=== PATIENT | male | born 1940 | race Caucasian/White ===

== ENCOUNTER → 2022-06-09 | Outpatient (CLI) | payer MEDICARE ==
--- NOTE | 2022-06-09 14:16 | US ---
EXAMINATION TYPE: US duplex aorta DATE OF EXAM: 06/09/2022 COMPARISON: NONE CLINICAL HISTORY: I73.9 PVD, Z13.6 SCREENING FOR CARDIOVASCULAR DISO. Patient not NPO TECHNIQUE: Multiple sonographic images of the abdominal aorta are obtained. FINDINGS: EXAM MEASUREMENTS: Abdominal Aorta: Proximal: 2.1 x 2.0cm Mid: 1.7 x 1.7cm Distal: 1.7 x 1.7cm Right Iliac: 0.9 x 1.0cm Left Iliac: 1.1 x 0.9cm No AAA seen IMPRESSION: No evidence for abdominal aortic aneurysm.
--- NOTE | 2022-06-12 09:05 | US ---
EXAMINATION TYPE: US arterial LE single level DATE OF EXAM: 06/09/2022 1:39 PM CLINICAL HISTORY: I73.9 PVD, Z13.6 SCREENING FOR CARDIOVASCULAR DISO. Claudication, cold feet, leg cr amps. Peripheral vascular disease. History of hyperlipidemia and hypertension. Doppler Waveforms: Right: Predominantly monophasic Left: Predominantly monophasic Pressure Gradients: Ankle-Brachial Indices: Right: 0.74 Left: 0.62 Toe Brachial Indices: Right: 0.34 Left: 0.32 IMPRESSION: Abnormal study with loss of phasicity and diminished JONA and TBI values. At least modera te peripheral arterial disease is present bilaterally. Further workup and follow-up advised.
== END | disposition home or self-care (01) ==
LOC: RADUSWWP 12:42
PROVIDERS: ATTEND Internal Medicine
DX: Z13.6 Encounter for screening for cardiovascular disorders (principal); I73.9 Peripheral vascular disease, unspecified
CPT/HCPCS: 93922; 93979

== ENCOUNTER → 2023-02-05 | Outpatient (CLI) | payer MEDICARE ==
[2023-02-05 09:38] LABS: African American GFR (CKD) >90 (>60 ml/min/1.73 sqM); Blood Urea Nitrogen 17 mg/dL (9-20); Non-African American GFR(CKD) 81 (>60 ml/min/1.73 sqM)
--- NOTE | 2023-02-05 11:01 | CT ---
EXAMINATION TYPE: CT angio abd aorta w/Runoff CT DLP: 2256.4 mGycm, Automated exposure control for dose reduction was used. DATE OF EXAM: 02/05/2023 10:30 AM COMPARISON: Aortic ultrasound 06/09/2022. CLINICAL INDICATION:Male, 82 years old with history of I73.9 PERIPHERAL VASCULAR DISEASE; WEAKNESS IN LEGS TECHNIQUE: Multiple thin slice sub-millimeter images were obtained through the abdomen, pelvis, and l ower extremities before and after administration of contrast. Patient was given Isovue 370, 100 cc i ntravenously. 3-D reconstructed images and maximum intensity projection images were obtained of the abdomen, pelvis, and lower extremities. FINDINGS: Limited examination due to poor contrast bolus timing. CTA Abdomen and pelvis: The abdominal aorta does not demonstrate aneurysmal dilatation. Atherosclero tic plaquing is identified within the abdominal aorta. No evidence for aortic intramural hematoma. Th e celiac axis is widely patent. Mild stenosis at the origin of the SMA secondary to calcified plaque. Mild stenosis of the bilateral single renal arteries which are patent secondary to calcific plaque. The LAURYN is widely patent. The iliac vessels are normal in morphology. Atherosclerotic plaquing is id entified in the common iliac arteries. CTA Lower extremities: Right: The common femoral artery is patent. Occlusion of the superficial femoral artery at its origin secondary to calcified and noncalcified plaque. There is distal reconstitution into the popliteal ar marciano. The deep femoral artery is patent. The popliteal artery is patent. Multifocal short segment dis madhu popliteal artery stenosis identified. The tibioperoneal trunk appears patent. The anterior tibial artery is diminutive and poorly visualized. The peroneal and posterior tibial arteries are patent an d appear to cross the ankle joint. Left: The common femoral artery is patent. Occlusion of the superficial femoral artery at its origin secondary to calcified and noncalcified plaque. There is distal reconstitution. The deep femoral kevin ry is patent. The popliteal artery is occluded due to calcified and noncalcified plaque. There is dis madhu reconstitution into the tibioperoneal trunk. The anterior tibial is diminutive and poorly seen. T he peroneal and posterior tibial arteries appear patent and do appear to cross the ankle joint. VISCERA: The liver, spleen, adrenal glands, kidneys, pancreas, and gallbladder are not optimally enha nced due the arterial phase utilized. LIVER: Unremarkable GALLBLADDER AND BILE DUCTS: Unremarkable. PANCREAS: Unremarkable. SPLEEN: Unremarkable. ADRENAL GLANDS: Unremarkable. KIDNEYS AND URETERS: No evidence of hydronephrosis . Nonobstructive right renal calculus. PELVIS BLADDER: Unremarkable REPRODUCTIVE: Unremarkable. ABDOMEN & PELVIS STOMACH AND BOWEL: Stomach and duodenum are unremarkable area distal colonic diverticulosis without e vidence for acute diverticulitis No evidence of bowel obstruction. PERITONEUM: No evidence of pneumoperitoneum or free fluid. VASCULATURE: No evidence of aortic aneurysm. MUSCULOSKELETAL: No acute osseous abnormalities LYMPH NODES: No gross evidence for lymphadenopathy. SOFT TISSUE/ABDOMINAL WALL: Unremarkable IMPRESSION 1. Occlusion of the bilateral superficial femoral arteries as described above. Occlusion of the left popliteal artery as described above. Multilevel short segment stenosis of the distal right popliteal artery. 2. 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 3. At least two vessels are seen crossing the ankle joint.
== END | disposition home or self-care (01) ==
LOC: RADCTMAIN 08:55
PROVIDERS: ATTEND Surgery
DX: I70.212 Atherosclerosis of native arteries of extremities with intermittent claudication, left leg (principal); I70.0 Atherosclerosis of aorta
CPT/HCPCS: 82565; 84520; 75635; Q9967

== ENCOUNTER → 2023-02-16 | Outpatient (CLI) | payer MEDICARE ==
[2023-02-16 11:15] LABS: Partial Thromboplastin Time 25.9 sec (22.0-30.0); Prothrombin Time 10.5 sec (9.0-12.0)
[2023-02-16 15:51] LABS: HCT 42.4 % (39.6-50.0); HGB 13.7 g/dL (13.0-17.0); MCH 31.3 pg (27.0-32.0); MCHC 32.3 g/dL (32.0-37.0); MCV 96.8 fL (80.0-97.0); Mean Platelet Volume 10.3 fL (9.5-12.2); NRBC Per 100 WBC 0 /100 WBCS (0.0-0.0); Platelet Count 269 X 10*3/uL (140-440); RBC 4.38 X 10*6/uL (4.40-5.60); RDW 13.3 % (11.5-14.5); WBC 6.89 X 10*3/uL (4.50-10.00)
== END | disposition home or self-care (01) ==
LOC: LABPAT 09:41
PROVIDERS: ATTEND Surgery
DX: Z01.812 Encounter for preprocedural laboratory examination (principal)
CPT/HCPCS: 36415; 85027; 85610; 85730

== ENCOUNTER 2023-02-18 06:30 | Inpatient (IN) | payer MEDICARE ==
[~2023-02-18 06:30] MED LIST: ONDANSETRON 4 MG/2 ML VIAL IVP ONE
[2023-02-18] MEDS ORDERED: LIDOCAINE 1% (10MG/ML) FOR IV START INTRADERMA ONE ×2 (07:20)
[2023-02-18] MEDS: LACTATED RINGERS 1,000 ML IV SCH (07:20)
[2023-02-18] MEDS ORDERED: DEXTROSE 5%-LACTATED RINGERS 1,000 ML IV STA (08:01)
[2023-02-18] MEDS ORDERED: LACTATED RINGERS IRRIGATION SCH ×2 (08:05)
[2023-02-18] MEDS ORDERED: HEPARIN SODIUM IRRIGATION SCH ×2 (08:05)
[2023-02-18] MEDS: fentaNYL (PF) 50 MCG/ML 2 ML AMP IV PRN ×2 (09:20→10:12)
--- NOTE | 2023-02-18 09:30 | P.ANPRN ---
Procedure Note - Anesthesia - Invasive Line Right Arterial Line Time Out Performed: Yes ([id number]) Date of Procedure: 02/18/23 Time of Procedure: 07:53 Location of Patient: PreOp Preparation: Sterile Prep, Sterile Dressing Arterial Line Location: Radial (right) Ultrasound Used: No Purpose - Visualization and Identification of Vasculature: No Needle Guage: 20g Image Stored and Saved: No Narrative: Central line placement per sterile protocol utilized.
[2023-02-18] MEDS ORDERED: PHENYLEPHRINE-0.9% NACL SYG 1,000 MCG/10 ML SYRINGE ONE (10:18)
[2023-02-18] MEDS ORDERED: HYDROmorphone (PF) 1 MG/ML ONE (10:18)
[2023-02-18] MEDS ORDERED: fentaNYL (PF) 50 MCG/ML 2 ML AMP ONE (10:18)
[2023-02-18] MEDS ORDERED: LIDOCAINE 2% INJ 20 MG/ML (2 ML VIAL) ONE (10:18)
[2023-02-18] MEDS ORDERED: PROPOFOL 10 MG/ML 20 ML VIAL IV ONE (10:18)
[2023-02-18] MEDS ORDERED: MIDAZOLAM 2 MG/2 ML VIAL ONE (10:18)
[2023-02-18] MEDS ORDERED: NEOSTIGMINE 1 MG/ML 10 ML VIAL ONE (10:18)
[2023-02-18] MEDS ORDERED: SUCCINYLCHOLINE CHLORIDE 200 MG/10 ML VIAL IV ONE (10:18)
[2023-02-18] MEDS ORDERED: HEPARIN SODIUM,PORCINE 10,000 UNIT/ML 1 ML VIAL ONE (10:18)
[2023-02-18] MEDS ORDERED: GLYCOPYRROLATE 0.2 MG/ML 2 ML VIAL ONE (10:18)
[2023-02-18] MEDS ORDERED: ROCURONIUM 10 MG/ML (5 ML VIAL) IV ONE (10:18)
[2023-02-18] MEDS ORDERED: ceFAZolin 1,000 MG VIAL IVPB ONE (10:30)
[2023-02-18] MEDS ORDERED: HEPARIN SODIUM,PORCINE 500 UNIT in LACTATED RINGERS 1,000 ML IRRIGATION ONE (10:56)
[2023-02-18] MEDS ORDERED: ceFAZolin 4 GM in SODIUM CHLORIDE 0.9% 1,000 ML IRRIGATION ONE (10:56)
[2023-02-18] MEDS ORDERED: LACTATED RINGERS 1,000 ML IV ONE ×2 (13:28→13:55)
--- NOTE | 2023-02-18 14:42 | P.HPIHPCON ---
History of Present Illness H&P Date: 02/18/23 Patient is a 82-year-old male severe peripheral arterial disease and rest pain of his left lower extremity. Previous computed tomography scan imaging showed apparent patent tibial vessels at the midcalf. He has good inflow it was offered a femoral to tibial bypass. His vein was suspect therefore a CryoVein is being utilized. Risks and benefits were discussed. He seemingly understood and wished to continue Consent for Procedure: I have explained the operation/procedure to the patient, including the risks, benefits, side effects, alternative therapies (including not receiving the proposed treatment or service), the likelihood of the patient achieving his/her goals, and potential recuperation problems for the procedure/sedation/analgesia, as well as any blood products, if indicated. I also explained to the patient the risks, benefits and side effects of the alternatives, as well as the risks related to not receiving the proposed procedure, care, treatment, or services. Past Medical History Past Medical History: Deep Vein Thrombosis (DVT), Eye Disorder, Hyperlipidemia, Hypertension, Osteoarthritis (OA), Vascular Disorder Additional Past Medical History / Comment(s): macular degeneration, DVT leg years ago 2000, leg pain, bilateral leg swelling > left. left leg is red , Dr Curran is aware from appt on 02/10/23 History of Any Multi-Drug Resistant Organisms: None Reported Past Surgical History: Orthopedic Surgery Additional Past Surgical History / Comment(s): cataracts removed, cervical fusion Past Anesthesia/Blood Transfusion Reactions: No Reported Reaction Smoking Status: Former smoker - Past Family History Brother(s) Family Medical History: Cancer, Coronary Artery Disease (CAD) Additional Family Medical History / Comment(s): 2 brothers Medications and Allergies Home Medications Medication Instructions Recorded Confirmed Type HYDROcodone/APAP 5-325MG [[place] 1 tab PO Q4H PRN 02/15/23 02/15/23 History 5-325] RX: Pravastatin Sodium 80 mg PO HS 02/15/23 02/15/23 History Rivaroxaban [Xarelto] 15 mg PO BID 02/15/23 02/15/23 History lisinopriL [Prinivil] 10 mg PO DAILY 02/15/23 02/15/23 History Allergies Allergy/AdvReac Type Severity Reaction Status Date / Time No Known Allergies Allergy Verified 02/18/23 06:59 Surgical - Exam Vital Signs Temp Pulse Resp BP Pulse Ox 97.8 F 80 16 190/82 96 02/18/23 07:11 02/18/23 07:11 02/18/23 07:11 02/18/23 07:11 02/18/23 07:11 No acute distress resting comfortably. Left lower extremity pain. Palpable femoral pulses bilaterally. Erythematous red foot. Worsen the second and third toes. Motor sensory intact. No palpable pedal pulses. Assessment and Plan Assessment: [place] 4 peripheral arterial disease SFA occlusion bilaterally. Plan: Plan to go forward with left femoral to tibial bypass with CryoVein. Possibly may need angiogram at the time to determine the patent vessel site. Risks and benefits were discussed. They seem to understand and are willing to proceed. Jerome damico was cleared by his primary care physician
--- NOTE | 2023-02-18 14:53 | P.OP ---
Date of Procedure: 02/18/23 Description of Procedure: Preoperative diagnosis: [place] 4 peripheral arterial disease Postoperative diagnosis: Same Procedure: Left femoral to posterior tibial bypass at the midcalf with CryoVein Left posterior tibial artery endarterectomy Surgeon: Coral Curran D.O. [employer] Dispatcher: Micaela Brown EBL: 100 mL IV fluids: See records Drains: None Urine output: 900 mL Specimen: None Complications: None Condition: Stable, extubated in the OR to PACU Operative indication and findings: The patient is an 82-year-old male with rest pain of his left lower extremity. He was offered a femoral to tibial bypass with CryoVein. Risks and benefits were discussed including but not limited to bleeding, infection, limb loss, heart attack, poor wound healing and . The patient seemingly understood and was willing to proceed. Procedure in detail: Patient taken to the operative suite placed in supine position and intubated. A Curran catheter was placed. The abdomen and left lower extremity prepped and draped in usual sterile fashion. A preprocedure timeout was performed and all parties are in agreement. A longitudinal incision was made in the left groin with the scalpel. It was deepened through subcutaneous tissues with electrocautery. The encountered lymphatics were ligated and divided. The femoral sheath was opened sharply. The common femoral artery was dissected free circumferentially. The dissection was extended proximally to the level of the inguinal ligament, and distally at the distal common femoral. The circumflex artery was also included in dissection. They were encircled with vessel loops. Attention was then turned towards the below-knee incision. It was made in the medial condyle and deepened through the fascia with care to avoid the saphenous vein. The saphenous vein itself appeared sclerotic in nature. Dissection was carried down distally to the popliteal artery. Muscle fibers were dissected free. At the TP trunk, the vessel was very hard in nature. There was no audible signal with Doppler. It was dissected free proximal and distally and incision was made and there was no evidence of outflow. There is significant atherosclerotic disease at this level. Further dissection was carried down to the more distal posterior tibial artery at the mid calf. It did not feel much softer at this level however it was encircled proximally and distally. An arteriotomy was performed, a dilator was used and distal backflow was noted. There was significant calcium of this level also endarterectomy was performed. There were no areas of flap. At that point the vein was then tunneled. The patient was heparinized. Flow was occluded through the common femoral artery. An 11 blade was utilized and arteriotomy is made the Naidu-Parker scissors was utilized to enlarge the arteriotomy. There was good inflow from the proximal artery. An anastomosis created using 5-0 Prolene between the femoral artery and the cadaver vein. Prior to completion of the anastomosis, flow was flushed. The anastomosis was completed. The vein was marked. It was passed through the tunneler. The vein was cut to size and spatulated. Utilizing 6-0 Prolene an anastomosis was created. Hemostasis was achieved with interrupted sutures of 6- 0 Prolene At this point all anastomoses were completed and flow was resumed through the bypass graft. A Doppler was utilized to confirm multiphasic flow distally to the anastomosis. The wound was copiously irrigated with antibiotic solution. The femoral sheath was reapproximated with interrupted sutures of 3-0 Vicryl. The subcuticular tissue was reapproximated with 3-0 Vicryl. The skin was reprepped with running sutures of 4-0 Monocryl. Thecalf inciion was reapproximated with 3-0 Vicryl. The subcutaneous tissues were reapproximated with 3-0 Vicryl and the skin with running 4-0 Monocryl in subcuticular fashion.
[2023-02-18] MEDS: HYDROmorphone 0.5 MG/0.5 ML SYRINGE IVP PRN ×4 (14:57→21:16)
[2023-02-18] MEDS ORDERED: ONDANSETRON 4 MG/2 ML VIAL IVP PRN (15:57)
[2023-02-18] MEDS: RIVAROXABAN 20 MG TAB PO SCH (17:57)
[2023-02-18] MEDS: HYDROcodone/APAP 5-325MG 1 EACH TAB PO PRN ×2 (17:59→23:19)
[2023-02-19] MEDS: MORPHINE SULFATE 4 MG/ML SYRINGE IV PRN ×4 (00:10→11:41)
[2023-02-19] MEDS: HYDROcodone/APAP 5-325MG 1 EACH TAB PO PRN ×3 (08:25→22:44)
--- NOTE | 2023-02-19 09:09 | P.PN ---
Subjective Progress Note Date: 02/19/23 Patient's postoperative day #1 from left femoral to posterior tibial artery bypass with CryoVein. He states his pain in his leg has improved. He did not have to hold his leg over the bed to sleep at night. He thinks the swelling is mildly improved as well Objective - Vital Signs Vital signs: Vital Signs Temp 98.3 F 02/19/23 08:09 Pulse 90 02/19/23 08:09 Resp 20 02/19/23 08:09 BP 154/79 02/19/23 08:09 Pulse Ox 96 02/19/23 08:09 FiO2 Intake & Output 02/18/23 02/19/23 02/19/23 18:59 06:59 18:59 Intake Total 2453.05 118 Output Total 1900 900 Balance 553.05 -900 118 Weight 82.9 kg Intake: IV 2403.05 Intake, IV Titration 50 Amount ceFAZolin 2 gm In Sodium 50 Chloride 0.9% 50 ml @ 100 mls/hr IVPB Q8H [facility] Rx#: [id number] Oral 118 Output: Urine 1800 900 Estimated Blood Loss 100 Other: Voiding Method Indwelling Catheter - Exam No acute distress. Resting comfortably. Incisions are clean and dry. No evidence of hematoma or significant swelling. Tongue is improved. He will foot has improved. Improved capillary refill. There is a multiphasic signal at the posterior tibial. Assessment and Plan Assessment: [place] 4 peripheral arterial disease SFA occlusion bilaterally. Plan: Patient doing well overall. Increase activity. Pain control seems adequate. Continue medications, add gabapentin.
--- NOTE | 2023-02-19 15:07 | P.CONS ---
History of Present Illness - Reason for Consult Consult date: 02/19/23 Medical Management Requesting physician: Coral Curran - History of Present Illness History of Presenting Illness: Patient is a very pleasant 82-year-old male with a past medical history of hypertension, hyperlipidemia, DVT, macular degeneration, and peripheral arterial disease. Patient is currently admitted under vascular surgery team status post left femoral to posterior tibial bypass completed by Dr. Curran on 02/18/23. We have been consulted for medical management throughout hospitalization. Patient seen and fully evaluated at bedside this morning. He is postoperative day 1. Currently patient reports only experiencing mild to moderate postoperative pain. In addition patient has been experiencing postoperative urinary retention requiring straight catheterization. Patient denies having any headache, lightheadedness, dizziness, chest pain, palpitations, or shortness of breath. Review of systems: Pertinent positives and negatives as discussed in HPI, a complete review of systems was performed and all other systems are negative. Physical exam: Vital signs reviewed and stable. General: Nontoxic, no distress and appears stated age. Derm: Skin warm and dry, normal coloration for ethnicity. Head: Atraumatic, normocephalic and symmetric. Eyes: EOMs intact, no lid lag, and anicteric sclera Mouth: no lip lesions, mucus membranes moist Cardiovascular: regular rate and rhythm with normal S1S2, systolic murmur, positive posterior tibial pulses bilaterally, and cap refill < 2 seconds. Lungs: Respirations even, regular, and unlabored on room air. Lungs CTA bilaterally, no rhonchi, no rales, no wheezing, and no accessory muscle usage. Abdominal: soft, nontender to palpation, no guarding, no appreciable organomegaly Ext: ROM intact. No gross muscle atrophy, Bilateral lower extremity edema, Taiwo arterial discoloration left lower extremity. Postoperative dressing clean, dry, and intact to left medial lower leg. Neuro: Speech clear, face symmetrical and CN II-XII grossly intact with no noted focal neuro deficits Psych: Alert and oriented to person, place, time, and situation. Appropriate and pleasant affect. Assessment and Plan of Care: Postoperative urinary retention -Order placed for Flomax 0.4 mg daily and patient to continue undergoing bladder management/scanning for postvoid residuals and straight cath as needed. Hypertension -Monitor vital signs and continue daily medication regimen with lisinopril 10 mg daily. Hyperlipidemia -Continue pravastatin 80 mg nightly. Peripheral arterial disease -Continue Xarelto as resumed by primary admitting vascular surgery team. -Continue neurovascular checks left lower extremity every shift and as needed. -Postoperative dressing/wound care, pain management, and DVT prophylaxis as recommended by primary admitting vascular surgery team. -Order placed for morning CBC and CMP, will follow up on these results and place additional orders as indicated. Thank you for allowing us to participate in the care of this pleasant patient. Do not hesitate to contact us with questions. Someone can be reached from the [facility] hospitalist group all hours of the day at [phone] or via [employer]. Patient was seen independently by Nurse Practitioner. This document was prepared using [employer] dictation software. Please allow for errors in director of outside sales while rare they do occur. I reviewed the documentation as provided by the SAMI above, who is the original author of this note. I agree with the documented assessment and plan, with the following changes: none Past Medical History Past Medical History: Deep Vein Thrombosis (DVT), Eye Disorder, Hyperlipidemia, Hypertension, Osteoarthritis (OA), Vascular Disorder Additional Past Medical History / Comment(s): macular degeneration, DVT leg years ago 2000, leg pain, bilateral leg swelling > left. left leg is red , Dr Curran is aware from appt on 02/10/23 History of Any Multi-Drug Resistant Organisms: None Reported Past Surgical History: Orthopedic Surgery Additional Past Surgical History / Comment(s): cataracts removed, cervical fusi on Past Anesthesia/Blood Transfusion Reactions: No Reported Reaction Smoking Status: Former smoker - Past Family History Brother(s) Family Medical History: Cancer, Coronary Artery Disease (CAD) Additional Family Medical History / Comment(s): 2 brothers Medications and Allergies Home Medications Medication Instructions Recorded Confirmed Type Pravastatin Sodium 80 mg PO HS 02/15/23 02/15/23 History lisinopriL [Prinivil] 10 mg PO DAILY 02/15/23 02/15/23 History Gabapentin [Neurontin] 300 mg PO TID #21 cap 02/22/23 Rx HYDROcodone/APAP 5-325MG [[place] 1 each PO Q6HR PRN 7 Days #28 tab 02/22/23 Rx 5-325] Rivaroxaban [Xarelto] 20 mg PO W/SUPPER #30 tab 02/22/23 Rx Tamsulosin [Flomax] 0.4 mg PO PC-SUPPER #7 cap 02/22/23 Rx Allergies Allergy/AdvReac Type Severity Reaction Status Date / Time No Known Allergies Allergy Verified 02/18/23 06:59 Physical Exam Vitals: Vital Signs Temp Pulse Pulse Resp BP BP Pulse Ox 02/19/23 11:57 98.3 F 98 20 152/60 92 L 02/19/23 08:09 98.3 F 90 20 154/79 96 02/19/23 03:20 98.0 F 85 14 143/72 98 02/18/23 23:17 97.7 F 105 H 16 173/75 92 L 02/18/23 19:35 97.7 F 92 18 148/74 97 02/18/23 18:55 16 156/77 94 L 02/18/23 18:52 85 16 188/73 02/18/23 18:30 86 16 173/70 97 02/18/23 16:28 77 16 167/76 97 02/18/23 16:02 75 16 167/74 97 02/18/23 15:47 85 16 166/67 97 02/18/23 15:30 79 16 139/61 97 02/18/23 15:15 69 16 129/73 97 02/18/23 15:02 73 16 142/64 178/57 97 02/18/23 14:45 75 14 188/76 97 Intake and Output 02/18/23 02/19/23 02/19/23 22:59 06:59 14:59 Intake Total 50 118 Output Total 1300 500 Balance -1250 -500 118 Intake: IV 0 Intake, IV Titration 50 Amount ceFAZolin 2 gm In Sodium 50 Chloride 0.9% 50 ml @ 100 mls/hr IVPB Q8H [facility] Rx#: [id number] Oral 118 Output: Urine 1300 500 Other: Voiding Method Indwelling Catheter Indwelling Catheter Results CBC & Chem 7: 02/22/23 10:02 02/22/23 10:02
[2023-02-19] MEDS: lisinopriL 10 MG TAB PO SCH (17:25)
[2023-02-19] MEDS: TAMSULOSIN 0.4 MG CAP.ER.24H PO SCH (17:25)
[2023-02-19] MEDS: GABAPENTIN 300 MG CAP PO SCH ×2 (17:26→21:09)
[2023-02-19] MEDS: RIVAROXABAN 20 MG TAB PO SCH (17:26)
[2023-02-19] MEDS: PRAVASTATIN SODIUM 80 MG TAB PO SCH (21:09)
[2023-02-20] MEDS: HYDROcodone/APAP 5-325MG 1 EACH TAB PO PRN ×4 (05:23→20:01)
[2023-02-20 07:12] LABS: HCT 31.2 % (39.0-53.0); HGB 10.5 gm/dL (13.0-17.5); MCH 31.5 pg (25.0-35.0); MCHC 33.7 g/dL (31.0-37.0); MCV 93.6 fL (80.0-100.0); Mean Platelet Volume 7.7; Platelet Count 195 k/uL (150-450); RBC 3.33 m/uL (4.30-5.90); RDW 13.1 % (11.5-15.5); WBC 9.2 k/uL (3.8-10.6)
[2023-02-20 07:40] LABS: ALT 10 U/L (4-49); AST 31 U/L (17-59); African American GFR (CKD) >90 (>60 ml/min/1.73 sqM); Albumin 3.3 g/dL (3.5-5.0); Alkaline Phosphatase 69 U/L (38-126); Anion Gap 10 mmol/L; Blood Urea Nitrogen 13 mg/dL (9-20); Calcium 8.3 mg/dL (8.4-10.2); Carbon Dioxide 25 mmol/L (22-30); Chloride 100 mmol/L (98-107); Glucose 110 mg/dL (74-99); Non-African American GFR(CKD) 84 (>60 ml/min/1.73 sqM); Potassium 3.9 mmol/L (3.5-5.1); Sodium 135 mmol/L (137-145); Total Protein 5.9 g/dL (6.3-8.2)
[2023-02-20] MEDS: lisinopriL 10 MG TAB PO SCH (08:55)
[2023-02-20] MEDS: GABAPENTIN 300 MG CAP PO SCH ×3 (08:55→22:37)
--- NOTE | 2023-02-20 14:37 | P.PN ---
Subjective Progress Note Date: 02/20/23 History of Presenting Illness: Patient is a very pleasant 82-year-old male with a past medical history of hypertension, hyperlipidemia, DVT, macular degeneration, and peripheral arterial disease. He is currently admitted under vascular surgery team status post left femoral to posterior tibial bypass completed by Dr. Curran on 02/18/23. We have been consulted for medical management throughout hospitalization. Physical exam: Patient seen and fully evaluated at bedside this morning. He is postoperative day 2. He was initially having postoperative urinary retention requiring str aight catheterization 2 events. Patient was started on Flomax 0.4 mg daily in urinary retention appears to have resolved as patient has been using urinal overnight without any reported episodes of urinary retention. Morning labs reviewed and stable with hemoglobin of 10.5. Patient reports pain remains and left lower extremity and rates 10 out of 10 at this time, patient medicated with [place] by RN this time. Patient reports he continues to have difficulties standing and unable to ambulate. Patient denies having any headache, lightheadedness, dizziness, chest pain, palpitations, shortness of breath, or any other complaints at this time. Vital signs reviewed and stable. General: Nontoxic, no distress and appears stated age. Derm: Skin warm and dry, normal coloration for ethnicity. Head: Atraumatic, normocephalic and symmetric. Eyes: EOMs intact, no lid lag, and anicteric sclera Mouth: no lip lesions, mucus membranes moist Cardiovascular: regular rate and rhythm with normal S1S2, systolic murmur, positive posterior tibial pulses bilaterally, and cap refill < 2 seconds. Lungs: Respirations even, regular, and unlabored on room air. Lungs CTA bilaterally, no rhonchi, no rales, no wheezing, and no accessory muscle usage. Abdominal: soft, nontender to palpation, no guarding, no appreciable organomegaly Ext: ROM intact. No gross muscle atrophy, Bilateral lower extremity edema, Taiwo arterial discoloration left lower extremity. Postoperative dressing clean, dry, and intact to left medial lower leg. Neuro: Speech clear, face symmetrical and CN II-XII grossly intact with no noted focal neuro deficits Psych: Alert and oriented to person, place, time, and situation. Appropriate and pleasant affect. Assessment and Plan of Care: Postoperative blood loss anemia, expected finding -Reviewed labs in chart. Preoperative hemoglobin obtained 02/16/23 resulting at 13.7. -Morning labs completed and reviewed showing a postoperative hemoglobin of 10.5. No signs of active bleeding noted. Hemoglobin is stable with no need for transfusion or any further interventions at this time. Postoperative urinary retention -Patient was initially having postoperative urinary retention requiring straight catheterization 2 events. -Patient was started on Flomax 0.4 mg daily in urinary retention appears to have resolved as patient has been using urinal overnight without any reported episodes of urinary retention -Continue Flomax 0.4 mg daily along with continued bladder management/scanning for postvoid residuals and straight cath as needed. Hypertension -Monitor vital signs and continue daily medication regimen with lisinopril 10 mg daily. Hyperlipidemia -Continue pravastatin 80 mg nightly. Peripheral arterial disease Status post femoral-tibial bypass -Continue Xarelto as resumed by primary admitting vascular surgery team. -Continue neurovascular checks left lower extremity every shift and as needed. -Postoperative dressing/wound care, pain management, and DVT prophylaxis as recommended by primary admitting vascular surgery team. -Order placed for morning CBC and CMP, will follow up on these results and place additional orders as indicated. Thank you for allowing us to participate in the care of this pleasant patient. Do not hesitate to contact us with questions. Someone can be reached from the [facility] hospitalist group all hours of the day at [phone] or via S[employer]o. Patient was seen independently by Nurse Practitioner. This document was prepared using [employer] dictation software. Please allow for errors in dosier operator while rare they do occur. I reviewed the documentation as provided by the SAMI above, who is the original author of this note. I agree with the documented assessment and plan, with the following changes: none Objective - Vital Signs Vital signs: Vital Signs Temp 98.1 F 02/20/23 04:00 Pulse 107 H 02/20/23 04:00 Resp 16 02/20/23 04:00 BP 166/67 02/20/23 04:00 Pulse Ox 90 L 02/20/23 04:00 FiO2 Intake & Output 02/19/23 02/20/23 02/20/23 18:59 06:59 18:59 Intake Total 118 Output Total 700 0 Balance -582 0 Intake: Oral 118 Output: Urine 700 0 Straight 700 Other: Voiding Method Urinal # Voids 0 - Labs CBC & Chem 7: 02/22/23 10:02 02/22/23 10:02 Labs: Abnormal Lab Results - Last 24 Hours (Table) 02/20/23 02/20/23 Range/Units 06:21 06:21 RBC 3.33 L (4.30-5.90) m/uL Hgb 10.5 L (13.0-17.5) gm/dL Hct 31.2 L (39.0-53.0) % Sodium 135 L (137-145) mmol/L Glucose 110 H (74-99) mg/dL Calcium 8.3 L (8.4-10.2) mg/dL Total Protein 5.9 L (6.3-8.2) g/dL Albumin 3.3 L (3.5-5.0) g/dL
--- NOTE | 2023-02-20 15:01 | P.PN ---
Subjective Progress Note Date: 02/20/23 Patient postoperative day #2 from left femoral to posterior tibial artery bypass with CryoVein. He states his pain in his leg has improved he thinks the swelling has improved. He has been able to ambulate a few steps. He still has pain in his foot. He thinks it is worse in his calf and partially related the incision. He has been denying morphine as the family and sitting makes different than normal. He is refusing going to rehab for further recommended therapies as he states he can do this at home Objective - Vital Signs Vital signs: Vital Signs Temp 98.1 F 02/20/23 04:00 Pulse 95 02/20/23 12:00 Resp 16 02/20/23 12:00 BP 128/64 02/20/23 12:00 Pulse Ox 93 L 02/20/23 12:00 FiO2 Intake & Output 02/19/23 02/20/23 02/20/23 18:59 06:59 18:59 Intake Total 118 720 Output Total 700 0 100 Balance -582 0 620 Intake: Oral 118 720 Output: Urine 700 0 100 Straight 700 Other: Voiding Method Urinal Urinal # Voids 0 - Exam No acute distress. Resting comfortably. Incisions are clean and dry. No evidence of hematoma or significant swelling. Erythema in his foot is significantly improved . He has mild swelling of left lower extremity, improved from previous Improved capillary refill. There is a biphasic signal at the posterior tibial. - Labs CBC & Chem 7: 02/20/23 06:21 02/20/23 06:21 Labs: Abnormal Lab Results - Last 24 Hours (Table) 02/20/23 02/20/23 Range/Units 06:21 06:21 RBC 3.33 L (4.30-5.90) m/uL Hgb 10.5 L (13.0-17.5) gm/dL Hct 31.2 L (39.0-53.0) % Sodium 135 L (137-145) mmol/L Glucose 110 H (74-99) mg/dL Calcium 8.3 L (8.4-10.2) mg/dL Total Protein 5.9 L (6.3-8.2) g/dL Albumin 3.3 L (3.5-5.0) g/dL Assessment and Plan Assessment: [place] 4 peripheral arterial disease, status post femoral to tibial bypass with CryoVein SFA occlusion bilaterally. Plan: Patient doing well overall. Increase activity. Continue pain control gabapentin. Discussion with patient regarding adequate pain control possibility of using IV pain medication if it becomes necessary. Discussed the importance o f COPD and need for rehab at length. Again essentially adamantly refused stating he can do this at home and that the pupil. The hospital was not very helpful and chemotherapy. We had discussions regarding the level of therapy in the acute setting versus subacute rehab. Again M be known that he would benefit from this, he continues to refuse.
[2023-02-20] MEDS: TAMSULOSIN 0.4 MG CAP.ER.24H PO SCH (16:50)
[2023-02-20] MEDS: RIVAROXABAN 20 MG TAB PO SCH (16:50)
[2023-02-20] MEDS: PRAVASTATIN SODIUM 80 MG TAB PO SCH (20:01)
[2023-02-21] MEDS: HYDROcodone/APAP 5-325MG 1 EACH TAB PO PRN ×4 (00:49→21:46)
[2023-02-21] MEDS: GABAPENTIN 300 MG CAP PO SCH ×3 (08:25→21:46)
[2023-02-21] MEDS: lisinopriL 10 MG TAB PO SCH (08:25)
[2023-02-21] MEDS ORDERED: diazePAM 5 MG TAB PO STA (09:15)
--- NOTE | 2023-02-21 11:59 | P.PN ---
Subjective Progress Note Date: 02/21/23 Hospital Course: Patient is a very pleasant 82-year-old male with a past medical history of hypertension, hyperlipidemia, DVT, macular degeneration, and peripheral arterial disease. He is currently admitted under vascular surgery team status post left femoral to posterior tibial bypass completed by Dr. Curran on 02/18/23. We have been consulted for medical management throughout hospitalization. Physical exam: Patient seen and fully evaluated at bedside this morning. He is postoperative day 3. He continues to have mild postoperative urinary retention, but has improved. Initially required straight catheterization 2 events but since starting on Flomax he has had no greater than 200 mL of postvoid residual documented.. Patient continues to deny having any headache, lightheadedness, dizziness, chest pain, palpitations, shortness of breath, or any other complaints at this time. Vital signs reviewed and stable. General: Nontoxic, no distress and appears stated age. Derm: Skin warm and dry, normal coloration for ethnicity. Head: Atraumatic, normocephalic and symmetric. Eyes: EOMs intact, no lid lag, and anicteric sclera Mouth: no lip lesions, mucus membranes moist Cardiovascular: regular rate and rhythm with normal S1S2, systolic murmur, positive posterior tibial pulses bilaterally, and cap refill < 2 seconds. Lungs: Respirations even, regular, and unlabored on room air. Lungs CTA bilaterally, no rhonchi, no rales, no wheezing, and no accessory muscle usage. Abdominal: soft, nontender to palpation, no guarding, no appreciable organomegaly Ext: ROM intact. No gross muscle atrophy, Bilateral lower extremity edema, Taiwo arterial discoloration left lower extremity. Postoperative dressing clean, dry, and intact to left medial lower leg. Neuro: Speech clear, face symmetrical and CN II-XII grossly intact with no noted focal neuro deficits Psych: Alert and oriented to person, place, time, and situation. Appropriate and pleasant affect. Assessment and Plan of Care: Postoperative blood loss anemia, expected finding -Reviewed labs in chart. Preoperative hemoglobin obtained 02/16/23 resulting at 13.7 and postoperative hemoglobin obtained on 02/20/23 was 10.5. -No signs of active bleeding noted. Hemoglobin is stable with no need for transfusion. We will repeat CBC with a.m. labs. Postoperative urinary retention -Patient was initially having postoperative urinary retention requiring straight catheterization 2 events. -Patient continues to have mild postoperative urinary retention, but has improved. Initially required straight catheterization 2 events but since starting on Flomax he has had no greater than 200 mL of postvoid residual documented. -Continue Flomax 0.4 mg daily along with continued bladder management/scanning for postvoid residuals and straight cath as needed. Hypertension -Monitor vital signs and continue daily medication regimen with lisinopril 10 mg daily. Hyperlipidemia -Continue pravastatin 80 mg nightly. Peripheral arterial disease Status post femoral-tibial bypass -Continue Xarelto 20 mg nightly with dinner. -Continue neurovascular checks left lower extremity every shift and as needed. -Postoperative dressing/wound care, pain management, and DVT prophylaxis as recommended by primary admitting vascular surgery team. -Order placed for morning CBC and CMP, will follow up on these results and place additional orders as indicated. Thank you for allowing us to participate in the care of this pleasant patient. Do not hesitate to contact us with questions. Someone can be reached from the [facility] hospitalist group all hours of the day at [phone] or via Protonet. Patient was seen independently by Nurse Practitioner. This document was prepared using [employer] dictation software. Please allow for errors in phone screener while rare they do occur. I reviewed the documentation as provided by the SAMI above, who is the original author of this note. I agree with the documented assessment and plan, with the following changes: none Objective - Vital Signs Vital signs: Vital Signs Temp 98.2 F 02/21/23 08:00 Pulse 91 02/21/23 08:00 Resp 16 02/21/23 08:00 BP 156/68 02/21/23 08:00 Pulse Ox 92 L 02/21/23 08:00 FiO2 Intake & Output 02/20/23 02/21/23 02/21/23 18:59 06:59 18:59 Intake Total 840 Output Total 450 200 275 Balance 390 -200 -275 Intake: Oral 840 Output: Urine 450 275 Post Void Residual 200 Other: Voiding Method Urinal Urinal Urinal - Labs CBC & Chem 7: 02/22/23 10:02 02/22/23 10:02
--- NOTE | 2023-02-21 12:29 | P.PN ---
Subjective Progress Note Date: 02/21/23 Principal diagnosis: LLE limb ischemia patient seen and evaluated. Having pain in the left foot and calf since surgery. Feels swollen. He states no one has gotten him walking in the last couple of days. He denies any fevers, chills, chest pain or shortness of breath. Objective - Vital Signs Vital signs: Vital Signs Temp 98.2 F 02/21/23 08:00 Pulse 91 02/21/23 12:00 Resp 16 02/21/23 12:00 BP 157/75 02/21/23 12:00 Pulse Ox 92 L 02/21/23 12:00 FiO2 Intake & Output 02/20/23 02/21/23 02/21/23 18:59 06:59 18:59 Intake Total 840 Output Total 450 200 275 Balance 390 -200 -275 Intake: Oral 840 Output: Urine 450 275 Post Void Residual 200 Other: Voiding Method Urinal Urinal Urinal - Exam multiphasic pt signal good capillary refill 1+ edema left foot. Incisions sites are clean, dry and intact - Constitutional General appearance: Present: average body habitus, cooperative - Labs CBC & Chem 7: 02/20/23 06:21 02/20/23 06:21 Assessment and Plan Assessment: Left lower extremity limb ischemia postop left femoral to posterior tibial artery bypass with cryo vein parasthesia left lower extremity Plan: Continue supportive care, pain control I walked patient with the nurse to the bathroom with minimal assistance for balance mostly. Instructed patient and family to elevate leg when sitting or lying in bed. Ok to ambulate with assistance. PT to continue to treat Possible discharge in next 24-48 hours.
[2023-02-21] MEDS: TAMSULOSIN 0.4 MG CAP.ER.24H PO SCH (16:48)
[2023-02-21] MEDS: RIVAROXABAN 20 MG TAB PO SCH (16:48)
[2023-02-21] MEDS: PRAVASTATIN SODIUM 80 MG TAB PO SCH (21:46)
[2023-02-22] MEDS: HYDROcodone/APAP 5-325MG 1 EACH TAB PO PRN ×2 (08:21→12:50)
[2023-02-22] MEDS: lisinopriL 10 MG TAB PO SCH (08:21)
[2023-02-22] MEDS: GABAPENTIN 300 MG CAP PO SCH (08:21)
--- NOTE | 2023-02-22 09:15 | CDI ---
Documentation Clarification Form Date: 02/22/2023 From: Haylee Espinoza Phone: [phone] Admit Date: 02/18/2023 6:30:00 AM Patient Name: Doyle Crawford Visit Number: [id number] ATTENTION: The Clinical Documentation Specialists (CDI) and [facility] Coding Staff appreciate your assistance in clarifying documentation. Please respond to the clarification below the line at the bottom and electronically sign. The CDI & [facility] Coding staff will review the response and follow-up if needed. Please note: Queries are made part of the Legal Health Record. If you have any questions, please contact the author of this message via ITS. Dr. Coral Curran Postoperative urinary retention is documented in the IM consult and PN on 02/20. Additional clarification is requested regarding the relationship, if any, that exists between the diagnosis and the procedure. Patients Admitting Diagnosis: Kenyatta 4 peripheral arterial disease Post-Operative Diagnosis: [place] 4 peripheral arterial disease Procedure performed: L femoral to posterior tibial bypass at the midcalf w/ CryoVein, L posterior tibial artery endarterectomy History/Risk Factors: 82yo male w/ a h/o HTN, HLD, DVT Clinical Indicators: Per IM consult, pt had urinary retention after the procedure which required the pt to have a straight cath placed x2. PVR: 02/19 @ 1546 714ml 02/19 @ 2330 - >300ml 02/20 @ 0526 201-300ml 02/21 @ 0425 200ml Treatment: Flomax po, monitoring, straight cath x2 What relationship, if any, exists between the diagnosis of urinary retention and the procedure: [ ] Urinary retention is a complication of surgical procedure [ ] Urinary retention is an expected outcome of the surgical procedure [ x ] Urinary retention is related to patients age & not a complication of the procedure [ ] Other please specify [ ] Unable to determine MTDD
--- NOTE | 2023-02-22 09:40 | P.DS ---
Providers Date of admission: 02/18/23 06:30 Attending physician: Coral Curran DO Consults: 02/18/23 15:57 Consult Physician Routine Consulting Provider: Dilia Ramos Consult Reason/Comments: med mgmnt Do you want consulting provider notified?: Yes Primary care physician: Yaya Croft MD Hospital Course: 82-year-old male patient with severe peripheral arterial disease and rest pain of left lower extremity. Patient underwent left femoral to posterior tibial bypass at the [facility] with CryoVein and the left posterior tibial artery endarterectomy on 02/18/2023. He is postop day #4. Patient has been up minimally with assistance ambulating to the restroom. He is complaining of pain to the left lower extremity however has been refusing any morphine since surgery and according to his nurse has been reluctant to take his [place]. Patient states he did take some [place] this morning states he is feeling somewhat better. Physical therapy has recommended subacute rehab, however patient is refusing. Plan is for home with home care. Patient denies any other acute changes. He denies any shortness of breath or chest pain, denies any abdominal pain, nausea or vomiting. Patient is afebrile, tolerating his diet. Exam General appearance: The patient is alert, oriented, appears in no acute distress. HET: Head is normocephalic and atraumatic. Pupils are equal and reactive. Neck: Supple. Trachea midline. Heart: Regular. Lungs: Equal expansion, normal respiratory effort. Abdomen: Soft, nontender, nondistended. Extremities: Left lower extremity with +1 edema, with multiphasic PT signal. Good capillary refill. Incision site with dressing clean dry and intact. Sensorimotor intact. Neurological: Alert and oriented 3. No focal deficits noted. Assessment and plan 1. Left lower extremity limb ischemia 2. Postop day #4 left femoral to posterior tibial artery bypass with CryoVein Plan Encourage ambulation PT on consult, appreciate recommendations Continue with Xarelto 20 mg daily Continue with pain management with [place] and gabapentin Incentive spirometer to bedside, educate patient on use Primary medicine team recommending continue patient of Flomax, will send home 7 days worth and patient to follow-up with his PCP in the next 3-5 days. Plan for discharge today with recommendation to subacute rehab, however patient is refusing. Plan for discharge home with home healthcare services. Follow-up with Dr. Curran 1-2 weeks. The impression and plan of care has been dictated as directed. Dr. Curran I performed a history and examination of this patient, discussed the same with the dictator. I agree with the dictator's note ,documented as a scribe. Any additional findings or plans will be noted. Procedures: Left femoral to posterior tibial bypass at the [facility] with CryoVein Left posterior tibial artery endarterectomy Patient Condition at Discharge: Stable Plan - Discharge Summary Discharge Rx Participant: No New Discharge Prescriptions: New Tamsulosin [Flomax] 0.4 mg PO PC-SUPPER #7 cap Gabapentin [Neurontin] 300 mg PO TID #21 cap HYDROcodone/APAP 5-325MG [[place] 5-325] 1 each PO Q6HR PRN 7 Days #28 tab PRN Reason: Pain Scale 6 To 7 Rivaroxaban [Xarelto] 20 mg PO W/SUPPER #30 tab Continue Pravastatin Sodium 80 mg PO HS lisinopriL [Prinivil] 10 mg PO DAILY Discontinued Rivaroxaban [Xarelto] 15 mg PO BID HYDROcodone/APAP 5-325MG [[place] 5-325] 1 tab PO Q4H PRN PRN Reason: Pain Discharge Medication List Pravastatin Sodium 80 mg PO HS 02/15/23 [History] lisinopriL [Prinivil] 10 mg PO DAILY 02/15/23 [History] Gabapentin [Neurontin] 300 mg PO TID #21 cap 02/22/23 [Rx] HYDROcodone/APAP 5-325MG [[place] 5-325] 1 each PO Q6HR PRN 7 Days #28 tab 02/22/23 [Rx] Rivaroxaban [Xarelto] 20 mg PO W/SUPPER #30 tab 02/22/23 [Rx] Tamsulosin [Flomax] 0.4 mg PO PC-SUPPER #7 cap 02/22/23 [Rx] Follow up Appointment(s)/Referral(s): Oziel Rogers MD [REFERRING] - 1 Week Yaya Croft MD [Primary Care Provider] - 3 Days Coral Curran DO [STAFF PHYSICIAN] - 1 Week [facility], [NON-STAFF] - Activity/Diet/Wound Care/Special Instructions: No driving until cleared by surgeon. Avoid heavy lifting greater than 10 lbs , pushing, pulling, straining, flights of stairs for 2 weeks ok to shower but no baths, pools, soaking in tubs for three days to avoid risk of infection. signs of infection ie: fever, rash, drainage from puncture site, swelling contact doctor or return to ER immediately. Heavy bleeding from incision site apply firm direct pressure and return to ER. Do not attempt to drive self. low sodium/low fat diet May take off dressings prior to showering. Do not need to apply any further dressing Elevate left lower extremity for swelling. Discharge Disposition: HOME WITH HOME HEALTH SERVICES
[2023-02-22 10:43] LABS: HCT 33.4 % (39.0-53.0); HGB 11.3 gm/dL (13.0-17.5); MCH 31.6 pg (25.0-35.0); MCHC 33.7 g/dL (31.0-37.0); MCV 93.8 fL (80.0-100.0); Mean Platelet Volume 7.7; Platelet Count 283 k/uL (150-450); RBC 3.56 m/uL (4.30-5.90); RDW 13.1 % (11.5-15.5); WBC 6.6 k/uL (3.8-10.6)
[2023-02-22 10:51] LABS: African American GFR (CKD) >90 (>60 ml/min/1.73 sqM); Anion Gap 9 mmol/L; Blood Urea Nitrogen 13 mg/dL (9-20); Calcium 8.5 mg/dL (8.4-10.2); Carbon Dioxide 27 mmol/L (22-30); Chloride 101 mmol/L (98-107); Glucose 155 mg/dL (74-99); Magnesium 2.1 mg/dL (1.6-2.3); Non-African American GFR(CKD) 89 (>60 ml/min/1.73 sqM); Potassium 4.1 mmol/L (3.5-5.1); Sodium 137 mmol/L (137-145)
[2023-02-22 11:55] VITALS: RESP 16; TEMP 98.2
--- NOTE | 2023-02-22 14:10 | P.PN ---
Subjective Progress Note Date: 02/22/23 Hospital Course: Patient is a very pleasant 82-year-old male with a past medical history of hypertension, hyperlipidemia, DVT, macular degeneration, and peripheral arterial disease. He is currently admitted under vascular surgery team status post left femoral to posterior tibial bypass completed by Dr. Curran on 02/18/23. We have been consulted for medical management throughout hospitalization. Physical exam: Patient seen and fully evaluated at bedside this morning. He is postoperative day 4. He has had no further postvoid residuals. Patient continues to deny having any headache, lightheadedness, dizziness, chest pain, palpitations, shortness of breath, or any other complaints at this time. Vital signs reviewed and stable. General: Nontoxic, no distress and appears stated age. Derm: Skin warm and dry, normal coloration for ethnicity. Head: Atraumatic, normocephalic and symmetric. Eyes: EOMs intact, no lid lag, and anicteric sclera Mouth: no lip lesions, mucus membranes moist Cardiovascular: regular rate and rhythm with normal S1S2, systolic murmur, positive posterior tibial pulses bilaterally, and cap refill < 2 seconds. Lungs: Respirations even, regular, and unlabored on room air. Lungs CTA bilaterally, no rhonchi, no rales, no wheezing, and no accessory muscle usage. Abdominal: soft, nontender to palpation, no guarding, no appreciable organomega ly Ext: ROM intact. No gross muscle atrophy, Bilateral lower extremity edema, [place] arterial discoloration left lower extremity. Postoperative dressing clean, dry, and intact to left medial lower leg. Neuro: Speech clear, face symmetrical and CN II-XII grossly intact with no noted focal neuro deficits Psych: Alert and oriented to person, place, time, and situation. Appropriate and pleasant affect. Assessment and Plan of Care: Postoperative blood loss anemia, expected finding and stable -Reviewed labs in chart. Preoperative hemoglobin obtained 02/16/23 resulting at 13.7 and postoperative hemoglobin obtained on 02/20/23 was 10.5 and upon review of morning labs, CBC showing stable normocytic anemia with hemoglobin of 11.3. BMP was unremarkable. -No signs of active bleeding noted. Hemoglobin is stable with no need for transfusion or any further orders at this time. Postoperative urinary retention, resolved. -Patient was initially having postoperative urinary retention requiring straight catheterization 2 events. -Patient continues to have mild postoperative urinary retention, but has improved. Initially required straight catheterization 2 events but since starting on Flomax he has had no greater than 200 mL of postvoid residual documented. -Discussed with vascular surgery PSYCHOLOGY TECH, recommend patient Continue Flomax 0.4 mg daily along with continued bladder management/scanning for postvoid residuals and straight cath as needed. Hypertension -Monitor vital signs and continue daily medication regimen with lisinopril 10 mg daily. Hyperlipidemia -Continue pravastatin 80 mg nightly. Peripheral arterial disease Status post femoral-tibial bypass -Continue Xarelto 20 mg nightly with dinner. -Postoperative dressing/wound care, pain management, and DVT prophylaxis as recommended by primary admitting vascular surgery team. Patient medically clear for discharge once cleared by vascular surgery team. Discussed with vascular surgery PSYCHOLOGY TECH and the plan for discharge later today. Patient being discharged home with homecare. Thank you for allowing us to participate in the care of this pleasant patient. Do not hesitate to contact us with questions. Someone can be reached from the [facility] hospitalist group all hours of the day at [phone] or via [employer]. Patient was seen independently by Nurse Practitioner. This document was prepared using [employer] dictation software. Please allow for errors in medical technician assistant while rare they do occur. I reviewed the documentation as provided by the SAMI above, who is the original author of this note. I agree with the documented assessment and plan, with the following changes: none Objective - Vital Signs Vital signs: Vital Signs Temp 97.6 F 02/22/23 04:00 Pulse 89 02/22/23 04:00 Resp 18 02/22/23 04:00 BP 117/67 02/22/23 04:00 Pulse Ox 91 L 02/22/23 04:00 FiO2 Intake & Output 02/21/23 02/22/23 02/22/23 18:59 06:59 18:59 Intake Total 240 Output Total 275 600 Balance -275 -360 Intake: Oral 240 Output: Urine 275 600 Other: Voiding Method Urinal Urinal - Labs CBC & Chem 7: 02/22/23 10:02 02/22/23 10:02
[2023-02-22 14:21] VITALS: BP 133/84; PULSE 99
== END 2023-02-22 15:30 | disposition home health service (06) | DRG 253 ==
LOC: 2ORMAIN 06:30 → 3SCARD 16:29
PROVIDERS: ADMIT Surgery; ATTEND Surgery
PROC: 041L0KN Bypass Left Femoral Artery to Posterior Tibial Artery with Nonautologous Tissue Substitute, Open Approach (ICD-10-PCS; principal; 2023-02-18 08:30)
PROC: 04CS0ZZ Extirpation of Matter from Left Posterior Tibial Artery, Open Approach (ICD-10-PCS; principal; 2023-02-18 08:30)
DX: I70.222 Atherosclerosis of native arteries of extremities with rest pain, left leg (principal); D62 Acute posthemorrhagic anemia; E78.5 Hyperlipidemia, unspecified; I10 Essential (primary) hypertension; M19.90 Unspecified osteoarthritis, unspecified site; H35.30 Unspecified macular degeneration; Z53.29 Procedure and treatment not carried out because of patient's decision for other reasons; R33.9 Retention of urine, unspecified; Z79.01 Long term (current) use of anticoagulants; Z86.718 Personal history of other venous thrombosis and embolism; Z87.891 Personal history of nicotine dependence; Z79.899 Other long term (current) drug therapy
CPT/HCPCS: 80048; 80053; 83735; 85027; 86850; 86900; 86901

== ENCOUNTER 2023-02-26 17:29 | Inpatient (IN) | payer MEDICARE ==
[2023-02-26] MEDS ORDERED: RX INFO: IV CONTRAST WAS GIVEN 1 EACH MISC MISCELLANE PRN (17:54)
--- NOTE | 2023-02-26 18:04 | ED ---
General Adult HPI - General Source: patient, family (Daughter and spouse) <Chelsey Matamoros - Last Filed: 02/26/23 19:10> <Vance Torres - Last Filed: 02/26/23 23:00> - General Chief complaint: Recheck/Abnormal Lab/Rx Stated complaint: post op possible blood clot Time Seen by Provider: 02/26/23 17:56 - History of Present Illness Initial comments: Patient is an 82-year-old male presenting to the emergency room at the direction of his primary care provider and vascular surgeon after being evaluated by his visiting nurse today. He underwent a femoral bypass procedure on 02/18/2023 and is complaining of increased pain, swelling and neuropathy and his left lower extremity. He reports that pain is consistent with her at rest or ambulating. He reports mild erythema but no cyanosis. He denies any chest pain, shortness of breath, abdominal pain, nausea, vomiting, fevers or chills. He has had increase in forgetfulness but unchanged since surgery. He has a past medical history significant for peripheral vascular disease, macular degeneration, DVT, hypertension, hyperlipidemia and osteoarthritis. (Chelsey Matamoros) - Related Data Home Medications Medication Instructions Recorded Confirmed Pravastatin Sodium 80 mg PO HS 02/15/23 02/26/23 lisinopriL [Prinivil] 10 mg PO DAILY 02/15/23 02/26/23 HYDROcodone/APAP 5-325MG [[place] 1 tab PO Q6HR PRN 02/26/23 02/26/23 5-325] Rivaroxaban [Xarelto] 20 mg PO DAILY 02/26/23 02/26/23 Tamsulosin [Flomax] 0.4 mg PO HS 02/26/23 02/26/23 Previous Rx's Medication Instructions Recorded Gabapentin [Neurontin] 300 mg PO TID #21 cap 02/22/23 Allergies Allergy/AdvReac Type Severity Reaction Status Date / Time No Known Allergies Allergy Verified 02/26/23 21:25 Review of Systems ROS Other: All systems not noted in ROS Statement are negative. <Chelsey Matamoros - Last Filed: 02/26/23 19:10> ROS Other: All systems not noted in ROS Statement are negative. <Vance Torres - Last Filed: 02/26/23 23:00> ROS Statement: Those systems with pertinent positive or pertinent negative responses have been documented in the HPI. Past Medical History Past Medical History: Deep Vein Thrombosis (DVT), Eye Disorder, Hyperlipidemia, Hypertension, Osteoarthritis (OA), Vascular Disorder Additional Past Medical History / Comment(s): macular degeneration, DVT leg years ago 2000, leg pain, bilateral leg swelling > left. left leg is red , Dr Barrett is aware from appt on 02/10/23 History of Any Multi-Drug Resistant Organisms: None Reported Past Surgical History: Orthopedic Surgery Additional Past Surgical History / Comment(s): cataracts removed, cervical fusion Past Anesthesia/Blood Transfusion Reactions: No Reported Reaction Smoking Status: Former smoker - Past Family History Brother(s) Family Medical History: Cancer, Coronary Artery Disease (CAD) Additional Family Medical History / Comment(s): 2 brothers <Chelsey Matamoros - Last Filed: 02/26/23 19:10> General Exam <Chelsey Matamoros - Last Filed: 02/26/23 19:10> General appearance: alert, in no apparent distress Head exam: Present: atraumatic, normocephalic, normal inspection Eye exam: Present: normal appearance, PERRL, EOMI. Absent: scleral icterus, conjunctival injection, periorbital swelling ENT exam: Present: normal exam, mucous membranes moist Neck exam: Present: normal inspection. Absent: tenderness, meningismus, lymphadenopathy Respiratory exam: Present: normal lung sounds bilaterally. Absent: respiratory distress, wheezes, rales, rhonchi, stridor Cardiovascular Exam: Present: regular rate, normal rhythm, normal heart sounds. Absent: systolic murmur, diastolic murmur, rubs, gallop, clicks GI/Abdominal exam: Present: soft, normal bowel sounds. Absent: distended, tenderness, guarding, rebound, rigid Extremities exam: Present: normal inspection, full ROM, normal capillary refill. Absent: tenderness, pedal edema, joint swelling, calf tenderness Back exam: Present: normal inspection Neurological exam: Present: alert, oriented X3, CN II-XII intact Psychiatric exam: Present: normal affect, normal mood Skin exam: Present: warm, dry, intact, normal color. Absent: rash <Vance Torres - Last Filed: 02/26/23 23:00> - General Exam Comments Initial Comments: GENERAL: No acute distress, well developed, well nourished. HEENT: Normocephalic, atraumatic. Pupils equal, round, reactive to light. Moist mucous membranes. LUNGS: No respiratory distress. Clear to auscultation, no adventitious sounds, no use of accessory muscles. HEART: Regular rate and rhythm without murmur, rub, or gallop. ABDOMEN: Normal bowel sounds. Soft, non-tender, non-distended. BACK: Normal inspection. EXTREMITIES: +3 left lower extremity edema unable to palpate pedal pulse. +1-2 right lower extremity swelling. NEUROLOGIC: Alert & oriented x 3. CN II-XII grossly intact. PSYCHIATRIC: Flat affect and behavior. DERMATOLOGIC: Spotty mild erythema to left lower extremity. Lower extremity incision to left inguinal region and left lower extremity well approximated. No cyanosis or mottling. (Chelsey Matamoros) Significant edema of left lower extremity (Vance Torres) Course <Vance Torres - Last Filed: 02/26/23 23:00> Vital Signs 02/26/23 02/26/23 02/26/23 18:23 19:27 21:00 Temperature 98.3 F Pulse Rate 93 95 99 Respiratory 18 16 16 Rate Blood Pressure 134/63 187/74 O2 Sat by Pulse 96 95 95 Oximetry - Reevaluation(s) Reevaluation #1: 02/26/23 22:53 Medical record is reviewed (Vance Torres) Reevaluation #2: 02/26/23 22:53 Patient's pain is controlled (Vance Torres) Reevaluation #3: 02/26/23 22:53 Patient informed results and questions answered (Vance Torres) Reevaluation #4: 02/26/23 22:53 Was pt. sent in by a medical professional or institution? @ -no Did you speak to anyone other than the patient for history? @ -no Did you review nursing and triage notes? @ -agree Were old charts reviewed? @ -yes Differential Diagnosis? @ -prior EKG interpreted by me (3pts min.)? @ -yes X-rays interpreted by me (1pt min.)? @ -no CT interpreted by me (1pt min.)? @ -no U/S interpreted by me (1pt. min.)? @ -no What testing was considered but not performed? (CT, X-rays, U/S, labs)? Why? @ no What meds were considered but not given? Why? @ -none Did you discuss the management of the patient with other professionals? @ -no Did you reconcile home meds? @ -no Was smoking cessation discussed for >3mins.? @ -no Was critical care preformed (if so, how long)? @ -no Were there social determinants of health that impacted care today? How? (Homelessness, low income, unemployed, alcoholism, drug addiction, transport ation, low edu. Level, literacy, decrease access to med. care, alf, rehab)? @ -no Was there de-escalation of care discussed even if they declined? (Discuss DNR or withdrawal of care, Hospice)? @ -no What co-morbidities impacted this encounter? (DM, HTN, Smoking, COPD, CAD, Cancer, CVA, Hep., AIDS, mental health diagnosis, sleep apnea, morbid obesity)? @ -none Was patient admitted / discharged? @ -admit Undiagnosed new problem with uncertain prognosis? @ -no Drug Therapy requiring intensive monitoring for toxicity (Heparin, Nitro, Insulin, Cardizem)? @ -heparin Were any procedures done? @ -no Diagnosis/symptom? @ -LeftLegGraft Occlusion Acute, or Chronic, or Acute on Chronic? @ -acute on chronic Uncomplicated (without systemic symptoms) or Complicated (systemic symptoms)? @ -uncomplicated Side effects of treatment? @ -none Exacerbation, Progression, or Severe Exacerbation] @ - Poses a threat to life or bodily function? @ -yes (Vance Torres) - Consultations Consultation #1: armaan colindres ok for admission (Vance Torres) Consultation #2: yessi barrett for vascular and ok for admission (Vance Torres) Medical Decision Making <Chelsey Matamoros - Last Filed: 02/26/23 19:10> - Lab Data Result diagrams: 02/26/23 18:54 02/26/23 18:54 - Radiology Data Radiology results: report reviewed (US negative for DVT, CTa restenosis and occlusoin), image reviewed <Vance Torres - Last Filed: 02/26/23 23:00> - Medical Decision Making Was pt. sent in by a medical professional or institution (AKIL Mirza, LURER, urgent care, hospital, or jail...) When possible be specific @ -Yes, sent in by primary care provider and vascular surgeon for evaluation of possible complications postoperatively from femoral bypass surgery. Did you speak to anyone other than the patient for history (EMS, parent, family, police, friend...)? What history was obtained from this source @ -Yes, spoke with and daughter regarding most recent intervention, recent history and physical and presenting symptoms. Did you review nursing and triage notes (agree or disagree)? Why? @ -I reviewed and agree with nursing and triage notes Were old charts reviewed (outside hosp., previous admission, EMS record, old EKG, old radiological studies, urgent care reports/EKG's, jail records)? Report findings @ -No old charts were reviewed Differential Diagnosis (chest pain, altered mental status, abdominal pain women, abdominal pain men, vaginal bleeding, weakness, fever, dyspnea, syncope, headache, dizziness, GI bleed, back pain, seizure, CVA, palpatations, mental health, musculoskeletal)? @ -Differential Musculoskeletal Muscular strain, contusion, ligament sprain, fracture, arthritis, septic arthritis, bursitis, cellulitis, muscle spasm, nerve compression, DVT, arterial occlusion, herpes zoster, electrolyte abnormality, tumor.... This is not meant to be in all inclusive list EKG interpreted by me (3pts min.). @ -None done X-rays interpreted by me (1pt min.). @ -None done CT interpreted by me (1pt min.). @ - U/S interpreted by me (1pt. min.). @ - What testing was considered but not performed or refused? (CT, X-rays, U/S, labs)? Why? @ -None What meds were considered but not given or refused? Why? @ -None Did you discuss the management of the patient with other professionals (professionals i.e. AKIL Mirza, LURER, lab, RT, psych nurse, social and political studies professor, terminal press operator, teacher, security officer, community case manager)? Give summary @ -No Was smoking cessation discussed for >3mins.? @ -No Was critical care preformed (if so, how long)? @ -No Were there social determinants of health that impacted care today? How? (Homelessness, low income, unemployed, alcoholism, drug addiction, transportation, low edu. Level, literacy, decrease access to med. care, alf, rehab)? @ -No Was there de-escalation of care discussed even if they declined (Discuss DNR or withdrawal of care, Hospice)? DNR status @ -No What co-morbidities impacted this encounter? (DM, HTN, Smoking, COPD, CAD, Cancer, CVA, ARF, Chemo, Hep., AIDS, mental health diagnosis, sleep apnea, morbid obesity)? @ -None Was patient admitted / discharged? Hospital course, mention meds given and route, prescriptions, significant lab abnormalities, going to OR and other pertinent info. @ -82-year-old male presenting to the emergency room at the direction of his primary care provider after visiting nurse visit earlier today revealing increased lower extreme a swelling and pain. Recent vascular intervention to left lower extremity on 02/18. High concern for thrombus. Will obtain laboratory studies of CBC, CMP and coags. Will obtain venous ultrasound Doppler along with CT angiogram. Patient workup, presentation and testing ordered discussed with Dr. Torres whom his care is transferred over to for further evaluation and disposition. (Chelsey Matamoros) 82-year-old male to the ER for evaluation with reocclusion of fem-pop bypass and left lower extremity graft. Severe pain patient will be admitted for pain co ntrol and heparin (Vance Torres) - Lab Data Lab Results 02/26/23 02/26/23 02/26/23 Range/Units 18:54 18:54 18:54 WBC 9.8 (3.8-10.6) k/uL RBC 3.71 L (4.30-5.90) m/uL Hgb 11.4 L (13.0-17.5) gm/dL Hct 35.7 L (39.0-53.0) % MCV 96.2 (80.0-100.0) fL MCH 30.6 (25.0-35.0) pg MCHC 31.9 (31.0-37.0) g/dL RDW 13.2 (11.5-15.5) % Plt Count 419 (150-450) k/uL MPV 7.6 Neutrophils % 77 % Lymphocytes % 11 % Monocytes % 6 % Eosinophils % 3 % Basophils % 0 % Neutrophils # 7.5 (1.3-7.7) k/uL Lymphocytes # 1.1 (1.0-4.8) k/uL Monocytes # 0.6 (0-1.0) k/uL Eosinophils # 0.3 (0-0.7) k/uL Basophils # 0.0 (0-0.2) k/uL PT 11.3 (9.0-12.0) sec INR 1.1 (<1.2) APTT 26.6 (22.0-30.0) sec Sodium 136 L (137-145) mmol/L Potassium 4.7 (3.5-5.1) mmol/L Chloride 97 L (98-107) mmol/L Carbon Dioxide 29 (22-30) mmol/L Anion Gap 10 mmol/L BUN 15 (9-20) mg/dL Creatinine 0.72 (0.66-1.25) mg/dL Est GFR (CKD-EPI)AfAm >90 (>60 ml/min/1.73 sqM) Est GFR (CKD-EPI)NonAf 88 (>60 ml/min/1.73 sqM) Glucose 122 H (74-99) mg/dL Calcium 8.9 (8.4-10.2) mg/dL Total Bilirubin 0.6 (0.2-1.3) mg/dL AST 72 H (17-59) U/L ALT 35 (4-49) U/L Alkaline Phosphatase 107 (38-126) U/L Total Protein 6.9 (6.3-8.2) g/dL Albumin 3.8 (3.5-5.0) g/dL Disposition <Chelsey Matamoros - Last Filed: 02/26/23 19:10> Is patient prescribed a controlled substance at d/c from ED?: No Time of Disposition: 23:00 <Vance Torres - Last Filed: 02/26/23 23:00> Clinical Impression: Left leg pain, Occlusion of artery of leg Disposition: ADMITTED IP TO THIS [facility] Condition: Fair Referrals: Coral Barrett DO [STAFF PHYSICIAN] - 1-2 days
[2023-02-26] MEDS ORDERED: MORPHINE SULFATE 4 MG/ML SYRINGE IVP STA (19:03)
[2023-02-26 19:11] LABS: Basophils % (A) 0 %; Eosinophils # (A) 0.3 k/uL (0-0.7); Eosinophils % (A) 3 %; HCT 35.7 % (39.0-53.0); HGB 11.4 gm/dL (13.0-17.5); Lymphocytes # (A) 1.1 k/uL (1.0-4.8); Lymphocytes % (A) 11 %; MCH 30.6 pg (25.0-35.0); MCHC 31.9 g/dL (31.0-37.0); MCV 96.2 fL (80.0-100.0); Mean Platelet Volume 7.6; Monocytes # (A) 0.6 k/uL (0-1.0); Monocytes % (A) 6 %; Neutrophils # (A) 7.5 k/uL (1.3-7.7); Neutrophils % (A) 77 %; Platelet Count 419 k/uL (150-450); RBC 3.71 m/uL (4.30-5.90); RDW 13.2 % (11.5-15.5); WBC 9.8 k/uL (3.8-10.6)
[2023-02-26 19:33] LABS: ALT 35 U/L (4-49); AST 72 U/L (17-59); African American GFR (CKD) >90 (>60 ml/min/1.73 sqM); Albumin 3.8 g/dL (3.5-5.0); Alkaline Phosphatase 107 U/L (38-126); Anion Gap 10 mmol/L; Blood Urea Nitrogen 15 mg/dL (9-20); Calcium 8.9 mg/dL (8.4-10.2); Carbon Dioxide 29 mmol/L (22-30); Chloride 97 mmol/L (98-107); Glucose 122 mg/dL (74-99); Non-African American GFR(CKD) 88 (>60 ml/min/1.73 sqM); Potassium 4.7 mmol/L (3.5-5.1); Sodium 136 mmol/L (137-145); Total Bilirubin 0.6 mg/dL (0.2-1.3); Total Protein 6.9 g/dL (6.3-8.2)
[2023-02-26 19:35] LABS: INR 1.1 (<1.2); Partial Thromboplastin Time 26.6 sec (22.0-30.0); Prothrombin Time 11.3 sec (9.0-12.0)
[2023-02-26] MEDS ORDERED: HYDROcodone/APAP 5-325MG 1 EACH TAB PO STA (19:49)
--- NOTE | 2023-02-26 19:49 | US ---
EXAMINATION TYPE: US venous doppler duplex LE LT DATE OF EXAM: 02/26/2023 7:36 PM COMPARISON: NONE CLINICAL INDICATION: Male, 82 years old with history of swelling, pain and neuropathy s/p fem bypass; Left leg pain following recent fem bypass SIDE PERFORMED: Left TECHNIQUE: The lower extremity deep venous system is examined utilizing real time linear array sonog opal with graded compression, doppler sonography and color-flow sonography. VESSELS IMAGED: Common Femoral Vein Deep Femoral Vein Greater Saphenous Vein * Femoral Vein Popliteal Vein Small Saphenous Vein * Proximal Calf Veins (* superficial vessels) Difficult and limited study due to shadowing from artery Left Leg: Appears negative for DVT Subcutaneous changes edema of the left lower extremity. IMPRESSION: 1. No evidence for deep vein to most of the left lower ostomy. 2. Left lower extremity deep subcutaneous edema.
--- NOTE | 2023-02-26 21:37 | CT ---
EXAMINATION TYPE: CT angio lower extremity LT CT DLP: 1630.4 mGycm, Automated exposure control for dose reduction was used. DATE OF EXAM: 02/26/2023 8:36 PM COMPARISON: 02/05/2023 CLINICAL INDICATION:Male, 82 years old with history of swelling, pain and neuropathy s/p fem bypass; PHH, Left leg pain, femoral bypass TECHNIQUE: Multiple thin slice sub-millimeter images were obtained through the left lower extremity after administration of contrast. 3-D reconstructed images and maximum intensity projection images w ere obtained of the left lower extremities. CT Contrast: Contrast used:100 cc mL of Isovue 370 with IV Contrast, Oral contrast used: None FINDINGS: CTA Lower extremities: . Left: Suspected postsurgical changes at the common femoral artery. There is a blind-ending pouch series 401 image 22 which appears to be part of an occluded bypass graft. Bypass graft appears occluded from or igin to insertion. The [place] left superficial femoral artery is occluded extending just past its bif urcation with profunda to just above the popliteal artery with reconstitution at level of the proxima l popliteal artery.. There is then occlusion again series 411 image 396. There is diminutive appearan ce of the vessels of the leg with subcutaneous edema throughout the leg. The arterial vessels are not well visualized due to phase of contrast and edema. The visualized abdomen demonstrates atherosclerosis of the arterial vasculature with scattered coloni c diverticula. No evidence for occlusion within the abdomen. IMPRESSION 1. Occlusion of the [place] left femoral artery with reconstitution just above the popliteal artery a nd subsequent reocclusion of the popliteal artery. 2. Left femoral bypass graft occlusion extending near its origin to its insertion in the leg. 3. Poor visualization of the arteries of the leg secondary to a forementioned occlusion and edema.
[2023-02-26] MEDS ORDERED: ONDANSETRON 4 MG/2 ML VIAL IVP PRN (22:56)
[2023-02-26] MEDS ORDERED: HEPARIN SODIUM 1,000 UN/ML (10ML VL) IV ONE (22:56)
[2023-02-26] MEDS ORDERED: NALOXONE 0.4 MG/ML 1 ML VIAL IV PRN (22:56)
[2023-02-26] MEDS: HEPARIN SOD,PORK IN 0.45% NACL 25,000 UNIT in 0.45% NACL 1 250ML.BAG IV SCH (23:34)
[2023-02-27] MEDS: HYDROmorphone 1 MG/ML 1 ML SYRINGE IVP PRN ×4 (00:11→21:19)
[2023-02-27] MEDS: SODIUM CHLORIDE 0.9% 1,000 ML IV SCH ×2 (02:51→23:55)
[2023-02-27] MEDS: HYDROcodone/APAP 5-325MG 1 EACH TAB PO PRN ×4 (03:04→21:21)
--- NOTE | 2023-02-27 04:37 | P.HPIM ---
History of Present Illness H&P Date: 02/26/23 Chief Complaint: left leg pain 82 year old male with PAD ,hypertension patient had fem-pop graft bypass 02/18/23 and did well initially and was discharged home afterwards. he claims that since discharge, he did not feel his leg was back to normal , complaining of difficulty ambulating, which has progressed over past few days, to involve increase swelling, pain , cold to the touch, and inability to walk. he claims to be compliant with his meds post discharge. no fever, no chills, no trauma to the leg, no trouble breathing no chest pain denies smoking, illicit drugs or alcohol . denies any history of blood clots Review of Systems Pertinent positives as noted in HPI. All other systems were reviewed and are negative Past Medical History Past Medical History: Deep Vein Thrombosis (DVT), Eye Disorder, Hyperlipidemia, Hypertension, Osteoarthritis (OA), Vascular Disorder Additional Past Medical History / Comment(s): macular degeneration, DVT leg years ago 2000, leg pain, bilateral leg swelling > left. left leg is red , Dr Curran is aware from appt on 02/10/23 History of Any Multi-Drug Resistant Organisms: None Reported Past Surgical History: Orthopedic Surgery Additional Past Surgical History / Comment(s): cataracts removed, cervical fusion Past Anesthesia/Blood Transfusion Reactions: No Reported Reaction Smoking Status: Former smoker - Past Family History Brother(s) Family Medical History: Cancer, Coronary Artery Disease (CAD) Additional Family Medical History / Comment(s): 2 brothers Medications and Allergies Home Medications Medication Instructions Recorded Confirmed Type Pravastatin Sodium 80 mg PO HS 02/15/23 02/26/23 History lisinopriL [Prinivil] 10 mg PO DAILY 02/15/23 02/26/23 History Gabapentin [Neurontin] 300 mg PO TID #21 cap 02/22/23 02/26/23 Rx HYDROcodone/APAP 5-325MG [[place] 1 tab PO Q6HR PRN 02/26/23 02/26/23 History 5-325] Rivaroxaban [Xarelto] 20 mg PO DAILY 02/26/23 02/26/23 History Tamsulosin [Flomax] 0.4 mg PO HS 02/26/23 02/26/23 History Allergies Allergy/AdvReac Type Severity Reaction Status Date / Time No Known Allergies Allergy Verified 02/26/23 21:25 Physical Exam Vitals: Vital Signs Temp Pulse Resp BP Pulse Ox 02/26/23 21:00 99 16 95 02/26/23 19:27 95 16 187/74 95 02/26/23 18:23 98.3 F 93 18 134/63 96 Intake and Output 02/26/23 02/26/23 02/27/23 14:59 22:59 06:59 Other: Weight 85.275 kg Constitutional: No acute distress, conversant, pleasant Eyes: Anicteric sclerae, moist conjunctiva, Pupils equal round reactive to light ENMT: NC/AT Oropharynx clear, no erythema, or exudates Neck: Supple, no masses, or JVD No carotid bruits No thyromegaly Lungs: Clear to auscultation Clear to percussion Normal respiratory effort, no accessory muscle use Cardiovascular: Heart regular in rate and rhythm, No murmurs, gallops, or rubs edema +2 of the left leg Abdominal: Soft No tenderness to deep palpation no guarding, rebound or rigidity Abdomen moving with respiration Normoactive bowel sounds No hepatomegaly, No splenomegaly No palpable mass No abdominal wall hernia noted Skin: left leg mottling cold to the touch, especially left foot, otherwise Normal temperature, tone, texture, turgor Extremities: No clubbing Pedal pulses absent over the left foot, with delayed capillary refill Radial pulses intact and symmetrical No calf tenderness Psychiatric: Alert and oriented to person, place and time Appropriate affect Neuro Muscles Strength 5/5 in bilateral upper extremity , 4/5 right lower extremity , and could not examine strength over left lower extremity due to pain Sensation to light touch decrease over the left foot Cranial nerves II-XII grossly intact Lymphatics: no palpable cervical or supraclavicular lymph nodes Results CBC & Chem 7: 02/26/23 18:54 02/26/23 18:54 Labs: Abnormal Lab Results - Last 24 Hours (Table) 02/26/23 02/26/23 Range/Units 18:54 18:54 RBC 3.71 L (4.30-5.90) m/uL Hgb 11.4 L (13.0-17.5) gm/dL Hct 35.7 L (39.0-53.0) % Sodium 136 L (137-145) mmol/L Chloride 97 L (98-107) mmol/L Glucose 122 H (74-99) mg/dL AST 72 H (17-59) U/L Assessment and Plan Assessment: 82 year old male with PAD s/p left fem-pop bypass 10 days ago. presented with increase pain , and swelling of the left leg, I discussed the case with ED doc, vascular surgery recommended admission , I accepted the admission for occlusion of the [place] femoral artery and left fem-pop bypass occlusion for vascular surgery evaluation and heparin infusion with anticipated length of stay > 2 midnights peripheral arterial disease occlusion of the left fem-pop bypass and the [place] femoral artery just above the popliteal artery hepairn gtt vascular surgery aware , recommended admission and possible intervention in the morning pain control with dilaudid PRN IVP 1 mg chronic conditions hypertension , controlled resume lisinopril hyperlipidemia resume statin full code DVT PPX on heparin drip due to arterial occlusion
[2023-02-27] MEDS: HEPARIN SODIUM 1,000 UN/ML (10ML VL) IV PRN ×2 (04:44→13:01)
--- NOTE | 2023-02-27 09:10 | P.PN ---
Subjective Progress Note Date: 02/27/23 Patient continues to report left-sided leg pain/foot pain. Patient will be seen by vascular surgery for consideration of intervention today. Gen: awake, alert HEENT: normocephalic, atraumatic, good hearing acuity, moist mucous membranes Resp: good air exchange, breathing comfortably with no accessory muscle use CVS: good distal perfusion x 4, GI: soft, NTTP, ND : no SPT, no CVAT, barrett catheter not present MSK: no pitting edema, no clubbing, nonpitting edema of the left foot, erythemic, Capillary Refill is good, warm to touch Neuro: non-focal, moving all extremities Psych: cooperative, euthymic mood Hospital course: 82 year old male with PAD s/p left fem-pop bypass 10 days ago presented with increase pain , and swelling of the left leg. In the emergency room, patient was afebrile, 134/63, heart rate 93, 96% on room air. CBC showed anemia to 11.4. Basic metabolic panel showed hyponatremia to 136, chloride of 97. Liver function tests showed AST of 72. Lactic acidosis 0.7. Coags were unremarkable. Venous Doppler was negative for DVT. Lower extremity CTA showed occlusion of the [place] left femoral artery with reconstitution just above the popliteal artery and subsequent reocclusion of the popliteal artery, left femoral bypass graft occlusion near the origin to its insertion in the leg. Case was discussed the emergency room physician, decision was made to admit the patient to the hospital for vascular intervention. Assessment: Peripheral arterial disease Left femoral bypass occlusion Hypertension Hyperlipidemia Plan: Today, patient is afebrile, 150/67, heart rate 79, 97% on room air. PTT is 33.8 Continue heparin drip, monitor PTT for toxicity Vascular surgery consultation is pending Pain control: [place] 5/325 every 4 hours when necessary, Dilaudid 1 mg IV every 3 hours when necessary Patient is full code Objective - Vital Signs Vital signs: Vital Signs Temp 98 F 02/27/23 07:30 Pulse 79 02/27/23 07:30 Resp 18 02/27/23 07:30 BP 150/67 02/27/23 07:30 Pulse Ox 97 02/27/23 07:30 FiO2 Intake & Output 02/26/23 02/27/23 02/27/23 18:59 06:59 18:59 Intake Total 170.833 Output Total 650 400 Balance -479.167 -400 Weight 85.275 kg 85.275 kg Intake: Intake, IV Titration 50.833 Amount Heparin Sod,Pork in 0.45% 50.833 NaCl 25,000 unit In 0.45 % NaCl 1 250ml.bag @ 11. 7268 UNITS/KG/HR 10 mls/ hr IV .Q24H [facility] Rx#: [id number] Oral 120 Output: Urine 650 400 - Labs CBC & Chem 7: 02/26/23 18:54 02/26/23 18:54 Labs: Abnormal Lab Results - Last 24 Hours (Table) 02/26/23 02/26/23 02/27/23 Range/Units 18:54 18:54 03:38 RBC 3.71 L (4.30-5.90) m/uL Hgb 11.4 L (13.0-17.5) gm/dL Hct 35.7 L (39.0-53.0) % APTT 33.8 H (22.0-30.0) sec Sodium 136 L (137-145) mmol/L Chloride 97 L (98-107) mmol/L Glucose 122 H (74-99) mg/dL AST 72 H (17-59) U/L
[2023-02-27] MEDS: lisinopriL 10 MG TAB PO SCH (09:50)
[2023-02-27] MEDS: GABAPENTIN 300 MG CAP PO SCH ×3 (09:50→21:21)
--- NOTE | 2023-02-27 10:09 | P.GSCN ---
History of Present Illness Consult date: 02/27/23 History of present illness: Doyle is an 82-year-old male who recently underwent a left femoral to distal posterior tibial bypass with CryoVein after endarterectomy of the posterior tibial artery. He had done fairly well in the hospital is recommended to go to rehab but decided to go home with physical therapy at home. He presents back today for increasing pain in his left lower extremity. He states his back to what it had been. He states occasionally the pain goes up his leg. He does not have constant pain in his calf or thigh. In his toes he has relatively continuous pain. The pain medication at this point does seem to be helping. Past Medical History Past Medical History: Deep Vein Thrombosis (DVT), Eye Disorder, Hyperlipidemia, Hypertension, Osteoarthritis (OA), Vascular Disorder Additional Past Medical History / Comment(s): macular degeneration, DVT leg years ago 2000, leg pain, bilateral leg swelling > left. left leg is red , Dr Curran is aware from appt on 02/10/23 History of Any Multi-Drug Resistant Organisms: None Reported Past Surgical History: Orthopedic Surgery Additional Past Surgical History / Comment(s): cataracts removed, cervical fusion Past Anesthesia/Blood Transfusion Reactions: No Reported Reaction Smoking Status: Former smoker - Past Family History Brother(s) Family Medical History: Cancer, Coronary Artery Disease (CAD) Additional Family Medical History / Comment(s): 2 brothers Medications and Allergies Home Medications Medication Instructions Recorded Confirmed Type Pravastatin Sodium 80 mg PO HS 02/15/23 02/26/23 History lisinopriL [Prinivil] 10 mg PO DAILY 02/15/23 02/26/23 History Gabapentin [Neurontin] 300 mg PO TID #21 cap 02/22/23 02/26/23 Rx HYDROcodone/APAP 5-325MG [[place] 1 tab PO Q6HR PRN 02/26/23 02/26/23 History 5-325] Rivaroxaban [Xarelto] 20 mg PO DAILY 02/26/23 02/26/23 History Tamsulosin [Flomax] 0.4 mg PO HS 02/26/23 02/26/23 History Allergies Allergy/AdvReac Type Severity Reaction Status Date / Time No Known Allergies Allergy Verified 02/26/23 21:25 Surgical - Exam Vital Signs Temp Pulse Resp BP Pulse Ox 98.3 F 93 18 134/63 96 02/26/23 18:23 02/26/23 18:23 02/26/23 18:23 02/26/23 18:23 02/26/23 18:23 Genitals a pleasant cooperative elderly male in no acute distress. Heart appears lungs are clear. Abdomen soft, nontender nondistended. Palpable radial pulses bilaterally. Palpable femoral pulses bilaterally. Left groin incision is healing. Clean and dry. No evidence of hematoma. Bilateral lower extremity edema. Nonpalpable pedal pulses. Delayed capillary refill bilaterally. Left lower extremity incision is clean and dry. Healing well. No palpable pulse in the graft. No Doppler available to check for signals at this time Results CT angiogram runoffs of the left lower extremity is reviewed. Vessels appear widely patent to the level of the common femoral artery. The profunda appears patent. The [place] superficial femoral artery is occluded as previous. The bypass itself appears occluded. There is minimal reconstitution distally with significant areas of reocclusion and significant calcific disease to the infrapopliteal vessels. - Labs 02/26/23 18:54 02/26/23 18:54 Abnormal Lab Results - Last 24 Hours (Table) 02/26/23 02/26/23 02/27/23 Range/Units 18:54 18:54 03:38 RBC 3.71 L (4.30-5.90) m/uL Hgb 11.4 L (13.0-17.5) gm/dL Hct 35.7 L (39.0-53.0) % APTT 33.8 H (22.0-30.0) sec Sodium 136 L (137-145) mmol/L Chloride 97 L (98-107) mmol/L Glucose 122 H (74-99) mg/dL AST 72 H (17-59) U/L Diabetes panel 02/26/23 Range/Units 18:54 Sodium 136 L (137-145) mmol/L Potassium 4.7 (3.5-5.1) mmol/L Chloride 97 L (98-107) mmol/L Carbon Dioxide 29 (22-30) mmol/L BUN 15 (9-20) mg/dL Creatinine 0.72 (0.66-1.25) mg/dL Glucose 122 H (74-99) mg/dL Calcium 8.9 (8.4-10.2) mg/dL AST 72 H (17-59) U/L ALT 35 (4-49) U/L Alkaline Phosphatase 107 (38-126) U/L Total Protein 6.9 (6.3-8.2) g/dL Albumin 3.8 (3.5-5.0) g/dL Calcium panel 02/26/23 Range/Units 18:54 Calcium 8.9 (8.4-10.2) mg/dL Albumin 3.8 (3.5-5.0) g/dL Pituitary panel 02/26/23 Range/Units 18:54 Sodium 136 L (137-145) mmol/L Potassium 4.7 (3.5-5.1) mmol/L Chloride 97 L (98-107) mmol/L Carbon Dioxide 29 (22-30) mmol/L BUN 15 (9-20) mg/dL Creatinine 0.72 (0.66-1.25) mg/dL Glucose 122 H (74-99) mg/dL Calcium 8.9 (8.4-10.2) mg/dL Adrenal panel 02/26/23 Range/Units 18:54 Sodium 136 L (137-145) mmol/L Potassium 4.7 (3.5-5.1) mmol/L Chloride 97 L (98-107) mmol/L Carbon Dioxide 29 (22-30) mmol/L BUN 15 (9-20) mg/dL Creatinine 0.72 (0.66-1.25) mg/dL Glucose 122 H (74-99) mg/dL Calcium 8.9 (8.4-10.2) mg/dL Total Bilirubin 0.6 (0.2-1.3) mg/dL AST 72 H (17-59) U/L ALT 35 (4-49) U/L Alkaline Phosphatase 107 (38-126) U/L Total Protein 6.9 (6.3-8.2) g/dL Albumin 3.8 (3.5-5.0) g/dL Assessment and Plan Assessment: Rest pain left lower extremity Severe peripheral arterial disease Occlusion of left femoral to posterior tibial bypass graft Plan: Long discussion had with the patient regarding the options. At this point we'll plan to go forward with an angiogram with possible salvage of the bypass versus planning for new bypass. Will hold heparin drip and diet. Plan for this tomorrow as the patient has already eaten today. After further discussion about options, the patient is adamantly against an amputation. He states even if it becomes life threatening, he would not like to undergo amputation he would rathe r be made comfortable he voices he would rather instead of having an amputation. We discussed the plan and to make sure to have the discussion all family members are on the same page should this become a conversation in the future.
[2023-02-27] MEDS ORDERED: NALOXONE 0.4 MG/ML 1 ML VIAL IV PRN (18:00)
[2023-02-27] MEDS ORDERED: HYDROmorphone PCA 10 MG/50 ML BAG IV PRN (18:00)
[2023-02-27] MEDS: HEPARIN SOD,PORK IN 0.45% NACL 25,000 UNIT in 0.45% NACL 1 250ML.BAG IV SCH (18:25)
[2023-02-27] MEDS: PRAVASTATIN SODIUM 80 MG TAB PO SCH (21:21)
[2023-02-27] MEDS: TAMSULOSIN 0.4 MG CAP.ER.24H PO SCH (21:21)
[2023-02-28] MEDS: HYDROmorphone 1 MG/ML 1 ML SYRINGE IVP PRN ×3 (02:56→09:44)
[2023-02-28] MEDS ORDERED: HYDROmorphone 0.5 MG/0.5 ML SYRINGE IVP STA (03:26)
[2023-02-28] MEDS ORDERED: fentaNYL (PF) 50 MCG/ML 2 ML AMP ONE (07:57)
[2023-02-28] MEDS ORDERED: fentaNYL (PF) 50 MCG/ML 2 ML AMP IV ONE (08:09)
[2023-02-28] MEDS ORDERED: MIDAZOLAM 2 MG/2 ML VIAL IV ONE (08:09)
[2023-02-28] MEDS ORDERED: LIDOCAINE 1% INJ 10MG/ML (20 ML MDV) SQ ONE (08:11)
[2023-02-28] MEDS ORDERED: IV FLUID CONTINUATION 500 ML IV ONE (08:22)
[2023-02-28] MEDS ORDERED: IOPAMIDOL-250 100ML BTL INTRAARTER ONE (08:23)
[2023-02-28] MEDS: lisinopriL 10 MG TAB PO SCH (09:44)
[2023-02-28] MEDS: GABAPENTIN 300 MG CAP PO SCH ×3 (09:44→20:17)
--- NOTE | 2023-02-28 11:09 | P.OP ---
Date of Procedure: 02/28/23 Description of Procedure: Preoperative diagnosis: [place] 4 peripheral arterial disease, rest pain, SFA occlusion, infrapopliteal disease occluded left lower extremity graft Postoperative diagnosis: Same Procedure: #1 ultrasound-guided right common femoral artery access 2 selective left lower extremity angiogram second order to external iliac artery #3 13 minutes of moderate sedation, personally monitored certified RN administration with hemodynamic monitoring Surgeon: Coral Curran D.O. EBL: Less than 5 mL IV fluids: See records Urine output: Not measured Drains: None Complications: None immediately apparent Condition: Stable to recovery Operative indication and findings: Patient is an 82-year-old male who back on February 18 underwent a femoral to mid calf posterior tibial artery bypass with endarterectomy of the posterior tibial site. He had been doing well in the hospital with revascularization pain and improvement of his rest pain and was discharged home. Here he presented yesterday with worsening pain and was found to have evidence of occlusion of his graft. At this point long discussions were had regarding the possibility of a repeat bypass versus amputation. Risks and benefits were discussed. He seemingly understood and was willing to proceed with this angiogram and possible intervention. Procedure in detail: Patient was taken the operative suite placed in supine position. The bilateral groins prepped and draped in usual sterile fashion. A preprocedure timeout was performed, all parties are in agreement. Using ultrasound, the right common femoral artery was identified. It was found be patent and free of significant calcific disease. Pertinent images stored. The ER several utilized and the common femoral artery was a accessed with a micro- access needle. Seldinger technique was used with 6-[place] sheath. Catheter's wires were then used to access the left external iliac artery. An angiogram was performed showing common femoral artery patency with patency of the profunda. There is abrupt occlusion of the [place] superficial femoral artery and no ob vious area of the bypass visualized. Further images were taken down the foot into the leg. There is a small portion of patent popliteal artery with subsequent occlusion beyond this. At the level of the ankle multiple images were taken and finally with a full strength heavy contrast the posterior tibial artery did fill it delayed fashion at the mid calf to the level of the ankle and into the foot. Catheters and wires were then removed. The sheath was removed and manual pressure was held until hemostasis was adequate. The patient will need a femoral to tibial bypass
[2023-02-28] MEDS: HYDROcodone/APAP 5-325MG 1 EACH TAB PO PRN ×3 (13:07→20:17)
--- NOTE | 2023-02-28 13:33 | P.PN ---
Subjective Progress Note Date: 02/28/23 Patient underwent angiogram today with vascular surgery. Gen: awake, alert HEENT: normocephalic, atraumatic, good hearing acuity, moist mucous membranes Resp: good air exchange, breathing comfortably with no accessory muscle use CVS: good distal perfusion x 4, GI: soft, NTTP, ND : no SPT, no CVAT, barrett catheter not present MSK: no pitting edema, no clubbing, nonpitting edema of the left foot, erythe [place], Capillary Refill is good, warm to touch Neuro: non-focal, moving all extremities Psych: cooperative, euthymic mood Hospital course: 82 year old male with PAD s/p left fem-pop bypass 10 days ago presented with increase pain , and swelling of the left leg. In the emergency room, patient was afebrile, 134/63, heart rate 93, 96% on room air. CBC showed anemia to 11.4. Basic metabolic panel showed hyponatremia to 136, chloride of 97. Liver function tests showed AST of 72. Lactic acidosis 0.7. Coags were unremarkable. Venous Doppler was negative for DVT. Lower extremity CTA showed occlusion of the [place] left femoral artery with reconstitution just above the popliteal artery and subsequent reocclusion of the popliteal artery, left femoral bypass graft occlusion near the origin to its insertion in the leg. Case was discussed the emergency room physician, decision was made to admit the patient to the hospital for vascular intervention. Assessment: Peripheral arterial disease Left femoral bypass occlusion Hypertension Hyperlipidemia Plan: Today, patient is afebrile, 92/61, heart rate 85, 94% on room air PTT is 44.5 Discussed case with vascular surgery, plan is for bypass surgery tomorrow Angiogram reviewed, possibility for bypass grafting of the left lower extremity CBC, basic metabolic panel, magnesium ordered for tomorrow Continue heparin drip, monitor PTT for toxicity Vascular surgery consultation appreciated Pain control: [place] 5/325 every 4 hours when necessary, Dilaudid 1 mg IV every 3 hours when necessary Patient is full code Objective - Vital Signs Vital signs: Vital Signs Temp 97.8 F 02/28/23 09:00 Pulse 85 02/28/23 11:37 Resp 17 02/28/23 11:37 BP 92/61 02/28/23 11:37 Pulse Ox 94 L 02/28/23 11:37 FiO2 Intake & Output 02/27/23 02/28/23 02/28/23 18:59 06:59 18:59 Intake Total 304.069 789.492 100 Output Total 500 300 125 Balance -195.931 489.492 -25 Intake: IV 100 Intake, IV Titration 179.069 79.492 0 Amount Heparin Sod,Pork in 0.45% 179.069 79.492 0 NaCl 25,000 unit In 0.45 % NaCl 1 250ml.bag @ 11. 7268 UNITS/KG/HR 10 mls/ hr IV .Q24H [facility] Rx#: [id number] Oral 125 710 Output: Urine 500 300 125 Other: Voiding Method Urinal Urinal Urinal Diaper - Labs CBC & Chem 7: 02/26/23 18:54 02/26/23 18:54 Labs: Abnormal Lab Results - Last 24 Hours (Table) 02/27/23 Range/Units 19:04 APTT 44.5 H (22.0-30.0) sec
[2023-02-28] MEDS: PRAVASTATIN SODIUM 80 MG TAB PO SCH (20:17)
[2023-02-28] MEDS: TAMSULOSIN 0.4 MG CAP.ER.24H PO SCH (20:17)
[2023-03-01] MEDS: SODIUM CHLORIDE 0.9% 1,000 ML IV SCH (01:18)
[2023-03-01] MEDS: HEPARIN SOD,PORK IN 0.45% NACL 25,000 UNIT in 0.45% NACL 1 250ML.BAG IV SCH ×2 (01:18→19:44)
[2023-03-01] MEDS: HYDROmorphone 1 MG/ML 1 ML SYRINGE IVP PRN ×3 (02:48→23:39)
[2023-03-01] MEDS: HYDROcodone/APAP 5-325MG 1 EACH TAB PO PRN ×4 (04:23→19:44)
--- NOTE | 2023-03-01 07:37 | IR ---
EXAMINATION TYPE: IR angio lower extremity LT DATE OF EXAM: 02/28/2023 COMPARISON: NONE HISTORY: Fluoroscopy time. Fluoroscopy was provided to the referring clinician. The DAP is 0.017 Gycm2
[2023-03-01 07:48] LABS: Basophils % (A) 0 %; Eosinophils # (A) 0.3 k/uL (0-0.7); Eosinophils % (A) 3 %; HCT 30.6 % (39.0-53.0); HGB 10.1 gm/dL (13.0-17.5); Lymphocytes # (A) 1.4 k/uL (1.0-4.8); Lymphocytes % (A) 16 %; MCH 30.9 pg (25.0-35.0); MCHC 33.1 g/dL (31.0-37.0); MCV 93.5 fL (80.0-100.0); Mean Platelet Volume 8.6; Monocytes # (A) 0.5 k/uL (0-1.0); Monocytes % (A) 6 %; Neutrophils # (A) 6.8 k/uL (1.3-7.7); Neutrophils % (A) 74 %; Platelet Count 327 k/uL (150-450); RBC 3.27 m/uL (4.30-5.90); RDW 13.5 % (11.5-15.5); WBC 9.3 k/uL (3.8-10.6)
[2023-03-01 08:20] LABS: African American GFR (CKD) >90 (>60 ml/min/1.73 sqM); Anion Gap 12 mmol/L; Blood Urea Nitrogen 16 mg/dL (9-20); Calcium 8.4 mg/dL (8.4-10.2); Carbon Dioxide 23 mmol/L (22-30); Chloride 99 mmol/L (98-107); Glucose 104 mg/dL (74-99); Magnesium 2.3 mg/dL (1.6-2.3); Non-African American GFR(CKD) 86 (>60 ml/min/1.73 sqM); Potassium 4.9 mmol/L (3.5-5.1); Sodium 134 mmol/L (137-145)
[2023-03-01] MEDS: GABAPENTIN 300 MG CAP PO SCH ×3 (08:28→19:44)
[2023-03-01] MEDS: lisinopriL 10 MG TAB PO SCH (08:28)
[2023-03-01] MEDS ORDERED: LACTATED RINGERS 1,000 ML IV ONE ×2 (13:05→13:06)
[2023-03-01 13:16] LABS: Glucose,Whole Blood 109 mg/dL (70-110)
[2023-03-01] MEDS ORDERED: MIDAZOLAM 2 MG/2 ML VIAL IVP ONE (13:29)
[2023-03-01] MEDS ORDERED: DEXAMETHASONE SOD PHOSPHATE 4 MG/ML 1 ML VIAL IVP ONE (13:30)
[2023-03-01 13:43] VITALS: BMI 25.4
[2023-03-01] MEDS ORDERED: GLYCOPYRROLATE 0.2 MG/ML 2 ML VIAL ONE (14:02)
[2023-03-01] MEDS ORDERED: PROPOFOL 10 MG/ML 20 ML VIAL IV ONE (14:02)
[2023-03-01] MEDS ORDERED: ROCURONIUM 10 MG/ML (5 ML VIAL) IV ONE (14:02)
[2023-03-01] MEDS ORDERED: SUCCINYLCHOLINE CHLORIDE 200 MG/10 ML VIAL IV ONE (14:02)
[2023-03-01] MEDS ORDERED: NEOSTIGMINE 1 MG/ML 10 ML VIAL ONE (14:02)
[2023-03-01] MEDS ORDERED: PHENYLEPHRINE-0.9% NACL SYG 1,000 MCG/10 ML SYRINGE ONE (14:02)
[2023-03-01] MEDS ORDERED: ETOMIDATE 2 MG/ML 10 ML VIAL ONE (14:02)
[2023-03-01] MEDS ORDERED: LIDOCAINE 2% INJ 20 MG/ML (2 ML VIAL) ONE (14:02)
[2023-03-01] MEDS ORDERED: ceFAZolin 1,000 MG VIAL ONE (14:02)
[2023-03-01] MEDS ORDERED: fentaNYL (PF) 50 MCG/ML 2 ML AMP ONE (14:02)
[2023-03-01] MEDS ORDERED: SODIUM CHLORIDE 0.9% 100 ML BAG ONE (14:02)
[2023-03-01] MEDS ORDERED: SODIUM CHLORIDE 0.9% 100 ML with ceFAZolin 2,000 MG IV ONE ×2 (14:05)
[2023-03-01] MEDS ORDERED: GELATIN SPONGE,ABSORB (LARGE) 1 EACH SPONGE TOPICAL ONE (14:55)
[2023-03-01] MEDS ORDERED: THROMBIN (BOVINE) 5,000 UNIT VIAL TOPICAL ONE (14:55)
[2023-03-01] MEDS ORDERED: HEPARIN SODIUM,PORCINE 10,000 UNIT in SODIUM CHLORIDE 0.9% 1,000 ML IRRIGATION ONE (14:57)
[2023-03-01] MEDS ORDERED: ceFAZolin 4,000 MG in SODIUM CHLORIDE 0.9% 1,000 ML IRRIGATION ONE (14:58)
[2023-03-01] MEDS ORDERED: DEXTROSE 5%-LACTATED RINGERS 1,000 ML IV ONE (14:59)
[2023-03-01] MEDS ORDERED: HEPARIN SODIUM,PORCINE 500 UNIT in LACTATED RINGERS 1,000 ML IRRIGATION ONE (15:00)
--- NOTE | 2023-03-01 15:46 | P.PN ---
Subjective Progress Note Date: 03/01/23 Hospital course: Patient is a very pleasant 82-year-old male with medical of hypertension, hyperlipidemia, and peripheral arterial disease status post left femoral to mid calf posterior tibial artery bypass with endarterectomy on 02/18/23. He presented to the emergency department on 02/26/23 secondary to increased left lower extremity pain. Left lower extremity Doppler completed negative for DVT. CTA left lower extremity then completed showing occlusion of the [place] left femoral artery with reconstruction just above the popliteal artery and subsequent reocclusion of the popliteal artery. Patient was started on heparin infusion and admitted under our services with consultation to vascular surgery. Patient is scheduled to undergo femoral to tibial bypass later today with Dr. Curran. Physical exam: Vital signs reviewed and stable. General: Nontoxic, no distress and appears stated age. Derm: Skin warm and dry, normal coloration for ethnicity. Recent surgical wound left medial lower leg intact with no signs of infection, appears to be healing well. Head: Atraumatic, normocephalic and symmetric. Eyes: EOMs intact, no lid lag, and anicteric sclera Mouth: no lip lesions, mucus membranes moist Cardiovascular: regular rate and rhythm with normal S1S2, no murmur Lungs: Respirations even, regular, and unlabored on room air. Lungs CTA bilaterally, no rhonchi, no rales, no wheezing, and no accessory muscle usage. Abdominal: soft, nontender to palpation, no guarding, no appreciable organomegaly Ext: Movement and sensation intact. Patient with left lower extremity [place] discoloration and mild edema. Patient does report pain to touch. Peripheral pulses via Doppler. Neuro: Speech clear, face symmetrical and CN II-XII grossly intact with no noted focal neuro deficits Psych: Alert and oriented to person, place, time, and situation. Appropriate and pleasant affect. Assessment and Plan of Care: Peripheral arterial disease with acute occlusion of left femoral artery and reocclusion of the popliteal artery Hypertension Hyperlipidemia -CTA left lower extremity completed on 02/26/23 and radiology report reviewed showing left lower extremity showing occlusion of the [place] left femoral artery with reconstruction just above the popliteal artery and subsequent reocclusion of the popliteal artery. -Morning labs reviewed. CBC unremarkable and BMP revealing mild hyponatremia with sodium of 134. -Vascular surgery following, discussed plan of care with vascular surgeon and vascular surgery INSPECTOR TYPE, they're planning to take patient for femoral to tibial bypass later today. -Continue peripheral vascular checks every 4 hours and as needed. -Continuous symptomatic care and pain management. -Heparin infusion to continue with current PTT 37.0. CODE STATUS: Full code DVT prophylaxis: heparin Discussed with: patient, vascular surgeon, and RN Anticipated discharge date: clinical course to determine Anticipated discharge place: home Patient was seen independently by Nurse Pracitioner. This document was prepared using [employer] dictation software. Please allow for errors in psychiatry teacher, while rare they do occur. Objective - Vital Signs Vital signs: Vital Signs Temp 98.6 F 02/28/23 19:00 Pulse 101 H 03/01/23 02:48 Resp 16 03/01/23 02:48 BP 115/58 03/01/23 02:48 Pulse Ox 95 03/01/23 02:48 FiO2 Intake & Output 02/28/23 03/01/23 03/01/23 18:59 06:59 18:59 Intake Total 400 170.508 Output Total 425 Balance -25 170.508 Intake: IV 100 Intake, IV Titration 0 170.508 Amount Heparin Sod,Pork in 0.45% 0 170.508 NaCl 25,000 unit In 0.45 % NaCl 1 250ml.bag @ 11. 7268 UNITS/KG/HR 10 mls/ hr IV .Q24H [facility] Rx#: [id number] Oral 300 Output: Urine 425 Other: Voiding Method Urinal Urinal Diaper # Voids 1 - Labs CBC & Chem 7: 03/01/23 06:35 03/01/23 06:35 Labs: Abnormal Lab Results - Last 24 Hours (Table) 02/28/23 03/01/23 Range/Units 18:33 06:35 RBC 3.27 L (4.30-5.90) m/uL Hgb 10.1 L (13.0-17.5) gm/dL Hct 30.6 L (39.0-53.0) % APTT 37.0 H (22.0-30.0) sec Assessment and Plan Assessment: Rylan Evangelista INSPECTOR TYPE rendered care for this patient independently, reviewed the findings and plan as documented in the note above. I did not physically speak with our examined the patient on this date.
--- NOTE | 2023-03-01 18:00 | P.OP ---
Date of Procedure: 03/01/23 Description of Procedure: Preoperative diagnosis: Severe life altering rest pain with cyanotic changes to the distal toes Occluded recent bypass Postoperative diagnosis: Same Procedure: Redo femoral to posterior tibial bypass with CryoVein at the ankle Surgeon: Coral Curran D.O. School Examiner: Fernanda Low Melissa EBL: 75 mL IV fluids: See records Drains: None Urine output: See records Specimen: None Complications: None Condition: Stable, extubated in the OR to PACU Operative indication and findings: The patient is a 82-year-old male. He recently had a femoral to below-knee posterior tibial artery bypass at the [facility]. He was doing well and convalesced when he went home he began having increasing pain in his foot, upon return imaging and workup revealed occlusion of his previous bypass. He was offered a repeat bypass versus primary amputation. He states he would not undergo amputation and would rather go hospice at that time if that was the discussion being had. Risks and benefits were discussed including but not limited to bleeding, infection, limb loss, heart attack, poor wound healing and . The patient seemingly understood and was willing to proceed. Procedure in detail: Patient taken to the operative suite placed in supine position and intubated. A Curran catheter was placed. The abdomen and left lower extremity prepped and draped in usual sterile fashion. A preprocedure timeout was performed and all parties are in agreement. A longitudinal incision was made in the left groin with the scalpel through the previous incision. It was deepened through subcutaneous tissues with electrocautery. The encountered lymphatics were ligated and divided. The ley of the graft was identified. The common femoral artery was dissected free circumferentially. The dissection was extended proximally to the level of the inguinal ligament, and distally at the distal common femoral. The circumflex artery was also included in dissection. A clamp was used distally to obtain control of the backbleeding. Attention was then turned towards the ankle incision. It was made in the posterior to the medial malleolus. It was carried down through the subcu tissues tissue and down the fascia where the posterior tibial artery was identified. Attempts were made to utilize Doppler which were unsuccessful therefore it was circumferentially encircled and opened with an 11 blade and extended with Naidu scissors. There was evidence of backbleeding although m inimal. At that point the vein was then tunneled. Through a counterincision at the level of the medial knee The patient was heparinized. Flow was occluded through the common femoral artery. An 11 blade was utilized and arteriotomy is made at the previous ley with care to not disrupt previous suture line, the the Evangelista-Parker scissors was utilized to enlarge the arteriotomy. There was good inflow from the proximal artery. An anastomosis created using6-0 Prolene between the previous vein and and the cadaver vein. Prior to completion of the anastomosis, flow was flushed. The anastomosis was completed. The flow was pulsatile at the level of the vein at the distal ankle. An anastomosis was then created using the full length of 85 cm vein using 7-0 Prolene. Prior to completion of the anastomosis, the vein is allowed to backbleed. The anastomosis was completed. Is multiphasic flow through the graft. There was significant improvement of the coloration to the toes and foot, the second and third toe still had patchy areas of cyanotic appearance. The wound was copiously irrigated with antibiotic solution. The femoral tissue was reapproximated with interrupted sutures of 3-0 Vicryl. The subcuticular tissue was reapproximated with 3-0 Vicryl. The skin was reprepped with running sutures of 4-0 Monocryl. Thecalf inciion was reapproximated with 3-0 Vicryl. The subcutaneous tissues were reapproximated with 3-0 Vicryl and the skin with running 4-0 Monocryl in subcuticular fashion. The incision at the ankle was reapproximated with interrupted 3-0 Vicryl and interrupted sutures of 3-0 nylon at the skin. Incisional wound VAC dressings was placed.
[2023-03-01] MEDS ORDERED: HYDROmorphone 0.5 MG/0.5 ML SYRINGE IVP ONE (18:50)
[2023-03-01] MEDS: PRAVASTATIN SODIUM 80 MG TAB PO SCH (19:44)
[2023-03-01] MEDS: TAMSULOSIN 0.4 MG CAP.ER.24H PO SCH (19:44)
[2023-03-02] MEDS: SODIUM CHLORIDE 0.9% 1,000 ML IV SCH (00:06)
[2023-03-02] MEDS: HYDROmorphone 1 MG/ML 1 ML SYRINGE IVP PRN ×3 (05:13→14:39)
[2023-03-02] MEDS: HYDROcodone/APAP 5-325MG 1 EACH TAB PO PRN ×3 (07:51→19:51)
[2023-03-02] MEDS: GABAPENTIN 300 MG CAP PO SCH ×3 (07:51→21:40)
[2023-03-02] MEDS: lisinopriL 10 MG TAB PO SCH (07:53)
[2023-03-02 09:23] LABS: HCT 34.6 % (39.0-53.0); HGB 10.7 gm/dL (13.0-17.5); MCH 29.9 pg (25.0-35.0); MCHC 30.8 g/dL (31.0-37.0); MCV 96.9 fL (80.0-100.0); Mean Platelet Volume 8.1; Platelet Count 366 k/uL (150-450); RBC 3.57 m/uL (4.30-5.90); RDW 13.5 % (11.5-15.5); WBC 11.4 k/uL (3.8-10.6)
[2023-03-02 09:39] LABS: African American GFR (CKD) >90 (>60 ml/min/1.73 sqM); Anion Gap 11 mmol/L; Blood Urea Nitrogen 14 mg/dL (9-20); Calcium 8.2 mg/dL (8.4-10.2); Carbon Dioxide 25 mmol/L (22-30); Chloride 100 mmol/L (98-107); Glucose 112 mg/dL (74-99); Non-African American GFR(CKD) 85 (>60 ml/min/1.73 sqM); Potassium 4.4 mmol/L (3.5-5.1); Sodium 136 mmol/L (137-145)
[2023-03-02] MEDS: HEPARIN SOD,PORK IN 0.45% NACL 25,000 UNIT in 0.45% NACL 1 250ML.BAG IV SCH (09:50)
--- NOTE | 2023-03-02 10:53 | P.PN ---
Subjective Progress Note Date: 03/02/23 Principal diagnosis: left lower extremity occlusion The patient seen and examined today in for follow-up. He is postop day #1 for redo left femoral to posterior tibial bypass with CryoVein at the ankle. states pain is improved in the left lower extremity. Still having quite a bit of swelling and redness. He remains on a IV heparin drip. Denies any shortness of breath or chest pain. He has been afebrile. He is sitting up at the bedside eating breakfast. Still has Curran catheter in but is going to be discontinued this morning. The complaints of some pain to the right lower extremity, no change from what he has been experiencing. Patient is using both IV Dilaudid as scheduled and [place] for pain, with good pain control. Objective - Vital Signs Vital signs: Vital Signs Temp 98.2 F 03/02/23 08:01 Pulse 80 03/02/23 08:01 Resp 17 03/02/23 08:01 BP 112/45 03/02/23 08:01 Pulse Ox 94 L 03/02/23 08:01 FiO2 Intake & Output 03/01/23 03/02/23 03/02/23 18:59 06:59 18:59 Intake Total 1404 114.494 Output Total 925 600 Balance 479 -485.506 Weight 85.275 kg Intake: IV 1404 Intake, IV Titration 114.494 Amount Heparin Sod,Pork in 0.45% 114.494 NaCl 25,000 unit In 0.45 % NaCl 1 250ml.bag @ 11. 7268 UNITS/KG/HR 10 mls/ hr IV .Q24H [facility] Rx#: [id number] Output: Urine 850 600 Estimated Blood Loss 75 Other: Voiding Method Urinal Indwelling Catheter - Exam General appearance: The patient is alert, oriented, appears in no acute distress. HET: Head is normocephalic and atraumatic. Pupils are equal and reactive. Neck: Supple. Heart: Regular. Lungs: Equal expansion, normal respiratory effort. Abdomen: Soft, nontender, nondistended. Extremities: left lower extremity groin with Prevena dressing vac in place with good suction, left lower extremity edema and erythema with good capillary refill. Medial aspect of left ankle with dressing clean dry and intact. Second and third toes pink, bilateral PT and DP signals. Neurological: No focal deficits. Strength and sensation are grossly intact. - Labs CBC & Chem 7: 03/02/23 08:31 03/02/23 08:31 Labs: Abnormal Lab Results - Last 24 Hours (Table) 03/01/23 03/02/23 Range/Units 06:35 01:30 APTT 35.5 H (22.0-30.0) sec Sodium 134 L (137-145) mmol/L Glucose 104 H (74-99) mg/dL Assessment and Plan Assessment: 1. Postop day #1 for redo femoral to posterior tibial bypass with CryoVein at ankle 2. Occluded Recent left lower extremity bypass 3. Severe life altering rest pain of left lower extremity with cyanotic changes to distal toes 4. Severe peripheral arterial disease Plan: 1. Continue heparin drip, will plan to transition to Xarelto tomorrow morning 2. Encourage ambulation 3. Discontinue Curran catheter 4. Consult to physical therapy 5. Elevate left lower extremity to help improve swelling 7. Keep Provine a wound VAC in place for six days 8. Medical management per internal medicine team Anticipate discharge in the next 24-48 hours The impression and plan of care has been dictated as directed. Dr. Juan I performed a history and examination of this patient, discussed the same with the dictator. I agree with the dictator's note ,documented as a scribe. Any additional findings or plans will be noted.
--- NOTE | 2023-03-02 15:28 | P.PN ---
Subjective Progress Note Date: 03/02/23 Hospital course: Patient is a very pleasant 82-year-old male with medical of hypertension, hyperlipidemia, and peripheral arterial disease status post left femoral to mid calf posterior tibial artery bypass with endarterectomy on 02/18/23. He presented to the emergency department on 02/26/23 secondary to increased left lower extremity pain. Left lower extremity Doppler completed negative for DVT. CTA left lower extremity then completed showing occlusion of the [place] left femoral artery with reconstruction just above the popliteal artery and subsequent reocclusion of the popliteal artery. Patient was started on heparin infusion and admitted under our services with consultation to vascular surgery. Patient underwent femoral to tibial bypass on 03/01/[address] Curran. Physical exam: Patient seen and fully evaluated at bedside this morning. He is postop day 1 and was sitting up on the edge of bed with his at bedside visiting. Wound VAC in place. 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 Vital signs reviewed and stable. General: Nontoxic, no distress and appears stated age. Derm: Skin warm and dry, normal coloration for ethnicity. Recent surgical wound left medial lower leg intact with no signs of infection, appears to be healing well. Surgical incision into the left medial thigh dressing is clean dry and intact. Wound VAC in place. Head: Atraumatic, normocephalic and symmetric. Eyes: EOMs intact, no lid lag, and anicteric sclera Mouth: no lip lesions, mucus membranes moist Cardiovascular: regular rate and rhythm with normal S1S2, no murmur Lungs: Respirations even, regular, and unlabored on room air. Lungs CTA bilaterally, no rhonchi, no rales, no wheezing, and no accessory muscle usage. Abdominal: soft, nontender to palpation, no guarding, no appreciable organomegaly Ext: Movement and sensation intact. Patient with left lower extremity Taiwo discoloration and mild edema. Patient does report pain to touch. Peripheral pulses via Doppler. Neuro: Speech clear, face symmetrical and CN II-XII grossly intact with no noted focal neuro deficits Psych: Alert and oriented to person, place, time, and situation. Appropriate and pleasant affect. Assessment and Plan of Care: Peripheral arterial disease with acute occlusion of left femoral artery and reocclusion of the popliteal artery Hypertension Hyperlipidemia -CTA left lower extremity completed on 02/26/23 and radiology report reviewed showing left lower extremity showing occlusion of the [place] left femoral artery with reconstruction just above the popliteal artery and subsequent reocclusion of the popliteal artery. -Patient underwent femoral to tibial bypass on 03/01/[address] Curran. -Vascular surgery following and discussed plan of care with vascular surgery OPERATING SYSTEMS PROGRAMMER recommending continuation of heparin infusion and will plan to transition to oral anticoagulant with Xarelto tomorrow morning. -Morning labs reviewed. CBC revealing mild leukocytosis with WBC count of 11.4 likely reactive secondary to surgical procedure, stable hemoglobin of 10.7. Coagulation profile revealing a therapeutic PTT of 50.9. BMP was unremarkable. -Continue peripheral vascular checks every 4 hours and as needed. -Continuous symptomatic care and pain management With [place] 5/325 mg tablets every 4 hours as needed for mild to moderate pain, and Dilaudid 1 mg IVP every 3 hours as needed for severe pain. -Order placed for aspirin 81 mg daily and to continue with pravastatin 80 mg nightly and Neurontin 300 mg 3 times daily.. -Heparin infusion to continue with current PTT Therapeutic at 50.9 CODE STATUS: Full code DVT prophylaxis: heparin Discussed with: patient, vascular surgeon OPERATING SYSTEMS PROGRAMMER, and RN Anticipated discharge date: clinical course to determine Anticipated discharge place: home Patient was seen independently by Nurse Pracitioner. This document was prepared using E[employer] dictation software. Please allow for errors in crew person, while rare they do occur. Rylan Evangelista NP rendered care for this patient independently, reviewed the findings and plan as documented in the note above. I did not physically speak with or examine the patient on this date. Objective - Vital Signs Vital signs: Vital Signs Temp 98.2 F 03/02/23 08:01 Pulse 80 03/02/23 08:01 Resp 17 03/02/23 08:01 BP 112/45 03/02/23 08:01 Pulse Ox 94 L 03/02/23 08:01 FiO2 Intake & Output 03/01/23 03/02/23 03/02/23 18:59 06:59 18:59 Intake Total 1404 114.494 Output Total 925 600 Balance 479 -485.506 Weight 85.275 kg Intake: IV 1404 Intake, IV Titration 114.494 Amount Heparin Sod,Pork in 0.45% 114.494 NaCl 25,000 unit In 0.45 % NaCl 1 250ml.bag @ 11. 7268 UNITS/KG/HR 10 mls/ hr IV .Q24H [facility] Rx#: [id number] Output: Urine 850 600 Estimated Blood Loss 75 Other: Voiding Method Urinal Indwelling Catheter - Labs CBC & Chem 7: 03/03/23 07:13 03/02/23 08:31 Labs: Abnormal Lab Results - Last 24 Hours (Table) 03/02/23 Range/Units 01:30 APTT 35.5 H (22.0-30.0) sec
[2023-03-02] MEDS: ASPIRIN 81 MG PO SCH (16:06)
[2023-03-02] MEDS: TAMSULOSIN 0.4 MG CAP.ER.24H PO SCH (19:51)
[2023-03-02] MEDS: PRAVASTATIN SODIUM 80 MG TAB PO SCH (19:51)
[2023-03-03] MEDS: HYDROcodone/APAP 5-325MG 1 EACH TAB PO PRN ×3 (00:37→16:15)
[2023-03-03] MEDS: SODIUM CHLORIDE 0.9% 1,000 ML IV SCH (03:10)
[2023-03-03 08:31] LABS: HCT 30.1 % (39.0-53.0); HGB 9.5 gm/dL (13.0-17.5); MCH 30.5 pg (25.0-35.0); MCHC 31.6 g/dL (31.0-37.0); MCV 96.6 fL (80.0-100.0); Mean Platelet Volume 9.5; Platelet Count 324 k/uL (150-450); RBC 3.12 m/uL (4.30-5.90); RDW 13.7 % (11.5-15.5); WBC 9.3 k/uL (3.8-10.6)
[2023-03-03] MEDS: lisinopriL 10 MG TAB PO SCH (08:33)
[2023-03-03] MEDS: RIVAROXABAN 20 MG TAB PO SCH (08:33)
[2023-03-03] MEDS: GABAPENTIN 300 MG CAP PO SCH ×3 (08:33→21:00)
[2023-03-03] MEDS: ASPIRIN 81 MG PO SCH (08:33)
--- NOTE | 2023-03-03 09:09 | P.PN ---
Subjective Progress Note Date: 03/03/23 Objective - Vital Signs Vital signs: Vital Signs Temp 98 F 03/03/23 04:00 Pulse 76 03/03/23 04:00 Resp 14 03/03/23 04:00 BP 107/52 03/03/23 04:00 Pulse Ox 92 L 03/03/23 04:00 FiO2 Intake & Output 03/02/23 03/03/23 03/03/23 18:59 06:59 18:59 Intake Total 361.953 Output Total 700 500 Balance -338.047 -500 Weight 85.275 kg Intake: Intake, IV Titration 125.953 Amount Heparin Sod,Pork in 0.45% 125.953 NaCl 25,000 unit In 0.45 % NaCl 1 250ml.bag @ 11. 7268 UNITS/KG/HR 10 mls/ hr IV .Q24H [facility] Rx#: [id number] Oral 236 Output: Urine 700 500 Straight 350 Other: Voiding Method Indwelling Catheter Urinal # Voids 1 - Exam General appearance: The patient is alert, oriented, appears in no acute distress. HET: Head is normocephalic and atraumatic. Pupils are equal and reactive. Neck: Supple. Heart: Regular. Lungs: Equal expansion, normal respiratory effort. Abdomen: Soft, nontender, nondistended. Extremities: left lower extremity groin with Prevena dressing vac in place with good suction, left lower extremity edema and erythema with good capillary refill. Palpable graft. Second and third toes pink, with distal tips with ischemic changes and blister. Left heel with pressure ulcer, necrotic. Bilateral PT and DP signals. Neurological: No focal deficits. Strength and sensation are grossly intact. - Labs CBC & Chem 7: 03/03/23 07:13 03/02/23 08:31 Labs: Abnormal Lab Results - Last 24 Hours (Table) 03/02/23 03/02/23 03/02/23 Range/Units 08:31 08:31 08:31 WBC 11.4 H (3.8-10.6) k/uL RBC 3.57 L (4.30-5.90) m/uL Hgb 10.7 L (13.0-17.5) gm/dL Hct 34.6 L (39.0-53.0) % MCHC 30.8 L (31.0-37.0) g/dL APTT 50.9 H (22.0-30.0) sec Sodium 136 L (137-145) mmol/L Glucose 112 H (74-99) mg/dL Calcium 8.2 L (8.4-10.2) mg/dL 03/03/23 03/03/23 Range/Units 07:13 07:13 WBC (3.8-10.6) k/uL RBC 3.12 L (4.30-5.90) m/uL Hgb 9.5 L (13.0-17.5) gm/dL Hct 30.1 L (39.0-53.0) % MCHC (31.0-37.0) g/dL APTT 32.1 H (22.0-30.0) sec Sodium (137-145) mmol/L Glucose (74-99) mg/dL Calcium (8.4-10.2) mg/dL Assessment and Plan Assessment: 1. Postop day #1 for redo femoral to posterior tibial bypass with CryoVein at a [facility] 2. Occluded Recent left lower extremity bypass 3. Severe life altering rest pain of left lower extremity with cyanotic changes to distal toes 4. Severe peripheral arterial disease Plan: 1. Heparin discontinued, as overall toe started, continue low-dose aspirin 2. Encourage ambulation 3. Consult to physical therapy 4. Elevate left lower extremity to help improve swelling 5. Offloading soft boot to left lower extremity 6. Keep Provine a wound VAC in place for 5 more days 7. Medical management per internal medicine team 8. Possible discharge this afternoon The impression and plan of care has been dictated as directed. Dr. Blue I performed a history and examination of this patient, discussed the same with the dictator. I agree with the dictator's note ,documented as a scribe. Any additional findings or plans will be noted.
--- NOTE | 2023-03-03 11:06 | P.PN ---
Subjective Progress Note Date: 03/03/23 Hospital course: Patient is a very pleasant 82-year-old male with medical of hypertension, hyperlipidemia, and peripheral arterial disease status post left femoral to mid calf posterior tibial artery bypass with endarterectomy on 02/18/23. He presented to the emergency department on 02/26/23 secondary to increased left lower extremity pain. Left lower extremity Doppler completed negative for DVT. CTA left lower extremity then completed showing occlusion of the [place] left femoral artery with reconstruction just above the popliteal artery and subsequent reocclusion of the popliteal artery. Patient was started on heparin infusion and admitted under our services with consultation to vascular surgery. Patient underwent femoral to tibial bypass on 03/01/[address] Curran. Physical exam: Patient seen and fully evaluated at bedside this morning. He is postop day 2 and was resting comfortably in bed with his at bedside visiting. Wound VAC in place. 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 Vital signs reviewed and stable. General: Nontoxic, no distress and appears stated age. Derm: Skin warm and dry, normal coloration for ethnicity. Recent surgical wound left medial lower leg intact with no signs of infection, appears to be healing well. Surgical incision into the left medial thigh dressing is clean dry and intact. Wound VAC in place. Dressing in place to left heel over ulcer. Patient also with small wound to third toe left foot. Head: Atraumatic, normocephalic and symmetric. Eyes: EOMs intact, no lid lag, and anicteric sclera Mouth: no lip lesions, mucus membranes moist Cardiovascular: regular rate and rhythm with normal S1S2, no murmur Lungs: Respirations even, regular, and unlabored on room air. Lungs CTA bilaterally, no rhonchi, no rales, no wheezing, and no accessory muscle usage. Abdominal: soft, nontender to palpation, no guarding, no appreciable organomegaly Ext: Movement and sensation intact. Patient with left lower extremity Taiwo discoloration and mild edema. Patient does report pain to touch. Peripheral pulses present. Neuro: Speech clear, face symmetrical and CN II-XII grossly intact with no noted focal neuro deficits Psych: Alert and oriented to person, place, time, and situation. Appropriate and pleasant affect. Assessment and Plan of Care: Peripheral arterial disease with acute occlusion of left femoral artery and reocclusion of the popliteal artery Hypertension Hyperlipidemia -CTA left lower extremity completed on 02/26/23 and radiology report reviewed showing left lower extremity showing occlusion of the [place] left femoral artery with reconstruction just above the popliteal artery and subsequent reocclusion of the popliteal artery. -Patient underwent femoral to tibial bypass on 03/01/[address] Curran. -Vascular surgery following and discussed plan of care with vascular surgery CHECKOUT SUPERVISOR, heparin infusion discontinued and patient started on oral anticoagulation with Xarelto. -Morning labs reviewed. CBC revealing resolution of leukocytosis with WBC count decreasing back to 9.3 and stable hemoglobin of 9.5. Coagulation profile revealing a slightly subtherapeutic therapeutic PTT of 32.1. -Continue peripheral vascular checks every 4 hours and as needed. -Continuous symptomatic care and pain management With [place] 5/325 mg tablets every 4 hours as needed for mild to moderate pain, and Dilaudid 1 mg IVP every 3 hours as needed for severe pain. -Continue aspirin 81 mg daily, pravastatin 80 mg nightly and Neurontin 300 mg 3 times daily.. CODE STATUS: Full code DVT prophylaxis: heparin Discussed with: patient, vascular surgeon CHECKOUT SUPERVISOR, and RN Anticipated discharge date: likely within the next [address]: home with homecare. Patient was seen independently by Nurse Pracitioner. This document was prepared using [employer] dictation software. Please allow for errors in medical assistant cardiology, while rare they do occur. Rylan Evangelista NP rendered care for this patient independently, reviewed the findings and plan as documented in the note above. I did not physically speak with or examine the patient on this date. Objective - Vital Signs Vital signs: Vital Signs Temp 98 F 03/03/23 04:00 Pulse 76 03/03/23 04:00 Resp 14 03/03/23 04:00 BP 107/52 03/03/23 04:00 Pulse Ox 92 L 03/03/23 04:00 FiO2 Intake & Output 03/02/23 03/03/23 03/03/23 18:59 06:59 18:59 Intake Total 361.953 Output Total 700 500 Balance -338.047 -500 Weight 85.275 kg Intake: Intake, IV Titration 125.953 Amount Heparin Sod,Pork in 0.45% 125.953 NaCl 25,000 unit In 0.45 % NaCl 1 250ml.bag @ 11. 7268 UNITS/KG/HR 10 mls/ hr IV .Q24H [facility] Rx#: [id number] Oral 236 Output: Urine 700 500 Straight 350 Other: Voiding Method Indwelling Catheter Urinal # Voids 1 - Labs CBC & Chem 7: 03/03/23 07:13 03/02/23 08:31 Labs: Abnormal Lab Results - Last 24 Hours (Table) 03/02/23 03/02/23 03/02/23 Range/Units 08:31 08:31 08:31 WBC 11.4 H (3.8-10.6) k/uL RBC 3.57 L (4.30-5.90) m/uL Hgb 10.7 L (13.0-17.5) gm/dL Hct 34.6 L (39.0-53.0) % MCHC 30.8 L (31.0-37.0) g/dL APTT 50.9 H (22.0-30.0) sec Sodium 136 L (137-145) mmol/L Glucose 112 H (74-99) mg/dL Calcium 8.2 L (8.4-10.2) mg/dL
[2023-03-03] MEDS: HYDROmorphone 1 MG/ML 1 ML SYRINGE IVP PRN (11:18)
--- NOTE | 2023-03-03 18:30 | CDI ---
Documentation Clarification Form Date: 03/03/2023 6:06:21 PM From: Lindsey Meredith RN,CCDS Admit Date: 02/26/2023 10:56:00 PM Patient Name: Doyle Crawford Visit Number: [id number] Discharge Date: ATTENTION: The Clinical Documentation Specialists (CDI) and [facility] Coding Staff appreciate your assistance in clarifying documentation. Please respond to the clarification below the line at the bottom and electronically sign. The CDI & [facility] Coding staff will review the response and follow-up if needed. Please note: Queries are made part of the Legal Health Record. If you have any questions, please contact the author of this message via ITS. Dr. Sierra Marti left heel pressure ulcer stage II is documented by Nursing Wound Care assessment on 02/27/2023 as present on admission. Based on this information and the findings below, is there an additional diagnosis that is clinically appropriate for this patient? History/Risk Factors: Peripheral arterial disease, Hypertension, Hyperlipidemia Clinical Indicators: 82-year-old present with peripheral arterial disease with acute occlusion of left femoral artery and reocclusion of the popliteal artery. There is documentation of left heel pressure ulcer. Left lower extremity has and erythema and edema. Location: Left heel Wound description: Blackened Treatment: Elevate left lower extremity to help improve swelling. Offloading soft boot to left lower extremity. Is there an additional diagnosis that is clinically appropriate for this patient? [ ] Left Heel Pressure Ulcer Stage 2, Present on admission. [ ] Other condition, please specify [ ] Unable to determine Clinical Definitions: Stage 1 Pressure Ulcer: intact skin, non-blanching redness of local area Stage 2 Pressure Ulcer: Partial thickness, loss of dermis, pink wound bed Stage 3 Pressure Ulcer: Full thickness tissue loss Stage 4 Pressure Ulcer: Full thickness tissue loss with exposed bone, tendon, or muscle. Unstageable pressure ulcer: Full thickness tissue loss in which the base of the ulcer is covered by slough (yellow, cordova, cormier, green or brown) and/or eschar (cordova, brown or black) in the wound bed. (Template Last Revised: December 2020) Stage II necrotic ulcer left heel, present on arrival Dictated By: Rylan Evangelista Signed By: <Electronically signed by Rylan MASON> 03/04/23 1908 DD/ 7 TD/TT:03/04/23957 JUSTYN
[2023-03-03] MEDS: PRAVASTATIN SODIUM 80 MG TAB PO SCH (19:58)
[2023-03-03] MEDS: TAMSULOSIN 0.4 MG CAP.ER.24H PO SCH (19:58)
[2023-03-04] MEDS: HYDROcodone/APAP 5-325MG 1 EACH TAB PO PRN ×2 (00:51→05:43)
[2023-03-04 03:13] VITALS: RESP 16
[2023-03-04] MEDS: SODIUM CHLORIDE 0.9% 1,000 ML IV SCH (05:35)
[2023-03-04] MEDS: RIVAROXABAN 20 MG TAB PO SCH (08:42)
[2023-03-04] MEDS: lisinopriL 10 MG TAB PO SCH (08:42)
[2023-03-04] MEDS: ASPIRIN 81 MG PO SCH (08:42)
[2023-03-04] MEDS: GABAPENTIN 300 MG CAP PO SCH (08:42)
[2023-03-04 10:17] VITALS: BP 109/64; PULSE 88; TEMP 98.5
--- NOTE | 2023-03-04 10:32 | P.DS ---
Providers Date of admission: 02/26/23 22:56 Expected date of discharge: 03/04/23 Attending physician: Althea Romero MD Consults: 02/26/23 22:56 Consult Physician Routine Consulting Provider: Coral Curran Consult Reason/Comments: known Do you want consulting provider notified?: Yes Primary care physician: Yaya Croft MD Hospital Course: Discharge Diagnosis: Peripheral arterial disease with acute occlusion of left femoral artery and reocclusion of the popliteal artery. Patient underwent femoral to tibial bypass on 03/01/[address] Curran. Patient monitored closely and doing well. Medically, patient is stable for discharge and has been cleared from vascular surgery team at this time. Patient discharged home on Xarelto, aspirin, pravastatin, Neurontin, and lisinopril. Patient to follow up outpatient with PCP and vascular surgery. Patient discharged home with [facility]. Hypertension Hyperlipidemia Stage II necrotic ulcer left heel, present on arrival Hospital Course: Patient is a very pleasant 82-year-old male with medical of hypertension, hyperlipidemia, and peripheral arterial disease status post left femoral to mid calf posterior tibial artery bypass with endarterectomy on 02/18/23. He presented to the emergency department on 02/26/23 secondary to increased left lower extremity pain. Left lower extremity Doppler completed negative for DVT. CTA left lower extremity then completed showing occlusion of the [place] left femoral artery with reconstruction just above the popliteal artery and subsequent reocclusion of the popliteal artery. Patient was started on heparin infusion and admitted under our services with consultation to vascular surgery. Patient underwent femoral to tibial bypass on 03/01/[address] Curran. Patient monitored closely and doing well. Medically, patient is stable for discharge and has been cleared from vascular surgery team at this time. Patient discharged home on Xarelto, aspirin, pravastatin, Neurontin, and lisinopril. Patient to follow up outpatient with PCP and vascular surgery. Patient discharged home with [facility]. Physical exam: Patient seen and fully evaluated at bedside this morning. He is postop day 2 and was resting comfortably in bed with his at bedside visiting. Wound VAC in place. 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 Vital signs reviewed and stable. General: Nontoxic, no distress and appears stated age. Derm: Skin warm and dry, normal coloration for ethnicity. Recent surgical wound left medial lower leg intact with no signs of infection, appears to be healing well. Surgical incision into the left medial thigh dressing is clean dry and intact. Wound VAC in place. Dressing in place to left heel stage II necrotic ulcer. Patient also with small wound to third toe left foot. Head: Atraumatic, normocephalic and symmetric. Eyes: EOMs intact, no lid lag, and anicteric sclera Mouth: no lip lesions, mucus membranes moist Cardiovascular: regular rate and rhythm with normal S1S2, no murmur Lungs: Respirations even, regular, and unlabored on room air. Lungs CTA bilaterally, no rhonchi, no rales, no wheezing, and no accessory muscle usage. Abdominal: soft, nontender to palpation, no guarding, no appreciable organomegaly Ext: Movement and sensation intact. Patient with left lower extremity [place] discoloration and mild edema. Patient does report pain to touch. Peripheral pulses present. Neuro: Speech clear, face symmetrical and CN II-XII grossly intact with no noted focal neuro deficits Psych: Alert and oriented to person, place, time, and situation. Appropriate and pleasant affect. A total of 31 minutes of time were spent preparing this complex discharge summary. Pt was discharged on 03/04/23 at 9:57 AM Patient was seen independently by Nurse Practitioner. This document was prepared using [employer] dictation software. Please allow for errors in cloud security architect while rare they do occur. Patient Condition at Discharge: Stable Plan - Discharge Summary New Discharge Prescriptions: New Aspirin 81 mg PO DAILY tab Continue Pravastatin Sodium 80 mg PO HS Rivaroxaban [Xarelto] 20 mg PO DAILY Tamsulosin [Flomax] 0.4 mg PO HS Gabapentin [Neurontin] 300 mg PO TID #21 cap lisinopriL [Prinivil] 10 mg PO DAILY Changed HYDROcodone/APAP 5-325MG [[place] 5-325] 1 tab PO Q6HR PRN #12 tab PRN Reason: Pain Scale 6 To 7 Discharge Medication List Pravastatin Sodium 80 mg PO HS 02/15/23 [History] lisinopriL [Prinivil] 10 mg PO DAILY 02/15/23 [History] Rivaroxaban [Xarelto] 20 mg PO DAILY 02/26/23 [History] Tamsulosin [Flomax] 0.4 mg PO HS 02/26/23 [History] Aspirin 81 mg PO DAILY tab 03/03/23 [Rx] Gabapentin [Neurontin] 300 mg PO TID #21 cap 03/03/23 [Rx] HYDROcodone/APAP 5-325MG [[place] 5-325] 1 tab PO Q6HR PRN #12 tab 03/03/23 [Rx] Follow up Appointment(s)/Referral(s): [facility] [NON-STAFF] - Coral Curran DO [STAFF PHYSICIAN] - 2 Weeks (Pt to schedule appointment, as the office not available to schedule. ) [facility], [NON-STAFF] - Patient Instructions/Handouts: Peripheral Artery Disease (DC), Femoropopliteal Bypass (DC) Activity/Diet/Wound Care/Special Instructions: No driving until cleared by surgeon Avoid heavy lifting greater than 10 lbs , pushing, pulling, straining, flights of stairs for 14 days. ok to shower once wound vac/dressing comes off, but no baths, pools, soaking in tubs until cleared by surgeon to avoid risk of infection. signs of infection ie: fever, rash, drainage from puncture incision site, swelling contact doctor or return to ER immediately. Heavy bleeding from incsision site apply firm direct pressure and return to ER. Do not attempt to drive self. low sodium/low fat diet Keep Prevena dressing in place to left groin, may remove and discard on 03/08/23 Discharge/Stand Alone Forms: Who Do I Call?, Community Resources Discharge Disposition: TRANSFER TO SNF/ECF
--- NOTE | 2023-03-07 10:06 | P.ANPRN ---
Procedure Note - Anesthesia - Invasive Line Right Arterial Line Time Out Performed: Yes Date of Procedure: 03/01/23 Time of Procedure: 13:31 Location of Patient: PreOp Preparation: Sterile Prep, Sterile Dressing Arterial Line Location: Radial Ultrasound Used: No Purpose - Visualization and Identification of Vasculature: No Image Stored and Saved: No Narrative: Central line placement per sterile protocol utilized.
== END 2023-03-04 12:02 | DRG 253 ==
LOC: EC 17:29 → 5NMEDONC 22:56 → 3SCARD 02-28 08:51
PROVIDERS: ADMIT Internal Medicine; ATTEND Internal Medicine
PROC: B41G1ZZ Fluoroscopy of Left Lower Extremity Arteries using Low Osmolar Contrast (ICD-10-PCS; 2023-02-28 07:32)
PROC: 041L0JN Bypass Left Femoral Artery to Posterior Tibial Artery with Synthetic Substitute, Open Approach (ICD-10-PCS; principal; 2023-03-01 08:20)
DX: T82.898A Other specified complication of vascular prosthetic devices, implants and grafts, initial encounter (principal); E11.52 Type 2 diabetes mellitus with diabetic peripheral angiopathy with gangrene; I96 Gangrene, not elsewhere classified; E87.20 Acidosis, unspecified; E87.1 Hypo-osmolality and hyponatremia; L97.422 Non-pressure chronic ulcer of left heel and midfoot with fat layer exposed; I70.444 Atherosclerosis of autologous vein bypass graft(s) of the left leg with ulceration of heel and midfoot; E11.621 Type 2 diabetes mellitus with foot ulcer; E11.42 Type 2 diabetes mellitus with diabetic polyneuropathy; I10 Essential (primary) hypertension; D64.9 Anemia, unspecified; E78.5 Hyperlipidemia, unspecified; H35.30 Unspecified macular degeneration; R26.2 Difficulty in walking, not elsewhere classified; Y83.2 Surgical operation with anastomosis, bypass or graft as the cause of abnormal reaction of the patient, or of later complication, without mention of misadventure at the time of the procedure; Z87.891 Personal history of nicotine dependence; Z98.1 Arthrodesis status; Z86.718 Personal history of other venous thrombosis and embolism; Z79.899 Other long term (current) drug therapy; Z79.891 Long term (current) use of opiate analgesic; Z79.01 Long term (current) use of anticoagulants
CPT/HCPCS: 36246; 36415; 75710; 76937; 80048; 80053; 83605; 83735; 85025; 85027; 85610; 85730; 86850; 86900; 86901; 96374; 99285

== ENCOUNTER 2023-06-14 11:30 | Emergency (ER) | payer MEDICARE ==
[2023-06-14] MEDS ORDERED: ACETAMINOPHEN TAB 325 MG TAB PO STA (12:34)
--- NOTE | 2023-06-14 12:41 | ED ---
General Adult HPI - General Chief complaint: Fever Stated complaint: post op Time Seen by Provider: 06/14/23 12:22 Source: patient, family, RN notes reviewed Mode of arrival: wheelchair Limitations: no limitations - History of Present Illness Initial comments: Patient is a pleasant 82-year-old male presenting to the emergency Department with complaints of left foot pain. Patient did toe amputation done on Wednesday with Dr. Curran. Patient has had increased pain since that time. Patient has noticed some swelling and redness. Patient does have discomfort radiating to the foot and somewhat up the leg. No calf pain or swelling. No dyspnea. Patient has had fevers. - Related Data Home Medications Medication Instructions Recorded Confirmed Pravastatin Sodium 80 mg PO HS 02/15/23 06/14/23 lisinopriL [Prinivil] 10 mg PO DAILY 02/15/23 06/14/23 Rivaroxaban [Xarelto] 20 mg PO DAILY 02/26/23 06/14/23 Tamsulosin [Flomax] 0.4 mg PO HS 02/26/23 06/14/23 DULoxetine HCL [Cymbalta] 30 mg PO DAILY@1500 06/03/23 06/14/23 Gabapentin [Neurontin] 600 mg PO TID 06/03/23 06/14/23 Previous Rx's Medication Instructions Recorded Aspirin 81 mg PO DAILY tab 03/03/23 HYDROcodone/APAP 10-325MG [[place] 1 tab PO Q6HR PRN 3 Days #12 tab 06/11/23 10-325] Cephalexin [Keflex] 500 mg PO QID #40 cap 06/14/23 Allergies Allergy/AdvReac Type Severity Reaction Status Date / Time No Known Allergies Allergy Verified 06/14/23 14:16 Review of Systems ROS Statement: Those systems with pertinent positive or pertinent negative responses have been documented in the HPI. ROS Other: All systems not noted in ROS Statement are negative. Constitutional: Reports: as per HPI, fever Eyes: Denies: eye pain ENT: Denies: ear pain Respiratory: Denies: cough Cardiovascular: Denies: chest pain Gastrointestinal: Denies: abdominal pain Genitourinary: Denies: dysuria Musculoskeletal: Reports: as per HPI Skin: Reports: as per HPI Past Medical History Past Medical History: Deep Vein Thrombosis (DVT), Eye Disorder, Hyperlipidemia, Hypertension, Osteoarthritis (OA), Vascular Disorder Additional Past Medical History / Comment(s): macular degeneration, DVT leg years ago 2000, leg pain, bilateral leg swelling > left. left leg is red , Dr Curran is aware from appt on 02/10/23 History of Any Multi-Drug Resistant Organisms: None Reported Past Surgical History: Orthopedic Surgery Additional Past Surgical History / Comment(s): cataracts removed, cervical fusion, toe ampuation - lt 2nd and 3rd Past Anesthesia/Blood Transfusion Reactions: No Reported Reaction Past Psychological History: No Psychological Hx Reported Smoking Status: Never smoker Past Alcohol Use History: None Reported Past Drug Use History: None Reported - Past Family History Brother(s) Family Medical History: Cancer, Coronary Artery Disease (CAD) Additional Family Medical History / Comment(s): 2 brothers General Exam Limitations: no limitations General appearance: alert, in no apparent distress Head exam: Present: normocephalic Eye exam: Present: normal appearance Neck exam: Present: normal inspection Respiratory exam: Present: normal lung sounds bilaterally Cardiovascular Exam: Present: regular rate, normal rhythm Expanded Peripheral pulses: 2+: Dorsalis Pedis (L) GI/Abdominal exam: Present: soft. Absent: tenderness Extremities exam: Present: other (Left foot with partial amputation of the second toe incomplete amputation of the third toe. There is mild swelling and e rythema. There is some discomfort just proximal.) Neurological exam: Present: alert. Absent: motor sensory deficit Psychiatric exam: Present: normal affect, normal mood Skin exam: Present: erythema Course Vital Signs 06/14/23 06/14/23 06/14/23 11:58 13:36 14:51 Temperature 99.9 F H 99.4 F 98.7 F Pulse Rate 88 84 85 Respiratory 22 20 18 Rate Blood Pressure 99/58 124/52 101/53 O2 Sat by Pulse 93 L 94 L 94 L Oximetry Medical Decision Making - Medical Decision Making Was pt. sent in by a medical professional or institution (, PA, CATERPILLAR DRIVER, urgent care, hospital, or group home...) When possible be specific @ -No Did you speak to anyone other than the patient for history (EMS, parent, family, police, friend...)? What history was obtained from this source @ - is present and helps provide history including recent surgery Did you review nursing and triage notes (agree or disagree)? Why? @ -I reviewed and agree with nursing and triage notes Were old charts reviewed (outside hosp., previous admission, EMS record, old EKG, old radiological studies, urgent care reports/EKG's, group home records)? Report findings @ -No old charts were reviewed Differential Diagnosis (chest pain, altered mental status, abdominal pain women, abdominal pain men, vaginal bleeding, weakness, fever, dyspnea, syncope, headache, dizziness, GI bleed, back pain, seizure, CVA, palpatations, mental health, musculoskeletal)? @ -Differential Fever: Pneumonia, viral URI, endocarditis, myocarditis, pericarditis, otitis, sinusitis, peritonsillar Abscess, retropharyngeal Abscess, epiglottitis, peritonitis, appendicitis, Vidya cystitis, diverticulitis, hepatitis, colitis, UTI, PID, TOA, pyelonephritis, prostatitis, epididymitis, meningitis, encephalitis, pulmonary embolism, CVA, thyroid storm, pancreatitis, adrenal cr zakia, cavernous sinus thrombosis, this is not meant to be an all-inclusive list. EKG interpreted by me (3pts min.). @ -As above X-rays interpreted by me (1pt min.). @ -Foot x-ray does not reveal acute abnormality. Amputations. CT interpreted by me (1pt min.). @ -None done U/S interpreted by me (1pt. min.). @ -None done What testing was considered but not performed or refused? (CT, X-rays, U/S, labs)? Why? @ -None What meds were considered but not given or refused? Why? @ -None Did you discuss the management of the patient with other professionals (professionals i.e. , PA, CATERPILLAR DRIVER, lab, RT, psych nurse, social sciences lecturer, fitness supervisor, teacher, commissioned defence force officer, home health care case manager)? Give summary @ -No Was smoking cessation discussed for >3mins.? @ -No Was critical care preformed (if so, how long)? @ -No Were there social determinants of health that impacted care today? How? (Homelessness, low income, unemployed, alcoholism, drug addiction, transportation, low edu. Level, literacy, decrease access to med. care, fci, rehab)? @ -No Was there de-escalation of care discussed even if they declined (Discuss DNR or withdrawal of care, Hospice)? DNR status @ -No What co-morbidities impacted this encounter? (DM, HTN, Smoking, COPD, CAD, Cancer, CVA, ARF, Chemo, Hep., AIDS, mental health diagnosis, sleep apnea, morbid obesity)? @ -None Was patient admitted / discharged? Hospital course, mention meds given and rout e, prescriptions, significant lab abnormalities, going to OR and other pertinent info. @ -Patient presents with concern for possible early infection. Subjective fever and temperature of 99 emergency department. Patient will be started on antibiotics. Patient recommended close follow-up. Undiagnosed new problem with uncertain prognosis? @ -No Drug Therapy requiring intensive monitoring for toxicity (Heparin, Nitro, In sulin, Cardizem)? @ -No Were any procedures done? @ -No Diagnosis/symptom? @ -Cellulitis Acute, or Chronic, or Acute on Chronic? @ -Acute Uncomplicated (without systemic symptoms) or Complicated (systemic symptoms)? @ -default Side effects of treatment? @ -No Exacerbation, Progression, or Severe Exacerbation? @ -No Poses a threat to life or bodily function? How? (Chest pain, [place], [place], pneumonia, PE, COPD, DKA, ARF, appy, cholecystitis, CVA, Diverticulitis, Homicidal, Suicidal, threat to staff... and all critical care pts) @ -No - Lab Data Result diagrams: 06/14/23 13:05 06/14/23 13:05 Lab Results 06/14/23 06/14/23 06/14/23 Range/Units 13:05 13:05 13:05 WBC 10.1 (3.8-10.6) k/uL RBC 3.36 L (4.30-5.90) m/uL Hgb 10.0 L (13.0-17.5) gm/dL Hct 30.5 L (39.0-53.0) % MCV 90.9 (80.0-100.0) fL MCH 29.8 (25.0-35.0) pg MCHC 32.7 (31.0-37.0) g/dL RDW 15.0 (11.5-15.5) % Plt Count 287 (150-450) k/uL MPV 8.7 Neutrophils % 74 % Lymphocytes % 16 % Monocytes % 7 % Eosinophils % 2 % Basophils % 0 % Neutrophils # 7.5 (1.3-7.7) k/uL Lymphocytes # 1.6 (1.0-4.8) k/uL Monocytes # 0.7 (0-1.0) k/uL Eosinophils # 0.2 (0-0.7) k/uL Basophils # 0.0 (0-0.2) k/uL PT 10.5 (9.0-12.0) sec INR 1.0 (<1.2) APTT 26.9 (22.0-30.0) sec Sodium 134 L (137-145) mmol/L Potassium 4.7 (3.5-5.1) mmol/L Chloride 97 L (98-107) mmol/L Carbon Dioxide 27 (22-30) mmol/L Anion Gap 10 mmol/L BUN 13 (9-20) mg/dL Creatinine 0.60 L (0.66-1.25) mg/dL Est GFR (CKD-EPI)AfAm >90 (>60 ml/min/1.73 sqM) Est GFR (CKD-EPI)NonAf >90 (>60 ml/min/1.73 sqM) Glucose 99 (74-99) mg/dL Plasma Lactic Acid Jarrell (0.7-2.0) mmol/L Calcium 8.9 (8.4-10.2) mg/dL Total Bilirubin 0.7 (0.2-1.3) mg/dL AST 27 (17-59) U/L ALT 11 (4-49) U/L Alkaline Phosphatase 74 (38-126) U/L Total Protein 7.0 (6.3-8.2) g/dL Albumin 3.7 (3.5-5.0) g/dL Coronavirus (PCR) (Not Detectd) 06/14/23 06/14/23 Range/Units 13:05 13:05 WBC (3.8-10.6) k/uL RBC (4.30-5.90) m/uL Hgb (13.0-17.5) gm/dL Hct (39.0-53.0) % MCV (80.0-100.0) fL MCH (25.0-35.0) pg MCHC (31.0-37.0) g/dL RDW (11.5-15.5) % Plt Count (150-450) k/uL MPV Neutrophils % % Lymphocytes % % Monocytes % % Eosinophils % % Basophils % % Neutrophils # (1.3-7.7) k/uL Lymphocytes # (1.0-4.8) k/uL Monocytes # (0-1.0) k/uL Eosinophils # (0-0.7) k/uL Basophils # (0-0.2) k/uL PT (9.0-12.0) sec INR (<1.2) APTT (22.0-30.0) sec Sodium (137-145) mmol/L Potassium (3.5-5.1) mmol/L Chloride (98-107) mmol/L Carbon Dioxide (22-30) mmol/L Anion Gap mmol/L BUN (9-20) mg/dL Creatinine (0.66-1.25) mg/dL Est GFR (CKD-EPI)AfAm (>60 ml/min/1.73 sqM) Est GFR (CKD-EPI)NonAf (>60 ml/min/1.73 sqM) Glucose (74-99) mg/dL Plasma Lactic Acid [place]rell 1.3 (0.7-2.0) mmol/L Calcium (8.4-10.2) mg/dL Total Bilirubin (0.2-1.3) mg/dL AST (17-59) U/L ALT (4-49) U/L Alkaline Phosphatase (38-126) U/L Total Protein (6.3-8.2) g/dL Albumin (3.5-5.0) g/dL Coronavirus (PCR) Not Detected (Not Detectd) Disposition Clinical Impression: Cellulitis Disposition: HOME SELF-CARE Condition: Stable Instructions (If sedation given, give patient instructions): Cellulitis (ED) Additional Instructions: Please do follow-up with your primary care physician and Vascular surgeon this week. Please also follow-up to primary care physician this week. Return for fevers, increased pain, swelling, redness, worsening symptoms, other color change, or other concerns. Prescription for anabiotic has been sent to pharmacy. Prescriptions: Cephalexin [Keflex] 500 mg PO QID #40 cap Is patient prescribed a controlled substance at d/c from ED?: No Referrals: Yaya Croft MD [Primary Care Provider] - 1-2 days Coral Curran DO [STAFF PHYSICIAN] - 1-2 days Time of Disposition: 15:47
[2023-06-14] MEDS: MORPHINE SULFATE 4 MG/ML SYRINGE IVP STA ×2 (13:16→13:19)
[2023-06-14 13:44] LABS: Partial Thromboplastin Time 26.9 sec (22.0-30.0); Prothrombin Time 10.5 sec (9.0-12.0)
[2023-06-14 13:52] LABS: ALT 11 U/L (4-49); AST 27 U/L (17-59); African American GFR (CKD) >90 (>60 ml/min/1.73 sqM); Albumin 3.7 g/dL (3.5-5.0); Alkaline Phosphatase 74 U/L (38-126); Anion Gap 10 mmol/L; Blood Urea Nitrogen 13 mg/dL (9-20); Calcium 8.9 mg/dL (8.4-10.2); Carbon Dioxide 27 mmol/L (22-30); Chloride 97 mmol/L (98-107); Glucose 99 mg/dL (74-99); Non-African American GFR(CKD) >90 (>60 ml/min/1.73 sqM); Potassium 4.7 mmol/L (3.5-5.1); Sodium 134 mmol/L (137-145); Total Bilirubin 0.7 mg/dL (0.2-1.3)
--- NOTE | 2023-06-14 14:03 | XR ---
EXAMINATION TYPE: XR foot complete LT DATE OF EXAM: 06/14/2023 COMPARISON: None HISTORY: Recent amputation second and third digit TECHNIQUE: 3 views right foot FINDINGS: There is amputation of the third digit proximal middle and distal phalanx. There is amputat ion of the middle and distal phalanx second digit. Joint spaces appear preserved. No acute fractures are evident. No suspicious erosions are identified. Follow-up can be performed as clinically indicated. IMPRESSION: 1. No acute osseous abnormality right foot
[2023-06-14 14:29] LABS: Basophils % (A) 0 %; Eosinophils # (A) 0.2 k/uL (0-0.7); Eosinophils % (A) 2 %; HCT 30.5 % (39.0-53.0); Lymphocytes # (A) 1.6 k/uL (1.0-4.8); Lymphocytes % (A) 16 %; MCH 29.8 pg (25.0-35.0); MCHC 32.7 g/dL (31.0-37.0); MCV 90.9 fL (80.0-100.0); Mean Platelet Volume 8.7; Monocytes # (A) 0.7 k/uL (0-1.0); Monocytes % (A) 7 %; Neutrophils # (A) 7.5 k/uL (1.3-7.7); Neutrophils % (A) 74 %; Platelet Count 287 k/uL (150-450); RBC 3.36 m/uL (4.30-5.90); WBC 10.1 k/uL (3.8-10.6)
[2023-06-14 14:52] VITALS: BP 101/53; PULSE 85; RESP 18; TEMP 98.7
[2023-06-14] MEDS ORDERED: HYDROmorphone 1 MG/ML 1 ML SYRINGE IVP STA (14:57)
== END 2023-06-14 16:08 | disposition home or self-care (01) ==
LOC: EC 11:30
DX: L03.116 Cellulitis of left lower limb (principal); E78.5 Hyperlipidemia, unspecified; I10 Essential (primary) hypertension; Z79.899 Other long term (current) drug therapy; Z20.822 Contact with and (suspected) exposure to COVID-19
CPT/HCPCS: 36415; 80053; 83605; 85025; 85610; 85730; 87040; 87635; 73630; 99284; 96374; J1170

== ENCOUNTER 2023-06-18 13:26 | Inpatient (IN) | payer MEDICARE ==
--- NOTE | 2023-06-18 13:53 | ED ---
Extremity Problem HPI - General Source: patient, RN notes reviewed Mode of arrival: wheelchair Limitations: no limitations - History of Present Illness MD Complaint: extremity pain, extremity swelling <Cathie Devries - Last Filed: 06/18/23 13:53> <Joe Mcfarlane - Last Filed: 06/19/23 00:47> - General Chief complaint: Skin/Abscess/Foreign Body Stated complaint: NON WT BEARING ON THE LEFT FOOT Time Seen by Provider: 06/18/23 13:45 - History of Present Illness Initial comments: This is an 82-year-old male who presents to the emergency department for left foot pain. On 06/11 the patient had amputations of the second and third toe on the left foot with Dr. Curran. States that he has started to experience increasing pain, swelling, and drainage from the foot. (Cathie Devries) 82-year-old male presenting with chief complaint of increasing left foot pain as well as fevers. Patient had amputation of the left second and third toe perfor med the by Dr. Curran. Patient has been having increasing pain and continued fevers. Last seen in our ER on the and started on Keflex. Despite starting Keflex patient has had worsening pain and fevers. He is unable to bear weight on the foot. at bedside states that he is also had episodes of confusion and irritability. No nausea or vomiting. Denies chest pain or difficulty breathing. (Joe Mcfarlane) - Related Data Home Medications Medication Instructions Recorded Confirmed Pravastatin Sodium 80 mg PO HS 02/15/23 06/18/23 lisinopriL [Prinivil] 10 mg PO DAILY 02/15/23 06/18/23 Rivaroxaban [Xarelto] 20 mg PO DAILY 02/26/23 06/18/23 Tamsulosin [Flomax] 0.4 mg PO HS 02/26/23 06/18/23 DULoxetine HCL [Cymbalta] 30 mg PO DAILY@1500 06/03/23 06/18/23 Gabapentin [Neurontin] 600 mg PO TID 06/03/23 06/18/23 Previous Rx's Medication Instructions Recorded Aspirin 81 mg PO DAILY tab 03/03/23 HYDROcodone/APAP 10-325MG [[place] 1 tab PO Q6HR PRN 3 Days #12 tab 06/11/23 10-325] Cephalexin [Keflex] 500 mg PO QID #40 cap 06/14/23 Allergies Allergy/AdvReac Type Severity Reaction Status Date / Time No Known Allergies Allergy Verified 06/18/23 21:45 Review of Systems ROS Other: All systems not noted in ROS Statement are negative. <Cathie Devries - Last Filed: 06/18/23 13:53> ROS Other: All systems not noted in ROS Statement are negative. <Joe Mcfarlane - Last Filed: 06/19/23 00:47> ROS Statement: Those systems with pertinent positive or pertinent negative responses have been documented in the HPI. Past Medical History Past Medical History: Deep Vein Thrombosis (DVT), Eye Disorder, Hyperlipidemia, Hypertension, Osteoarthritis (OA), Vascular Disorder Additional Past Medical History / Comment(s): macular degeneration, DVT leg years ago 2000, leg pain, bilateral leg swelling > left. left leg is red , Dr Curran is aware from appt on 02/10/23 History of Any Multi-Drug Resistant Organisms: None Reported Past Surgical History: Orthopedic Surgery Additional Past Surgical History / Comment(s): cataracts removed, cervical fusion, toe ampuation - lt 2nd and 3rd Past Anesthesia/Blood Transfusion Reactions: No Reported Reaction Past Psychological History: No Psychological Hx Reported Smoking Status: Never smoker Past Alcohol Use History: None Reported Past Drug Use History: None Reported - Past Family History Brother(s) Family Medical History: Cancer, Coronary Artery Disease (CAD) Additional Family Medical History / Comment(s): 2 brothers <Cathie Devries - Last Filed: 06/18/23 13:53> General Exam Limitations: no limitations <Cathie Devries - Last Filed: 06/18/23 13:53> Limitations: no limitations General appearance: alert, in no apparent distress Head exam: Present: atraumatic, normocephalic, normal inspection Eye exam: Present: normal appearance, EOMI. Absent: scleral icterus, periorbital swelling Neck exam: Present: normal inspection, full ROM Respiratory exam: Present: normal lung sounds bilaterally. Absent: respiratory distress, wheezes, rales, rhonchi, stridor Cardiovascular Exam: Present: regular rate, normal rhythm, normal heart sounds. Absent: systolic murmur, diastolic murmur, rubs, gallop, clicks Left Foot/Toe exam: Present: tenderness, swelling, erythema Neurological exam: Present: alert, oriented X3, CN II-XII intact Psychiatric exam: Present: normal affect, normal mood <Joe Mcfarlane - Last Filed: 06/19/23 00:47> - General Exam Comments Initial Comments: Visual Physical Exam Vital signs reviewed General: Well-appearing, nontoxic, no acute distress. Head: Normocephalic, atraumatic Eyes: PERRLA, EOMI ENT: Airway patent Chest: Nonlabored breathing Skin: No visual rash, normal skin tone Neuro: Alert and oriented 3 Musculoskeletal: No gross abnormalities I performed the QuickNote portion of this chart. Signed Cathie Devries PA-C. (Cathie Devries) Course Vital Signs 06/18/23 06/18/23 06/18/23 13:28 17:31 18:55 Temperature 99.9 F H 101.0 F H Pulse Rate 93 99 97 Respiratory 22 18 20 Rate Blood Pressure 112/56 121/52 144/58 O2 Sat by Pulse 93 L 93 L 95 Oximetry 06/18/23 06/18/23 20:00 21:00 Temperature 100.0 F H Pulse Rate 100 Respiratory 18 Rate Blood Pressure 135/71 O2 Sat by Pulse 95 Oximetry Medical Decision Making - Lab Data Result diagrams: 06/18/23 14:39 06/18/23 14:39 <Joe Mcfarlane - Last Filed: 06/19/23 00:47> - Medical Decision Making Was pt. sent in by a medical professional or institution (AKIL Mirza, FIRE SAFETY INSPECTOR, urgent care, hospital, or long term...) When possible be specific @ -No Did you speak to anyone other than the patient for history (EMS, parent, family, police, friend...)? What history was obtained from this source @ -History supplemented by Did you review nursing and triage notes (agree or disagree)? Why? @ -I reviewed and agree with nursing and triage notes Were old charts reviewed (outside hosp., previous admission, EMS record, old EKG, old radiological studies, urgent care reports/EKG's, long term records)? Report findings @ -No old charts were reviewed Differential Diagnosis (chest pain, altered mental status, abdominal pain women, abdominal pain men, vaginal bleeding, weakness, fever, dyspnea, syncope, headache, dizziness, GI bleed, back pain, seizure, CVA, palpatations, mental health, musculoskeletal)? @ -Differential Musculoskeletal Muscular strain, contusion, ligament sprain, fracture, arthritis, septic arthritis, bursitis, cellulitis, muscle spasm, nerve compression, DVT, arterial occlusion, herpes zoster, electrolyte abnormality, tumor.... This is not meant to be in all inclusive list EKG interpreted by me (3pts min.). @ -As above X-rays interpreted by me (1pt min.). @ -Foot x-ray shows post-amputation changes of the second and third digit. No evidence for osseous erosion. No subadjacent lucencies identified. No evidence of fracture. Chest x-ray shows no acute cardiopulmonary process CT interpreted by me (1pt min.). @ -None done U/S interpreted by me (1pt. min.). @ -None done What testing was considered but not performed or refused? (CT, X-rays, U/S, labs)? Why? @ -None What meds were considered but not given or refused? Why? @ -None Did you discuss the management of the patient with other professionals (professionals i.e. , PA, FIRE SAFETY INSPECTOR, lab, RT, psych nurse, outreach and education social worker, optical lens manufacturing tech, teacher, business enterprise officer, returned case inspector)? Give summary @ -I spoke with Dr. Whittington, who accepted admission Was smoking cessation discussed for >3mins.? @ -No Was critical care preformed (if so, how long)? @ -No Were there social determinants of health that impacted care today? How? (Homelessness, low income, unemployed, alcoholism, drug addiction, transportation, low edu. Level, literacy, decrease access to med. care, senior living, rehab)? @ -No Was there de-escalation of care discussed even if they declined (Discuss DNR or withdrawal of care, Hospice)? DNR status @ -No What co-morbidities impacted this encounter? (DM, HTN, Smoking, COPD, CAD, Cancer, CVA, ARF, Chemo, Hep., AIDS, mental health diagnosis, sleep apnea, morbid obesity)? @ -None Was patient admitted / discharged? Hospital course, mention meds given and rout e, prescriptions, significant lab abnormalities, going to OR and other pertinent info. @ -82-year-old male presenting with chief complaint of fever and worsening pain and swelling to left foot after amputation of second and third toes performed on the . Physical examination is conducted. Lab work shows worsening white count of 12.9. CRP 35.3 and ESR 116. Foot x-ray negative for osteomyelitis. Patient will be admitted for postop infection, he started on Zosyn and vanc omycin. I spoke with Dr. Whittington who was present in the ER and he accepted admission. Patient and family are agreeable with this plan. I discussed this case with my attending Dr. Contreras Undiagnosed new problem with uncertain prognosis? @ -No Drug Therapy requiring intensive monitoring for toxicity (Heparin, Nitro, Insulin, Cardizem)? @ -No Were any procedures done? @ -No Diagnosis/symptom? @ -Postop infection Acute, or Chronic, or Acute on Chronic? @ -Acute Uncomplicated (without systemic symptoms) or Complicated (systemic symptoms)? @ -complicated Side effects of treatment? @ -No Exacerbation, Progression, or Severe Exacerbation? @ -No Poses a threat to life or bodily function? How? (Chest pain, [place], [place], pneumonia, PE, COPD, DKA, ARF, appy, cholecystitis, CVA, Diverticulitis, Homicidal, Suicidal, threat to staff... and all critical care pts) @ -Yes (Joe Mcfarlane) - Lab Data Lab Results 06/18/23 06/18/23 06/18/23 Range/Units 14:39 14:39 14:39 WBC 12.9 H (3.8-10.6) k/uL RBC 3.39 L (4.30-5.90) m/uL Hgb 9.8 L (13.0-17.5) gm/dL Hct 30.5 L (39.0-53.0) % MCV 89.9 (80.0-100.0) fL MCH 29.0 (25.0-35.0) pg MCHC 32.2 (31.0-37.0) g/dL RDW 15.1 (11.5-15.5) % Plt Count 342 (150-450) k/uL MPV 7.8 Neutrophils % 79 % Lymphocytes % 12 % Monocytes % 7 % Eosinophils % 1 % Basophils % 0 % Neutrophils # 10.2 H (1.3-7.7) k/uL Lymphocytes # 1.5 (1.0-4.8) k/uL Monocytes # 0.9 (0-1.0) k/uL Eosinophils # 0.1 (0-0.7) k/uL Basophils # 0.0 (0-0.2) k/uL ESR 116 H (0-15) mm/hr Sodium 132 L (137-145) mmol/L Potassium 4.4 (3.5-5.1) mmol/L Chloride 96 L (98-107) mmol/L Carbon Dioxide 25 (22-30) mmol/L Anion Gap 11 mmol/L BUN 13 (9-20) mg/dL Creatinine 0.63 L (0.66-1.25) mg/dL Est GFR (CKD-EPI)AfAm >90 (>60 ml/min/1.73 sqM) Est GFR (CKD-EPI)NonAf >90 (>60 ml/min/1.73 sqM) Glucose 103 H (74-99) mg/dL Plasma Lactic Acid Jarrell 1.2 (0.7-2.0) mmol/L Calcium 8.8 (8.4-10.2) mg/dL Total Bilirubin 0.7 (0.2-1.3) mg/dL AST 52 (17-59) U/L ALT 21 (4-49) U/L Alkaline Phosphatase 122 (38-126) U/L C-Reactive Protein 35.3 H (<1.0) mg/dL Total Protein 7.3 (6.3-8.2) g/dL Albumin 3.7 (3.5-5.0) g/dL Influenza Type A (PCR) (Not Detectd) Influenza Type B (PCR) (Not Detectd) RSV (PCR) (Not Detectd) SARS-CoV-2 (PCR) (Not Detectd) 06/18/23 Range/Units 17:30 WBC (3.8-10.6) k/uL RBC (4.30-5.90) m/uL Hgb (13.0-17.5) gm/dL Hct (39.0-53.0) % MCV (80.0-100.0) fL MCH (25.0-35.0) pg MCHC (31.0-37.0) g/dL RDW (11.5-15.5) % Plt Count (150-450) k/uL MPV Neutrophils % % Lymphocytes % % Monocytes % % Eosinophils % % Basophils % % Neutrophils # (1.3-7.7) k/uL Lymphocytes # (1.0-4.8) k/uL Monocytes # (0-1.0) k/uL Eosinophils # (0-0.7) k/uL Basophils # (0-0.2) k/uL ESR (0-15) mm/hr Sodium (137-145) mmol/L Potassium (3.5-5.1) mmol/L Chloride (98-107) mmol/L Carbon Dioxide (22-30) mmol/L Anion Gap mmol/L BUN (9-20) mg/dL Creatinine (0.66-1.25) mg/dL Est GFR (CKD-EPI)AfAm (>60 ml/min/1.73 sqM) Est GFR (CKD-EPI)NonAf (>60 ml/min/1.73 sqM) Glucose (74-99) mg/dL Plasma Lactic Acid Jarrell (0.7-2.0) mmol/L Calcium (8.4-10.2) mg/dL Total Bilirubin (0.2-1.3) mg/dL AST (17-59) U/L ALT (4-49) U/L Alkaline Phosphatase (38-126) U/L C-Reactive Protein (<1.0) mg/dL Total Protein (6.3-8.2) g/dL Albumin (3.5-5.0) g/dL Influenza Type A (PCR) Not Detected (Not Detectd) Influenza Type B (PCR) Not Detected (Not Detectd) RSV (PCR) Not Detected (Not Detectd) SARS-CoV-2 (PCR) Not Detected (Not Detectd) Disposition <Cathie Devries - Last Filed: 06/18/23 13:53> <Joe Mcfarlane - Last Filed: 06/19/23 00:47> Clinical Impression: Post op infection Disposition: ADMITTED IP TO THIS HOSP Condition: Serious
--- NOTE | 2023-06-18 14:12 | XR ---
EXAMINATION TYPE: XR foot complete LT DATE OF EXAM: 06/18/2023 2:03 PM INDICATION: Patient age:Male; 82 years old; Reason for study: Postop pain/infection; COMPARISON: Left foot 06/14/2023 TECHNIQUE: The left foot was examined in the AP, oblique, and lateral projections. FINDINGS: Right foot second digit amputation at the proximal interphalangeal joint and third digit at the metatarsophalangeal joint. No evidence of fracture. There is minimal multifocal osteoarthrosis c hanges worse at the interphalangeal joint of the first digit. IMPRESSION: Post amputation changes of the second and third digit. No evidence for osseous erosion. No subjacent lucencies identified. No evidence of fracture.
[2023-06-18 14:58] LABS: Basophils % (A) 0 %; Eosinophils # (A) 0.1 k/uL (0-0.7); Eosinophils % (A) 1 %; HCT 30.5 % (39.0-53.0); HGB 9.8 gm/dL (13.0-17.5); Lymphocytes # (A) 1.5 k/uL (1.0-4.8); Lymphocytes % (A) 12 %; MCHC 32.2 g/dL (31.0-37.0); MCV 89.9 fL (80.0-100.0); Mean Platelet Volume 7.8; Monocytes # (A) 0.9 k/uL (0-1.0); Monocytes % (A) 7 %; Neutrophils # (A) 10.2 k/uL (1.3-7.7); Neutrophils % (A) 79 %; Platelet Count 342 k/uL (150-450); RBC 3.39 m/uL (4.30-5.90); RDW 15.1 % (11.5-15.5); WBC 12.9 k/uL (3.8-10.6)
[2023-06-18 15:08] LABS: African American GFR (CKD) >90 (>60 ml/min/1.73 sqM); Albumin 3.7 g/dL (3.5-5.0); Anion Gap 11 mmol/L; Calcium 8.8 mg/dL (8.4-10.2); Glucose 103 mg/dL (74-99); Non-African American GFR(CKD) >90 (>60 ml/min/1.73 sqM); Potassium 4.4 mmol/L (3.5-5.1)
[2023-06-18 15:33] LABS: ALT 21 U/L (4-49); AST 52 U/L (17-59); Alkaline Phosphatase 122 U/L (38-126); Blood Urea Nitrogen 13 mg/dL (9-20); Carbon Dioxide 25 mmol/L (22-30); Chloride 96 mmol/L (98-107); Sodium 132 mmol/L (137-145); Total Bilirubin 0.7 mg/dL (0.2-1.3); Total Protein 7.3 g/dL (6.3-8.2)
[2023-06-18] MEDS ORDERED: NALOXONE 0.4 MG/ML 1 ML VIAL IV PRN (17:16)
[2023-06-18] MEDS ORDERED: MORPHINE SULFATE 4 MG/ML SYRINGE IV PRN (17:16)
[2023-06-18 17:37] LABS: C Reactive Protein 35.3 mg/dL (<1.0)
[2023-06-18 17:42] LABS: Erythrocyte Sedimentation Rate 116 mm/hr (0-15)
[2023-06-18] MEDS: ACETAMINOPHEN TAB 325 MG TAB PO PRN (17:46)
[2023-06-18] MEDS ORDERED: IBUPROFEN 400 MG TAB PO PRN (17:51)
--- NOTE | 2023-06-18 18:25 | XR ---
EXAMINATION TYPE: XR chest 1V portable DATE OF EXAM: 06/18/2023 6:10 PM COMPARISON: Chest radiographs from 11/16/2011 TECHNIQUE: XR chest 1V portable Frontal view of the chest. CLINICAL INDICATION:Male, 82 years old with history of fever; FINDINGS: Lungs/Pleura: There is no evidence of pleural effusion, focal consolidation, or pneumothorax. Pulmonary vascularity: Unremarkable. Heart/mediastinum: Cardiomediastinal silhouette is unremarkable. Musculoskeletal: No acute osseous pathology. IMPRESSION: No acute cardiopulmonary disease/process.
[2023-06-18] MEDS ORDERED: PIPERACILLIN-TAZOBACTAM 3.375 GM in SODIUM CHLORIDE 0.9% 100 ML IVPB STA (18:30)
[2023-06-18] MEDS ORDERED: VANCOMYCIN IV PER PHARMACY 1 EACH MISC MISCELLANE PRN (18:30)
[2023-06-18] MEDS ORDERED: VANCOMYCIN 1,500 MG in SODIUM CHLORIDE 0.9% 500 ML 500 ML IVPB STA (18:37)
[2023-06-18] MEDS: HYDROmorphone 1 MG/ML 1 ML SYRINGE IVP PRN (18:55)
[2023-06-18] MEDS: SODIUM CHLORIDE 0.9% 1,000 ML IV SCH (19:43)
[2023-06-18] MEDS: HYDROcodone/APAP 5-325MG 1 EACH TAB PO PRN (21:28)
[2023-06-18 22:28] LABS: Appearance,Urine Clear (Clear); Bilirubin,Urine Negative (Negative); Blood,Urine Negative (Negative); Color,Urine Yellow; Glucose,Urine (UA) Negative (Negative); Ketones,Urine Negative (Negative); Leukocyte Esterase,Urine Negative (Negative); Nitrite,Urine Negative (Negative); Protein,Urine Negative (Negative)
[2023-06-19] MEDS: HYDROmorphone 1 MG/ML 1 ML SYRINGE IVP PRN ×3 (00:06→17:52)
[2023-06-19] MEDS: SODIUM CHLORIDE 0.9% 1,000 ML IV SCH ×3 (02:47→20:30)
--- NOTE | 2023-06-19 03:39 | P.HPIM ---
History of Present Illness H&P Date: 06/18/23 Chief Complaint: Left foot pain 82-year-old male with severe peripheral arterial disease, hypertension Patient coming in for worsening left foot pain and drainage from the wound, patient recently had amputation of his left second and third toe on June 11, he came back on June 14 complaining of some swelling and erythema around surgical site for which he was seen in the ED and was started on Keflex. He comes in today complaining of difficulty standing up and weightbearing due to increased swelling erythema and purulent drainage from the wound denies any fevers but reports some chills denies any cough chest pain or trouble breathing he claims to be compliant with his medications. Patient is very poor historian he provides very limited history, which was obtained by chart review Of note patient have very severe peripheral arterial disease, he required multip le surgeries in the past he had vascular surgery intervention on January, then early in February due to failure of his femoral-popliteal bypass he required a femoral tibial bypass on the left side. Then seems like he came back mid May around the where he had amputation of his left second and third toe Patient denies tobacco smoking and illicit drugs or alcohol review of systems Pertinent positives as noted in HPI. All other systems were reviewed and are negative on exam Constitutional: No acute distress, provides very limited history very unreliable he doesn't know any of his medications Eyes: Anicteric sclerae, moist conjunctiva, Pupils equal round reactive to light ENMT: NC/AT Oropharynx clear, no erythema, or exudates Neck: Supple, no masses, or JVD No carotid bruits No thyromegaly Lungs: Clear to auscultation Clear to percussion Normal respiratory effort, no accessory muscle use Cardiovascular: Heart regular in rate and rhythm, No murmurs, gallops, or rubs No peripheral edema Abdominal: Soft Nontender, no guarding, rebound or rigidity Abdomen moving with respiration Normoactive bowel sounds No hepatomegaly, No splenomegaly No palpable mass No abdominal wall hernia noted Skin: Erythema and swelling over his left foot extending all the way to the distal two thirds of the left leg, surgical sutures still in place over the second and third toe amputation site no active drainage was noted tender to palpation. Extremities: No digital cyanosis No clubbing Pedal pulses absent bilaterally capillary refill immediate Radial pulses intact and symmetrical No calf tenderness Psychiatric: Alert and oriented to person, place and time Appropriate affect Neuro Muscles Strength 5/5 in all 4 extremities Sensation to light touch grossly present throughout Cranial nerves II-XII grossly intact Lymphatics: no palpable cervical or supraclavicular lymph nodes Past Medical History Past Medical History: Deep Vein Thrombosis (DVT), Eye Disorder, Hyperlipidemia, Hypertension, Osteoarthritis (OA), Vascular Disorder Additional Past Medical History / Comment(s): macular degeneration, DVT leg years ago 2000, leg pain, bilateral leg swelling > left. left foot 2nd and 3rd toes amputated 06/11/[address] Curran History of Any Multi-Drug Resistant Organisms: None Reported Past Surgical History: Orthopedic Surgery Additional Past Surgical History / Comment(s): cataracts removed, cervical fusion, toe ampuation - lt 2nd and 3rd Past Anesthesia/Blood Transfusion Reactions: No Reported Reaction Past Psychological History: No Psychological Hx Reported Smoking Status: Former smoker Past Alcohol Use History: None Reported Additional Past Alcohol Use History / Comment(s): quit smoking >30 yrs. ago, unsure how long he smoked or how much Past Drug Use History: None Reported - Past Family History Brother(s) Family Medical History: Cancer, Coronary Artery Disease (CAD) Additional Family Medical History / Comment(s): 2 brothers Medications and Allergies Home Medications Medication Instructions Recorded Confirmed Type Pravastatin Sodium 80 mg PO HS 02/15/23 06/18/23 History lisinopriL [Prinivil] 10 mg PO DAILY 02/15/23 06/18/23 History Rivaroxaban [Xarelto] 20 mg PO DAILY 02/26/23 06/18/23 History Tamsulosin [Flomax] 0.4 mg PO HS 02/26/23 06/18/23 History Aspirin 81 mg PO DAILY tab 03/03/23 06/18/23 Rx DULoxetine HCL [Cymbalta] 30 mg PO DAILY@1500 06/03/23 06/18/23 History Gabapentin [Neurontin] 600 mg PO TID 06/03/23 06/18/23 History HYDROcodone/APAP 10-325MG [[place] 1 tab PO Q6HR PRN 3 Days #12 tab 06/11/23 06/18/23 Rx 10-325] Cephalexin [Keflex] 500 mg PO QID #40 cap 06/14/23 06/18/23 Rx Allergies Allergy/AdvReac Type Severity Reaction Status Date / Time No Known Allergies Allergy Verified 06/18/23 21:45 Physical Exam Vitals: Vital Signs Temp Pulse Pulse Resp BP BP Pulse Ox 06/19/23 02:00 98.6 F 85 18 126/61 97 06/18/23 23:39 99.3 F 06/18/23 23:09 18 06/18/23 22:08 100 F H 90 18 100/46 94 L 06/18/23 21:00 100 18 135/71 95 06/18/23 20:00 100.0 F H 06/18/23 18:55 97 20 144/58 95 06/18/23 17:31 101.0 F H 99 18 121/52 93 L 06/18/23 13:28 99.9 F H 93 22 112/56 93 L Intake and Output 06/18/23 06/18/23 06/19/23 14:59 22:59 06:59 Other: Voiding Method External Catheter Weight 75.75 kg 75.75 kg Results CBC & Chem 7: 06/18/23 14:39 06/18/23 14:39 Labs: Abnormal Lab Results - Last 24 Hours (Table) 06/18/23 06/18/23 Range/Units 14:39 14:39 WBC 12.9 H (3.8-10.6) k/uL RBC 3.39 L (4.30-5.90) m/uL Hgb 9.8 L (13.0-17.5) gm/dL Hct 30.5 L (39.0-53.0) % Neutrophils # 10.2 H (1.3-7.7) k/uL ESR 116 H (0-15) mm/hr Sodium 132 L (137-145) mmol/L Chloride 96 L (98-107) mmol/L Creatinine 0.63 L (0.66-1.25) mg/dL Glucose 103 H (74-99) mg/dL C-Reactive Protein 35.3 H (<1.0) mg/dL Thrombosis Risk Factor Assmnt - Choose All That Apply Each Risk Factor Represents 3 Points: Age 75 years or older Thrombosis Risk Factor Assessment Total Risk Factor Score: 3 Thrombosis Risk Factor Assessment Level: Moderate Risk Assessment and Plan Assessment: 82-year-old male with severe peripheral artery disease status post post multiple bypass surgeries recently had left second and third toe amputation coming in for erythema and swelling and drainage from surgical site not improving with 5 d ay course of Keflex by mouth I discussed the case with the ED doctor and accepted the admission for cellulitis and rule out surgical site infection with anticipated length of stay more than 2 midnights Sepsis secondary surgical site infection with cellulitis of the left foot Follow-up cultures Vascular surgery consultation Initiated on Zosyn and vancomycin Temperature 101 in the ED, white count 12.9 Tylenol for fever Left foot x-ray showed postsurgical changes IV fluid hydration with 75 mL per hour saline Chronic conditions Hypertension resume lisinopril Hyperlipidemia resume statin Severe peripheral arterial disease resume aspirin and Xarelto Chronic Anemia with hemoglobin 9.8 denies any GI bleeding this has been persistent since January Full code DVT prophylaxis on Xarelto for severe peripheral arterial disease
[2023-06-19] MEDS: PIPERACILLIN-TAZOBACTAM 3.375 GM in SODIUM CHLORIDE 0.9% 100 ML IVPB SCH ×3 (04:28→20:25)
[2023-06-19 07:05] LABS: African American GFR (CKD) >90 (>60 ml/min/1.73 sqM); Non-African American GFR(CKD) >90 (>60 ml/min/1.73 sqM)
[2023-06-19] MEDS ORDERED: VANCOMYCIN 1,500 MG in SODIUM CHLORIDE 0.9% 500 ML 500 ML IVPB SCH (08:00)
[2023-06-19] MEDS: RIVAROXABAN 20 MG TAB PO SCH (08:37)
[2023-06-19] MEDS: ASPIRIN 81 MG PO SCH (08:37)
[2023-06-19] MEDS: lisinopriL 10 MG TAB PO SCH (08:37)
[2023-06-19] MEDS: HYDROcodone/APAP 5-325MG 1 EACH TAB PO PRN ×2 (08:44→15:15)
[2023-06-19] MEDS: DULoxetine HCL 30 MG CAPSULE.DR PO SCH (15:14)
[2023-06-19] MEDS: GABAPENTIN 300 MG CAP PO SCH ×2 (15:14→20:23)
--- NOTE | 2023-06-19 19:02 | P.PN ---
Subjective Progress Note Date: 06/19/23 Hospital course: Patient is a very pleasant 82-year-old male with a past medical history of peripheral arterial disease and hypertension. He presented to the emergency department on 06/18/23 secondary to worsening left foot pain and drainage from postsurgical wound. Patient underwent recent amputation of second and third toe of left foot on 06/11/23 and has since had delayed wound healing. On 06/14/23 patient developed some swelling and erythema to surgical site and was started on antibiotics with Keflex. Patient and at bedside reports taking medication as prescribed, however reports persistently worsening erythema and purulent drainage. Patient underwent full evaluation in the emergency department. X-ray left foot completed showing post amputation changes of the second and third digit with no evidence of osseous erosion. Labs were completed. CBC showing leukocytosis with WBC count of 12.9 normocytic anemia with hemoglobin of 9.8. BMP revealing hyponatremia with sodium 132 and hypochloremia with chloride of 96 otherwise normal findings. Liver profile normal findings. ESR was significantly elevated at 116 and CRP 35.3. Urinalysis negative for infection. Influenza A, influenza B, RSV, and Covid also negative. Patient running elevated temps as high as 101. Patient was admitted under our services with consultation to vascular surgery and infectious disease. Physical exam: Vital signs reviewed and stable. General: Nontoxic, no distress and appears stated age. Derm: Skin warm and dry, normal coloration for ethnicity. Head: Atraumatic, normocephalic and symmetric. Eyes: EOMs intact, no lid lag, and anicteric sclera Mouth: no lip lesions, mucus membranes moist Cardiovascular: regular rate and rhythm with normal S1S2, systolic murmur, posi tive posterior tibial pulses bilaterally, and cap refill < 2 seconds. Lungs: Respirations even, regular, and unlabored on room air. Lungs CTA bilaterally, no rhonchi, no rales, no wheezing, and no accessory muscle usage. Abdominal: soft, nontender to palpation, no guarding, no appreciable organom egaly patient with bulky dressing to left foot, currently clean, dry, and intact. Ext: Movement and sensation of lower extremities intact. No gross muscle atrophy, bilateral lower extremity edema, no contractures. Neuro: Speech clear, face symmetrical and CN II-XII grossly intact with no noted focal neuro deficits Psych: Alert and oriented to person, place, time, and situation. Appropriate and pleasant affect. Assessment and Plan of Care: Surgical site with delayed wound healing and infection with cellulitis of left foot Sepsis secondary to above Peripheral arterial disease status post recent amputation of left second and third toes with delayed wound healing Vascular surgery consulted Infectious disease consulted Continuation of IV antibiotics with daptomycin 300 mg every 24 hours and Zosyn 3.375 mg every 8 hours pending culture results and further recommendations from infectious disease. Symptomatic care and pain management. Fall precautions Wound care continue aspirin 81 mg daily, Neurontin 600 mg 3 times daily, and Xarelto 20 mg daily, Hypertension continue daily medication regimen with lisinopril 10 mg daily. Data review: Vital signs reviewed. Blood pressure 153/64, heart rate 90, respiratory rate 18, temp 98.4F, SpO2 of 97% on room air. Labs reviewed. Renal function stable with creatinine at 0.64 and GFR greater than 90. No signs of vancomycin associated renal toxicity and vancomycin discontinued at this time and patient was started on daptomycin. CODE STATUS: full code DVT prophylaxis: Xarelto Discussed with: Pt, pt's at bedside, and infectious disease physician Anticipated discharge date: Clinical course to determine Anticipated discharge place: Home with homecare versus rehab Patient was seen independently by Nurse Pracitioner. This document was prepared using [employer] dictation software. Please allow for errors in autistic teacher, while rare they do occur. Rylan Evangelista NP rendered care for this patient independently, reviewed the findings and plan as documented in the note above. I did not physically speak with or examine the patient on this date. Objective - Vital Signs Vital signs: Vital Signs Temp 98.4 F 06/19/23 07:31 Pulse 90 06/19/23 07:31 Resp 18 06/19/23 07:31 BP 153/64 06/19/23 07:31 Pulse Ox 97 06/19/23 07:31 FiO2 Intake & Output 06/18/23 06/19/23 06/19/23 18:59 06:59 18:59 Output Total 600 Balance -600 Weight 75.75 kg 75.75 kg Output: Urine 600 Other: Voiding Method External Catheter # Bowel Movements 1 - Labs CBC & Chem 7: 06/21/23 06:16 06/21/23 06:16 Labs: Abnormal Lab Results - Last 24 Hours (Table) 06/18/23 06/18/23 06/19/23 Range/Units 14:39 14:39 05:58 WBC 12.9 H (3.8-10.6) k/uL RBC 3.39 L (4.30-5.90) m/uL Hgb 9.8 L (13.0-17.5) gm/dL Hct 30.5 L (39.0-53.0) % Neutrophils # 10.2 H (1.3-7.7) k/uL ESR 116 H (0-15) mm/hr Sodium 132 L (137-145) mmol/L Chloride 96 L (98-107) mmol/L Creatinine 0.63 L 0.64 L (0.66-1.25) mg/dL Glucose 103 H (74-99) mg/dL C-Reactive Protein 35.3 H (<1.0) mg/dL
[2023-06-19] MEDS: TAMSULOSIN 0.4 MG CAP.ER.24H PO SCH (20:22)
[2023-06-19] MEDS ORDERED: PRAVASTATIN SODIUM 80 MG TAB PO SCH (21:00)
[2023-06-20] MEDS: SODIUM CHLORIDE 0.9% 1,000 ML IV SCH ×3 (02:59→17:40)
[2023-06-20] MEDS: PIPERACILLIN-TAZOBACTAM 3.375 GM in SODIUM CHLORIDE 0.9% 100 ML IVPB SCH ×3 (04:02→20:04)
[2023-06-20 06:38] LABS: HCT 27.5 % (39.0-53.0); HGB 8.7 gm/dL (13.0-17.5); Hypochromasia Slight; MCH 29.1 pg (25.0-35.0); MCHC 31.5 g/dL (31.0-37.0); MCV 92.5 fL (80.0-100.0); Mean Platelet Volume 8.5; Platelet Count 306 k/uL (150-450); RBC 2.98 m/uL (4.30-5.90); RDW 15.1 % (11.5-15.5); WBC 11.3 k/uL (3.8-10.6)
[2023-06-20 06:54] LABS: ALT 27 U/L (4-49); AST 94 U/L (17-59); African American GFR (CKD) >90 (>60 ml/min/1.73 sqM); Albumin 2.8 g/dL (3.5-5.0); Alkaline Phosphatase 119 U/L (38-126); Anion Gap 10 mmol/L; Blood Urea Nitrogen 11 mg/dL (9-20); Carbon Dioxide 25 mmol/L (22-30); Chloride 101 mmol/L (98-107); Globulin 2.9 g/dL; Glucose 109 mg/dL (74-99); Non-African American GFR(CKD) >90 (>60 ml/min/1.73 sqM); Potassium 3.9 mmol/L (3.5-5.1); Sodium 136 mmol/L (137-145); Total Bilirubin 0.6 mg/dL (0.2-1.3); Total Protein 5.7 g/dL (6.3-8.2)
--- NOTE | 2023-06-20 08:37 | P.GSCN ---
History of Present Illness Consult date: 06/20/23 Reason for Consult: Cellulitis. History of present illness: Patient is status post amputation of the second third toes left foot. He also has a heel wound on the left. Past Medical History Past Medical History: Deep Vein Thrombosis (DVT), Eye Disorder, Hyperlipidemia, Hypertension, Osteoarthritis (OA), Vascular Disorder Additional Past Medical History / Comment(s): macular degeneration, DVT leg years ago 2000, leg pain, bilateral leg swelling > left. left foot 2nd and 3rd toes amputated 06/11/[address] Curran History of Any Multi-Drug Resistant Organisms: None Reported Past Surgical History: Orthopedic Surgery Additional Past Surgical History / Comment(s): cataracts removed, cervical fusion, toe ampuation - lt 2nd and 3rd Past Anesthesia/Blood Transfusion Reactions: No Reported Reaction Past Psychological History: No Psychological Hx Reported Smoking Status: Former smoker Past Alcohol Use History: None Reported Additional Past Alcohol Use History / Comment(s): quit smoking >30 yrs. ago, unsure how long he smoked or how much Past Drug Use History: None Reported - Past Family History Brother(s) Family Medical History: Cancer, Coronary Artery Disease (CAD) Additional Family Medical History / Comment(s): 2 brothers Medications and Allergies Home Medications Medication Instructions Recorded Confirmed Type Pravastatin Sodium 80 mg PO HS 02/15/23 06/18/23 History lisinopriL [Prinivil] 10 mg PO DAILY 02/15/23 06/18/23 History Rivaroxaban [Xarelto] 20 mg PO DAILY 02/26/23 06/18/23 History Tamsulosin [Flomax] 0.4 mg PO HS 02/26/23 06/18/23 History Aspirin 81 mg PO DAILY tab 03/03/23 06/18/23 Rx DULoxetine HCL [Cymbalta] 30 mg PO DAILY@1500 06/03/23 06/18/23 History Gabapentin [Neurontin] 600 mg PO TID 06/03/23 06/18/23 History HYDROcodone/APAP 10-325MG [[place] 1 tab PO Q6HR PRN 3 Days #12 tab 06/11/23 06/18/23 Rx 10-325] Cephalexin [Keflex] 500 mg PO QID #40 cap 06/14/23 06/18/23 Rx Allergies Allergy/AdvReac Type Severity Reaction Status Date / Time No Known Allergies Allergy Verified 06/18/23 21:45 Surgical - Exam Osteopathic Statement: *. No significant issues noted on an osteopathic st ructural exam other than those noted in the History and Physical/Consult. Vital Signs Temp Pulse Resp BP Pulse Ox 99.9 F H 93 22 112/56 93 L 06/18/23 13:28 06/18/23 13:28 06/18/23 13:28 06/18/23 13:28 06/18/23 13:28 - General well developed, well nourished, no distress - Eyes normal ocular movement, no icteric - ENT no hearing loss, no congestion - Neck no masses, trachea midline - Respiratory normal respiratory effort, clear to auscultation - Abdomen Abdomen: soft, non tender, no guarding, no rigid, no rebound - Integumentary no rash, no abnormal pigmentation - Neurologic no disoriented, no combative - Psychiatric oriented to time, oriented to person, oriented to place, speech is normal, memory intact Both toe amputation wounds are intact. Sutures remain in place and appear appropriate. Ecchymosis is noted however there is no clinical evidence of cellulitis at this time. No drainage is noted. The patient has difficulty extending his knee and has a wound of the left heel which is somewhat linear in shape and his chronic. There is no surrounding cellulitic reaction or drainage. Results - Labs 06/20/23 06:03 06/20/23 06:03 Abnormal Lab Results - Last 24 Hours (Table) 06/20/23 06/20/23 Range/Units 06:03 06:03 WBC 11.3 H (3.8-10.6) k/uL RBC 2.98 L (4.30-5.90) m/uL Hgb 8.7 L (13.0-17.5) gm/dL Hct 27.5 L (39.0-53.0) % Sodium 136 L (137-145) mmol/L Creatinine 0.60 L (0.66-1.25) mg/dL Glucose 109 H (74-99) mg/dL Calcium 8.0 L (8.4-10.2) mg/dL AST 94 H (17-59) U/L Total Protein 5.7 L (6.3-8.2) g/dL Albumin 2.8 L (3.5-5.0) g/dL Microbiology - Last 24 Hours (Table) 06/18/23 18:50 Blood Culture - Preliminary Blood 06/18/23 18:30 Blood Culture - Preliminary Blood Diabetes panel 06/20/23 Range/Units 06:03 Sodium 136 L (137-145) mmol/L Potassium 3.9 (3.5-5.1) mmol/L Chloride 101 (98-107) mmol/L Carbon Dioxide 25 (22-30) mmol/L BUN 11 (9-20) mg/dL Creatinine 0.60 L (0.66-1.25) mg/dL Glucose 109 H (74-99) mg/dL Calcium 8.0 L (8.4-10.2) mg/dL AST 94 H (17-59) U/L ALT 27 (4-49) U/L Alkaline Phosphatase 119 (38-126) U/L Total Protein 5.7 L (6.3-8.2) g/dL Albumin 2.8 L (3.5-5.0) g/dL Calcium panel 06/20/23 Range/Units 06:03 Calcium 8.0 L (8.4-10.2) mg/dL Albumin 2.8 L (3.5-5.0) g/dL Pituitary panel 06/20/23 Range/Units 06:03 Sodium 136 L (137-145) mmol/L Potassium 3.9 (3.5-5.1) mmol/L Chloride 101 (98-107) mmol/L Carbon Dioxide 25 (22-30) mmol/L BUN 11 (9-20) mg/dL Creatinine 0.60 L (0.66-1.25) mg/dL Glucose 109 H (74-99) mg/dL Calcium 8.0 L (8.4-10.2) mg/dL Adrenal panel 06/20/23 Range/Units 06:03 Sodium 136 L (137-145) mmol/L Potassium 3.9 (3.5-5.1) mmol/L Chloride 101 (98-107) mmol/L Carbon Dioxide 25 (22-30) mmol/L BUN 11 (9-20) mg/dL Creatinine 0.60 L (0.66-1.25) mg/dL Glucose 109 H (74-99) mg/dL Calcium 8.0 L (8.4-10.2) mg/dL Total Bilirubin 0.6 (0.2-1.3) mg/dL AST 94 H (17-59) U/L ALT 27 (4-49) U/L Alkaline Phosphatase 119 (38-126) U/L Total Protein 5.7 L (6.3-8.2) g/dL Albumin 2.8 L (3.5-5.0) g/dL Assessment and Plan Assessment: 1: Status post second third toe amputation left foot with no significant abnormality noted. 2: Chronic left heel wound which appears stable. 3: Chronic flexion/extension issues of the left knee resulting in the heel wound. 4: History severe lower extremity arterial occlusive disease Plan: 1: Protective boot left foot due to presence of left heel wound. 2: Reasonable appearance second third toe amputations, no indication for further surgical intervention at this time. 3: Surgically stable once cleared by all other attending physician/services Time with Patient: Less than 30
[2023-06-20] MEDS: GABAPENTIN 300 MG CAP PO SCH ×3 (09:37→22:29)
[2023-06-20] MEDS: lisinopriL 10 MG TAB PO SCH (09:37)
[2023-06-20] MEDS: RIVAROXABAN 20 MG TAB PO SCH (09:37)
[2023-06-20] MEDS: ASPIRIN 81 MG PO SCH (09:37)
--- NOTE | 2023-06-20 12:14 | P.CONS ---
History of Present Illness - Reason for Consult Consult date: 06/19/23 - History of Present Illness Patient is a 82-year-old male with a past medical history significant for hypertension hyperlipidemia and DVT patient was recently admitted to this facility in this patient do have a left second and third toe amputation on 06/11/2023 patient apparently was evaluated in the ER on 06/14/2023 concerning for cellulitis for the patient was treated with Keflex patient has not been brought back to the hospital with the patient complaining of significant weakness difficultly weightbearing along with increasing swelling erythema and some purulent drainage from the left third toe amputation site patient did have some dull aching pain mild to moderate intensity did have some GEN denies having any fever patient on presentation to the hospital did have a fever of 101 F, patient did have mild tachycardia no hypotension or hypoxemia, patient did have white count of 12.9 with a left shift creatinine 0.63 urine was negative influenza RSV and COVID testing was negative blood cultures obtained which are currently pending patient did have x-ray of the foot which did show some amputation changes to the second and third toe no bony erosion patient also have a chest x-ray no acute cardiopulmonary disease patient was started on vancomycin and Zosyn admitted to the hospital infectious disease was consulted for further management of antibiotic therapy Past Medical History Past Medical History: Deep Vein Thrombosis (DVT), Eye Disorder, Hyperlipidemia, Hypertension, Osteoarthritis (OA), Vascular Disorder Additional Past Medical History / Comment(s): macular degeneration, DVT leg years ago 2000, leg pain, bilateral leg swelling > left. left foot 2nd and 3rd toes amputated 06/11/[address] Curran History of Any Multi-Drug Resistant Organisms: None Reported Past Surgical History: Orthopedic Surgery Additional Past Surgical History / Comment(s): cataracts removed, cervical fusion, toe ampuation - lt 2nd and 3rd Past Anesthesia/Blood Transfusion Reactions: No Reported Reaction Past Psychological History: No Psychological Hx Reported Smoking Status: Former smoker Past Alcohol Use History: None Reported Additional Past Alcohol Use History / Comment(s): quit smoking >30 yrs. ago, unsure how long he smoked or how much Past Drug Use History: None Reported - Past Family History Brother(s) Family Medical History: Cancer, Coronary Artery Disease (CAD) Additional Family Medical History / Comment(s): 2 brothers Medications and Allergies Home Medications Medication Instructions Recorded Confirmed Type Pravastatin Sodium 80 mg PO HS 02/15/23 06/18/23 History lisinopriL [Prinivil] 10 mg PO DAILY 02/15/23 06/18/23 History Rivaroxaban [Xarelto] 20 mg PO DAILY 02/26/23 06/18/23 History Tamsulosin [Flomax] 0.4 mg PO HS 02/26/23 06/18/23 History Aspirin 81 mg PO DAILY tab 03/03/23 06/18/23 Rx DULoxetine HCL [Cymbalta] 30 mg PO DAILY@1500 06/03/23 06/18/23 History Gabapentin [Neurontin] 600 mg PO TID 06/03/23 06/18/23 History HYDROcodone/APAP 10-325MG [[place] 1 tab PO Q6HR PRN 3 Days #12 tab 06/11/23 06/18/23 Rx 10-325] Cephalexin [Keflex] 500 mg PO QID #40 cap 06/14/23 06/18/23 Rx Allergies Allergy/AdvReac Type Severity Reaction Status Date / Time No Known Allergies Allergy Verified 06/18/23 21:45 Physical Exam Vitals: Vital Signs Temp Pulse Pulse Resp BP BP Pulse Ox 06/19/23 12:51 98.4 F 92 16 132/57 96 06/19/23 07:31 98.4 F 90 18 153/64 97 06/19/23 02:00 98.6 F 85 18 126/61 97 06/18/23 23:39 99.3 F 06/18/23 23:09 18 06/18/23 22:08 100 F H 90 18 100/46 94 L 06/18/23 21:00 100 18 135/71 95 06/18/23 20:00 100.0 F H 06/18/23 18:55 97 20 144/58 95 06/18/23 17:31 101.0 F H 99 18 121/52 93 L Intake and Output 06/18/23 06/19/23 06/19/23 22:59 06:59 14:59 Output Total 600 300 Balance -600 -300 Output: Urine 600 300 Other: Voiding Method External Catheter # Bowel Movements 1 Weight 75.75 kg Results CBC & Chem 7: 06/20/23 06:03 06/20/23 06:03 Labs: Abnormal Lab Results - Last 24 Hours (Table) 06/18/23 06/18/23 06/19/23 Range/Units 14:39 14:39 05:58 WBC 12.9 H (3.8-10.6) k/uL RBC 3.39 L (4.30-5.90) m/uL Hgb 9.8 L (13.0-17.5) gm/dL Hct 30.5 L (39.0-53.0) % Neutrophils # 10.2 H (1.3-7.7) k/uL ESR 116 H (0-15) mm/hr Sodium 132 L (137-145) mmol/L Chloride 96 L (98-107) mmol/L Creatinine 0.63 L 0.64 L (0.66-1.25) mg/dL Glucose 103 H (74-99) mg/dL C-Reactive Protein 35.3 H (<1.0) mg/dL Assessment and Plan Plan: 1patient present to hospital with sepsis in this patient who did have a fever tachycardia elevated white count source likely left foot cellulitis and concerning for surgical site infection in this patient who is s/p left third toe and partial amputation of the left second toe, apparently there was some purulent drainage noticed by the family, we will need to cover for resistant gram-positive as well as gram-negative pathogen. 2await vascular surgery evaluation possible removal of some of the stitches and deep culture, superficial culture obtained at the bedside. 3patient to continue with the Zosyn however discontinue vancomycin to decrease risk of nephrotoxicity and we will add daptomycin to cover for the gram- positive. Multiple family member at the bedside their questions and concerns were answered. We will follow on clinical condition and cultures to further adjust medication if needed Thank you for this consultation we will follow the patient along with you Dictation was produced using [employer] software. please excuse any grammatical, word or spelling errors.
[2023-06-20] MEDS: HYDROcodone/APAP 5-325MG 1 EACH TAB PO PRN (12:32)
[2023-06-20] MEDS: DULoxetine HCL 30 MG CAPSULE.DR PO SCH (15:26)
--- NOTE | 2023-06-20 16:07 | P.PN ---
Subjective Progress Note Date: 06/20/23 Hospital course: Patient is a very pleasant 82-year-old male with a past medical history of peripheral arterial disease and hypertension. He presented to the emergency department on 06/18/23 secondary to worsening left foot pain and drainage from postsurgical wound. Patient underwent recent amputation of second and third toe of left foot on 06/11/23 and has since had delayed wound healing. On 06/14/23 patient developed some swelling and erythema to surgical site and was started on antibiotics with Keflex. Patient and at bedside reports taking medication as prescribed, however reports persistently worsening erythema and purulent drainage. Patient underwent full evaluation in the emergency department. X-ray left foot completed showing post amputation changes of the second and third digit with no evidence of osseous erosion. Labs were completed. CBC showing leukocytosis with WBC count of 12.9 normocytic anemia with hemoglobin of 9.8. BMP revealing hyponatremia with sodium 132 and hypochloremia with chloride of 96 otherwise normal findings. Liver profile normal findings. ESR was significantly elevated at 116 and CRP 35.3. Urinalysis negative for infection. Influenza A, influenza B, RSV, and Covid also negative. Patient running elevated temps as high as 101. Patient was admitted under our services with consultation to vascular surgery and infectious disease. Physical exam: Vital signs reviewed and stable. General: Nontoxic, no distress and appears stated age. Derm: Skin warm and dry, normal coloration for ethnicity. Head: Atraumatic, normocephalic and symmetric. Eyes: EOMs intact, no lid lag, and anicteric sclera Mouth: no lip lesions, mucus membranes moist Cardiovascular: regular rate and rhythm with normal S1S2, systolic murmur, pos itive posterior tibial pulses bilaterally, and cap refill < 2 seconds. Lungs: Respirations even, regular, and unlabored on room air. Lungs CTA bilaterally, no rhonchi, no rales, no wheezing, and no accessory muscle usage. Abdominal: soft, nontender to palpation, no guarding, no appreciable organo megaly patient with bulky dressing to left foot, currently clean, dry, and intact. Ext: Movement and sensation of lower extremities intact. No gross muscle atrophy, bilateral lower extremity edema, no contractures. Neuro: Speech clear, face symmetrical and CN II-XII grossly intact with no noted focal neuro deficits Psych: Alert and oriented to person, place, time, and situation. Appropriate and pleasant affect. Assessment and Plan of Care: Surgical site with delayed wound healing and infection with cellulitis of left foot Sepsis secondary to above Peripheral arterial disease status post recent amputation of left second and third toes with delayed wound healing Vascular surgery following, reviewed documentation in chart Infectious disease following and discussed plan of care, patient to continue with daptomycin and Zosyn pending culture results. Continuation of IV antibiotics with daptomycin 300 mg every 24 hours and Zosyn 3.375 mg every 8 hours pending culture results Symptomatic care and pain management. Fall precautions Wound care Continue aspirin 81 mg daily, Neurontin 600 mg 3 times daily, and Xarelto 20 mg daily, Blood culture showing no growth to date Wound cultures pending. Hypertension Continue daily medication regimen with lisinopril 10 mg daily. Data review: Vital signs reviewed. Blood pressure 118/57, heart rate 79, respiratory rate 18, temp 98.5F, and SpO2 of 95% on room air. Labs reviewed. CBC showing slight improvement of leukocytosis with WBC count decreasing to 11.3, hemoglobin 8.7, BMP unremarkable. Liver profile showing slight elevation of AST to 94. CODE STATUS: full code DVT prophylaxis: Xarelto Discussed with: Pt, pt's at bedside, and infectious disease physician Anticipated discharge date: Clinical course to determine Anticipated discharge place: Home with homecare versus rehab Patient was seen independently by Nurse Pracitioner. This document was prepared using [employer] dictation software. Please allow for er rors in machine sizer, while rare they do occur. Rylan Evangelista NP rendered care for this patient independently, reviewed the findings and plan as documented in the note above. I did not physically speak with or examine the patient on this date. Objective - Vital Signs Vital signs: Vital Signs Temp 98.5 F 06/20/23 07:20 Pulse 79 06/20/23 07:20 Resp 18 06/20/23 07:20 BP 118/57 06/20/23 07:20 Pulse Ox 95 06/20/23 07:20 FiO2 Intake & Output 06/19/23 06/20/23 06/20/23 18:59 06:59 18:59 Output Total 300 Balance -300 Output: Urine 300 Other: Voiding Method External Catheter # Voids 2 2 1 # Bowel Movements 1 1 - Labs CBC & Chem 7: 06/21/23 06:16 06/21/23 06:16 Labs: Abnormal Lab Results - Last 24 Hours (Table) 06/20/23 06/20/23 Range/Units 06:03 06:03 WBC 11.3 H (3.8-10.6) k/uL RBC 2.98 L (4.30-5.90) m/uL Hgb 8.7 L (13.0-17.5) gm/dL Hct 27.5 L (39.0-53.0) % Sodium 136 L (137-145) mmol/L Creatinine 0.60 L (0.66-1.25) mg/dL Glucose 109 H (74-99) mg/dL Calcium 8.0 L (8.4-10.2) mg/dL AST 94 H (17-59) U/L Total Protein 5.7 L (6.3-8.2) g/dL Albumin 2.8 L (3.5-5.0) g/dL Microbiology - Last 24 Hours (Table) 06/18/23 18:50 Blood Culture - Preliminary Blood 06/18/23 18:30 Blood Culture - Preliminary Blood
--- NOTE | 2023-06-20 16:12 | P.PN ---
Subjective Progress Note Date: 06/20/23 Principal diagnosis: L foot infection Patient is a 82-year-old male with a past medical history significant for hypertension hyperlipidemia and DVT patient was recently admitted to this facility in this patient do have a left second and third toe amputation on 06/11/2023 patient apparently was evaluated in the ER on 06/14/2023 concerning for cellulitis for the patient was treated with Keflex, patient presented back to the hospital with worsening swelling redness and also have a fever. On today's evaluation that is 06/20/2023 patient did have resolution of his fever patient is breathing comfortably still complaining of pain to the left foot area no chest pain shortness of breath or cough no abdominal pain no diarrhea. The patient white count is down to 11.3, creatinine 0.60 blood and local cultures currently pending Objective - Vital Signs Vital signs: Vital Signs Temp 98.5 F 06/20/23 07:20 Pulse 79 06/20/23 07:20 Resp 18 06/20/23 07:20 BP 118/57 06/20/23 07:20 Pulse Ox 95 06/20/23 07:20 FiO2 Intake & Output 06/19/23 06/20/23 06/20/23 18:59 06:59 18:59 Output Total 300 Balance -300 Output: Urine 300 Other: Voiding Method External Catheter Urinal Diaper Incontinent # Voids 2 2 1 # Bowel Movements 1 1 - Exam GENERAL DESCRIPTION: Elderly male lying in bed in no distress RESPIRATORY SYSTEM: Unlabored breathing , decreased breath sounds at bases HEART: S1 S2 regular rate and rhythm ,no loud murmurs ABDOMEN: Soft , no tenderness EXTREMITIES: Left foot is currently dressed no drainage on the dressing - Labs CBC & Chem 7: 06/20/23 06:03 06/20/23 06:03 Labs: Abnormal Lab Results - Last 24 Hours (Table) 06/20/23 06/20/23 Range/Units 06:03 06:03 WBC 11.3 H (3.8-10.6) k/uL RBC 2.98 L (4.30-5.90) m/uL Hgb 8.7 L (13.0-17.5) gm/dL Hct 27.5 L (39.0-53.0) % Sodium 136 L (137-145) mmol/L Creatinine 0.60 L (0.66-1.25) mg/dL Glucose 109 H (74-99) mg/dL Calcium 8.0 L (8.4-10.2) mg/dL AST 94 H (17-59) U/L Total Protein 5.7 L (6.3-8.2) g/dL Albumin 2.8 L (3.5-5.0) g/dL Microbiology - Last 24 Hours (Table) 06/18/23 18:50 Blood Culture - Preliminary Blood 06/18/23 18:30 Blood Culture - Preliminary Blood Assessment and Plan (1) Post op infection Current Visit: Yes Status: Acute Code(s): T81.40XA - INFECTION FOLLOWING A PROCEDURE, UNSPECIFIED, INIT SNOMED Code(s): 20272146 (2) Cellulitis Current Visit: No Status: Acute Code(s): L03.90 - CELLULITIS, UNSPECIFIED SNOMED Code(s): 212826255 Plan: 1patient present to hospital with sepsis in this patient who did have a fever tachycardia elevated white count source likely left foot cellulitis and concerning for surgical site infection in this patient who is s/p left third toe and partial amputation of the left second toe, apparently there was some purulent drainage noticed by the family, we will need to cover for resistant gram-positive as well as gram-negative pathogen. 2patient has been eval by vascular surgeon recommending no further intervention at this point. 3patient did have resolution of his fever White count is trending down blood cultures are currently pending. 4we will keep the patient on Zosyn and daptomycin while waiting for the culture to finalize determine discharge antibiotics. at the bedside questions were answered Dictation was produced using [email or web address] dictation software. please excuse any grammatical, word or spelling errors. Time with Patient: Less than 30
[2023-06-20] MEDS ORDERED: VANCOMYCIN TROUGH DUE 1 EACH MISC MISCELLANE ONE (19:00)
[2023-06-20] MEDS: TAMSULOSIN 0.4 MG CAP.ER.24H PO SCH (22:29)
[2023-06-21] MEDS: HYDROmorphone 1 MG/ML 1 ML SYRINGE IVP PRN (00:51)
[2023-06-21] MEDS: ACETAMINOPHEN TAB 325 MG TAB PO PRN (03:11)
[2023-06-21] MEDS: PIPERACILLIN-TAZOBACTAM 3.375 GM in SODIUM CHLORIDE 0.9% 100 ML IVPB SCH ×3 (04:29→21:06)
[2023-06-21] MEDS: SODIUM CHLORIDE 0.9% 1,000 ML IV SCH ×3 (04:31→21:07)
[2023-06-21] MEDS: ASPIRIN 81 MG PO SCH (08:09)
[2023-06-21] MEDS: lisinopriL 10 MG TAB PO SCH (08:09)
[2023-06-21] MEDS: HYDROcodone/APAP 5-325MG 1 EACH TAB PO PRN ×3 (08:09→16:11)
[2023-06-21] MEDS: RIVAROXABAN 20 MG TAB PO SCH (08:09)
[2023-06-21] MEDS: GABAPENTIN 300 MG CAP PO SCH ×3 (08:09→21:06)
[2023-06-21 11:13] LABS: ALT 39 U/L (10-49); AST 111 U/L (14-35); Albumin 3.1 d/dL (3.8-4.9); Albumin/Globulin Ratio 1.19 Ratio (1.60-3.17); Alkaline Phosphatase 127 U/L (41-126); BUN/Creat Ratio 11.29 Ratio (12.00-20.00); Blood Urea Nitrogen 7.9 mg/dL (9.0-27.0); Calcium 8.3 mg/dL (8.7-10.3); Carbon Dioxide 21.8 mmol/L (21.6-31.8); Chloride 104 mmol/L (96-109); Globulin 2.6 d/dL (1.6-3.3); Glucose 94 mg/dL (70-110); Potassium 3.6 mmol/L (3.5-5.5); Sodium 138 mmol/L (135-145); Total Bilirubin 0.4 mg/dL (0.3-1.2); Total Protein 5.7 d/dL (6.2-8.2)
[2023-06-21 13:01] LABS: HCT 23.9 % (39.6-50.0); HGB 7.6 d/dL (13.0-17.0); MCH 29.6 pg (27.0-32.0); MCHC 31.8 d/dL (32.0-37.0); Mean Platelet Volume 11.1 FL (9.5-12.2); NRBC Per 100 WBC 0 X 10*3/uL (0.00-0.01); Platelet Count 333 X 10*3/uL (140-440); RBC 2.57 X 10*6/uL (4.40-5.60); RDW 15.9 % (11.5-14.5); WBC 12.57 X 10*3/uL (4.50-10.00)
[2023-06-21 14:13] VITALS: BMI 22.6
[2023-06-21] MEDS: DULoxetine HCL 30 MG CAPSULE.DR PO SCH (16:10)
--- NOTE | 2023-06-21 16:40 | P.PN ---
Subjective Progress Note Date: 06/21/23 Hospital course: Patient is a very pleasant 82-year-old male with a past medical history of peripheral arterial disease and hypertension. He presented to the emergency department on 06/18/23 secondary to worsening left foot pain and drainage from postsurgical wound. Patient underwent recent amputation of second and third toe of left foot on 06/11/23 and has since had delayed wound healing. On 06/14/23 patient developed some swelling and erythema to surgical site and was started on antibiotics with Keflex. Patient and at bedside reports taking medication as prescribed, however reports persistently worsening erythema and purulent drainage. Patient underwent full evaluation in the emergency department. X-ray left foot completed showing post amputation changes of the second and third digit with no evidence of osseous erosion. Labs were completed. CBC showing leukocytosis with WBC count of 12.9 normocytic anemia with hemoglobin of 9.8. BMP revealing hyponatremia with sodium 132 and hypochloremia with chloride of 96 otherwise normal findings. Liver profile normal findings. ESR was significantly elevated at 116 and CRP 35.3. Urinalysis negative for infection. Influenza A, influenza B, RSV, and Covid also negative. Patient running elevated temps as high as 101. Patient was admitted under our services with consultation to vascular surgery and infectious disease. Physical exam: Patient seen and fully evaluated at the bedside. He is alert and oriented to person, place, time, and situation. Vital signs reviewed and stable. General: Nontoxic, no distress and appears stated age. Derm: Skin warm and dry, normal coloration for ethnicity. Head: Atraumatic, normocephalic and symmetric. Eyes: EOMs intact, no lid lag, and anicteric sclera Mouth: no lip lesions, mucus membranes moist Cardiovascular: regular rate and rhythm with normal S1S2, systolic murmur, positive posterior tibial pulses bilaterally, and cap refill < 2 seconds. Lungs: Respirations even, regular, and unlabored on room air. Lungs CTA bilaterally, no rhonchi, no rales, no wheezing, and no accessory muscle usage. Abdominal: soft, nontender to palpation, no guarding, no appreciable organomegaly patient with bulky dressing to left foot, currently clean, dry, and intact. Ext: Movement and sensation of lower extremities intact. No gross muscle atrophy, bilateral lower extremity edema, no contractures. Neuro: Speech clear, face symmetrical and CN II-XII grossly intact with no noted focal neuro deficits Psych: Alert and oriented to person, place, time, and situation. Appropriate and pleasant affect. Assessment and Plan of Care: Surgical site with delayed wound healing and infection with cellulitis of left foot, x-ray showing no evidence for osteomyelitis Sepsis secondary to above Peripheral arterial disease status post recent amputation of left second and third toes with delayed wound healing Vascular surgery following, reviewed documentation in chart Infectious disease following and discussed plan of care, patient to continue with daptomycin and Zosyn pending culture results. Continuation of IV antibiotics with daptomycin 300 mg every 24 hours and Zosyn 3.375 mg every 8 hours pending culture results Symptomatic care and pain management. Fall precautions Wound care Continue aspirin 81 mg daily, Neurontin 600 mg 3 times daily, and Xarelto 20 mg daily, Blood culture showing no growth to date Wound cultures pending. Hypertension Continue daily medication regimen with lisinopril 10 mg daily. Data review: Vital signs reviewed. Blood pressure stable 129/50, heart rate 78, respiratory rate 18, temp 98.5F, and SpO2 of 96% on room air. Labs reviewed. CBC showing leukocytosis with WBC count of 12.57 and normocytic anemia with hemoglobin of 7.6. BMP unremarkable. Glucose 94. Liver enzymes elevated with AST of 111 and alkaline phosphatase of 127. CODE STATUS: full code DVT prophylaxis: Xarelto Discussed with: Pt, pt's at bedside, RN and infectious disease physician Anticipated discharge date: Clinical course to determine Anticipated discharge place: Home with homecare versus rehab Patient was seen independently by Nurse Pracitioner. This document was prepared using [employer] dictation software. Please allow for errors in sales commissions analyst, while rare they do occur. Rylan Evangelista NP rendered care for this patient independently, reviewed the findings and plan as documented in the note above. I did not physically speak with or examine the patient on this date. Objective - Vital Signs Vital signs: Vital Signs Temp 98.5 F 06/21/23 07:39 Pulse 78 06/21/23 07:39 Resp 18 06/21/23 07:39 BP 129/50 06/21/23 07:39 Pulse Ox 96 06/21/23 07:39 FiO2 Intake & Output 06/20/23 06/21/23 06/21/23 18:59 06:59 18:59 Output Total 150 300 Balance -150 -300 Output: Urine 150 300 Other: Voiding Method Urinal Urinal Urinal Diaper Diaper Diaper Incontinent Incontinent Incontinent # Voids 1 2 # Bowel Movements 1 1 - Labs CBC & Chem 7: 06/21/23 06:16 06/21/23 06:16 Labs: Microbiology - Last 24 Hours (Table) 06/18/23 18:30 Blood Culture - Preliminary Blood 06/18/23 18:50 Blood Culture - Preliminary Blood
[2023-06-21] MEDS: TAMSULOSIN 0.4 MG CAP.ER.24H PO SCH (21:06)
[2023-06-22] MEDS: SODIUM CHLORIDE 0.9% 1,000 ML IV SCH ×4 (03:47→23:49)
[2023-06-22] MEDS: PIPERACILLIN-TAZOBACTAM 3.375 GM in SODIUM CHLORIDE 0.9% 100 ML IVPB SCH ×2 (03:52→12:47)
[2023-06-22 06:33] LABS: HCT 25.5 % (39.0-53.0); Hypochromasia Marked; MCH 29.5 pg (25.0-35.0); MCHC 31.2 g/dL (31.0-37.0); MCV 94.5 fL (80.0-100.0); Mean Platelet Volume 8.6; Platelet Count 343 k/uL (150-450); RDW 15.4 % (11.5-15.5); WBC 13.5 k/uL (3.8-10.6)
[2023-06-22 06:45] LABS: ALT 36 U/L (4-49); AST 96 U/L (17-59); African American GFR (CKD) >90 (>60 ml/min/1.73 sqM); Albumin 2.7 g/dL (3.5-5.0); Albumin/Globulin Ratio 0.9; Alkaline Phosphatase 154 U/L (38-126); Anion Gap 10 mmol/L; Blood Urea Nitrogen 6 mg/dL (9-20); Calcium 7.8 mg/dL (8.4-10.2); Carbon Dioxide 18 mmol/L (22-30); Chloride 107 mmol/L (98-107); Globulin 2.9 g/dL; Glucose 105 mg/dL (74-99); Magnesium 1.9 mg/dL (1.6-2.3); Non-African American GFR(CKD) >90 (>60 ml/min/1.73 sqM); Potassium 3.8 mmol/L (3.5-5.1); Sodium 135 mmol/L (137-145); Total Bilirubin 0.7 mg/dL (0.2-1.3); Total Protein 5.6 g/dL (6.3-8.2)
[2023-06-22 07:43] LABS: C Reactive Protein 30.1 mg/dL (<1.0)
[2023-06-22] MEDS: GABAPENTIN 300 MG CAP PO SCH ×3 (09:38→20:32)
[2023-06-22] MEDS: ACETAMINOPHEN TAB 325 MG TAB PO PRN (09:38)
[2023-06-22] MEDS: lisinopriL 10 MG TAB PO SCH (09:38)
[2023-06-22] MEDS: ASPIRIN 81 MG PO SCH (09:38)
[2023-06-22] MEDS: RIVAROXABAN 20 MG TAB PO SCH (09:45)
[2023-06-22] MEDS: HYDROcodone/APAP 5-325MG 1 EACH TAB PO PRN (09:49)
[2023-06-22] MEDS: AMPICILLIN-SULBACTAM 3 GM in SODIUM CHLORIDE 0.9% 100 ML IVPB SCH ×3 (12:56→23:48)
--- NOTE | 2023-06-22 13:59 | P.PN ---
Subjective Progress Note Date: 06/22/23 Hospital course: Patient is a very pleasant 82-year-old male with a past medical history of peripheral arterial disease and hypertension. He presented to the emergency department on 06/18/23 secondary to worsening left foot pain and drainage from postsurgical wound. Patient underwent recent amputation of second and third toe of left foot on 06/11/23 and has since had delayed wound healing. On 06/14/23 patient developed some swelling and erythema to surgical site and was started on antibiotics with Keflex. Patient and at bedside reports taking medication as prescribed, however reports persistently worsening erythema and purulent drainage. Patient underwent full evaluation in the emergency department. X-ray left foot completed showing post amputation changes of the second and third digit with no evidence of osseous erosion. Labs were completed. CBC showing leukocytosis with WBC count of 12.9 normocytic anemia with hemoglobin of 9.8. BMP revealing hyponatremia with sodium 132 and hypochloremia with chloride of 96 otherwise normal findings. Liver profile normal findings. ESR was significantly elevated at 116 and CRP 35.3. Urinalysis negative for infection. Influenza A, influenza B, RSV, and Covid also negative. Patient running elev ated temps as high as 101. Patient was admitted under our services with consultation to vascular surgery and infectious disease. Physical exam: Patient seen and fully evaluated at the bedside. He is alert and oriented to person, place, time, and situation. He reports currently pain is controlled but reports frequent shooting pains in left foot. Vital signs reviewed and stable. General: Nontoxic, no distress and appears stated age. Derm: Skin warm and dry, normal coloration for ethnicity. Head: Atraumatic, normocephalic and symmetric. Eyes: EOMs intact, no lid lag, and anicteric sclera Mouth: no lip lesions, mucus membranes moist Cardiovascular: regular rate and rhythm with normal S1S2, systolic murmur, positive posterior tibial pulses bilaterally, and cap refill < 2 seconds. Lungs: Respirations even, regular, and unlabored on room air. Lungs CTA bilaterally, no rhonchi, no rales, no wheezing, and no accessory muscle usage. Abdominal: soft, nontender to palpation, no guarding, no appreciable organomegaly patient with bulky dressing to left foot, currently clean, dry, and intact. Ext: Movement and sensation of lower extremities intact. No gross muscle atrophy, bilateral lower extremity edema, no contractures. Neuro: Speech clear, face symmetrical and CN II-XII grossly intact with no noted focal neuro deficits Psych: Alert and oriented to person, place, time, and situation. Appropriate and pleasant affect. Assessment and Plan of Care: Patient with what appears to be worsening purplish discoloration of distal left great toe extending downward onto plantar surface along with development of blisters to dorsal surface of left foot An elevated temp of 100.9F after being afebrile 3 days. WBC count increasing to 13.5 and alkaline phosphatase also increasing to 154. ESR increasing to greater than 140 and CRP slightly decreased to 30.1. Called to discuss these concerns with the infectious disease physician. Daptomycin discontinued and patient placed on Unasyn 3 g every 6 hours. Enterococcus faecalis wound infection with surrounding cellulitis of left foot, x-ray showing no evidence for osteomyelitis Sepsis secondary to above Peripheral arterial disease status post recent amputation of left second and third on 06/11/23 toes with delayed wound healing Wound cultures left foot positive for Enterococcus faecalis Infectious disease following, called and discussed concerns of worsening discoloration and newly developed blisters to dorsal surface of left foot. Infectious disease physician discontinuing daptomycin and starting patient on Unasyn 3 g every 6 hours. Vascular surgery following, reviewed documentation in chart Continuation of IV antibiotics with Unasyn 3 g every 6 hours. Continue Symptomatic care and pain management. Fall precautions Wound care, dressing changes daily Continue aspirin 81 mg daily, Neurontin 600 mg 3 times daily, and Xarelto 20 mg daily, Blood culture showing no growth to date Hypertension Continue daily medication regimen with lisinopril 10 mg daily. Data review: Vital signs reviewed. Blood pressure 146/54, heart rate 83, respiratory rate 18, temp 100.9F, SpO2 of 90% on room air. Labs reviewed. CBC showing WBC count increasing to 13.5 and alkaline phosphatase also increasing to 154. ESR increasing to greater than 140 and CRP slightly decreased to 30.1. Wound culture resulting positive for Enterococcus faecalis. Blood cultures continued to show no growth to date. CODE STATUS: full code DVT prophylaxis: Xarelto Discussed with: Pt, pt's at bedside, RN and infectious disease physician Anticipated discharge date: Clinical course to determine Anticipated discharge place: Home with homecare versus rehab Patient was seen independently by Nurse Pracitioner. This document was prepared using [employer] dictation software. Please allow for errors in pmo lead, while rare they do occur. Rylan Evangelista NP rendered care for this patient independently, reviewed the findings and plan as documented in the note above. I did not physically speak with or examine the patient on this date. Objective - Vital Signs Vital signs: Vital Signs Temp 98.3 F 06/22/23 02:00 Pulse 88 06/22/23 02:00 Resp 18 06/22/23 02:00 BP 145/65 06/22/23 02:00 Pulse Ox 95 06/22/23 02:00 FiO2 Intake & Output 06/21/23 06/22/23 06/22/23 18:59 06:59 18:59 Output Total 400 Balance -400 Weight 75.75 kg Output: Urine 400 Other: Voiding Method Urinal Urinal Diaper Diaper Incontinent Incontinent # Voids 1 2 - Labs CBC & Chem 7: 06/22/23 05:29 06/22/23 05:29 Labs: Abnormal Lab Results - Last 24 Hours (Table) 06/21/23 06/21/23 06/22/23 Range/Units 06:16 06:16 05:29 WBC 12.57 H 13.5 H (4.50-10.00) X 10*3/uL RBC 2.57 L 2.70 L (4.40-5.60) X 10*6/uL Hgb 7.6 L 8.0 L (13.0-17.0) d/dL Hct 23.9 L 25.5 L (39.6-50.0) % MCHC 31.8 L (32.0-37.0) d/dL RDW 15.9 H (11.5-14.5) % Sodium (137-145) mmol/L Carbon Dioxide (22-30) mmol/L Anion Gap 12.20 H (4.00-12.00) mmol/L BUN 7.9 L (9.0-27.0) mg/dL Creatinine (0.66-1.25) mg/dL BUN/Creatinine Ratio 11.29 L (12.00-20.00) Ratio Glucose (74-99) mg/dL Calcium 8.3 L (8.7-10.3) mg/dL AST 111 H (14-35) U/L Alkaline Phosphatase 127 H (41-126) U/L C-Reactive Protein (<1.0) mg/dL Total Protein 5.7 L (6.2-8.2) d/dL Albumin 3.1 L (3.8-4.9) d/dL Albumin/Globulin Ratio 1.19 L (1.60-3.17) Ratio 06/22/23 Range/Units 05:29 WBC (4.50-10.00) X 10*3/uL RBC (4.40-5.60) X 10*6/uL Hgb (13.0-17.0) d/dL Hct (39.6-50.0) % MCHC (32.0-37.0) d/dL RDW (11.5-14.5) % Sodium 135 L (137-145) mmol/L Carbon Dioxide 18 L (22-30) mmol/L Anion Gap (4.00-12.00) mmol/L BUN 6 L (9.0-27.0) mg/dL Creatinine 0.54 L (0.66-1.25) mg/dL BUN/Creatinine Ratio (12.00-20.00) Ratio Glucose 105 H (74-99) mg/dL Calcium 7.8 L (8.7-10.3) mg/dL AST 96 H (14-35) U/L Alkaline Phosphatase 154 H (41-126) U/L C-Reactive Protein 30.1 H (<1.0) mg/dL Total Protein 5.6 L (6.2-8.2) d/dL Albumin 2.7 L (3.8-4.9) d/dL Albumin/Globulin Ratio (1.60-3.17) Ratio Microbiology - Last 24 Hours (Table) 06/18/23 18:50 Blood Culture - Preliminary Blood 06/18/23 18:30 Blood Culture - Preliminary Blood 06/19/23 14:49 Gram Stain - Final Foot - Left Wound Culture - Final Enterococcus faecalis
--- NOTE | 2023-06-22 15:40 | P.PN ---
Subjective Progress Note Date: 06/21/23 Principal diagnosis: L foot infection Patient is a 82-year-old male with a past medical history significant for hypertension hyperlipidemia and DVT patient was recently admitted to this facility in this patient do have a left second and third toe amputation on 06/11/2023 patient apparently was evaluated in the ER on 06/14/2023 concerning for cellulitis for the patient was treated with Keflex, patient presented back to the hospital with worsening swelling redness and also have a fever. On today's evaluation that is 06/21/2023 patient is afebrile, patient is breathing comfortably on room air, the patient is still complaining of pain to the left foot area no chest pain shortness of breath or cough no abdominal pain no diarrhea. The patient white count is slightly up to 12.57 today , creatinine is 0.70, blood and local cultures currently pending Objective - Vital Signs Vital signs: Vital Signs Temp 98.5 F 06/21/23 07:39 Pulse 78 06/21/23 07:39 Resp 18 06/21/23 07:39 BP 129/50 06/21/23 07:39 Pulse Ox 96 06/21/23 07:39 FiO2 Intake & Output 06/20/23 06/21/23 06/21/23 18:59 06:59 18:59 Output Total 150 300 Balance -150 -300 Output: Urine 150 300 Other: Voiding Method Urinal Urinal Urinal Diaper Diaper Diaper Incontinent Incontinent Incontinent # Voids 1 2 1 # Bowel Movements 1 1 - Exam GENERAL DESCRIPTION: Elderly male lying in bed in no distress RESPIRATORY SYSTEM: Unlabored breathing , decreased breath sounds at bases HEART: S1 S2 regular rate and rhythm ,no loud murmurs ABDOMEN: Soft , no tenderness EXTREMITIES: Left 3rd toe amputation site redness has decreased, no drainage on the dressing - Labs CBC & Chem 7: 06/22/23 05:29 06/22/23 05:29 Labs: Abnormal Lab Results - Last 24 Hours (Table) 06/21/23 Range/Units 06:16 Anion Gap 12.20 H (4.00-12.00) mmol/L BUN 7.9 L (9.0-27.0) mg/dL BUN/Creatinine Ratio 11.29 L (12.00-20.00) Ratio Calcium 8.3 L (8.7-10.3) mg/dL AST 111 H (14-35) U/L Alkaline Phosphatase 127 H (41-126) U/L Total Protein 5.7 L (6.2-8.2) d/dL Albumin 3.1 L (3.8-4.9) d/dL Albumin/Globulin Ratio 1.19 L (1.60-3.17) Ratio Microbiology - Last 24 Hours (Table) 06/18/23 18:30 Blood Culture - Preliminary Blood 06/18/23 18:50 Blood Culture - Preliminary Blood Assessment and Plan (1) Post op infection Current Visit: Yes Status: Acute Code(s): T81.40XA - INFECTION FOLLOWING A P ROCEDURE, UNSPECIFIED, INIT SNOMED Code(s): 14822546 (2) Cellulitis Current Visit: No Status: Acute Code(s): L03.90 - CELLULITIS, UNSPECIFIED SNOMED Code(s): 164423310 Plan: 1patient present to hospital with sepsis in this patient who did have a fever tachycardia elevated white count source likely left foot cellulitis and concerning for surgical site infection in this patient who is s/p left third toe and partial amputation of the left second toe, apparently there was some purulent drainage noticed by the family, we will need to cover for resistant gram-positive as well as gram-negative pathogen. 2patient has been eval by vascular surgeon recommending no further intervention at this point. 3patient did have resolution of his fever White count is slightly up today, blood cultures are currently pending. 4we will keep the patient on Zosyn and daptomycin while waiting for the culture to finalize and monitor clinical course closely at the bedside questions were answered Dictation was produced using [employer] software. please excuse any grammatical, word or spelling errors. Time with Patient: Less than 30
--- NOTE | 2023-06-22 15:42 | P.PN ---
Subjective Progress Note Date: 06/22/23 Principal diagnosis: L foot infection Patient is a 82-year-old male with a past medical history significant for hypertension hyperlipidemia and DVT patient was recently admitted to this facility in this patient do have a left second and third toe amputation on 06/11/2023 patient apparently was evaluated in the ER on 06/14/2023 concerning for cellulitis for the patient was treated with Keflex, patient presented back to the hospital with worsening swelling redness and also have a fever. On today's evaluation that is 06/22/2023 patient remains to beafebrile, patient is breathing comfortably on room air, the patient is complaining of pain to the left foot area some car door with the current pain medication, the patient denies chest pain shortness of breath or cough no abdominal pain no diarrhea. The patient white count is slightly up to 13.5 today , creatinine is 0.54,blood culture has been negative local culture growing Enterococcus faecalis Objective - Vital Signs Vital signs: Vital Signs Temp 98.6 F 06/22/23 10:49 Pulse 83 06/22/23 07:27 Resp 18 06/22/23 07:27 BP 146/54 06/22/23 07:27 Pulse Ox 90 L 06/22/23 07:27 FiO2 Intake & Output 06/21/23 06/22/23 06/22/23 18:59 06:59 18:59 Output Total 400 Balance -400 Weight 75.75 kg Output: Urine 400 Other: Voiding Method Urinal Urinal Diaper Diaper Incontinent Incontinent # Voids 1 2 - Exam GENERAL DESCRIPTION: Elderly male lying in bed in no distress RESPIRATORY SYSTEM: Unlabored breathing , decreased breath sounds at bases HEART: S1 S2 regular rate and rhythm ,no loud murmurs ABDOMEN: Soft , no tenderness EXTREMITIES: Left 3rd toe amputation site redness has decreased, did have more discoloration to the left big toe and the left foot is cold to touch - Labs CBC & Chem 7: 06/22/23 05:29 06/22/23 05:29 Labs: Abnormal Lab Results - Last 24 Hours (Table) 06/21/23 06/22/23 06/22/23 Range/Units 06:16 05:29 05:29 WBC 12.57 H 13.5 H (4.50-10.00) X 10*3/uL RBC 2.57 L 2.70 L (4.40-5.60) X 10*6/uL Hgb 7.6 L 8.0 L (13.0-17.0) d/dL Hct 23.9 L 25.5 L (39.6-50.0) % MCHC 31.8 L (32.0-37.0) d/dL RDW 15.9 H (11.5-14.5) % Sodium 135 L (137-145) mmol/L Carbon Dioxide 18 L (22-30) mmol/L BUN 6 L (9-20) mg/dL Creatinine 0.54 L (0.66-1.25) mg/dL Glucose 105 H (74-99) mg/dL Calcium 7.8 L (8.4-10.2) mg/dL AST 96 H (17-59) U/L Alkaline Phosphatase 154 H (38-126) U/L C-Reactive Protein 30.1 H (<1.0) mg/dL Total Protein 5.6 L (6.3-8.2) g/dL Albumin 2.7 L (3.5-5.0) g/dL Microbiology - Last 24 Hours (Table) 06/18/23 18:50 Blood Culture - Preliminary Blood 06/18/23 18:30 Blood Culture - Preliminary Blood 06/19/23 14:49 Gram Stain - Final Foot - Left Wound Culture - Final Enterococcus faecalis Assessment and Plan (1) Post op infection Current Visit: Yes Status: Acute Code(s): T81.40XA - INFECTION FOLLOWING A PROCEDURE, UNSPECIFIED, INIT SNOMED Code(s): 62468269 (2) Cellulitis Current Visit: No Status: Acute Code(s): L03.90 - CELLULITIS, UNSPECIFIED SNOMED Code(s): 460466421 Plan: 1patient present to hospital with sepsis in this patient who did have a fever tachycardia elevated white count source likely left foot cellulitis and concerning for surgical site infection in this patient who is s/p left third toe and partial amputation of the left second toe, apparently there was some purulent drainage noticed by the family, we will need to cover for resistant gram-positive as well as gram-negative pathogen. 2patient has been eval by vascular surgeon recommending no further intervention at this point. 3local culture be finalize Enterococcus faecalis that was penicillin sensitive 4we will discontinue Zosyn and daptomycin start patient on Unasyn and see clinical response at the bedside questions were answered Dictation was produced using [employer] dictation software. please excuse any grammatical, word or spelling errors. Time with Patient: Less than 30
[2023-06-22] MEDS: DULoxetine HCL 30 MG CAPSULE.DR PO SCH (17:06)
--- NOTE | 2023-06-22 17:44 | P.PN ---
Subjective Progress Note Date: 06/22/23 Patient seen and examined. No new events overnight. Per nursing patient foot and amputation sites are swollen with some redness. Patient states having increased pain when he elevates his legs. He denies any fevers, chills, chest pain or shortness of breath. Objective - Vital Signs Vital signs: Vital Signs Temp 98.4 F 06/22/23 12:14 Pulse 72 06/22/23 12:14 Resp 16 06/22/23 12:14 BP 118/53 06/22/23 12:14 Pulse Ox 96 06/22/23 12:14 FiO2 Intake & Output 06/21/23 06/22/23 06/22/23 18:59 06:59 18:59 Output Total 400 Balance -400 Weight 75.75 kg Output: Urine 400 Other: Voiding Method Urinal Urinal Urinal Diaper Diaper Diaper Incontinent Incontinent Incontinent # Voids 1 2 1 # Bowel Movements 1 - Exam nonpalpable DP or PT pulse bilaterally left toe and dictation sites are healing. There is some edema with surrounding erythema. Good capillary refill of the great toe. +TTP - Constitutional General appearance: Present: average body habitus, cooperative - EENT Eyes: Present: PERRLA - Cardiovascular Rhythm: regular - Psychiatric Psychiatric: Present: A&O x's 3, appropriate affect - Labs CBC & Chem 7: 06/22/23 05:29 06/22/23 05:29 Labs: Abnormal Lab Results - Last 24 Hours (Table) 06/22/23 06/22/23 06/22/23 Range/Units 05:29 05:29 09:11 WBC 13.5 H (3.8-10.6) k/uL RBC 2.70 L (4.30-5.90) m/uL Hgb 8.0 L (13.0-17.5) gm/dL Hct 25.5 L (39.0-53.0) % ESR >140 H (0-15) mm/hr Sodium 135 L (137-145) mmol/L Carbon Dioxide 18 L (22-30) mmol/L BUN 6 L (9-20) mg/dL Creatinine 0.54 L (0.66-1.25) mg/dL Glucose 105 H (74-99) mg/dL Calcium 7.8 L (8.4-10.2) mg/dL AST 96 H (17-59) U/L Alkaline Phosphatase 154 H (38-126) U/L C-Reactive Protein 30.1 H (<1.0) mg/dL Total Protein 5.6 L (6.3-8.2) g/dL Albumin 2.7 L (3.5-5.0) g/dL Microbiology - Last 24 Hours (Table) 06/18/23 18:50 Blood Culture - Preliminary Blood 06/18/23 18:30 Blood Culture - Preliminary Blood 06/19/23 14:49 Gram Stain - Final Foot - Left Wound Culture - Final Enterococcus faecalis Assessment and Plan Assessment: 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 Did have a conversation with the patient about possible options if pain persists or if the wound does not heal which would likely involve an above-knee of dictation due to his severity of occlusive disease. Discussed with Dr. Curran his primary surgeon and she will have a discussion with family tomorrow.
[2023-06-22] MEDS ORDERED: ONDANSETRON 4 MG/2 ML VIAL IVP PRN (19:05)
[2023-06-22] MEDS: TAMSULOSIN 0.4 MG CAP.ER.24H PO SCH (20:32)
[2023-06-23] MEDS: HYDROmorphone 1 MG/ML 1 ML SYRINGE IVP PRN ×2 (02:54→10:54)
[2023-06-23] MEDS: HYDROcodone/APAP 5-325MG 1 EACH TAB PO PRN ×3 (03:57→16:51)
[2023-06-23] MEDS: AMPICILLIN-SULBACTAM 3 GM in SODIUM CHLORIDE 0.9% 100 ML IVPB SCH ×3 (05:17→17:05)
[2023-06-23] MEDS: GABAPENTIN 300 MG CAP PO SCH ×3 (09:10→21:55)
[2023-06-23] MEDS: RIVAROXABAN 20 MG TAB PO SCH (09:10)
[2023-06-23] MEDS: lisinopriL 10 MG TAB PO SCH (09:10)
[2023-06-23] MEDS: ASPIRIN 81 MG PO SCH (09:11)
[2023-06-23] MEDS: SODIUM CHLORIDE 0.9% 1,000 ML IV SCH ×3 (10:51→21:56)
[2023-06-23 12:48] LABS: HCT 23.9 % (39.6-50.0); HGB 7.7 d/dL (13.0-17.0); MCH 29.6 pg (27.0-32.0); MCHC 32.2 d/dL (32.0-37.0); MCV 91.9 FL (80.0-97.0); Mean Platelet Volume 10.9 FL (9.5-12.2); NRBC Per 100 WBC 0 X 10*3/uL (0.00-0.01); Platelet Count 404 X 10*3/uL (140-440); RDW 16.6 % (11.5-14.5); WBC 15.58 X 10*3/uL (4.50-10.00)
[2023-06-23 13:04] LABS: ALT 39 U/L (10-49); AST 75 U/L (14-35); Albumin 2.9 d/dL (3.8-4.9); Albumin/Globulin Ratio 1.12 Ratio (1.60-3.17); Alkaline Phosphatase 138 U/L (41-126); BUN/Creat Ratio 11.67 Ratio (12.00-20.00); Calcium 8.1 mg/dL (8.7-10.3); Chloride 105 mmol/L (96-109); Globulin 2.6 d/dL (1.6-3.3); Glucose 91 mg/dL (70-110); Potassium 3.8 mmol/L (3.5-5.5); Sodium 140 mmol/L (135-145); Total Bilirubin 0.4 mg/dL (0.3-1.2); Total Protein 5.5 d/dL (6.2-8.2)
[2023-06-23 14:23] LABS: Erythrocyte Sedimentation Rate 105 mm/Hr (0-20)
--- NOTE | 2023-06-23 14:40 | P.PN ---
Subjective Progress Note Date: 06/23/23 Hospital Course: 82-year-old male with a past medical history of peripheral arterial disease and hypertension. He presented to the emergency department on 06/18/23 secondary to worsening left foot pain and drainage from postsurgical wound. Patient underwent recent amputation of second and third toe of left foot on 06/11/23 and has since had delayed wound healing. On 06/14/23 patient developed some swelling and erythema to surgical site and was started on antibiotics with Keflex. Pa dustin and at bedside reports taking medication as prescribed, however reports persistently worsening erythema and purulent drainage. Patient underwent full evaluation in the emergency department. X-ray left foot completed showing post amputation changes of the second and third digit with no evidence of osseous erosion. Labs were completed. CBC showing leukocytosis with WBC count of 12.9 normocytic anemia with hemoglobin of 9.8. BMP revealing hyponatremia with sodium 132 and hypochloremia with chloride of 96 otherwise normal findings. Liver profile normal findings. ESR was significantly elevated at 116 and CRP 35.3. Urinalysis negative for infection. Influenza A, influenza B, RSV, and Covid also negative. Patient running elevated temps as high as 101. Patient was admitted under our services with consultation to vascular surgery and infectious disease. Subjective: Patient seen and examined at bedside. No acute events overnight. He continues to have pain in the left foot. Pertinent positives and negatives as discussed above, a complete review of systems was performed and all other systems are negative. Vitals Signs Reviewed. General: Nontoxic, no distress and appears stated age. Derm: Skin warm and dry, normal coloration for ethnicity. Head: Atraumatic, normocephalic and symmetric. Eyes: EOMs intact, no lid lag, and anicteric sclera Mouth: no lip lesions, mucus membranes moist Cardiovascular: regular rate and rhythm with normal S1S2, systolic murmur, positive posterior tibial pulses bilaterally, and cap refill < 2 seconds. Lungs: Respirations even, regular, and unlabored on room air. Lungs CTA bilaterally, no rhonchi, no rales, no wheezing, and no accessory muscle usage. Abdominal: soft, nontender to palpation, no guarding, no appreciable organomegaly patient with bulky dressing to left foot, currently clean, dry, and intact. Ext: Movement and sensation of lower extremities intact. No gross muscle atrophy, bilateral lower extremity edema, no contractures. Neuro: Speech clear, face symmetrical and CN II-XII grossly intact with no noted focal neuro deficits Psych: Alert and oriented to person, place, time, and situation. Appropriate and pleasant affect. Data Reviewed Today: Pertinent Labs: WBC 15.58, hemoglobin 7.7, potassium 3.8, creatinine 0.6, CRP 26.6 Imaging: No new imaging Assessment and Plan: Enterococcus faecalis wound infection with surrounding cellulitis of left foot, x-ray showing no evidence for osteomyelitis Sepsis secondary to above Peripheral arterial disease status post recent amputation of left second and third on 06/11/23 toes with delayed wound healing -Vascular surgery following, possible amputation given severe peripheral arterial disease -ID following, on Unasyn -pain control with oral Tylenol PRN, oral [place] PRN, IV Dilaudid PRN, oral Motrin PRN Normocytic anemia -No active bleeding -Iron studies ordered -CBC tomorrow Hypertension -Continue daily medication regimen with lisinopril 10 mg daily. DVT ppx: xarelto Code status: Full code Anticipated discharge place: Pending clinical course Anticipated discharge time: Pending clinical course Objective - Vital Signs Vital signs: Vital Signs Temp 98.7 F 06/23/23 11:25 Pulse 72 06/23/23 11:25 Resp 16 06/23/23 11:25 BP 140/72 06/23/23 11:25 Pulse Ox 96 06/23/23 11:25 FiO2 Intake & Output 06/22/23 06/23/23 06/23/23 18:59 06:59 18:59 Other: Voiding Method Urinal Urinal Urinal Diaper Diaper Diaper Incontinent Incontinent Incontinent # Voids 1 # Bowel Movements 1 - Labs CBC & Chem 7: 06/23/23 05:36 06/23/23 05:36 Labs: Abnormal Lab Results - Last 24 Hours (Table) 06/23/23 06/23/23 Range/Units 05:36 05:36 WBC 15.58 H (4.50-10.00) X 10*3/uL RBC 2.60 L (4.40-5.60) X 10*6/uL Hgb 7.7 L (13.0-17.0) d/dL Hct 23.9 L (39.6-50.0) % RDW 16.6 H (11.5-14.5) % ESR 105 H (0-20) mm/Hr Carbon Dioxide 20.0 L (21.6-31.8) mmol/L Anion Gap 15.00 H (4.00-12.00) mmol/L BUN 7.0 L (9.0-27.0) mg/dL BUN/Creatinine Ratio 11.67 L (12.00-20.00) Ratio Calcium 8.1 L (8.7-10.3) mg/dL AST 75 H (14-35) U/L Alkaline Phosphatase 138 H (41-126) U/L C-Reactive Protein 26.60 H (0.00-0.80) mg/dL Total Protein 5.5 L (6.2-8.2) d/dL Albumin 2.9 L (3.8-4.9) d/dL Albumin/Globulin Ratio 1.12 L (1.60-3.17) Ratio
[2023-06-23] MEDS: DULoxetine HCL 30 MG CAPSULE.DR PO SCH (17:04)
--- NOTE | 2023-06-23 17:27 | P.PN ---
Subjective Progress Note Date: 06/23/23 Patient seen and examined. No complaints. Continues to have severe pain in his left leg, unable to fully elevate due to the pain. Seen with his family, at the bedside and stepson over the phone Objective - Vital Signs Vital signs: Vital Signs Temp 98.7 F 06/23/23 11:25 Pulse 72 06/23/23 11:25 Resp 16 06/23/23 11:25 BP 140/72 06/23/23 11:25 Pulse Ox 96 06/23/23 11:25 FiO2 Intake & Output 06/22/23 06/23/23 06/23/23 18:59 06:59 18:59 Other: Voiding Method Urinal Urinal Urinal Diaper Diaper Diaper Incontinent Incontinent Incontinent # Voids 1 8 # Bowel Movements 1 - Exam No acute distress. Mild pain. Nonpalpable pedal pulses, amputation site with mild erythema. Bilateral lower extremity edema. Tenderness to palpation. - Labs CBC & Chem 7: 06/23/23 05:36 06/23/23 05:36 Labs: Abnormal Lab Results - Last 24 Hours (Table) 06/23/23 06/23/23 Range/Units 05:36 05:36 WBC 15.58 H (4.50-10.00) X 10*3/uL RBC 2.60 L (4.40-5.60) X 10*6/uL Hgb 7.7 L (13.0-17.0) d/dL Hct 23.9 L (39.6-50.0) % RDW 16.6 H (11.5-14.5) % ESR 105 H (0-20) mm/Hr Carbon Dioxide 20.0 L (21.6-31.8) mmol/L Anion Gap 15.00 H (4.00-12.00) mmol/L BUN 7.0 L (9.0-27.0) mg/dL BUN/Creatinine Ratio 11.67 L (12.00-20.00) Ratio Calcium 8.1 L (8.7-10.3) mg/dL AST 75 H (14-35) U/L Alkaline Phosphatase 138 H (41-126) U/L C-Reactive Protein 26.60 H (0.00-0.80) mg/dL Total Protein 5.5 L (6.2-8.2) d/dL Albumin 2.9 L (3.8-4.9) d/dL Albumin/Globulin Ratio 1.12 L (1.60-3.17) Ratio Assessment and Plan Assessment: Rest pain left lower extremity 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 Options at this point include doing nothing and palliative/hospice care versus going forth with left lower extremity amputation. Multiple questions were answered. Risks and benefits of each were discussed. At the conclusion of all the discussion, the tentative plan is to go forward with left above-knee amputation. Appreciate medical input regarding risk stratification. Would anticipate spinal and monitored anesthesia care rather than full general anesthesia if able. Will monitor labs and transfuse blood as needed for Hemoglobin greater than 8 on operative day. Everyone seemingly understands the plan. Questions are answered to satisfactory understanding.
[2023-06-23] MEDS: TAMSULOSIN 0.4 MG CAP.ER.24H PO SCH (21:55)
[2023-06-24] MEDS: AMPICILLIN-SULBACTAM 3 GM in SODIUM CHLORIDE 0.9% 100 ML IVPB SCH ×6 (00:13→23:45)
[2023-06-24 06:30] LABS: Basophils % (A) 0 %; Eosinophils # (A) 0.2 k/uL (0-0.7); Eosinophils % (A) 1 %; HCT 28.9 % (39.0-53.0); HGB 8.9 gm/dL (13.0-17.5); Hypochromasia Moderate; Lymphocytes # (A) 1.1 k/uL (1.0-4.8); Lymphocytes % (A) 9 %; MCH 28.6 pg (25.0-35.0); MCHC 30.8 g/dL (31.0-37.0); Mean Platelet Volume 8.2; Monocytes # (A) 0.8 k/uL (0-1.0); Monocytes % (A) 6 %; Neutrophils # (A) 10.9 k/uL (1.3-7.7); Neutrophils % (A) 83 %; Platelet Count 410 k/uL (150-450); RDW 15.4 % (11.5-15.5); WBC 13.2 k/uL (3.8-10.6)
[2023-06-24 07:08] LABS: African American GFR (CKD) >90 (>60 ml/min/1.73 sqM); Anion Gap 9 mmol/L; Blood Urea Nitrogen 7 mg/dL (9-20); Calcium 7.9 mg/dL (8.4-10.2); Carbon Dioxide 23 mmol/L (22-30); Chloride 103 mmol/L (98-107); Glucose 92 mg/dL (74-99); Non-African American GFR(CKD) >90 (>60 ml/min/1.73 sqM); Potassium 3.4 mmol/L (3.5-5.1); Sodium 135 mmol/L (137-145)
[2023-06-24] MEDS: GABAPENTIN 300 MG CAP PO SCH ×3 (08:09→21:35)
[2023-06-24] MEDS: lisinopriL 10 MG TAB PO SCH (08:09)
[2023-06-24] MEDS: ASPIRIN 81 MG PO SCH (08:09)
[2023-06-24] MEDS: SODIUM CHLORIDE 0.9% 1,000 ML IV SCH ×3 (08:10→21:35)
[2023-06-24] MEDS: HYDROmorphone 1 MG/ML 1 ML SYRINGE IVP PRN (08:18)
[2023-06-24] MEDS ORDERED: POTASSIUM CHLORIDE ER 20 MEQ TAB.ER PO STA (08:49)
[2023-06-24 09:57] LABS: % Iron Saturation 12.07 (15.00-50.00); Magnesium 1.9 mg/dL (1.5-2.4)
[2023-06-24] MEDS: RIVAROXABAN 20 MG TAB PO SCH (10:53)
[2023-06-24] MEDS: HYDROcodone/APAP 5-325MG 1 EACH TAB PO PRN ×2 (10:53→15:40)
[2023-06-24] MEDS: LACTATED RINGERS 1,000 ML IV SCH (12:54)
--- NOTE | 2023-06-24 13:57 | P.PN ---
Subjective Progress Note Date: 06/24/23 Hospital Course: 82-year-old male with a past medical history of peripheral arterial disease and hypertension. He presented to the emergency department on 06/18/23 secondary to worsening left foot pain and drainage from postsurgical wound. Patient underwent recent amputation of second and third toe of left foot on 06/11/23 and has since had delayed wound healing. On 06/14/23 patient developed some swelling and erythema to surgical site and was started on antibiotics with Keflex. Han chan and at bedside reports taking medication as prescribed, however reports persistently worsening erythema and purulent drainage. Patient underwent full evaluation in the emergency department. X-ray left foot completed showing post amputation changes of the second and third digit with no evidence of osseous erosion. Labs were completed. CBC showing leukocytosis with WBC count of 12.9 normocytic anemia with hemoglobin of 9.8. BMP revealing hyponatremia with sodium 132 and hypochloremia with chloride of 96 otherwise normal findings. Liver profile normal findings. ESR was significantly elevated at 116 and CRP 35.3. Urinalysis negative for infection. Influenza A, influenza B, RSV, and Covid also negative. Patient running elevated temps as high as 101. Patient was admitted under our services with consultation to vascular surgery and infectious disease. Patient pending left AKA tomorrow. Subjective: Patient seen and examined at bedside. No acute events overnight. He continues to have pain in the left foot. Pertinent positives and negatives as discussed above, a complete review of systems was performed and all other systems are negative. Vitals Signs Reviewed. General: Nontoxic, no distress and appears stated age. Derm: Skin warm and dry, normal coloration for ethnicity. Head: Atraumatic, normocephalic and symmetric. Eyes: EOMs intact, no lid lag, and anicteric sclera Mouth: no lip lesions, mucus membranes moist Cardiovascular: regular rate and rhythm with normal S1S2, systolic murmur, positive posterior tibial pulses bilaterally, and cap refill < 2 seconds. Lungs: Respirations even, regular, and unlabored on room air. Lungs CTA bilaterally, no rhonchi, no rales, no wheezing, and no accessory muscle usage. Abdominal: soft, nontender to palpation, no guarding, no appreciable organomegaly patient with bulky dressing to left foot, currently clean, dry, and intact. Ext: Movement and sensation of lower extremities intact. No gross muscle a trophy, bilateral lower extremity edema, no contractures. Neuro: Speech clear, face symmetrical and CN II-XII grossly intact with no noted focal neuro deficits Psych: Alert and oriented to person, place, time, and situation. Appropriate and pleasant affect. Data Reviewed Today: Pertinent Labs: WBC 13.2, hemoglobin 8.9, potassium 3.4, creatinine 0.54, studies shows low iron, low percent saturation, low TIBC and low transferrin Imaging: No new imaging Assessment and Plan: Perioperative evaluation -per NSQIP, patient has 17.8% risk of serious complication, 21.6% risk of any complication, 4% risk of cardiac complication, Xavier percent risk of , 78.9% risk of discharge to rehab facility. -Given likely source of infection and poor wound healing, patient would require source control -Hold lisinopril and xarelto on 06/25 Enterococcus faecalis wound infection with surrounding cellulitis of left foot, x-ray showing no evidence for osteomyelitis Sepsis secondary to above Peripheral arterial disease status post recent amputation of left second and third on 06/11/23 toes with delayed wound healing -Vascular surgery following, possible amputation given severe peripheral arterial disease -ID following, on Unasyn -pain control with oral Tylenol PRN, oral [place] PRN, IV Dilaudid PRN, oral M otrin PRN Normocytic anemia -No active bleeding -Iron studies consistent with both iron deficiency anemia and a component of anemia of chronic disease -CBC tomorrow -Hemoglobin improving -Started on oral iron supplements Hypertension -Continue daily medication regimen with lisinopril 10 mg daily. -Hold lisinopril for tomorrow Hypokalemia -40 mEq oral potassium given -Repeat BMP tomorrow DVT ppx: Hold Xarelto for tomorrow Code status: Full code Anticipated discharge place: Pending clinical course Anticipated discharge time: Pending clinical course Objective - Vital Signs Vital signs: Vital Signs Temp 98.3 F 06/24/23 11:29 Pulse 73 06/24/23 11:29 Resp 16 06/24/23 11:29 BP 170/68 06/24/23 11:29 Pulse Ox 96 06/24/23 11:29 FiO2 Intake & Output 06/23/23 06/24/23 06/24/23 18:59 06:59 18:59 Intake Total 200 Output Total 150 Balance 200 -150 Intake: Oral 200 Output: Urine 150 Other: Voiding Method Urinal Urinal Urinal Diaper Diaper Diaper Incontinent Incontinent Incontinent # Voids 8 2 # Bowel Movements 1 - Labs CBC & Chem 7: 06/24/23 06:07 06/24/23 06:07 Labs: Abnormal Lab Results - Last 24 Hours (Table) 06/23/23 06/24/23 06/24/23 Range/Units 05:36 06:07 06:07 WBC 13.2 H (3.8-10.6) k/uL RBC 3.10 L (4.30-5.90) m/uL Hgb 8.9 L (13.0-17.5) gm/dL Hct 28.9 L (39.0-53.0) % MCHC 30.8 L (31.0-37.0) g/dL Neutrophils # 10.9 H (1.3-7.7) k/uL ESR 105 H (0-20) mm/Hr Sodium (137-145) mmol/L Potassium (3.5-5.1) mmol/L BUN (9-20) mg/dL Creatinine (0.66-1.25) mg/dL Calcium (8.4-10.2) mg/dL Iron 14 L (65-175) UG/DL TIBC 116 L (228-460) UG/DL % Saturation 12.07 L (15.00-50.00) Transferrin 82.8 L (204.0-354.0) mg/dL Ferritin 1079.0 H (22.0-322.0) ng/mL 06/24/23 Range/Units 06:07 WBC (3.8-10.6) k/uL RBC (4.30-5.90) m/uL Hgb (13.0-17.5) gm/dL Hct (39.0-53.0) % MCHC (31.0-37.0) g/dL Neutrophils # (1.3-7.7) k/uL ESR (0-20) mm/Hr Sodium 135 L (137-145) mmol/L Potassium 3.4 L (3.5-5.1) mmol/L BUN 7 L (9-20) mg/dL Creatinine 0.54 L (0.66-1.25) mg/dL Calcium 7.9 L (8.4-10.2) mg/dL Iron (65-175) UG/DL TIBC (228-460) UG/DL % Saturation (15.00-50.00) Transferrin (204.0-354.0) mg/dL Ferritin (22.0-322.0) ng/mL Microbiology - Last 24 Hours (Table) 06/18/23 18:50 Blood Culture - Final Blood 06/18/23 18:30 Blood Culture - Final Blood
--- NOTE | 2023-06-24 14:43 | P.PN ---
Subjective Progress Note Date: 06/23/23 Principal diagnosis: L foot infection Patient is a 82-year-old male with a past medical history significant for hypertension hyperlipidemia and DVT patient was recently admitted to this facility in this patient do have a left second and third toe amputation on 06/11/2023 patient apparently was evaluated in the ER on 06/14/2023 concerning for cellulitis for the patient was treated with Keflex, patient presented back to the hospital with worsening swelling redness and also have a fever. On today's evaluation that is 06/23/2023 patient did have a low-grade fever of 99F , patient is breathing comfortably on room air, the patient is complaining of pain to the left foot area, the patient denies chest pain shortness of breath or cough no abdominal pain no diarrhea. The patient white count is 15.58, creatinine is 0.6 ,blood culture has been negative local culture growing Enterococcus faecalis Objective - Vital Signs Vital signs: Vital Signs Temp 98.3 F 06/23/23 07:00 Pulse 77 06/23/23 07:00 Resp 16 06/23/23 07:00 BP 151/64 06/23/23 07:00 Pulse Ox 94 L 06/23/23 07:00 FiO2 Intake & Output 06/22/23 06/23/23 06/23/23 18:59 06:59 18:59 Other: Voiding Method Urinal Urinal Diaper Diaper Incontinent Incontinent # Voids 1 # Bowel Movements 1 - Exam GENERAL DESCRIPTION: Elderly male lying in bed in no distress RESPIRATORY SYSTEM: Unlabored breathing , decreased breath sounds at bases HEART: S1 S2 regular rate and rhythm ,no loud murmurs ABDOMEN: Soft , no tenderness EXTREMITIES: Left 3rd toe amputation site redness has decreased, did have more discoloration to the left big toe and the left foot is cold to touch - Labs CBC & Chem 7: 06/24/23 06:07 06/24/23 06:07 Labs: Abnormal Lab Results - Last 24 Hours (Table) 06/22/23 Range/Units 09:11 ESR >140 H (0-15) mm/hr Assessment and Plan (1) Post op infection Current Visit: Yes Status: Acute Code(s): T81.40XA - INFECTION FOLLOWING A PROCEDURE, UNSPECIFIED, INIT SNOMED Code(s): 67944564 (2) Cellulitis Current Visit: No Status: Acute Code(s): L03.90 - CELLULITIS, UNSPECIFIED SNOMED Code(s): 438841762 Plan: 1patient present to hospital with sepsis in this patient who did have a fever tachycardia elevated white count source likely left foot cellulitis and concer sue for surgical site infection in this patient who is s/p left third toe and partial amputation of the left second toe, apparently there was some purulent drainage noticed by the family, we will need to cover for resistant gram- positive as well as gram-negative pathogen. 2patient awaiting reeval by vascular surgeon regarding further intervention 3local culture be finalize Enterococcus faecalis that was penicillin sensitive 4patient to continue with Unasyn and monitor clinical course closely Dictation was produced using [employer] dictation software. please excuse any grammatical, word or spelling errors. Time with Patient: Less than 30
--- NOTE | 2023-06-24 14:45 | P.PN ---
Subjective Progress Note Date: 06/24/23 Principal diagnosis: L foot infection Patient is a 82-year-old male with a past medical history significant for hypertension hyperlipidemia and DVT patient was recently admitted to this facility in this patient do have a left second and third toe amputation on 06/11/2023 patient apparently was evaluated in the ER on 06/14/2023 concerning for cellulitis for the patient was treated with Keflex, patient presented back to the hospital with worsening swelling redness and also have a fever. On today's evaluation that is 06/24/2023 patient denies any fever or any chills , patient is breathing comfortably on room air, the patient continued to be complaining of pain to the left foot area, the patient denies chest pain shortness of breath or cough no abdominal pain no diarrhea. The patient white count is down to 13.2, creatinine is 0.54,blood culture has been negative local culture growing Enterococcus faecalis Objective - Vital Signs Vital signs: Vital Signs Temp 98.9 F 06/24/23 07:03 Pulse 74 06/24/23 07:03 Resp 16 06/24/23 07:03 BP 164/64 06/24/23 07:03 Pulse Ox 95 06/24/23 07:03 FiO2 Intake & Output 06/23/23 06/24/23 06/24/23 18:59 06:59 18:59 Intake Total 200 Output Total 150 Balance 200 -150 Intake: Oral 200 Output: Urine 150 Other: Voiding Method Urinal Urinal Urinal Diaper Diaper Diaper Incontinent Incontinent Incontinent # Voids 8 2 # Bowel Movements 1 - Exam GENERAL DESCRIPTION: Elderly male lying in bed in no distress RESPIRATORY SYSTEM: Unlabored breathing , decreased breath sounds at bases HEART: S1 S2 regular rate and rhythm ,no loud murmurs ABDOMEN: Soft , no tenderness EXTREMITIES: Left 3rd toe amputation site redness has decreased, did have more discoloration to the left big toe and the left foot is cold to touch - Labs CBC & Chem 7: 06/24/23 06:07 06/24/23 06:07 Labs: Abnormal Lab Results - Last 24 Hours (Table) 06/23/23 06/23/23 06/24/23 Range/Units 05:36 05:36 06:07 WBC 15.58 H 13.2 H (4.50-10.00) X 10*3/uL RBC 2.60 L 3.10 L (4.40-5.60) X 10*6/uL Hgb 7.7 L 8.9 L (13.0-17.0) d/dL Hct 23.9 L 28.9 L (39.6-50.0) % MCHC 30.8 L (31.0-37.0) g/dL RDW 16.6 H (11.5-14.5) % Neutrophils # 10.9 H (1.3-7.7) k/uL ESR 105 H (0-20) mm/Hr Sodium (137-145) mmol/L Potassium (3.5-5.1) mmol/L Carbon Dioxide 20.0 L (21.6-31.8) mmol/L Anion Gap 15.00 H (4.00-12.00) mmol/L BUN 7.0 L (9.0-27.0) mg/dL Creatinine (0.66-1.25) mg/dL BUN/Creatinine Ratio 11.67 L (12.00-20.00) Ratio Calcium 8.1 L (8.7-10.3) mg/dL AST 75 H (14-35) U/L Alkaline Phosphatase 138 H (41-126) U/L C-Reactive Protein 26.60 H (0.00-0.80) mg/dL Total Protein 5.5 L (6.2-8.2) d/dL Albumin 2.9 L (3.8-4.9) d/dL Albumin/Globulin Ratio 1.12 L (1.60-3.17) Ratio 06/24/23 Range/Units 06:07 WBC (4.50-10.00) X 10*3/uL RBC (4.40-5.60) X 10*6/uL Hgb (13.0-17.0) d/dL Hct (39.6-50.0) % MCHC (31.0-37.0) g/dL RDW (11.5-14.5) % Neutrophils # (1.3-7.7) k/uL ESR (0-20) mm/Hr Sodium 135 L (137-145) mmol/L Potassium 3.4 L (3.5-5.1) mmol/L Carbon Dioxide (21.6-31.8) mmol/L Anion Gap (4.00-12.00) mmol/L BUN 7 L (9.0-27.0) mg/dL Creatinine 0.54 L (0.66-1.25) mg/dL BUN/Creatinine Ratio (12.00-20.00) Ratio Calcium 7.9 L (8.7-10.3) mg/dL AST (14-35) U/L Alkaline Phosphatase (41-126) U/L C-Reactive Protein (0.00-0.80) mg/dL Total Protein (6.2-8.2) d/dL Albumin (3.8-4.9) d/dL Albumin/Globulin Ratio (1.60-3.17) Ratio Microbiology - Last 24 Hours (Table) 06/18/23 18:50 Blood Culture - Final Blood 06/18/23 18:30 Blood Culture - Final Blood Assessment and Plan (1) Post op infection Current Visit: Yes Status: Acute Code(s): T81.40XA - INFECTION FOLLOWING A PROCEDURE, UNSPECIFIED, INIT SNOMED Code(s): 83499012 (2) Cellulitis Current Visit: No Status: Acute Code(s): L03.90 - CELLULITIS, UNSPECIFIED SNOMED Code(s): 188918394 Plan: 1patient present to hospital with sepsis in this patient who did have a fever tachycardia elevated white count source likely left foot cellulitis and concerning for surgical site infection in this patient who is s/p left third toe and partial amputation of the left second toe, apparently there was some purulent drainage noticed by the family, we will need to cover for resistant gram-positive as well as gram-negative pathogen. 2patient has been reeval by vascular surgeon recommending left [id number] amputation 3local culture be finalize Enterococcus faecalis that was penicillin sensitive 4patient to continue with Unasyn and continue supportive care Dictation was produced using [email or web address] dictation software. please excuse any grammatical, word or spelling errors. Time with Patient: Less than 30
[2023-06-24] MEDS: DULoxetine HCL 30 MG CAPSULE.DR PO SCH (15:36)
--- NOTE | 2023-06-24 16:11 | CDI ---
Documentation Clarification Form Date: 06/24/2023 04:10:41 PM From: Lindsey Meredith RN, CCDS Admit Date: 06/18/2023 06:38:00 PM Patient Name: Doyle Crawford Visit Number: [id number] Discharge Date: ATTENTION: The Clinical Documentation Specialists (CDI) and [facility] Coding Staff appreciate your assistance in clarifying documentation. Please respond to the clarification below the line at the bottom and electronically sign. The CDI & [facility] Coding staff will review the response and follow-up if needed. Please note: Queries are made part of the Legal Health Record. If you have any questions, please contact the author of this message via ITS. Dr. Bass Dharmesh A coccyx stage 1 pressure ulcer, and a Left heel pressure ulcer stage 3 is documented by Nursing Wound Care starting on 06/18/23 and 06/20/23 as present on admission. Based on this information and the findings below, is there an additional diagnosis that is clinically appropriate for this patient? History/Risk Factors: Deep Vein Thrombosis, Hyperlipidemia, Hypertension, Vascular Disorder Clinical Indicators: 82-year-old male present with complaints of left foot pain. Patient had amputation of the left second and third toe. Nursing wound assessment has documented coccyx pressure injury stage 1 and left heel pressure injury staging 3. Additional clarification/verification is requested. Location: Coccyx pressure ulcer stage l skin warm Left heel pressure ulcer stage 3 skin temperature cool, erythema. Treatment: Left Heel: Honey gel Gauze/sponge dressing daily Coccyx pressure ulcer: open to air Is there an additional diagnosis that is clinically appropriate for this patient? [ ] Coccyx pressure ulcer stage l, and left heel pressure ulcer stage 3, both present on admission. [ x ] Other condition, please specify Left heel stage 3 pressure ulcer [ ] Unable to determine Clinical Definitions: Stage 1 Pressure Ulcer: intact skin, non-blanching redness of local area Stage 2 Pressure Ulcer: Partial thickness, loss of dermis, pink wound bed Stage 3 Pressure Ulcer: Full thickness tissue loss Stage 4 Pressure Ulcer: Full thickness tissue loss with exposed bone, tendon, or muscle. Unstageable pressure ulcer: Full thickness tissue loss in which the base of the ulcer is covered by slough (yellow, cordova, cormier, green or brown) and/or eschar (cordova, brown or black) in the wound bed. (Template Last Revised: December 2020) MTDD
[2023-06-24] MEDS: TAMSULOSIN 0.4 MG CAP.ER.24H PO SCH (21:35)
[2023-06-25] MEDS: AMPICILLIN-SULBACTAM 3 GM in SODIUM CHLORIDE 0.9% 100 ML IVPB SCH ×4 (05:54→17:09)
[2023-06-25] MEDS: HYDROmorphone 1 MG/ML 1 ML SYRINGE IVP PRN ×3 (05:54→17:10)
[2023-06-25 06:32] LABS: Basophils % (A) 0 %; Eosinophils # (A) 0.2 k/uL (0-0.7); Eosinophils % (A) 1 %; HCT 26.7 % (39.0-53.0); HGB 8.4 gm/dL (13.0-17.5); Hypochromasia Moderate; Lymphocytes # (A) 1.1 k/uL (1.0-4.8); Lymphocytes % (A) 8 %; MCHC 31.5 g/dL (31.0-37.0); Mean Platelet Volume 8.2; Monocytes # (A) 0.8 k/uL (0-1.0); Monocytes % (A) 5 %; Neutrophils # (A) 11.9 k/uL (1.3-7.7); Neutrophils % (A) 85 %; Platelet Count 502 k/uL (150-450); RDW 15.6 % (11.5-15.5); WBC 14.1 k/uL (3.8-10.6)
[2023-06-25] MEDS ORDERED: HYDROmorphone 0.5 MG/0.5 ML SYRINGE IVP PRN (07:00)
[2023-06-25 07:32] LABS: African American GFR (CKD) >90 (>60 ml/min/1.73 sqM); Anion Gap 9 mmol/L; Blood Urea Nitrogen 6 mg/dL (9-20); Calcium 7.9 mg/dL (8.4-10.2); Carbon Dioxide 23 mmol/L (22-30); Chloride 104 mmol/L (98-107); Glucose 111 mg/dL (74-99); Magnesium 1.9 mg/dL (1.6-2.3); Non-African American GFR(CKD) >90 (>60 ml/min/1.73 sqM); Potassium 3.7 mmol/L (3.5-5.1); Sodium 136 mmol/L (137-145)
[2023-06-25] MEDS: SODIUM CHLORIDE 0.9% 1,000 ML IV SCH ×3 (07:50→20:33)
[2023-06-25] MEDS: ASPIRIN 81 MG PO SCH (08:52)
[2023-06-25] MEDS: GABAPENTIN 300 MG CAP PO SCH ×3 (08:52→20:33)
[2023-06-25] MEDS: LACTATED RINGERS 1,000 ML IV SCH ×2 (12:28→12:57)
[2023-06-25] MEDS ORDERED: ONDANSETRON 4 MG/2 ML VIAL IVP ONE (12:40)
[2023-06-25] MEDS ORDERED: DEXAMETHASONE SOD PHOSPHATE 4 MG/ML 1 ML VIAL IVP ONE (12:40)
[2023-06-25] MEDS ORDERED: fentaNYL (PF) 50 MCG/ML 2 ML AMP ONE (12:53)
[2023-06-25] MEDS ORDERED: LIDOCAINE 2% INJ 20 MG/ML (2 ML VIAL) ONE (12:53)
[2023-06-25] MEDS ORDERED: SUCCINYLCHOLINE CHLORIDE 200 MG/10 ML VIAL IV ONE (12:53)
[2023-06-25] MEDS ORDERED: PROPOFOL 10 MG/ML 20 ML VIAL IV ONE (12:53)
--- NOTE | 2023-06-25 14:38 | P.PN ---
Subjective Progress Note Date: 06/25/23 Hospital Course: 82-year-old male with a past medical history of peripheral arterial disease and hypertension. He presented to the emergency department on 06/18/23 secondary to worsening left foot pain and drainage from postsurgical wound. Patient underwent recent amputation of second and third toe of left foot on 06/11/23 and has since had delayed wound healing. On 06/14/23 patient developed some swelling and erythema to surgical site and was started on antibiotics with Keflex. Han chan and at bedside reports taking medication as prescribed, however reports persistently worsening erythema and purulent drainage. Patient underwent full evaluation in the emergency department. X-ray left foot completed showing post amputation changes of the second and third digit with no evidence of osseous erosion. Labs were completed. CBC showing leukocytosis with WBC count of 12.9 normocytic anemia with hemoglobin of 9.8. BMP revealing hyponatremia with sodium 132 and hypochloremia with chloride of 96 otherwise normal findings. Liver profile normal findings. ESR was significantly elevated at 116 and CRP 35.3. Urinalysis negative for infection. Influenza A, influenza B, RSV, and Covid also negative. Patient running elevated temps as high as 101. Patient was admitted under our services with consultation to vascular surgery and infectious disease. Left AKA today. Subjective: Patient seen and examined at bedside. No acute events overnight. He continues to have pain in the left foot. Pertinent positives and negatives as discussed above, a complete review of s ystems was performed and all other systems are negative. Vitals Signs Reviewed. General: Nontoxic, no distress and appears stated age. Derm: Skin warm and dry, normal coloration for ethnicity. Head: Atraumatic, normocephalic and symmetric. Eyes: EOMs intact, no lid lag, and anicteric sclera Mouth: no lip lesions, mucus membranes moist Cardiovascular: regular rate and rhythm with normal S1S2, systolic murmur, positive posterior tibial pulses bilaterally, and cap refill < 2 seconds. Lungs: Respirations even, regular, and unlabored on room air. Lungs CTA bilaterally, no rhonchi, no rales, no wheezing, and no accessory muscle usage. Abdominal: soft, nontender to palpation, no guarding, no appreciable organomegaly patient with bulky dressing to left foot, currently clean, dry, and intact. Ext: Movement and sensation of lower extremities intact. No gross muscle atrophy, bilateral lower extremity edema, no contractures. Neuro: Speech clear, face symmetrical and CN II-XII grossly intact with no noted focal neuro deficits Psych: Alert and oriented to person, place, time, and situation. Appropriate and pleasant affect. Data Reviewed Today: Pertinent Labs: WBC 14.1, hemoglobin 8.4, platelet 502, potassium 3.7, creatinine 0.5, magnesium 1.9 Imaging: No new imaging Assessment and Plan: Perioperative evaluation -per NSQIP, patient has 17.8% risk of serious complication, 21.6% risk of any complication, 4% risk of cardiac complication, Xavier percent risk of , 78.9% risk of discharge to rehab facility. -Given likely source of infection and poor wound healing, patient would require source control -Hold lisinopril and xarelto on 06/25 Enterococcus faecalis wound infection with surrounding cellulitis of left foot, x-ray showing no evidence for osteomyelitis Sepsis secondary to above Peripheral arterial disease status post recent amputation of left second and third on 06/11/23 toes with delayed wound healing -Vascular surgery following, possible amputation given severe peripheral arterial disease -ID following, on Unasyn -pain control with oral Tylenol PRN, oral [place] PRN, IV Dilaudid PRN, oral Motrin PRN Normocytic anemia -No active bleeding -Iron studies consistent with both iron deficiency anemia and a component of anemia of chronic disease -CBC tomorrow -Hemoglobin stable -Started on oral iron supplements Hypertension -Continue daily medication regimen with lisinopril 10 mg daily. -Hold lisinopril for today Hypokalemia, resolved DVT ppx: Hold Xarelto for today Code status: Full code Anticipated discharge place: Pending clinical course Anticipated discharge time: Pending clinical course Objective - Vital Signs Vital signs: Vital Signs Temp 98.3 F 06/25/23 13:59 Pulse 72 06/25/23 14:29 Resp 18 06/25/23 14:29 BP 126/56 06/25/23 14:29 Pulse Ox 96 06/25/23 14:29 FiO2 Intake & Output 06/24/23 06/25/23 06/25/23 18:59 06:59 18:59 Intake Total 600 Output Total 100 Balance 500 Weight 75.75 kg 75.75 kg Intake: IV 600 Output: Estimated Blood Loss 100 Other: Voiding Method Urinal Urinal Urinal Diaper Diaper Diaper Incontinent Incontinent Incontinent # Voids 4 # Bowel Movements 1 - Labs CBC & Chem 7: 06/25/23 06:08 06/25/23 06:01 Labs: Abnormal Lab Results - Last 24 Hours (Table) 06/24/23 06/25/23 06/25/23 Range/Units 06:07 06:01 06:08 WBC 14.1 H (3.8-10.6) k/uL RBC 2.90 L (4.30-5.90) m/uL Hgb 8.4 L (13.0-17.5) gm/dL Hct 26.7 L (39.0-53.0) % RDW 15.6 H (11.5-15.5) % Plt Count 502 H (150-450) k/uL Neutrophils # 11.9 H (1.3-7.7) k/uL Sodium 136 L (137-145) mmol/L BUN 6 L (9-20) mg/dL Creatinine 0.50 L (0.66-1.25) mg/dL Glucose 111 H (74-99) mg/dL Calcium 7.9 L (8.4-10.2) mg/dL Transferrin 84.5 L (204.0-354.0) mg/dL
--- NOTE | 2023-06-25 14:38 | P.OP ---
Date of Procedure: 06/25/23 Description of Procedure: Preoperative diagnosis: Left lower extremity ischemia Postoperative diagnosis: Same Procedure: Left Above-knee amputation Surgeon: Coral Curran D.O. Anesthesia: Gen. EBL: 100 mL IV fluids: See records Urine output: See records Drains: None Complications: None immediately apparent Condition: Stable Operative indication and findings: Patient is an 82-year-old male with severe peripheral arterial disease and no further bypass or salvage options therefore he presents at this point for an above-knee amputation. Risks and benefits were discussed. He seemingly understood and was willing to proceed. Initially discussions were had regarding possible regional anesthesia however anesthesia did not feel comfortable with utilizing spinal anesthesia given anticoagulation dose 2 days previous. Again risks and benefits were discussed with the family and patient seemingly understood and willing to proceed. Procedure in detail: The patient was taken to the operative suite and placed in supine position. After adequate anesthesia, the left lower extremity was prepped and draped in usual sterile fashion. A preprocedure timeout was performed, all parties were in agreement. Skin marker was utilized and the incision was marked approximately 5 cm proximal to the knee joint. Skin incision was performed and deepened through the subcutaneous tissues to the muscular fascia. The saphenous vein bypass was identified and occluded.. The muscle groups of the anterior and medial thigh were divided with electrocautery at the same level of the skin incision. The neurovascular bundle was identified on the medial aspect of the thigh. The artery and veins were isolated and suture ligated using 2-0 silk ligature. The sciatic nerve was pulled on stretch and ligated with 2-0 silk tie and divided. The femur was then cleared of its periosteal tissue is elevated roughly 5 cm proximally and was divided with the oscillating saw. The posterior thigh muscles were then divided with electrocautery. The proximal end of the transected femur was smoothed with a rasp. The amputation site was then copiously irrigated. Hemostasis was controlled with electrocautery. The periosteum was reapproximated using interrupted sutures of 2-0 Vicryl. The fascia was reapproximated with interrupted [id number] sutures of 2-0 Vicryl. The skin was reapproximated with santos. A dressing with gauze, Kerlix and a bandage were placed. The patient tolerated the procedure well and was transported to PACU in stable condition
[2023-06-25] MEDS ORDERED: HYDROmorphone 0.5 MG/0.5 ML SYRINGE IVP ONE (15:03)
[2023-06-25] MEDS ORDERED: LACTATED RINGERS 1,000 ML IV ONE (16:05)
[2023-06-25] MEDS: LACTATED RINGERS 1,000 ML IV ONE ×2 (16:05→16:34)
[2023-06-25] MEDS: DULoxetine HCL 30 MG CAPSULE.DR PO SCH (17:09)
[2023-06-25 18:03] LABS: HCT 26.3 % (39.0-53.0); HGB 8.1 gm/dL (13.0-17.5); Hypochromasia Moderate; MCH 28.5 pg (25.0-35.0); MCHC 30.9 g/dL (31.0-37.0); MCV 92.2 fL (80.0-100.0); Mean Platelet Volume 8.6; Platelet Count 478 k/uL (150-450); RBC 2.85 m/uL (4.30-5.90); RDW 15.6 % (11.5-15.5); WBC 11.5 k/uL (3.8-10.6)
[2023-06-25] MEDS: TAMSULOSIN 0.4 MG CAP.ER.24H PO SCH (20:33)
[2023-06-25] MEDS: HYDROcodone/APAP 5-325MG 1 EACH TAB PO PRN (20:34)
--- NOTE | 2023-06-25 20:51 | P.PN ---
Subjective Progress Note Date: 06/25/23 Principal diagnosis: L foot infection Patient is a 82-year-old male with a past medical history significant for hypertension hyperlipidemia and DVT patient was recently admitted to this facility in this patient do have a left second and third toe amputation on 06/11/2023 patient apparently was evaluated in the ER on 06/14/2023 concerning for cellulitis for the patient was treated with Keflex, patient presented back to the hospital with worsening swelling redness and also have a fever. On today's evaluation that is 06/25/2023 the patient remains to be afebrile, the patient is breathing comfortably on room air, pt is Complaining of pain to the left lower extremity no nausea vomiting abdominal pain or diarrhea. Patient did have a hemoglobin of 8.1 white is down to 11.5 creatinine 0.50 Objective - Vital Signs Vital signs: Vital Signs Temp 98.6 F 06/25/23 08:20 Pulse 78 06/25/23 08:20 Resp 16 06/25/23 08:20 BP 167/67 06/25/23 08:20 Pulse Ox 94 L 06/25/23 08:20 FiO2 Intake & Output 06/24/23 06/25/23 06/25/23 18:59 06:59 18:59 Weight 75.75 kg Other: Voiding Method Urinal Urinal Urinal Diaper Diaper Diaper Incontinent Incontinent Incontinent # Voids 4 # Bowel Movements 1 - Exam GENERAL DESCRIPTION: Elderly male lying in bed in no distress RESPIRATORY SYSTEM: Unlabored breathing , decreased breath sounds at bases HEART: S1 S2 regular rate and rhythm ,no loud murmurs ABDOMEN: Soft , no tenderness EXTREMITIES: Left 3rd toe amputation site redness has decreased, did have more discoloration to the left big toe and the left foot is cold to touch - Labs CBC & Chem 7: 06/25/23 17:49 06/25/23 06:01 Labs: Abnormal Lab Results - Last 24 Hours (Table) 06/24/23 06/25/23 06/25/23 Range/Units 06:07 06:01 06:08 WBC 14.1 H (3.8-10.6) k/uL RBC 2.90 L (4.30-5.90) m/uL Hgb 8.4 L (13.0-17.5) gm/dL Hct 26.7 L (39.0-53.0) % RDW 15.6 H (11.5-15.5) % Plt Count 502 H (150-450) k/uL Neutrophils # 11.9 H (1.3-7.7) k/uL Sodium 136 L (137-145) mmol/L BUN 6 L (9-20) mg/dL Creatinine 0.50 L (0.66-1.25) mg/dL Glucose 111 H (74-99) mg/dL Calcium 7.9 L (8.4-10.2) mg/dL Transferrin 84.5 L (204.0-354.0) mg/dL Assessment and Plan (1) Post op infection Current Visit: Yes Status: Acute Code(s): T81.40XA - INFECTION FOLLOWING A PROCEDURE, UNSPECIFIED, INIT SNOMED Code(s): 64407093 (2) Cellulitis Current Visit: No Status: Acute Code(s): L03.90 - CELLULITIS, UNSPECIFIED SNOMED Code(s): 535950685 Plan: 1patient present to hospital with sepsis in this patient who did have a fever tachycardia elevated white count source likely left foot cellulitis and concerning for surgical site infection in this patient who is s/p left third toe and partial amputation of the left second toe, apparently there was some purulent drainage noticed by the family, we will need to cover for resistant gram-positive as well as gram-negative pathogen. 2local culture be finalize Enterococcus faecalis that was penicillin sensitive 3patient is scheduled for L AKA this afternoon , to continue with Unasyn and continue supportive care Dictation was produced using [employer] dictation software. please excuse any grammatical, word or spelling errors. Time with Patient: Less than 30
[2023-06-26] MEDS: AMPICILLIN-SULBACTAM 3 GM in SODIUM CHLORIDE 0.9% 100 ML IVPB SCH ×4 (00:15→17:08)
[2023-06-26] MEDS: HYDROmorphone 1 MG/ML 1 ML SYRINGE IVP PRN ×5 (02:18→20:27)
[2023-06-26] MEDS: SODIUM CHLORIDE 0.9% 1,000 ML IV SCH ×2 (07:31→07:47)
[2023-06-26] MEDS: ASCORBIC ACID 500 MG TAB PO SCH (07:46)
[2023-06-26] MEDS: HYDROcodone/APAP 5-325MG 1 EACH TAB PO PRN ×3 (07:46→22:55)
[2023-06-26] MEDS: GABAPENTIN 300 MG CAP PO SCH ×3 (07:46→20:26)
[2023-06-26] MEDS: ASPIRIN 81 MG PO SCH (07:46)
[2023-06-26] MEDS: LACTATED RINGERS 1,000 ML IV SCH (07:49)
[2023-06-26] MEDS: ACETAMINOPHEN TAB 325 MG TAB PO PRN ×2 (09:47→18:31)
[2023-06-26 10:17] LABS: Basophils % (A) 0 %; Eosinophils # (A) 0.1 k/uL (0-0.7); Eosinophils % (A) 1 %; HCT 28.5 % (39.0-53.0); HGB 8.8 gm/dL (13.0-17.5); Hypochromasia Marked; Lymphocytes # (A) 1.5 k/uL (1.0-4.8); Lymphocytes % (A) 13 %; MCV 93.4 fL (80.0-100.0); Monocytes # (A) 0.5 k/uL (0-1.0); Monocytes % (A) 4 %; Neutrophils # (A) 9.6 k/uL (1.3-7.7); Neutrophils % (A) 82 %; Platelet Count 510 k/uL (150-450); RBC 3.05 m/uL (4.30-5.90); RDW 15.5 % (11.5-15.5); WBC 11.8 k/uL (3.8-10.6)
[2023-06-26 10:34] LABS: Potassium 3.9 mmol/L (3.5-5.1)
[2023-06-26 10:35] LABS: African American GFR (CKD) >90 (>60 ml/min/1.73 sqM); Anion Gap 5 mmol/L; Blood Urea Nitrogen 9 mg/dL (9-20); Calcium 7.6 mg/dL (8.4-10.2); Carbon Dioxide 28 mmol/L (22-30); Chloride 105 mmol/L (98-107); Glucose 136 mg/dL (74-99); Non-African American GFR(CKD) >90 (>60 ml/min/1.73 sqM); Sodium 138 mmol/L (137-145)
[2023-06-26] MEDS: FERROUS SULFATE 325 MG TAB PO SCH (11:26)
--- NOTE | 2023-06-26 12:02 | P.PN ---
Subjective Progress Note Date: 06/26/23 Patient seen and examined. No complaints. Feeling better. Sitting at the side of the bed eating breakfast with his Objective - Vital Signs Vital signs: Vital Signs Temp 97.5 F L 06/26/23 11:25 Pulse 74 06/26/23 11:25 Resp 16 06/26/23 11:25 BP 97/57 06/26/23 11:25 Pulse Ox 95 06/26/23 11:25 FiO2 Intake & Output 06/25/23 06/26/23 06/26/23 18:59 06:59 18:59 Intake Total 1150 1950 Output Total 400 Balance 750 1950 Weight 75.75 kg Intake: IV 1150 10 Invasive Line 2 10 Intake, IV Titration 1400 Amount Ampicillin-Sulbactam 3 gm 100 In Sodium Chloride 0.9% 100 ml @ 200 mls/hr IVPB Q6HR [facility] Rx#:[id number] Sodium Chloride 0.9% 1, 1300 000 ml @ 130 mls/hr IV . Q7H42M [facility] Rx#:[id number] Oral 540 Output: Urine 300 Estimated Blood Loss 100 Other: Voiding Method Urinal Urinal Urinal Diaper Diaper Diaper Incontinent Incontinent Incontinent # Voids 2 # Bowel Movements 1 - Exam No acute distress. Mild pain. Nonpalpable pedal pulses of the right lower extremity, left lower extremity amputation site dressing clean and dry. - Labs CBC & Chem 7: 06/26/23 08:40 06/26/23 08:40 Labs: Abnormal Lab Results - Last 24 Hours (Table) 06/25/23 06/26/23 06/26/23 Range/Units 17:49 08:40 08:40 WBC 11.5 H 11.8 H (3.8-10.6) k/uL RBC 2.85 L 3.05 L (4.30-5.90) m/uL Hgb 8.1 L 8.8 L (13.0-17.5) gm/dL Hct 26.3 L 28.5 L (39.0-53.0) % MCHC 30.9 L (31.0-37.0) g/dL RDW 15.6 H (11.5-15.5) % Plt Count 478 H 510 H (150-450) k/uL Neutrophils # 9.6 H (1.3-7.7) k/uL Creatinine 0.49 L (0.66-1.25) mg/dL Glucose 136 H (74-99) mg/dL Calcium 7.6 L (8.4-10.2) mg/dL Assessment and Plan Assessment: Postop day #1 left above-knee amputation Rest pain left lower extremity History of left second and third toe amputation Severe peripheral arterial occlusive disease History of left femoral to tibial bypass with revision Chronic left heel wound Plan: Overall patient appears to be doing well. Continue to monitor labs. No further obvious need for antibiotic from my standpoint, will defer final determination of this to ID. 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 Discharge planning, hopeful discharge to rehab in the next 2-3 days. PT OT evaluation
[2023-06-26] MEDS: DULoxetine HCL 60 MG CAPSULE.DR PO SCH (15:40)
--- NOTE | 2023-06-26 16:14 | P.PN ---
Subjective Progress Note Date: 06/26/23 (delayed charting seen at 1115) Patient is an 82-year-old male with peripheral arterial disease, hypertension, prior tobacco abuse, and prior DVT who presented to the hospital due to worse sue left foot pain and drainage from post surgical wound. Patient had undergone amputation on 06/11/23 of the second and third left toe, had a postoperative follow-up on 06/14 he had been noted to have some swelling and erythema of the surgical site was started on oral Keflex. Due to the worsening [place] presented to the ER. There he underwent a left foot x-ray with no signs of obvious osseous erosion. Laboratory analysis was remarkable for white blood cell count of 12.9, hemoglobin 9.8, sodium 132, chloride 96, ESR 116, and CRP of 35.3. Influenza A/B/RSV/Coban was negative. Fevers were high as 101. Patient was subsequently admitted for infected postoperative wound. He was started on Zosyn and vancomycin, however after infectious disease consultation Vanco was discontinued and daptomycin was started. Vascular surgery was consulted. He underwent left AKA on 06/25/23. Patient seen and examined at bedside. He does report some left phantom limb pain, he is also having some pain at the incision site. His last bowel movement was the day prior to surgery. He does not feel he needs stool softeners at this time. He denies any chest pain or shortness of breath. Vital signs reviewed General: nontoxic, no distress, appears at stated age Cardiovascular: S1S2 reg, no murmur, Lungs: CTA bilateral, no rhonchi, no rales , no accessory muscle use Abdominal: soft, nontender to palpation, no guarding, no appreciable organomegaly Ext: no gross muscle atrophy, no edema right lower extremity, dressing in place over left AKA amputation site, no contractures Neuro: CN II-XI grossly intact, no focal neuro deficits Psych: Alert, oriented, appropriate affect Assessment/Plan: Enterococcus postop wound infection with surrounding cellulitis and severe peripheral arterial disease status post left AKA on 06/25/23 Phantom limb pain Sepsis Normocytic anemia Hypertension - Unasyn 3 g every 6 hours IV piggyback, day #4 -Increase Cymbalta to 60 mg daily, Neurontin 600 mg 3 times daily -Continue with Amma 5/325 one tablet every 4 hours as needed for pain and Dilaudid 1 mg every 4 hours for breakthrough -Discontinue normal saline -Resume lisinopril 10 mg daily -Resume pravastatin 80 mg at night -Resume Xarelto when okay with vascular surgery Imaging: None new Data Review: Patient afebrile for the last 24 hours. Vitals reviewed from this morning pulse 74, respirations 18, blood pressure 135/52, O2 sat 94% on room air Labs reviewed with blood cell count 11.8, hemoglobin 8.8, platelets 510, creatinine 0.49, calcium 7.6, percent sat of iron 12.07 DVT prophylaxis: Discussed with: Anticipated discharge date: Anticipated discharge place: This dictation was prepared using [employer] voice recognition software. Though every attempt is made to correct errors during dictation some may still exist. Objective - Vital Signs Vital signs: Vital Signs Temp 97.7 F 06/26/23 15:56 Pulse 70 06/26/23 15:56 Resp 16 06/26/23 15:56 BP 147/64 06/26/23 15:56 Pulse Ox 93 L 06/26/23 15:56 FiO2 Intake & Output 06/25/23 06/26/23 06/26/23 18:59 06:59 18:59 Intake Total 1150 1950 1100 Output Total 400 Balance 750 1950 1100 Weight 75.75 kg Intake: IV 1150 10 Invasive Line 2 10 Intake, IV Titration 1400 1100 Amount Ampicillin-Sulbactam 3 gm 100 200 In Sodium Chloride 0.9% 100 ml @ 200 mls/hr IVPB Q6HR [facility] Rx#:[id number] Sodium Chloride 0.9% 1, 1300 900 000 ml @ 130 mls/hr IV . Q7H42M [facility] Rx#:[id number] Oral 540 Output: Urine 300 Estimated Blood Loss 100 Other: Voiding Method Urinal Urinal Urinal Diaper Diaper Diaper Incontinent Incontinent Incontinent # Voids 2 # Bowel Movements 1 - Labs CBC & Chem 7: 06/26/23 08:40 06/26/23 08:40 Labs: Abnormal Lab Results - Last 24 Hours (Table) 06/25/23 06/26/23 06/26/23 Range/Units 17:49 08:40 08:40 WBC 11.5 H 11.8 H (3.8-10.6) k/uL RBC 2.85 L 3.05 L (4.30-5.90) m/uL Hgb 8.1 L 8.8 L (13.0-17.5) gm/dL Hct 26.3 L 28.5 L (39.0-53.0) % MCHC 30.9 L (31.0-37.0) g/dL RDW 15.6 H (11.5-15.5) % Plt Count 478 H 510 H (150-450) k/uL Neutrophils # 9.6 H (1.3-7.7) k/uL Creatinine 0.49 L (0.66-1.25) mg/dL Glucose 136 H (74-99) mg/dL Calcium 7.6 L (8.4-10.2) mg/dL
[2023-06-26] MEDS: TAMSULOSIN 0.4 MG CAP.ER.24H PO SCH (20:26)
[2023-06-26] MEDS: PRAVASTATIN SODIUM 80 MG TAB PO SCH (20:27)
[2023-06-27] MEDS: AMPICILLIN-SULBACTAM 3 GM in SODIUM CHLORIDE 0.9% 100 ML IVPB SCH ×5 (00:08→23:29)
[2023-06-27] MEDS: ACETAMINOPHEN TAB 325 MG TAB PO PRN ×3 (01:16→18:13)
[2023-06-27] MEDS: HYDROmorphone 1 MG/ML 1 ML SYRINGE IVP PRN ×4 (01:17→18:13)
[2023-06-27] MEDS: HYDROcodone/APAP 5-325MG 1 EACH TAB PO PRN ×2 (04:46→09:08)
[2023-06-27] MEDS: lisinopriL 10 MG TAB PO SCH (08:07)
[2023-06-27] MEDS: ASCORBIC ACID 500 MG TAB PO SCH (08:07)
[2023-06-27] MEDS: ASPIRIN 81 MG PO SCH (08:07)
[2023-06-27] MEDS: GABAPENTIN 300 MG CAP PO SCH ×3 (08:07→20:53)
--- NOTE | 2023-06-27 09:35 | P.PN ---
Subjective Progress Note Date: 06/26/23 Principal diagnosis: L foot infection Patient is a 82-year-old male with a past medical history significant for hypertension hyperlipidemia and DVT patient was recently admitted to this facility in this patient do have a left second and third toe amputation on 06/11/2023 patient apparently was evaluated in the ER on 06/14/2023 concerning for cellulitis for the patient was treated with Keflex, patient presented back to the hospital with worsening swelling redness and also have a fever.Patient is status post left [id number] amputation completed 06/25/2023. On today's evaluation that is 06/26/2023 the patient denies having any fever or any chills he is breathing comfortably on room air no chest pain shortness of breath or cough still complains of some phantom pain no nausea vomiting or diarrhea. Patient white count of 11.8 creatinine 0.49. Objective - Vital Signs Vital signs: Vital Signs Temp 97.5 F L 06/26/23 11:25 Pulse 74 06/26/23 11:25 Resp 16 06/26/23 11:25 BP 97/57 06/26/23 11:25 Pulse Ox 95 06/26/23 11:25 FiO2 Intake & Output 06/25/23 06/26/23 06/26/23 18:59 06:59 18:59 Intake Total 1150 1950 Output Total 400 Balance 750 1950 Weight 75.75 kg Intake: IV 1150 10 Invasive Line 2 10 Intake, IV Titration 1400 Amount Ampicillin-Sulbactam 3 gm 100 In Sodium Chloride 0.9% 100 ml @ 200 mls/hr IVPB Q6HR [facility] Rx#:[id number] Sodium Chloride 0.9% 1, 1300 000 ml @ 130 mls/hr IV . Q7H42M [facility] Rx#:[id number] Oral 540 Output: Urine 300 Estimated Blood Loss 100 Other: Voiding Method Urinal Urinal Urinal Diaper Diaper Diaper Incontinent Incontinent Incontinent # Voids 2 # Bowel Movements 1 - Exam Elderly male up in the bed in no distress Left AKA incision is currently dressed no drainage on the dressing - Labs CBC & Chem 7: 06/26/23 08:40 06/26/23 08:40 Labs: Abnormal Lab Results - Last 24 Hours (Table) 06/25/23 06/26/23 06/26/23 Range/Units 17:49 08:40 08:40 WBC 11.5 H 11.8 H (3.8-10.6) k/uL RBC 2.85 L 3.05 L (4.30-5.90) m/uL Hgb 8.1 L 8.8 L (13.0-17.5) gm/dL Hct 26.3 L 28.5 L (39.0-53.0) % MCHC 30.9 L (31.0-37.0) g/dL RDW 15.6 H (11.5-15.5) % Plt Count 478 H 510 H (150-450) k/uL Neutrophils # 9.6 H (1.3-7.7) k/uL Creatinine 0.49 L (0.66-1.25) mg/dL Glucose 136 H (74-99) mg/dL Calcium 7.6 L (8.4-10.2) mg/dL Assessment and Plan (1) Post op infection Current Visit: Yes Status: Acute Code(s): T81.40XA - INFECTION FOLLOWING A PROCEDURE, UNSPECIFIED, INIT SNOMED Code(s): 48487449 (2) Cellulitis Current Visit: No Status: Acute Code(s): L03.90 - CELLULITIS, UNSPECIFIED SNOMED Code(s): 103136171 Plan: 1patient present to hospital with sepsis in this patient who did have a fever tachycardia elevated white count source likely left foot cellulitis and concerning for surgical site infection in this patient who is s/p left third toe and partial amputation of the left second toe, apparently there was some purulent drainage noticed by the family, we will need to cover for resistant gram-positive as well as gram-negative pathogen. 2local culture be finalize Enterococcus faecalis that was penicillin sensitive 3the patient is status post left [id number] amputation with infected port removed the patient will not need to be on long-term antibiotic we will continue Unasyn perioperatively. at the bedside questions answered Dictation was produced using [employer] software. please excuse any gramm atical, word or spelling errors.
[2023-06-27] MEDS ORDERED: HYDROcodone/APAP 5-325MG 1 EACH TAB PO PRN (10:14)
[2023-06-27] MEDS: FERROUS SULFATE 325 MG TAB PO SCH (11:47)
--- NOTE | 2023-06-27 13:27 | P.PN ---
Subjective Progress Note Date: 06/27/23 (delayed charting seen at 1030) Patient is an 82-year-old male with peripheral arterial disease, hypertension, prior tobacco abuse, and prior DVT who presented to the hospital due to worse sue left foot pain and drainage from post surgical wound. Patient had undergone amputation on 06/11/23 of the second and third left toe, had a postoperative follow-up on 06/14 he had been noted to have some swelling and erythema of the surgical site was started on oral Keflex. Due to the worsening Sinhala presented to the ER. There he underwent a left foot x-ray with no signs of obvious osseous erosion. Laboratory analysis was remarkable for white blood cell count of 12.9, hemoglobin 9.8, sodium 132, chloride 96, ESR 116, and CRP of 35.3. Influenza A/B/RSV/Coban was negative. Fevers were high as 101. Patient was subsequently admitted for infected postoperative wound. He was started on Zosyn and vancomycin, however after infectious disease consultation Vanco was discontinued and daptomycin was started. Vascular surgery was consulted. He underwent left AKA on 06/25/23. Patient seen and examined at bedside. Today he complains of more pain in the stump along with phantom limb pain feeling as though his toes were there. He states his stomach is hurting significantly today. He still has not had a bowel movement since prior to surgery. He denies any nausea or vomiting. Vital signs reviewed General: nontoxic, no distress, appears at stated age Cardiovascular: S1S2 reg, no murmur, Lungs: CTA bilateral, no rhonchi, no rales , no accessory muscle use Abdominal: soft, nontender to palpation, no guarding, no appreciable organomegaly Ext: no gross muscle atrophy, no edema right lower extremity, dressing in place over left AKA amputation site, no contractures Neuro: CN II-XI grossly intact, no focal neuro deficits Psych: Alert, oriented, appropriate affect Assessment/Plan: Enterococcus postop wound infection with surrounding cellulitis and severe peripheral arterial disease 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 -Case discussed with nursing and comfort keepers will reevaluate on 06/29 for prosthetic. -Await further infectious disease recommendations. Likely could discontinue Unasyn at this time -Change pain regiment [place] 5/325 every 4 hours when necessary mild pain, [place] 7.5/325-6 hours when necessary moderate pain, and Dilaudid 1 mg every 4 hours when necessary severe pain. Continue with gabapentin 600 mg 3 times a day and Cymbalta 60 mg daily - lisinopril 10 mg daily - pravastatin 80 mg at night -Xarelto when okay with vascular surgery Imaging: None new Data Review: Vitals reviewed patient afebrile for the last 24 hours. Pulse 79, respirations 18, blood pressure 121/61, O2 sat 97% on room air Labs reviewed and remarkable for white blood cell, 11.8, hemoglobin 8.8, platelets 510 DVT prophylaxis: Xarelto Anticipated discharge date: on 06/29/[address]: [facility] This dictation was prepared using [employer] voice recognition software. Though every attempt is made to correct errors during dictation some may still exist. Objective - Vital Signs Vital signs: Vital Signs Temp 97.8 F 06/27/23 11:44 Pulse 70 06/27/23 11:44 Resp 16 06/27/23 11:44 BP 162/65 06/27/23 11:44 Pulse Ox 94 L 06/27/23 11:44 FiO2 Intake & Output 06/26/23 06/27/23 06/27/23 18:59 06:59 18:59 Intake Total 1100 1215 Output Total 400 565 Balance 700 650 Intake: Intake, IV Titration 1100 Amount Ampicillin-Sulbactam 3 gm 200 In Sodium Chloride 0.9% 100 ml @ 200 mls/hr IVPB Q6HR [facility] Rx#:[id number] Sodium Chloride 0.9% 1, 900 000 ml @ 130 mls/hr IV . Q7H42M [facility] Rx#:[id number] Oral 1215 Output: Urine 200 Post Void Residual 200 565 Other: Voiding Method Urinal Urinal Urinal Diaper Diaper Diaper Incontinent Incontinent Incontinent External Catheter # Voids 1 1 - Labs CBC & Chem 7: 06/26/23 08:40 06/26/23 08:40
[2023-06-27] MEDS: polyethylene glycoL 3350 17 GM POWD.PACK PO SCH (13:46)
[2023-06-27] MEDS: DULoxetine HCL 60 MG CAPSULE.DR PO SCH (14:39)
--- NOTE | 2023-06-27 16:53 | P.PN ---
Subjective Progress Note Date: 06/27/23 Principal diagnosis: L foot infection Patient is a 82-year-old male with a past medical history significant for hypertension hyperlipidemia and DVT patient was recently admitted to this facility in this patient do have a left second and third toe amputation on 06/11/2023 patient apparently was evaluated in the ER on 06/14/2023 concerning for cellulitis for the patient was treated with Keflex, patient presented back to the hospital with worsening swelling redness and also have a fever.Patient is status post left [id number] amputation completed 06/25/2023. On today's evaluation that is 06/27/2023 the patient remains to be afebrile, the patient is breathing comfortably on room air no chest pain shortness of breath or cough still complains of some phantom pain no nausea vomiting or diarrhea. Patient white count of 11.8 creatinine 0.49. As of yesterday no blood draw today Objective - Vital Signs Vital signs: Vital Signs Temp 97.8 F 06/27/23 14:43 Pulse 75 06/27/23 14:43 Resp 16 06/27/23 14:43 BP 156/63 06/27/23 14:43 Pulse Ox 97 06/27/23 14:43 FiO2 Intake & Output 06/26/23 06/27/23 06/27/23 18:59 06:59 18:59 Intake Total 1100 1215 200 Output Total 400 565 700 Balance 700 650 -500 Intake: Intake, IV Titration 1100 200 Amount Ampicillin-Sulbactam 3 gm 200 200 In Sodium Chloride 0.9% 100 ml @ 200 mls/hr IVPB Q6HR [facility] Rx#:[id number] Sodium Chloride 0.9% 1, 900 000 ml @ 130 mls/hr IV . Q7H42M [facility] Rx#:[id number] Oral 1215 Output: Urine 200 700 Post Void Residual 200 565 Other: Voiding Method Urinal Urinal Urinal Diaper Diaper Diaper Incontinent Incontinent Incontinent External Catheter # Voids 1 1 - Exam GENERAL DESCRIPTION: An elderly male lying in bed in no distress RESPIRATORY SYSTEM: Unlabored breathing , decreased breath sounds at bases HEART: S1 S2 regular rate and rhythm , ABDOMEN: Soft , no tenderness EXTREMITIES: Left AK stump is currently dressed - Labs CBC & Chem 7: 06/26/23 08:40 06/26/23 08:40 Assessment and Plan (1) Post op infection Current Visit: Yes Status: Acute Code(s): T81.40XA - INFECTION FOLLOWING A PROCEDURE, UNSPECIFIED, INIT SNOMED Code(s): 49814797 (2) Cellulitis Current Visit: No Status: Acute Code(s): L03.90 - CELLULITIS, UNSPECIFIED SNOMED Code(s): 141780900 Plan: 1patient present to hospital with sepsis in this patient who did have a fever tachycardia elevated white count source likely left foot cellulitis and con cerning for surgical site infection in this patient who is s/p left third toe and partial amputation of the left second toe, apparently there was some purulent drainage noticed by the family, we will need to cover for resistant gram-positive as well as gram-negative pathogen. 2local culture be finalize Enterococcus faecalis that was penicillin sensitive 3the patient is status post left [id number] amputation with infected port removed the patient will not need to be on long-term antibiotic 4- for now we will continue Unasyn for another 24-48 hour and monitor clinical course closely. Dictation was produced using [employer] dictation software. please excuse any grammatical, word or spelling errors. Time with Patient: Less than 30
[2023-06-27] MEDS: HYDROcodone/APAP 7.5-325MG 1 EACH TAB PO PRN ×2 (17:11→23:29)
[2023-06-27] MEDS: TAMSULOSIN 0.4 MG CAP.ER.24H PO SCH (20:53)
[2023-06-27] MEDS: LATANOPROST 0.005% OPHTH DROPS 2.5 ML BTL BOTH EYES SCH (20:53)
[2023-06-27] MEDS: PRAVASTATIN SODIUM 80 MG TAB PO SCH (20:54)
[2023-06-28] MEDS: HYDROmorphone 1 MG/ML 1 ML SYRINGE IVP PRN ×3 (03:33→21:26)
[2023-06-28] MEDS: HYDROcodone/APAP 7.5-325MG 1 EACH TAB PO PRN ×4 (05:17→23:56)
[2023-06-28] MEDS: AMPICILLIN-SULBACTAM 3 GM in SODIUM CHLORIDE 0.9% 100 ML IVPB SCH ×2 (06:28→13:05)
[2023-06-28] MEDS: polyethylene glycoL 3350 17 GM POWD.PACK PO SCH (08:47)
[2023-06-28] MEDS: ASPIRIN 81 MG PO SCH (08:48)
[2023-06-28] MEDS: GABAPENTIN 300 MG CAP PO SCH ×3 (08:48→21:25)
[2023-06-28] MEDS: lisinopriL 10 MG TAB PO SCH (08:48)
[2023-06-28] MEDS: ASCORBIC ACID 500 MG TAB PO SCH (08:48)
[2023-06-28] MEDS: FERROUS SULFATE 325 MG TAB PO SCH (13:04)
[2023-06-28] MEDS: DULoxetine HCL 60 MG CAPSULE.DR PO SCH (14:32)
[2023-06-28] MEDS ORDERED: LACTULOSE 20 GM/30 ML CUP PO ONE (16:02)
--- NOTE | 2023-06-28 16:07 | P.PN ---
Subjective Progress Note Date: 06/28/23 (delayed charting seen at 1400) Patient is an 82-year-old male with peripheral arterial disease, hypertension, prior tobacco abuse, and prior DVT who presented to the hospital due to worse sue left foot pain and drainage from post surgical wound. Patient had undergone amputation on 06/11/23 of the second and third left toe, had a postoperative follow-up on 06/14 he had been noted to have some swelling and erythema of the surgical site was started on oral Keflex. Due to the worsening Vietnamese presented to the ER. There he underwent a left foot x-ray with no signs of obvious osseous erosion. Laboratory analysis was remarkable for white blood cell count of 12.9, hemoglobin 9.8, sodium 132, chloride 96, ESR 116, and CRP of 35.3. Influenza A/B/RSV/Coban was negative. Fevers were high as 101. Patient was subsequently admitted for infected postoperative wound. He was started on Zosyn and vancomycin, however after infectious disease consultation Vanco was discontinued and daptomycin was started. Vascular surgery was consulted. He underwent left AKA on 06/25/23. Patient seen and examined at bedside. Today he complains of more pain in the stump along with phantom limb pain feeling as though his toes were there. He states his stomach is hurting significantly today. He still has not had a bowel movement since prior to surgery. He denies any nausea or vomiting. Vital signs reviewed General: nontoxic, no distress, appears at stated age Cardiovascular: S1S2 reg, no murmur, Lungs: CTA bilateral, no rhonchi, no rales , no accessory muscle use Abdominal: soft, nontender to palpation, no guarding, no appreciable organomegaly Ext: no gross muscle atrophy, no edema right lower extremity, dressing in place over left AKA amputation site, no contractures Neuro: CN II-XI grossly intact, no focal neuro deficits Psych: Alert, oriented, appropriate affect Assessment/Plan: Enterococcus postop wound infection with surrounding cellulitis and severe peripheral arterial disease status post left AKA on 06/25/23 Phantom limb pain Sepsis Normocytic anemia Hypertension - Unasyn 3 g every 6 hours IV piggyback, day #6 - Case discussed with Dr. Curran and melissaay to resume xarelto -comfort keepers will reevaluate on 06/29 for prosthetic. -Discontinue Unasyn, repeat CBC in AM - consult PMR for IPR placement -Continue [place] 5/325 every 4 hours when necessary mild pain, [place] 7.5/325-6 hours when necessary moderate pain, and Dilaudid 1 mg every 4 hours when necessary severe pain. Continue with gabapentin 600 mg 3 times a day and Cym joseph 60 mg daily - lisinopril 10 mg daily - pravastatin 80 mg at night - Xarelto 20 mg at night Constipation - miralax 17 grams daily - lactulose 30 grams X 1 Imaging: None new Data Review: VItal reviewed. No new labs. DVT prophylaxis: Xarelto Anticipated discharge date: on 06/29/[address]: [facility] This dictation was prepared using [employer] voice recognition software. Though every attempt is made to correct errors during dictation some may still exist. Objective - Vital Signs Vital signs: Vital Signs Temp 98.7 F 06/28/23 12:00 Pulse 87 06/28/23 12:00 Resp 16 06/28/23 12:00 BP 156/74 06/28/23 12:00 Pulse Ox 94 L 06/28/23 12:00 FiO2 Intake & Output 06/27/23 06/28/23 06/28/23 18:59 06:59 18:59 Intake Total 200 1000 318 Output Total 900 1350 Balance -700 1000 -1032 Intake: Intake, IV Titration 200 1000 Amount Ampicillin-Sulbactam 3 gm 200 1000 In Sodium Chloride 0.9% 100 ml @ 200 mls/hr IVPB Q6HR [facility] Rx#:[id number] Oral 318 Output: Urine 900 1350 Other: Voiding Method Urinal Urinal Urinal Diaper Diaper Diaper Incontinent Incontinent Incontinent External Catheter External Catheter External Catheter # Voids 1 - Labs CBC & Chem 7: 06/26/23 08:40 06/26/23 08:40
--- NOTE | 2023-06-28 16:42 | P.PN ---
Subjective Progress Note Date: 06/28/23 Patient seen and examined. No complaints. Resting comfortably Objective - Vital Signs Vital signs: Vital Signs Temp 98.8 F 06/28/23 16:00 Pulse 81 06/28/23 16:00 Resp 16 06/28/23 16:00 BP 159/64 06/28/23 16:00 Pulse Ox 92 L 06/28/23 16:00 FiO2 Intake & Output 06/27/23 06/28/23 06/28/23 18:59 06:59 18:59 Intake Total 200 1000 318 Output Total 900 1350 Balance -700 1000 -1032 Intake: Intake, IV Titration 200 1000 Amount Ampicillin-Sulbactam 3 gm 200 1000 In Sodium Chloride 0.9% 100 ml @ 200 mls/hr IVPB Q6HR [facility] Rx#:[id number] Oral 318 Output: Urine 900 1350 Other: Voiding Method Urinal Urinal Urinal Diaper Diaper Diaper Incontinent Incontinent Incontinent External Catheter External Catheter External Catheter # Voids 1 - Exam No acute distress. Nonpalpable pedal pulses of the right lower extremity, left lower extremity amputation site with rigid dressing/stump manager personnel selection. - Labs CBC & Chem 7: 06/26/23 08:40 06/26/23 08:40 Assessment and Plan Assessment: Postop left above-knee amputation Rest pain left lower extremity History of left second and third toe amputation Severe peripheral arterial occlusive disease History of left femoral to tibial bypass with revision Chronic left heel wound Plan: Overall patient appears to be doing well. Discharge planning, hopeful discharge to rehab pending PT OT evaluation
--- NOTE | 2023-06-28 16:58 | P.PN ---
Subjective Progress Note Date: 06/28/23 Principal diagnosis: L foot infection Patient is a 82-year-old male with a past medical history significant for hypertension hyperlipidemia and DVT patient was recently admitted to this facility in this patient do have a left second and third toe amputation on 06/11/2023 patient apparently was evaluated in the ER on 06/14/2023 concerning for cellulitis for the patient was treated with Keflex, patient presented back to the hospital with worsening swelling redness and also have a fever.Patient is status post left zeixm-sio-oxza amputation completed 06/25/2023. On today's evaluation that is 06/28/2023 the patient continues to be afebrile, the patient is breathing comfortably on room air the patient denies chest pain shortness of breath or cough, the patient denies no nausea vomiting or diarrhea. Patient white count of 11.8 creatinine 0.49 as of 06/26/2023, no blood draw today Objective - Vital Signs Vital signs: Vital Signs Temp 98.8 F 06/28/23 16:00 Pulse 81 06/28/23 16:00 Resp 16 06/28/23 16:00 BP 159/64 06/28/23 16:00 Pulse Ox 92 L 06/28/23 16:00 FiO2 Intake & Output 06/27/23 06/28/23 06/28/23 18:59 06:59 18:59 Intake Total 200 1000 318 Output Total 900 1350 Balance -700 1000 -1032 Intake: Intake, IV Titration 200 1000 Amount Ampicillin-Sulbactam 3 gm 200 1000 In Sodium Chloride 0.9% 100 ml @ 200 mls/hr IVPB Q6HR [facility] Rx#:[id number] Oral 318 Output: Urine 900 1350 Other: Voiding Method Urinal Urinal Urinal Diaper Diaper Diaper Incontinent Incontinent Incontinent External Catheter External Catheter External Catheter # Voids 1 - Exam GENERAL DESCRIPTION: An elderly male lying in bed in no distress RESPIRATORY SYSTEM: Unlabored breathing , decreased breath sounds at bases HEART: S1 S2 regular rate and rhythm , ABDOMEN: Soft , no tenderness EXTREMITIES: Left AK stump is currently dressed - Labs CBC & Chem 7: 06/26/23 08:40 06/26/23 08:40 Assessment and Plan (1) Post op infection Current Visit: Yes Status: Acute Code(s): T81.40XA - INFECTION FOLLOWING A PROCEDURE, UNSPECIFIED, INIT SNOMED Code(s): 52719052 (2) Cellulitis Current Visit: No Status: Acute Code(s): L03.90 - CELLULITIS, UNSPECIFIED SNOMED Code(s): 918292053 Plan: 1patient present to hospital with sepsis in this patient who did have a fever tachycardia elevated white count source likely left foot cellulitis and c oncerning for surgical site infection in this patient who is s/p left third toe and partial amputation of the left second toe, apparently there was some purulent drainage noticed by the family, we will need to cover for resistant gram-positive as well as gram-negative pathogen. 2local culture be finalize Enterococcus faecalis that was penicillin sensitive 3the patient is status post left eetmp-[id number]-[id number] amputation with infected port removed the patient will not need to be on long-term antibiotic 4- patient has completed his Unasyn discontinued this afternoon and the patient will monitor closely off antibiotic therapy Dictation was produced using [email or web address] dictation software. please excuse any grammatical, word or spelling errors. Time with Patient: Less than 30
[2023-06-28] MEDS ORDERED: RIVAROXABAN 20 MG TAB PO SCH (17:30)
[2023-06-28] MEDS: TAMSULOSIN 0.4 MG CAP.ER.24H PO SCH (21:25)
[2023-06-28] MEDS: PRAVASTATIN SODIUM 80 MG TAB PO SCH (21:25)
[2023-06-28] MEDS: LATANOPROST 0.005% OPHTH DROPS 2.5 ML BTL BOTH EYES SCH (21:26)
[2023-06-28] MEDS: ACETAMINOPHEN TAB 325 MG TAB PO PRN (23:56)
[2023-06-29] MEDS: HYDROmorphone 1 MG/ML 1 ML SYRINGE IVP PRN ×3 (01:36→16:30)
[2023-06-29] MEDS: HYDROcodone/APAP 7.5-325MG 1 EACH TAB PO PRN ×2 (06:20→13:24)
[2023-06-29] MEDS: ACETAMINOPHEN TAB 325 MG TAB PO PRN (06:20)
[2023-06-29 08:28] VITALS: RESP 16
--- NOTE | 2023-06-29 08:52 | P.PN ---
Subjective Progress Note Date: 06/29/23 Principal diagnosis: left lower extremity gangrene Patient seen and examined. No new events overnight. Amputation site pain is controlled. Objective - Vital Signs Vital signs: Vital Signs Temp 98.2 F 06/29/23 08:00 Pulse 76 06/29/23 08:00 Resp 16 06/29/23 08:00 BP 145/68 06/29/23 08:00 Pulse Ox 94 L 06/29/23 08:00 FiO2 Intake & Output 06/28/23 06/29/23 06/29/23 18:59 06:59 18:59 Intake Total 1318 540 240 Output Total 1350 3100 Balance -32 -2560 240 Intake: Intake, IV Titration 200 Amount Ampicillin-Sulbactam 3 gm 200 In Sodium Chloride 0.9% 100 ml @ 200 mls/hr IVPB Q6HR [facility] Rx#:[id number] Oral 1118 540 240 Output: Urine 1350 3100 Other: Voiding Method Urinal Urinal Diaper Diaper Incontinent Incontinent External Catheter External Catheter # Voids 3 - Exam Left AKA site clean, dry and intact. No signs of infection - Labs CBC & Chem 7: 06/26/23 08:40 06/26/23 08:40 Assessment and Plan Assessment: Left AKA History of left second and third toe amputation Severe peripheral arterial occlusive disease History of left femoral to tibial bypass with revision Chronic left heel wound Plan: Continue current care. Agree with in patient rehab Continue local dressings to the amputation site.
[2023-06-29 09:35] LABS: HCT 28.3 % (39.0-53.0); HGB 8.6 gm/dL (13.0-17.5); Hypochromasia Moderate; MCH 28.3 pg (25.0-35.0); MCHC 30.3 g/dL (31.0-37.0); MCV 93.2 fL (80.0-100.0); Mean Platelet Volume 7.7; Platelet Count 489 k/uL (150-450); RBC 3.04 m/uL (4.30-5.90); RDW 15.7 % (11.5-15.5); WBC 11.2 k/uL (3.8-10.6)
[2023-06-29] MEDS: polyethylene glycoL 3350 17 GM POWD.PACK PO SCH (09:47)
[2023-06-29] MEDS: ASPIRIN 81 MG PO SCH (09:47)
[2023-06-29] MEDS: ASCORBIC ACID 500 MG TAB PO SCH (09:47)
[2023-06-29] MEDS: lisinopriL 10 MG TAB PO SCH (09:47)
[2023-06-29] MEDS: GABAPENTIN 300 MG CAP PO SCH ×2 (09:52→16:30)
[2023-06-29 09:56] LABS: African American GFR (CKD) >90 (>60 ml/min/1.73 sqM); Anion Gap 7 mmol/L; Blood Urea Nitrogen 9 mg/dL (9-20); Calcium 8.2 mg/dL (8.4-10.2); Carbon Dioxide 27 mmol/L (22-30); Chloride 102 mmol/L (98-107); Glucose 91 mg/dL (74-99); Non-African American GFR(CKD) >90 (>60 ml/min/1.73 sqM); Potassium 4.4 mmol/L (3.5-5.1); Sodium 136 mmol/L (137-145)
[2023-06-29] MEDS ORDERED: NYSTATIN 100,000 UNIT/GM POWD 15 GM TOPICAL SCH (11:00)
[2023-06-29] MEDS: FERROUS SULFATE 325 MG TAB PO SCH (13:24)
--- NOTE | 2023-06-29 14:59 | P.DS ---
Providers Date of admission: 06/18/23 18:38 Expected date of discharge: 06/29/23 Attending physician: Radha Whittington MD Consults: 06/18/23 17:16 Consult Physician Urgent Consulting Provider: Coral Curran Consult Reason/Comments: post-op Do you want consulting provider notified?: Yes 06/19/23 05:21 Consult Physician Routine Consulting Provider: Shelia Barroso Consult Reason/Comments: cellulitis Do you want consulting provider notified?: Yes, Notify in am 06/28/23 20:42 Consult Physician Routine Consulting Provider: Haider Moses Consult Reason/Comments: AKA, rehab Do you want consulting provider notified?: Yes Placement Type Exists?: Yes Primary care physician: Yaya Croft MD Hospital Course: Discharge Diagnosis: Enterococcus postop wound infection, gangrene with underlying severe peripheral arterial disease status post left AKA on 06/25/23 Phantom limb pain Sepsis, resolved Acute blood loss anemia, anticipated outpcoe of surgery Hypertension Constipation Hospital Course: Patient is an 82-year-old male with peripheral arterial disease, hypertension, prior tobacco abuse, and prior DVT who presented to the hospital due to worsening left foot pain and drainage from post surgical wound. Patient had undergone amputation on 06/11/23 of the second and third left toe, had a postoperative follow-up on 06/14 he had been noted to have some swelling and erythema of the surgical site was started on oral Keflex. Due to the worsening Kh[place] presented to the ER. There he underwent a left foot x-ray with no signs of obvious osseous erosion. Laboratory analysis was remarkable for white blood cell count of 12.9, hemoglobin 9.8, sodium 132, chloride 96, ESR 116, and CRP of 35.3. Influenza A/B/RSV/Coban was negative. Fevers were high as 101. Patient was subsequently admitted for infected postoperative wound. He was started on Zosyn and vancomycin, however after infectious disease consultation Vanco was discontinued and daptomycin was started. Vascular surgery was consulted. He underwent left AKA on 06/25/23. He completed a course of unasyn as cultures came back as enterococcus which was stopped after his amputation. He did well. Hemoglobin remained stable. He continued to work with therapy. He was determined stable for discharge to longterm facility. Follow-up: Dr. Curran in 2 weeks, comfort prosthetics is following. CBC in 1 week for anemia. Patient seen and examined at bedside. Feeling well. Still having some pain. Denies any chest pain or shortness of breath. No nausea or vomiting. present at bedside and all questions answered. Vital signs reviewed and stable. General: nontoxic, no distress, appears at stated age Cardiovascular: S1S2 reg, no murmur, Lungs: CTA bilateral, no rhonchi, no rales , no accessory muscle use Abdominal: soft, nontender to palpation, no guarding, no appreciable organomegaly Ext: no gross muscle atrophy, dressing in place over left AKA amputation site, no contractures Neuro: CN II-XI grossly intact, no focal neuro deficits Psych: Alert, oriented, appropriate affect A total of 32 minutes of time were spent preparing this complex discharge summary. Patient was discharged on 06/29/23. This dictation was prepared using [employer] voice recognition software. Though every attempt is made to correct errors during dictation some may still exist. Patient Condition at Discharge: Stable Plan - Discharge Summary Discharge Rx Participant: No New Discharge Prescriptions: New Ferrous Sulfate [Iron (65 MG Elemental)] 325 mg PO W/LUNCH tab polyethylene glycoL 3350 [Miralax] 17 gm PO DAILY packet Ibuprofen [Motrin] 400 mg PO Q6HR PRN tab PRN Reason: Pain Or Fever > 100.5 Nystatin 100,000 Unit/gm Powd [Mycostatin Powder] 1 applic TOPICAL TID each Continue Pravastatin Sodium 80 mg PO HS Rivaroxaban [Xarelto] 20 mg PO DAILY Tamsulosin [Flomax] 0.4 mg PO HS Aspirin 81 mg PO DAILY tab HYDROcodone/APAP 10-325MG [Cologne 10-325] 1 tab PO Q6HR PRN 3 Days #12 tab PRN Reason: Pain lisinopriL [Prinivil] 10 mg PO DAILY DULoxetine HCL [Cymbalta] 30 mg PO DAILY@1500 Latanoprost [Latanoprost 0.005%] 1 drop BOTH EYES HS Gabapentin [Neurontin] 600 mg PO TID #9 cap Discontinued Cephalexin [Keflex] 500 mg PO QID #40 cap Discharge Medication List Pravastatin Sodium 80 mg PO HS 02/15/23 [History] lisinopriL [Prinivil] 10 mg PO DAILY 02/15/23 [History] Rivaroxaban [Xarelto] 20 mg PO DAILY 02/26/23 [History] Tamsulosin [Flomax] 0.4 mg PO HS 02/26/23 [History] Aspirin 81 mg PO DAILY tab 03/03/23 [Rx] DULoxetine HCL [Cymbalta] 30 mg PO DAILY@1500 06/03/23 [History] Latanoprost [Latanoprost 0.005%] 1 drop BOTH EYES HS 06/26/23 [History] Ferrous Sulfate [Iron (65 MG Elemental)] 325 mg PO W/LUNCH tab 06/29/23 [Rx] Gabapentin [Neurontin] 600 mg PO TID #9 cap 06/29/23 [Rx] HYDROcodone/APAP 10-325MG [Cologne 10-325] 1 tab PO Q6HR PRN 3 Days #12 tab 06/29/23 [Rx] Ibuprofen [Motrin] 400 mg PO Q6HR PRN tab 06/29/23 [Rx] Nystatin 100,000 Unit/gm Powd [Mycostatin Powder] 1 applic TOPICAL TID each 06/29/23 [Rx] polyethylene glycoL 3350 [Miralax] 17 gm PO DAILY packet 06/29/23 [Rx] Follow up Appointment(s)/Referral(s): Yaya Croft MD [Primary Care Provider] - 1-2 days Coral Curran DO [STAFF PHYSICIAN] - 2 Weeks [facility], [NON-STAFF] - As Needed Activity/Diet/Wound Care/Special Instructions: Activity: As tolerated Fall precautions Diet: Heart Healthy Wound Care: [employer]fort prosthetics is following: 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
[2023-06-29] MEDS: DULoxetine HCL 60 MG CAPSULE.DR PO SCH (16:30)
[2023-06-29 16:46] VITALS: BP 123/70; PULSE 83; TEMP 98.1
== END 2023-06-29 16:37 | DRG 474 ==
LOC: EC 13:26 → 5NMEDONC 18:38 → 3SCARD 06-25 16:08
PROVIDERS: ADMIT Internal Medicine; ATTEND Internal Medicine
PROC: 0Y6D0Z3 Detachment at Left Upper Leg, Low, Open Approach (ICD-10-PCS; principal; 2023-06-25 11:30)
DX: T87.44 Infection of amputation stump, left lower extremity (principal); A41.81 Sepsis due to Enterococcus; L89.623 Pressure ulcer of left heel, stage 3; D62 Acute posthemorrhagic anemia; E11.52 Type 2 diabetes mellitus with diabetic peripheral angiopathy with gangrene; E87.1 Hypo-osmolality and hyponatremia; I96 Gangrene, not elsewhere classified; I10 Essential (primary) hypertension; A49.01 Methicillin susceptible Staphylococcus aureus infection, unspecified site; D50.9 Iron deficiency anemia, unspecified; E78.5 Hyperlipidemia, unspecified; E87.6 Hypokalemia; E87.8 Other disorders of electrolyte and fluid balance, not elsewhere classified; G54.6 Phantom limb syndrome with pain; K59.00 Constipation, unspecified; H35.30 Unspecified macular degeneration; Z20.822 Contact with and (suspected) exposure to COVID-19; Z98.1 Arthrodesis status; Z82.49 Family history of ischemic heart disease and other diseases of the circulatory system; Z87.891 Personal history of nicotine dependence; Z79.82 Long term (current) use of aspirin; Z79.01 Long term (current) use of anticoagulants; Z86.718 Personal history of other venous thrombosis and embolism; Z79.4 Long term (current) use of insulin
CPT/HCPCS: 36415; 71045; 80048; 80053; 81003; 82565; 82728; 83540; 83550; 83605; 83735; 84466; 85025; 85027; 85652; 86140; 86850; 86900; 86901; 87040; 87070; 87077; 87186; 87205; 87636; 96365; 96366; 96368; 99284

== ENCOUNTER 2023-09-01 11:59 | Day surgery (SDC) | payer MEDICARE ==
[2023-08-30 09:23] VITALS: BMI 20.3
[~2023-09-01 11:59] MED LIST changes: -ONDANSETRON 4 MG/2 ML VIAL IVP ONE; +SODIUM CHLORIDE 0.9% 1,000 ML in EMPTY BAG 1 BAG IV ONE
[2023-09-01 12:21] VITALS: RESP 18; TEMP 98
[2023-09-01 12:30] LABS: Anisocytosis Slight; Basophils # (A) 0.1 k/uL (0-0.2); Basophils % (A) 1 %; Eosinophils # (A) 0.4 k/uL (0-0.7); Eosinophils % (A) 5 %; HCT 31.5 % (39.0-53.0); HGB 10.3 gm/dL (13.0-17.5); Lymphocytes # (A) 2.1 k/uL (1.0-4.8); Lymphocytes % (A) 27 %; MCH 30.1 pg (25.0-35.0); MCHC 32.8 g/dL (31.0-37.0); MCV 91.8 fL (80.0-100.0); Mean Platelet Volume 7.3; Monocytes # (A) 0.5 k/uL (0-1.0); Monocytes % (A) 6 %; Neutrophils # (A) 4.7 k/uL (1.3-7.7); Neutrophils % (A) 59 %; Platelet Count 325 k/uL (150-450); RBC 3.43 m/uL (4.30-5.90); RDW 16.2 % (11.5-15.5); WBC 7.9 k/uL (3.8-10.6)
[2023-09-01 12:41] LABS: African American GFR (CKD) >90 (>60 ml/min/1.73 sqM); Anion Gap 12 mmol/L; Blood Urea Nitrogen 21 mg/dL (9-20); Calcium 9.6 mg/dL (8.4-10.2); Carbon Dioxide 29 mmol/L (22-30); Chloride 99 mmol/L (98-107); Glucose 96 mg/dL (74-99); Non-African American GFR(CKD) 87 (>60 ml/min/1.73 sqM); Potassium 4.4 mmol/L (3.5-5.1); Sodium 140 mmol/L (137-145)
[2023-09-01] MEDS ORDERED: MIDAZOLAM 2 MG/2 ML VIAL IVP ONE (13:55)
[2023-09-01] MEDS ORDERED: LIDOCAINE 1% INJ 10MG/ML (20 ML MDV) SQ ONE (13:58)
[2023-09-01] MEDS ORDERED: NITROGLYCERIN 1000MCG/10ML SYRINGE INTRAARTER ONE (13:59)
[2023-09-01] MEDS ORDERED: VERAPAMIL SYRINGE (5 MG/10 ML) INTRAARTER ONE (13:59)
[2023-09-01] MEDS ORDERED: IOPAMIDOL-250 100ML BTL INTRAARTER ONE (14:20)
--- NOTE | 2023-09-01 14:32 | P.OP ---
Date of Procedure: 09/01/23 Description of Procedure: Preoperative diagnosis: Kenyatta 4 peripheral arterial disease, rest pain Postoperative diagnosis: Same Procedure: Ultrasound-guided right radial access Selective Placement of catheter in the descending and abdominal aorta Aortogram with runoffs Moderate conscious sedation 21 minutes, personal monitoring of certified RN administration with hemodynamic monitoring Surgeon: Coral Curran D.O. EBL: Less than 5 mL IV fluids: See records Urine output: Not measured Drains: None Complications: None immediately apparent Condition: Stable to recovery Operative indication and findings: Patient is an 82-year-old male with severe peripheral arterial disease and previous left above-knee amputation who subsequently has continued developing right lower extremity rest pain. He presents today for angiogram. Procedure in detail: Patient was taken to the special suite and placed in supine position. Initially plan was to access the left femoral but due to patient's inability to control his left residual limb, the decision was made to do a diagnostic angiogram from the wrist prior to accessing in the groin due to potential bleeding complications. This was discussed with the patient prior to sedation as well as his in the preoperative suite. The ultrasound was utilized and the right radial artery was identified. It is found patent and free of significant calcific disease. Permanent images were stored. The ultrasound was utilized and the radial artery was accessed. Seldinger technique was used to place a 6 under sheath. Radial cocktail was instilled. Catheters and wires were used to place the catheter in the descending aorta.. Aortogram was performed. The catheter was advanced level of bifurcation and lower extremity images were obtained. Catheters and wires removed. The radial sheath was removed and TR band was placed. Angiographic findings. The aorta had evidence of diffuse disease without any evidence of flow-limiting stenoses. Visualized portions of the renal, superior mesenteric and celiac arteries appear patent. The common iliac arteries appear patent bilaterally. The internal and external iliac arteries appear patent bilaterally. The common femoral artery on the right appears patent without significant disease. There is abrupt occlusion of the superficial femoral artery and its takeoff. The profunda appears patent. On the left, there appears to be evidence of a high-grade stenosis at the common femoral artery with evidence of flow through the common femoral and into the profunda. The official femoral artery on this side appears occluded. Focuses and continued on the right lower extremity, superficial femoral artery is occluded. There is evidence of reconstitution at the level of the popliteal artery above the knee however is significantly diseased. In the significant collateral vessels. The popliteal artery appears patent. The takeoff of the anterior tibial artery is visualized but diminutive. The tibial peroneal trunk appears patent but diminutive. The bifurcation of the posterior tibial and peroneal vessels are visualized. There is limited flow contrast beyond this and difficulty in determination due to low flow.. Patient will need femoral to below-knee bypass for pentecostalism and revascularization if this is something he is interested in going forward with Plan - Discharge Summary Discharge Rx Participant: No New Discharge Prescriptions: No Action Pravastatin Sodium 80 mg PO HS Rivaroxaban [Xarelto] 20 mg PO HS Tamsulosin [Flomax] 0.4 mg PO DAILY Aspirin 81 mg PO DAILY tab HYDROcodone/APAP 10-325MG [[place] 10-325] 1 tab PO Q6HR PRN 3 Days #12 tab PRN Reason: Pain Ferrous Sulfate [Iron (65 MG Elemental)] 325 mg PO DAILY lisinopriL [Prinivil] 10 mg PO DAILY DULoxetine HCL [Cymbalta] 30 mg PO DAILY Gabapentin [Neurontin] 600 mg PO TID #9 cap Cyanocobalamin [Vitamin B-12] 500 mcg PO DAILY Furosemide [Lasix] 20 mg PO DAILY Discharge Medication List Pravastatin Sodium 80 mg PO HS 02/15/23 [History] lisinopriL [Prinivil] 10 mg PO DAILY 02/15/23 [History] Rivaroxaban [Xarelto] 20 mg PO HS 02/26/23 [History] Tamsulosin [Flomax] 0.4 mg PO DAILY 02/26/23 [History] Aspirin 81 mg PO DAILY tab 03/03/23 [Rx] DULoxetine HCL [Cymbalta] 30 mg PO DAILY 06/03/23 [History] Gabapentin [Neurontin] 600 mg PO TID #9 cap 06/29/23 [Rx] HYDROcodone/APAP 10-325MG [[place] 10-325] 1 tab PO Q6HR PRN 3 Days #12 tab 06/29/23 [Rx] Cyanocobalamin [Vitamin B-12] 500 mcg PO DAILY 07/12/23 [History] Furosemide [Lasix] 20 mg PO DAILY 07/12/23 [History] Ferrous Sulfate [Iron (65 MG Elemental)] 325 mg PO DAILY 11/06/23 [History] Follow up Appointment(s)/Referral(s): Coral Curran DO [STAFF PHYSICIAN] - 1 Week Activity/Diet/Wound Care/Special Instructions: No strenuous activity or heavy lifting with right upper extremity. May resume home medications including anticoagulation tonight. May bathe as previous. Discharge Disposition: HOME SELF-CARE
--- NOTE | 2023-09-01 14:49 | IR ---
EXAMINATION TYPE: IR angio abdominal w runoff DATE OF EXAM: 09/01/2023 COMPARISON: NONE HISTORY: Fluoroscopy time. Fluoroscopy was provided to the referring clinician.
[2023-09-01 16:48] VITALS: BP 128/56; PULSE 81
== END 2023-09-01 17:04 | disposition home or self-care (01) ==
LOC: CATHCVL 11:59
PROVIDERS: ATTEND Surgery
DX: I73.9 Peripheral vascular disease, unspecified (principal); F10.90 Alcohol use, unspecified, uncomplicated; Z87.891 Personal history of nicotine dependence; Z89.612 Acquired absence of left leg above knee
CPT/HCPCS: 36200; 75625; 75716; 76937; 80048; 85025; 99152; C1769 ×2; C1894; J2250; J2001; Q9966; J2305

== ENCOUNTER 2023-10-01 10:44 | Inpatient (IN) | payer MEDICARE ==
[2023-09-29 14:17] VITALS: BMI 16.9
[~2023-10-01 10:44] MED LIST changes: +DEXAMETHASONE SOD PHOSPHATE 4 MG/ML 1 ML VIAL IV ONE; +MIDAZOLAM 2 MG/2 ML VIAL IV PRN; +ONDANSETRON 4 MG/2 ML VIAL IVP ONE; -SODIUM CHLORIDE 0.9% 1,000 ML in EMPTY BAG 1 BAG IV ONE
[2023-10-01] MEDS: LACTATED RINGERS 1,000 ML IV SCH (11:20)
--- NOTE | 2023-10-01 11:48 | P.HPIHPCON ---
History of Present Illness Patient is a 82-year-old male who continues to have pain with rest pain in his right lower extremity acute some awake to the evening. He is unable to ambulate due to this. He has been trying conservative therapies and currently does not have any wounds. He has undergone issues for his peripheral arterial disease of his left lower extremity and subsequent amputation and is presenting today for femoral to tibial bypass of his right lower extremity. Consent for Procedure: I have explained the operation/procedure to the patient, including the risks, benefits, side effects, alternative therapies (including not receiving the proposed treatment or service), the likelihood of the patient achieving his/her goals, and potential recuperation problems for the procedure/sedation/analgesia, as well as any blood products, if indicated. I also explained to the patient the risks, benefits and side effects of the alternatives, as well as the risks related to not receiving the proposed procedure, care, treatment, or services. Past Medical History Past Medical History: Deep Vein Thrombosis (DVT), Eye Disorder, Hearing Disorder / Deafness, Hyperlipidemia, Hypertension, Osteoarthritis (OA), Vascular Disorder Additional Past Medical History / Comment(s): See Dr Curran's H&P. Constipation, macular degeneration, DVT leg 2001, right leg pain/edema, PAD, some forgetfulfulness, mild hearing loss, enlarged prostate, insomnia. History of Any Multi-Drug Resistant Organisms: None Reported Past Surgical History: Orthopedic Surgery Additional Past Surgical History / Comment(s): Cataracts removed, cervical fusion, left 2nd and 3rd toe ampuation, left femoral-tibial bypass X2 with endarterectomy, left above the knee amputation. Past Anesthesia/Blood Transfusion Reactions: No Reported Reaction Past Psychological History: Anxiety, Depression Smoking Status: Former smoker Past Alcohol Use History: Occasional Additional Past Alcohol Use History / Comment(s): Quit smoking >30 yrs ago, unsure how long he smoked or how much. Past Drug Use History: None Reported - Past Family History Brother(s) Family Medical History: Cancer, Coronary Artery Disease (CAD) Additional Family Medical History / Comment(s): 2 brothers had cancer. Father Family Medical History: Myocardial Infarction ([place]) Mother Family Medical History: Coronary Artery Disease (CAD) Medications and Allergies Home Medications Medication Instructions Recorded Confirmed Type Pravastatin Sodium 80 mg PO HS 02/15/23 09/29/23 History lisinopriL [Prinivil] 10 mg PO QAM 02/15/23 09/29/23 History Rivaroxaban [Xarelto] 20 mg PO HS 02/26/23 09/29/23 History Tamsulosin [Flomax] 0.4 mg PO DAILY 02/26/23 09/29/23 History Aspirin 81 mg PO DAILY tab 03/03/23 09/29/23 Rx DULoxetine HCL [Cymbalta] 30 mg PO HS 06/03/23 09/29/23 History Gabapentin [Neurontin] 600 mg PO TID #9 cap 06/29/23 09/29/23 Rx HYDROcodone/APAP 10-325MG [[place] 1 tab PO Q6HR PRN 3 Days #12 tab 06/29/23 09/29/23 Rx 10-325] Cyanocobalamin [Vitamin B-12] 500 mcg PO DAILY 07/12/23 09/29/23 History Furosemide [Lasix] 20 mg PO DAILY 07/12/23 09/29/23 History Ferrous Sulfate [Iron (65 MG 325 mg PO DAILY 08/30/23 09/29/23 History Elemental)] Latanoprost Ophth [Xalatan 0.005%] 1 drops BOTH EYES HS 09/29/23 09/29/23 History Allergies Allergy/AdvReac Type Severity Reaction Status Date / Time No Known Allergies Allergy Verified 10/01/23 11:19 Surgical - Exam Vital Signs Temp Pulse Resp BP Pulse Ox 97.5 F L 89 17 106/52 96 10/01/23 11:10 10/01/23 11:10 10/01/23 11:10 10/01/23 11:10 10/01/23 11:10 Gen. is a pleasant and cooperative male in no acute distress, heart appears regular in rate and rhythm. Lungs are clear. Abdomen is soft nontender nondistended. Neurologic cranial nerves II through XII grossly intact. Left above-knee amputation Right lower extremity palpable femoral pulse, no palpable pedal pulses, mild co ntracture at the level of the knee due to nonuse Assessment and Plan Assessment: #1 rest pain right lower extremity due to atherosclerosis Plan: Plan today for right femoral to below-knee bypass with CryoVein. Risks and benefits discussed. Patient seemingly understands the plan and is willing to proceed.
[2023-10-01] MEDS ORDERED: LACTATED RINGERS 1,000 ML IV ONE ×2 (12:07→16:06)
[2023-10-01] MEDS ORDERED: MIDAZOLAM 2 MG/2 ML VIAL IVP ONE (12:10)
[2023-10-01 12:11] LABS: Prothrombin Time 10.5 sec (10.0-12.5)
--- NOTE | 2023-10-01 12:47 | P.ANPRN ---
Procedure Note - Anesthesia - Invasive Line Right Arterial Line Time Out Performed: Yes (1210) Date of Procedure: 10/01/23 Time of Procedure: 12:11 Location of Patient: PreOp Preparation: Sterile Prep, Sterile Dressing Arterial Line Location: Radial (right) Ultrasound Used: No Purpose - Visualization and Identification of Vasculature: No Needle Guage: 20g Image Stored and Saved: No Narrative: Central line placement per sterile protocol utilized. lumen bled and flushed. Secured and dressed
[2023-10-01] MEDS ORDERED: ceFAZolin 4,000 MG in SODIUM CHLORIDE 0.9% 1,000 ML IRRIGATION ONE (14:06)
[2023-10-01] MEDS ORDERED: HEPARIN SODIUM,PORCINE 10,000 UNIT in SODIUM CHLORIDE 0.9% 1,000 ML IRRIGATION ONE (14:06)
[2023-10-01] MEDS ORDERED: THROMBIN (BOVINE) 5,000 UNIT VIAL MISCELLANE ONE (14:07)
[2023-10-01] MEDS ORDERED: GELATIN SPONGE,ABSORB (LARGE) 1 EACH SPONGE MISCELLANE ONE (14:07)
[2023-10-01] MEDS: HYDROmorphone 0.5 MG/0.5 ML SYRINGE IVP PRN ×4 (16:43→17:08)
--- NOTE | 2023-10-01 16:47 | P.OP ---
Date of Procedure: 10/01/23 Description of Procedure: Preoperative diagnosis: Severe peripheral arterial disease Postoperative diagnosis: Same Procedure: Right femoral to distal popliteal artery bypass with CryoVein Surgeon: Coral Curran D.O. Art Manager: Fernanda Hinojosa EBL: 100 mL IV fluids: See records Drains: None Urine output: 7 50 mL Specimen: None Complications: None Condition: Stable, extubated in the OR to PACU Operative indication and findings: Patient is an 82-year-old male with severe peripheral arterial disease and rest pain who presented today for femoral to below-knee bypass. Risks and benefits were discussed. He seemingly understood and was willing to proceed. Procedure in detail: Patient taken to the operative suite placed in supine position and intubated. A Curran catheter was placed. The abdomen and right lower extremity prepped and draped in usual sterile fashion. A preprocedure timeout was performed and all parties are in agreement. An incision was made in the groin with the scalpel. It was deepened through subcutaneous tissues with electrocautery. The encountered lymphatics were ligated and divided. The femoral sheath was opened sharply. The common femoral artery was dissected free circumferentially. The dissection was extended proximally to the level of the inguinal ligament. The common femoral artery was encircled with vessel loops proximally and distally. Attention was then turned towards the below-knee incision. It was made in the medial condyle and deepened through the fascia. The popliteal artery and vein were identified. Further dissection was carried out to identify the anterior tibial takeoff. The artery was encircled proximally and distally at this level The cadaver vein was prepped. A tunnel was performed and the vein was placed. At that point the patient was heparinized and ACT is were followed. Once heparinization was adequate, flow was occluded through the vessel. An 11 blade was utilized and arteriotomy is made the Naidu-Parker scissors was utilized to enlarge the arteriotomy. There was good inflow from the proximal artery. . An anastomosis created using 5-0 Prolene between the femoral artery and the cadaver vein. An arteriotomy of the distal popliteal artery was then performed. There was evidence of good backbleeding. The vein was cut to size and spatulated. Utilizing 6-0 Prolene an anastomosis was created. Hemostasis was achieved with interrupted sutures of 6-0 Prolene and Surgicel. At this point all anastomoses were completed and flow was resumed through the bypass graft. There was a palpable pulse distal to the graft that disappeared with the graft was occluded. A Doppler was utilized to confirm flow at the posterior tibial artery The wound was copiously irrigated with antibiotic solution. The femoral sheath was reapproximated with interrupted sutures of 3-0 Vicryl. The subcuticular tissue was reapproximated with 3-0 Vicryl. The skin was reprepped with running sutures of 4-0 Monocryl. The deep dermal tissues of the lateral incision at the calf were reapproximated with 3-0 Vicryl. The subcutaneous tissues were reapproximated with 3-0 Vicryl and the skin was reapproximated with running 4-0 Monocryl in subcuticular fashion. Dressings were placed. The patient was extubated and transferred to recovery in stable condition having tolerated the procedure well.
[2023-10-01] MEDS ORDERED: HYDROmorphone 0.5 MG/0.5 ML SYRINGE IVP ONE ×2 (17:22→17:24)
[2023-10-01] MEDS: MORPHINE SULFATE 4 MG/ML SYRINGE IVP PRN ×2 (18:24→21:44)
[2023-10-01] MEDS: HYDROcodone/APAP 5-325MG 1 EACH TAB PO PRN ×2 (19:50→23:03)
[2023-10-02] MEDS: MORPHINE SULFATE 4 MG/ML SYRINGE IVP PRN ×6 (00:27→20:41)
[2023-10-02] MEDS: oxyCODONE-APAP 7.5-325MG 1 EACH TAB PO PRN ×4 (02:20→21:00)
[2023-10-02] MEDS: CLOPIDOGREL 75 MG TAB PO SCH (08:22)
[2023-10-02] MEDS: LACTATED RINGERS 1,000 ML IV SCH (09:35)
--- NOTE | 2023-10-02 12:56 | P.PN ---
Subjective Progress Note Date: 10/02/23 Principal diagnosis: 1: Status post right lower extremity revascularization. Patient is postop day #1 status post femoral-tibial bypass right lower extremity. He is complaining of some discomfort although this is improving. Objective - Vital Signs Vital signs: Vital Signs Temp 99.2 F 10/02/23 11:54 Pulse 91 10/02/23 11:54 Resp 20 10/02/23 11:54 BP 138/66 10/02/23 11:54 Pulse Ox 92 L 10/02/23 11:54 FiO2 Intake & Output 10/01/23 10/02/23 10/02/23 18:59 06:59 18:59 Intake Total 2722 240 240 Output Total 850 0 Balance 1872 240 240 Weight 56.7 kg Intake: IV 2602 Oral 120 240 240 Output: Urine 750 0 Estimated Blood Loss 100 Other: Voiding Method Indwelling Catheter Indwelling Catheter Urinal Diaper - Exam Surgical wound is intact. Toes are movable. The leg and foot are warm with good pink coloration to the bases of the toes of the right foot. Assessment and Plan Assessment: 1: Postop day #1, status post popliteal to tibial artery bypass. 2: Moderate flexion contracture right lower extremity. 3: Status post left [id number] amputation. Plan: 1: Patient was encouraged to use the oral analgesics as opposed the IV analgesics. 2: Await physical therapy evaluation and treatment.
[2023-10-02] MEDS: FERROUS SULFATE 325 MG TAB PO SCH (13:43)
[2023-10-02] MEDS: TAMSULOSIN 0.4 MG CAP.ER.24H PO SCH (13:43)
[2023-10-02] MEDS: lisinopriL 10 MG TAB PO SCH (13:43)
[2023-10-02] MEDS: FUROSEMIDE 20 MG TAB PO SCH (13:43)
[2023-10-02] MEDS: GABAPENTIN 300 MG CAP PO SCH ×2 (15:24→21:00)
[2023-10-02] MEDS: RIVAROXABAN 20 MG TAB PO SCH (16:46)
--- NOTE | 2023-10-02 17:08 | P.PN ---
Subjective Progress Note Date: 10/02/23 Patient is a 82-year-old male with a PMH of severe PAD status post left AKA on 06/25/23, hypertension, history of DVT, who presented for Right femoral-popliteal bypass. Medicine consulted for medcial managment. Pts only complaints are of pain at the moment, but he says its not the worst it's been. Denies f/c, n/v/c/d, abd pain, cp, palps, syncope, presycnope, dyspnea. Patient is afebrile, 160/72, heart rate 100, 96% on room air. INR is 1.0. Gen: awake, alert HEENT: normocephalic, atraumatic, good hearing acuity, moist mucous membranes Resp: good air exchange, breathing comfortably with no accessory muscle use CVS: good distal perfusion x 4, GI: soft, NTTP, ND : no SPT, no CVAT, barrett catheter not present MSK: no pitting edema, no clubbing, left AKA Neuro: non-focal, moving all extremities Psych: cooperative, euthymic mood Assessment/plan: Hypertension Hyperlipidemia History of DVT Glaucoma Iron deficiency anemia -Agree with Rivaroxaban and Plavix -Hold off on home aspirin at this time -Continue duloxetine, gabapentin Objective - Vital Signs Vital signs: Vital Signs Temp 98.8 F 10/02/23 16:00 Pulse 100 10/02/23 16:00 Resp 18 10/02/23 16:00 BP 162/72 10/02/23 16:00 Pulse Ox 96 10/02/23 16:00 FiO2 Intake & Output 10/01/23 10/02/23 10/02/23 18:59 06:59 18:59 Intake Total 2722 240 720 Output Total 850 350 Balance 1872 240 370 Weight 56.7 kg 56.7 kg Intake: IV 2602 Oral 120 240 720 Output: Urine 750 350 Estimated Blood Loss 100 Other: Voiding Method Indwelling Catheter Indwelling Catheter Urinal Diaper # Voids 1
[2023-10-02] MEDS: PRAVASTATIN SODIUM 80 MG TAB PO SCH (21:00)
[2023-10-02] MEDS: DULoxetine HCL 30 MG CAPSULE.DR PO SCH (21:00)
[2023-10-02] MEDS: LATANOPROST 0.005% OPHTH DROPS 2.5 ML BTL BOTH EYES SCH (21:01)
[2023-10-03] MEDS: oxyCODONE-APAP 7.5-325MG 1 EACH TAB PO PRN ×3 (05:49→21:24)
[2023-10-03] MEDS: LACTATED RINGERS 1,000 ML IV SCH (09:12)
[2023-10-03] MEDS: CLOPIDOGREL 75 MG TAB PO SCH (09:14)
[2023-10-03] MEDS: CYANOCOBALAMIN 500 MCG TAB PO SCH (09:14)
[2023-10-03] MEDS: FUROSEMIDE 20 MG TAB PO SCH (09:14)
[2023-10-03] MEDS: FERROUS SULFATE 325 MG TAB PO SCH (09:14)
[2023-10-03] MEDS: TAMSULOSIN 0.4 MG CAP.ER.24H PO SCH (09:14)
[2023-10-03] MEDS: GABAPENTIN 300 MG CAP PO SCH ×3 (09:14→21:25)
[2023-10-03] MEDS: lisinopriL 10 MG TAB PO SCH (09:14)
[2023-10-03] MEDS: MORPHINE SULFATE 4 MG/ML SYRINGE IVP PRN ×2 (09:49→15:37)
--- NOTE | 2023-10-03 10:30 | P.PN ---
Subjective Progress Note Date: 10/03/23 Pt spiked low grade fever overngith. Foot appears red this morning, doppler of DP pulse is absent, TP pulse is present. Abx can be considered, but will defer for now as patient does not appear to have hyperesthesia of the area which would be more consistent with cellulitis, nor does he have a WBC count. Post-op fever likely related to atelectasis and we encourage IS. Gen: awake, alert HEENT: normocephalic, atraumatic, good hearing acuity, moist mucous membranes Resp: good air exchange, breathing comfortably with no accessory muscle use CVS: good distal perfusion x 4, GI: soft, NTTP, ND : no SPT, no CVAT, barrett catheter not present MSK: no pitting edema, no clubbing, left AKA Neuro: non-focal, moving all extremities Psych: cooperative, euthymic mood Hospital Course: Patient is a 82-year-old male with a PMH of severe PAD status post left AKA on 06/25/23, hypertension, history of DVT, who presented for Right femoral-popliteal bypass. Medicine consulted for medcial managment. Pts only complaints are of pain at the moment, but he says its not the worst it's been. Denies f/c, n/v/c/d, abd pain, cp, palps, syncope, presycnope, dyspnea. Patient is afebrile, 160/72, heart rate 100, 96% on room air. INR is 1.0. Assessment/plan: Hypertension Hyperlipidemia History of DVT Glaucoma Iron deficiency anemia -Agree with Rivaroxaban and Plavix -Hold off on home aspirin at this time -Continue duloxetine, gabapentin Objective - Vital Signs Vital signs: Vital Signs Temp 97.9 F 10/03/23 03:16 Pulse 62 10/03/23 03:16 Resp 16 10/03/23 03:16 BP 97/53 10/03/23 03:16 Pulse Ox 93 L 10/03/23 03:16 FiO2 Intake & Output 10/02/23 10/03/23 10/03/23 18:59 06:59 18:59 Intake Total 838 Output Total 1350 500 Balance -512 -500 Weight 56.7 kg Intake: Oral 838 Output: Urine 1350 500 Straight 500 400 Other: Voiding Method Urinal Urinal Diaper Diaper # Voids 1 1
--- NOTE | 2023-10-03 12:17 | P.PN ---
Subjective Progress Note Date: 10/03/23 Principal diagnosis: 1: Status post right lower extremity revascularization. Patient is postop day #1 status post femoral-tibial bypass right lower extremity. He is complaining of some discomfort although this is improving. 10/03/2023: Physical therapy as yet to evaluate and treat the patient per patient The patient's family is concerned about urinary tract infections which happens quite frequently. The patient is on Flomax however has not seen a urologist. Objective - Vital Signs Vital signs: Vital Signs Temp 98.2 F 10/03/23 08:00 Pulse 89 10/03/23 08:00 Resp 18 10/03/23 08:00 BP 93/54 10/03/23 08:00 Pulse Ox 95 10/03/23 08:00 FiO2 Intake & Output 10/02/23 10/03/23 10/03/23 18:59 06:59 18:59 Intake Total 838 540 Output Total 1350 500 Balance -512 -500 540 Weight 56.7 kg Intake: Oral 838 540 Output: Urine 1350 500 Straight 500 400 Other: Voiding Method Urinal Urinal Urinal Diaper Diaper Diaper # Voids 1 1 2 - Exam Surgical wound is intact. Toes are movable. The leg and foot are warm with good pink coloration to the bases of the toes of the right foot. 10/03/2023: Surgical wound is clean and dry. Foot is hyperemic secondary to recent revascularization. I do not believe there is any evidence of cellulitis and thus do not think antibiotics are appropriate at this time. Assessment and Plan Assessment: 1: Postop day #1, status post popliteal to tibial artery bypass. 2: Moderate flexion contracture right lower extremity. 3: Status post left [id number]-harq amputation. Plan: 1: Patient was encouraged to use the oral analgesics as opposed the IV analgesics. 2: Await physical therapy evaluation and treatment.
[2023-10-03 14:25] LABS: Appearance,Urine Clear (Clear); Bilirubin,Urine Negative (Negative); Blood,Urine Negative (Negative); Color,Urine Yellow; Glucose,Urine (UA) Negative (Negative); Ketones,Urine Negative (Negative); Leukocyte Esterase,Urine Negative (Negative); Nitrite,Urine Negative (Negative); Protein,Urine Negative (Negative); Urobilinogen,Urine <2.0 mg/dL (<2.0)
[2023-10-03] MEDS: RIVAROXABAN 20 MG TAB PO SCH (17:12)
[2023-10-03] MEDS: DULoxetine HCL 30 MG CAPSULE.DR PO SCH (21:24)
[2023-10-03] MEDS: PRAVASTATIN SODIUM 80 MG TAB PO SCH (21:24)
[2023-10-03] MEDS: LATANOPROST 0.005% OPHTH DROPS 2.5 ML BTL BOTH EYES SCH (21:25)
[2023-10-04] MEDS: MORPHINE SULFATE 4 MG/ML SYRINGE IVP PRN (04:09)
[2023-10-04] MEDS: CYANOCOBALAMIN 500 MCG TAB PO SCH (08:25)
[2023-10-04] MEDS: TAMSULOSIN 0.4 MG CAP.ER.24H PO SCH (08:25)
[2023-10-04] MEDS: FERROUS SULFATE 325 MG TAB PO SCH (08:25)
[2023-10-04] MEDS: oxyCODONE-APAP 7.5-325MG 1 EACH TAB PO PRN ×2 (08:25→14:57)
[2023-10-04] MEDS: FUROSEMIDE 20 MG TAB PO SCH (08:25)
[2023-10-04] MEDS: CLOPIDOGREL 75 MG TAB PO SCH (08:25)
[2023-10-04] MEDS: GABAPENTIN 300 MG CAP PO SCH ×2 (08:25→14:57)
[2023-10-04 08:57] LABS: HCT 25.8 % (39.0-53.0); MCH 29.7 pg (25.0-35.0); MCHC 32.2 g/dL (31.0-37.0); MCV 92.5 fL (80.0-100.0); Mean Platelet Volume 7.6; Platelet Count 364 k/uL (150-450); RBC 2.79 m/uL (4.30-5.90); RDW 14.5 % (11.5-15.5); WBC 8.5 k/uL (3.8-10.6)
[2023-10-04 08:59] LABS: HGB 8.3 gm/dL (13.0-17.5)
[2023-10-04 10:07] LABS: African American GFR (CKD) >90 (>60 ml/min/1.73 sqM); Anion Gap 13 mmol/L; Blood Urea Nitrogen 17 mg/dL (9-20); Calcium 9.1 mg/dL (8.4-10.2); Carbon Dioxide 26 mmol/L (22-30); Chloride 98 mmol/L (98-107); Glucose 137 mg/dL (74-99); Non-African American GFR(CKD) >90 (>60 ml/min/1.73 sqM); Potassium 4.4 mmol/L (3.5-5.1); Sodium 137 mmol/L (137-145)
[2023-10-04] MEDS: LACTATED RINGERS 1,000 ML IV SCH (10:50)
--- NOTE | 2023-10-04 12:15 | P.DS ---
Providers Date of admission: 10/01/23 10:44 Expected date of discharge: 10/04/23 Attending physician: Coral Curran DO Consults: 10/01/23 16:47 Consult Physician Routine Consulting Provider: Radha Whittington Consult Reason/Comments: med mgmnt, post op Do you want consulting provider notified?: Yes 10/03/23 12:17 Consult Physician Routine Consulting Provider: Luiz Mazariegos Consult Reason/Comments: BPH Do you want consulting provider notified?: Yes Primary care physician: Yaya Croft MD Hospital Course: This is a 82-year-old male who has history of severe peripheral arterial disease and rest pain of who presented for femoral to [id number] bypass. He is postop day #3. He states his pain is much better controlled today. He needs to be seen and evaluated today by physical therapy per plan is to return home with home health care. Patient does have a history of BPH and was having some urinary retention and does have a history of urinary tract infections in the past. Urology consulted and has seen patient and state Curran catheter can be discontinued this morning and will bladder scan prior to discharge. Patient has been afebrile, denies any shortness of breath or chest pain, no abdominal pain, nausea vomiting fever chills. WBC 8.5 hemoglobin 8.3 sodium 137 potassium 4.4 BUN 17 creatinine 0.6 glucose 137 Exam General appearance: The patient is alert, oriented, appears in no acute distress. HET: Head is normocephalic and atraumatic. Pupils are equal and reactive. Neck: Supple. Heart: Regular. Lungs: Equal expansion, normal respiratory effort. Abdomen: Soft, nontender, nondistended. Extremities: Left [id number] amputation. Right groin incision well approximated, no bleeding or redness. No hematoma. Right lower extremity medi al incision well approximated palpable bypass. PT and DP Doppler signal obtained. Neurological: No focal deficits. Alert and oriented 3. Assessment Postop day #3 status post femoral to distal popliteal artery bypass with CryoVein Moderate flexion contracture right lower extremity Status post left [id number] amputation Plan Consult to urology, continue with the recommendations Physical therapy on consult, patient cleared to go home with home healthcare services Discharge home if cleared by urology The impression and plan of care has been dictated as directed. I performed a history and examination of this patient, discussed the same with the dictator. I agree with the dictator's note ,documented as a scribe. Any additional findings or plans will be noted. Patient Condition at Discharge: Stable Plan - Discharge Summary Discharge Rx Participant: Yes New Discharge Prescriptions: No Action Pravastatin Sodium 80 mg PO HS Rivaroxaban [Xarelto] 20 mg PO HS Tamsulosin [Flomax] 0.4 mg PO DAILY Aspirin 81 mg PO DAILY tab HYDROcodone/APAP 10-325MG [[place] 10-325] 1 tab PO Q6HR PRN 3 Days #12 tab PRN Reason: Pain Ferrous Sulfate [Iron (65 MG Elemental)] 325 mg PO DAILY Latanoprost Ophth [Xalatan 0.005%] 1 drops BOTH EYES HS lisinopriL [Prinivil] 10 mg PO QAM DULoxetine HCL [Cymbalta] 30 mg PO HS Gabapentin [Neurontin] 600 mg PO TID #9 cap Cyanocobalamin [Vitamin B-12] 500 mcg PO DAILY Furosemide [Lasix] 20 mg PO DAILY Discharge Medication List Pravastatin Sodium 80 mg PO HS 02/15/23 [History] lisinopriL [Prinivil] 10 mg PO QAM 02/15/23 [History] Rivaroxaban [Xarelto] 20 mg PO HS 02/26/23 [History] Tamsulosin [Flomax] 0.4 mg PO DAILY 02/26/23 [History] Aspirin 81 mg PO DAILY tab 03/03/23 [Rx] DULoxetine HCL [Cymbalta] 30 mg PO HS 06/03/23 [History] Gabapentin [Neurontin] 600 mg PO TID #9 cap 06/29/23 [Rx] HYDROcodone/APAP 10-325MG [[place] 10-325] 1 tab PO Q6HR PRN 3 Days #12 tab 06/29/23 [Rx] Cyanocobalamin [Vitamin B-12] 500 mcg PO DAILY 07/12/23 [History] Furosemide [Lasix] 20 mg PO DAILY 07/12/23 [History] Ferrous Sulfate [Iron (65 MG Elemental)] 325 mg PO DAILY 08/30/23 [History] Latanoprost Ophth [Xalatan 0.005%] 1 drops BOTH EYES HS 09/29/23 [History] Follow up Appointment(s)/Referral(s): [facility], [NON-STAFF] - Coral Curran DO [STAFF PHYSICIAN] - 2 Weeks Yaya Croft MD [Primary Care Provider] - 1 Week Ambulatory/Diagnostic Orders: Complete Blood Count w/diff [LAB.AMB] Time Frame: 3 Days, Location: None Selected Activity/Diet/Wound Care/Special Instructions: No driving Avoid heavy lifting greater than 10 lbs , pushing, pulling, straining, flights of stairs ok to shower tomorrow but no baths, pools, soaking in tubs for weeks to avoid risk of infection. signs of infection ie: fever, rash, drainage from puncture site, swelling contact doctor or return to ER immediately. Heavy bleeding from puncture site apply firm direct pressure and return to ER. Do not attempt to drive self. low sodium/low fat diet Discharge Disposition: HOME WITH HOME HEALTH SERVICES
--- NOTE | 2023-10-04 13:03 | P.GSCN ---
History of Present Illness Consult date: 10/04/23 Reason for Consult: urinary retention History of present illness: this an 82-year-old male that underwent femoral-tibial bypass right lower extr emity October 01 patient developed urinary retention postoperatively and required a Curran catheter placement for a postvoid residual greater than 400 mL. At baseline he does have obstructive urinary symptoms, complaints of weak stream with straining. He also has urgency with urge incontinence. Denies any history of recurrent UTIs or gross hematuria. He is unsure if he had urinary retention before. He is on Flomax. Review of Systems - Constitutional Denies fever, Denies weight loss - EENT Ears, nose, mouth and throat: Denies dysphagia - Cardiovascular Denies chest pain, Denies shortness of breath - Respiratory Denies cough, Denies 7 - Gastrointestinal Reports as per HPI - Genitourinary Denies dysuria, Denies hematuria Past Medical History Past Medical History: Deep Vein Thrombosis (DVT), Eye Disorder, Hearing Disorder / Deafness, Hyperlipidemia, Hypertension, Osteoarthritis (OA), Vascular Disorder Additional Past Medical History / Comment(s): See Dr Curran's H&P. Constipation, macular degeneration, DVT leg 2000, right leg pain/edema, PAD, some forgetfulfulness, mild hearing loss, enlarged prostate, insomnia. History of Any Multi-Drug Resistant Organisms: None Reported Past Surgical History: Orthopedic Surgery Additional Past Surgical History / Comment(s): Cataracts removed, cervical fusion, left 2nd and 3rd toe ampuation, left femoral-tibial bypass X2 with endarterectomy, left above the knee amputation. Past Anesthesia/Blood Transfusion Reactions: No Reported Reaction Past Psychological History: Anxiety, Depression Smoking Status: Former smoker Past Alcohol Use History: Occasional Additional Past Alcohol Use History / Comment(s): Quit smoking >30 yrs ago, unsure how long he smoked or how much. Past Drug Use History: None Reported - Past Family History Brother(s) Family Medical History: Cancer, Coronary Artery Disease (CAD) Additional Family Medical History / Comment(s): 2 brothers had cancer. Father Family Medical History: Myocardial Infarction (RI) Mother Family Medical History: Coronary Artery Disease (CAD) Medications and Allergies Home Medications Medication Instructions Recorded Confirmed Type Pravastatin Sodium 80 mg PO HS 02/15/23 10/01/23 History lisinopriL [Prinivil] 10 mg PO QAM 02/15/23 10/01/23 History Rivaroxaban [Xarelto] 20 mg PO HS 02/26/23 10/01/23 History Tamsulosin [Flomax] 0.4 mg PO DAILY 02/26/23 10/01/23 History Aspirin 81 mg PO DAILY tab 03/03/23 10/01/23 Rx DULoxetine HCL [Cymbalta] 30 mg PO HS 06/03/23 10/01/23 History Gabapentin [Neurontin] 600 mg PO TID #9 cap 06/29/23 10/01/23 Rx HYDROcodone/APAP 10-325MG [[place] 1 tab PO Q6HR PRN 3 Days #12 tab 06/29/23 10/01/23 Rx 10-325] Cyanocobalamin [Vitamin B-12] 500 mcg PO DAILY 07/12/23 10/01/23 History Furosemide [Lasix] 20 mg PO DAILY 07/12/23 10/01/23 History Ferrous Sulfate [Iron (65 MG 325 mg PO DAILY 08/30/23 10/01/23 History Elemental)] Latanoprost Ophth [Xalatan 0.005%] 1 drops BOTH EYES HS 09/29/23 10/01/23 History Clopidogrel [Plavix] 75 mg PO DAILY #30 tab 10/04/23 Rx Allergies Allergy/AdvReac Type Severity Reaction Status Date / Time No Known Allergies Allergy Verified 10/01/23 11:19 Surgical - Exam Vital Signs Temp Pulse Resp BP Pulse Ox 97.5 F L 89 17 106/52 96 10/01/23 11:10 10/01/23 11:10 10/01/23 11:10 10/01/23 11:10 10/01/23 11:10 - General no distress, no pain - Eyes normal ocular movement, no pale - ENT normal nares, normal mucosa - Respiratory normal expansion, normal respiratory effort - Abdomen Abdomen: soft, non tender, no distended - Psychiatric oriented to time, oriented to person, oriented to place Results - Labs 10/04/23 08:00 10/04/23 08:00 Abnormal Lab Results - Last 24 Hours (Table) 10/04/23 10/04/23 Range/Units 08:00 08:00 RBC 2.79 L (4.30-5.90) m/uL Hgb 8.3 L D (13.0-17.5) gm/dL Hct 25.8 L (39.0-53.0) % Glucose 137 H (74-99) mg/dL Diabetes panel 10/04/23 Range/Units 08:00 Sodium 137 (137-145) mmol/L Potassium 4.4 (3.5-5.1) mmol/L Chloride 98 (98-107) mmol/L Carbon Dioxide 26 (22-30) mmol/L BUN 17 (9-20) mg/dL Creatinine 0.66 (0.66-1.25) mg/dL Glucose 137 H (74-99) mg/dL Calcium 9.1 (8.4-10.2) mg/dL Calcium panel 10/04/23 Range/Units 08:00 Calcium 9.1 (8.4-10.2) mg/dL Pituitary panel 10/04/23 Range/Units 08:00 Sodium 137 (137-145) mmol/L Potassium 4.4 (3.5-5.1) mmol/L Chloride 98 (98-107) mmol/L Carbon Dioxide 26 (22-30) mmol/L BUN 17 (9-20) mg/dL Creatinine 0.66 (0.66-1.25) mg/dL Glucose 137 H (74-99) mg/dL Calcium 9.1 (8.4-10.2) mg/dL Adrenal panel 10/04/23 Range/Units 08:00 Sodium 137 (137-145) mmol/L Potassium 4.4 (3.5-5.1) mmol/L Chloride 98 (98-107) mmol/L Carbon Dioxide 26 (22-30) mmol/L BUN 17 (9-20) mg/dL Creatinine 0.66 (0.66-1.25) mg/dL Glucose 137 H (74-99) mg/dL Calcium 9.1 (8.4-10.2) mg/dL Assessment and Plan Assessment: male with history of possible postoperative urinary retention. He does have BPH at baseline is on Flomax. -continue Flomax -Curran catheter can be removed prior to discharge, check postvoid residual, if less than 400 mL he's okay for discharge from urology standpoint
--- NOTE | 2023-10-04 13:34 | P.PN ---
Subjective Progress Note Date: 10/04/23 Patient is a 82-year-old male with a PMH of severe PAD status post left AKA on 06/25/23, hypertension, history of DVT, who presented for right femoral-popliteal bypass. Patient did have a low grade fever overnight thought to be related to atelectasis. 10/04 Patient was seen and examined. He denies any complaints. Last fever was 10/02 100.2F isolated temp, afebrile since. He is looking forward to going home. Still has barrett catheter which will be discontinued. He should be able to be discharged if able to void freely. His CBC this morning shows Hg 8.3. BMP glu 137. Plans to repeat CBC within 3 days and follow up with PCP Dr. Crfot for results. Patient does need a slide board to trasfer in and out of his wheelchair. General: non toxic, no distress, appears at stated age Derm: warm, dry Head: atraumatic, normocephalic, symmetric Eyes: EOMI, no lid lag, anicteric sclera Cardiovascular: S1S2 reg, no murmur Lungs: Clear to auscultation bilaterally , no accessory muscle use Ext: no gross muscle atrophy, no edema, no contractures, L AKA Neuro: no focal neuro deficits Psych: Alert, oriented, appropriate affect Based on my assessment of this patient, this patient meets a moderate complexity level of care. Patient is status post right femoral-popliteal bypass that poses a threat to li fe or bodily function. Urinary retention: DC Barrett catheter. Void trial. Low grade fever: Isolated temp. Likley atelectasis. No leukocytosis. No signs of active infection. Hypertension: Lisinopril 10 mg PO QAM. Hyperlipidemia: Pravastatin 80 mg PO QHS. History of DVT: Xarelto 20 mg PO QHS. Glaucoma: Latanoprost OPTH BID QHS. Iron deficiency anemia: Iron sulfate 325 mg PO QD. I have reviewed the following communications consultant notes: Urology, Vascular note. I have reviewed the results of the following tests: CBC. BMP. I have ordered the following tests: I have discussed the care of this patient with the following independent historian: Discussed with at bedside. Discussed with RN and case management. I have independently interpreted the following test below: I have discussed the management of this patient with the following physician: Objective - Vital Signs Vital signs: Vital Signs Temp 98.3 F 10/04/23 08:20 Pulse 97 10/04/23 08:20 Resp 20 10/04/23 08:20 BP 92/50 10/04/23 08:20 Pulse Ox 97 10/04/23 08:20 FiO2 Intake & Output 10/03/23 10/04/23 10/04/23 18:59 06:59 18:59 Intake Total 783 240 Output Total 800 1100 350 Balance - Intake: Oral 780 240 Blood Product 3 Output: Urine 800 1100 350 Other: Voiding Method Indwelling Catheter Indwelling Catheter Indwelling Catheter # Voids 2 1 - Labs CBC & Chem 7: 10/04/23 08:00 10/04/23 08:00 Labs: Abnormal Lab Results - Last 24 Hours (Table) 10/04/23 10/04/23 Range/Units 08:00 08:00 RBC 2.79 L (4.30-5.90) m/uL Hgb 8.3 L D (13.0-17.5) gm/dL Hct 25.8 L (39.0-53.0) % Glucose 137 H (74-99) mg/dL
[2023-10-04] MEDS ORDERED: ZINC OXIDE PASTE (Z-GUARD) 1 APPLIC APPLIC TOPICAL PRN (13:45)
[2023-10-04] MEDS: lisinopriL 10 MG TAB PO SCH (17:52)
[2023-10-04] MEDS: RIVAROXABAN 20 MG TAB PO SCH (17:52)
[2023-10-04 19:04] VITALS: BP 115/54; PULSE 86; RESP 18; TEMP 98
== END 2023-10-04 19:20 | disposition home health service (06) | DRG 253 ==
LOC: 2ORMAIN 10:44 → 3SCARD 18:07
PROVIDERS: ADMIT Surgery; ATTEND Surgery
PROC: 041K0KL Bypass Right Femoral Artery to Popliteal Artery with Nonautologous Tissue Substitute, Open Approach (ICD-10-PCS; principal; 2023-10-01 12:30)
DX: I70.221 Atherosclerosis of native arteries of extremities with rest pain, right leg (principal); J98.11 Atelectasis; Z89.612 Acquired absence of left leg above knee; D50.9 Iron deficiency anemia, unspecified; E78.2 Mixed hyperlipidemia; I10 Essential (primary) hypertension; M19.90 Unspecified osteoarthritis, unspecified site; F41.9 Anxiety disorder, unspecified; F32.A Depression, unspecified; J30.2 Other seasonal allergic rhinitis; G47.00 Insomnia, unspecified; H35.30 Unspecified macular degeneration; H40.9 Unspecified glaucoma; H91.90 Unspecified hearing loss, unspecified ear; N40.1 Benign prostatic hyperplasia with lower urinary tract symptoms; N39.41 Urge incontinence; R33.8 Other retention of urine; R39.16 Straining to void; R39.12 Poor urinary stream; Z79.82 Long term (current) use of aspirin; Z79.01 Long term (current) use of anticoagulants; Z79.899 Other long term (current) drug therapy; Z86.718 Personal history of other venous thrombosis and embolism; Z87.891 Personal history of nicotine dependence; Z87.440 Personal history of urinary (tract) infections; Z98.1 Arthrodesis status; Z82.49 Family history of ischemic heart disease and other diseases of the circulatory system
CPT/HCPCS: 80048; 81003; 85027; 85610; 86850; 86900; 86901

== ENCOUNTER 2023-10-21 13:19 | Inpatient (IN) | payer MEDICARE ==
--- NOTE | 2023-10-21 15:42 | ED ---
General Adult HPI <CristianoThaoChaparro - Last Filed: 10/21/23 15:42> - General Source: patient, family, RN notes reviewed <Emma Patino - Last Filed: 10/22/23 00:26> - General Stated complaint: Right Leg infection Time Seen by Provider: 10/21/23 21:25 - History of Present Illness Initial comments: 82 year old male presenting to the ED with a chief complaint of leg pain. Patient notes recent femoal-tibial bypass on October [address] Curran of the [facility]. Also notes recent ondcr-xdd-uggs amputation of the left leg. Patient states over the past few days has noted increasing pain of the right lower leg with some redness as well. Per patient's stated that the patient's toes appeared blue. Also notes at the patient's left stump has developed some redness and purulent discharge which patient noticed today. (Chaparro Quinonez) Patient is 82-year-old male presenting to the ER with a chief complaint of leg pain. Patient underwent a bypass of his right lower extremity on 10/01/[address] Curran. Patient also reports a recent ygoxo-wfp-wnch amputation of his left lower extremity. Patient was sent in by his wound care nurse due to increasing redness of his right lower extremity. Patient reports that his toes have been discolored but they have worsened in the past week. Patient also reports drainage from the surgical incision site of right calf. Patient reports his left stump is now having a wound and increasing redness. He reports purulent drainage from wound. Patient does report that he has been having intermittent fevers as high as 100.6. Patient denies any chest pain, shortness of breath, abdominal pain, constipation/diarrhea, urinary symptoms. (Emma Patino) - Related Data Home Medications Medication Instructions Recorded Confirmed Pravastatin Sodium 80 mg PO HS 02/15/23 10/01/23 lisinopriL [Prinivil] 10 mg PO QAM 02/15/23 10/01/23 Rivaroxaban [Xarelto] 20 mg PO HS 02/26/23 10/01/23 Tamsulosin [Flomax] 0.4 mg PO DAILY 02/26/23 10/01/23 DULoxetine HCL [Cymbalta] 30 mg PO HS 06/03/23 10/01/23 Cyanocobalamin [Vitamin B-12] 500 mcg PO DAILY 07/12/23 10/01/23 Furosemide [Lasix] 20 mg PO DAILY 07/12/23 10/01/23 Ferrous Sulfate [Iron (65 MG 325 mg PO DAILY 08/30/23 10/01/23 Elemental)] Latanoprost Ophth [Xalatan 0.005%] 1 drops BOTH EYES HS 09/29/23 10/01/23 Previous Rx's Medication Instructions Recorded Aspirin 81 mg PO DAILY tab 03/03/23 Gabapentin [Neurontin] 600 mg PO TID #9 cap 06/29/23 HYDROcodone/APAP 10-325MG [[place] 1 tab PO Q6HR PRN 3 Days #12 tab 06/29/23 10-325] Clopidogrel [Plavix] 75 mg PO DAILY #30 tab 10/04/23 Allergies Allergy/AdvReac Type Severity Reaction Status Date / Time No Known Allergies Allergy Verified 10/21/23 15:59 Review of Systems ROS Other: All systems not noted in ROS Statement are negative. <Chaparro Quinonez - Last Filed: 10/21/23 15:42> ROS Other: All systems not noted in ROS Statement are negative. <Emma Patino - Last Filed: 10/22/23 00:26> ROS Statement: Those systems with pertinent positive or pertinent negative responses have been documented in the HPI. Past Medical History Past Medical History: Deep Vein Thrombosis (DVT), Eye Disorder, Hyperlipidemia, Hypertension, Osteoarthritis (OA), Vascular Disorder Additional Past Medical History / Comment(s): macular degeneration, DVT leg 2001, leg pain, LE edema, PAD History of Any Multi-Drug Resistant Organisms: None Reported Past Surgical History: Orthopedic Surgery Additional Past Surgical History / Comment(s): cataracts removed, cervical fusion, toe ampuation - lt 2nd and 3rd, left fem-tib bypass with endart, left leg AKA Past Anesthesia/Blood Transfusion Reactions: No Reported Reaction Past Psychological History: No Psychological Hx Reported Additional Past Alcohol Use History / Comment(s): quit smoking >30 yrs. ago, unsure how long he smoked or how much - Past Family History Brother(s) Family Medical History: Cancer, Coronary Artery Disease (CAD) Additional Family Medical History / Comment(s): 2 brothers had cancer. Father Family Medical History: Myocardial Infarction ([place]) Mother Family Medical History: Coronary Artery Disease (CAD) <Chaparro Quinonez - Last Filed: 10/21/23 15:42> General Exam <Chaparro Quinonez - Last Filed: 10/21/23 15:42> General appearance: alert, in no apparent distress Respiratory exam: Present: normal lung sounds bilaterally. Absent: respiratory distress, wheezes, rales, rhonchi, stridor Cardiovascular Exam: Present: regular rate, normal rhythm, normal heart sounds. Absent: systolic murmur, diastolic murmur, rubs, gallop, clicks GI/Abdominal exam: Present: soft, normal bowel sounds. Absent: distended, tenderness, guarding, rebound, rigid Extremities exam: Present: other (1-2+ pitting edema on the right foot. Second and fourth digits have black discoloration of distal toe. faint dorsalis pedis pulse. There is a surgical and she cessation noted on medial. Surrounding erythema present. Clear/yellow drainage noted. ) Neurological exam: Present: alert, oriented X3, CN II-XII intact Psychiatric exam: Present: normal affect, normal mood Skin exam: Present: warm, dry, intact (Left stump has wound noted to distal and with white drainage surrounding erythema and warmth to touch) <Emma Patino - Last Filed: 10/22/23 00:26> - General Exam Comments Initial Comments: Visual Physical Exam Vital signs reviewed General: Well-appearing, nontoxic, no acute distress. Head: Normocephalic, atraumatic Eyes: PERRLA, EOMI ENT: Airway patent Chest: Nonlabored breathing Skin: No visual rash, normal skin tone Neuro: Alert and oriented 3 (Chaparro Quinonez) Course Vital Signs 10/21/23 10/21/23 15:53 21:38 Temperature 98.7 F Pulse Rate 97 98 Respiratory 22 17 Rate Blood Pressure 141/78 103/82 O2 Sat by Pulse 97 Oximetry Medical Decision Making <Chaparro Quinonez - Last Filed: 10/21/23 15:42> - Lab Data Result diagrams: 10/21/23 19:22 10/21/23 19:22 - EKG Data -: EKG Interpreted by Ga - Radiology Data Radiology results: report reviewed, image reviewed <SukumarMichelleEmma - Last Filed: 10/22/23 00:26> - Medical Decision Making Quicknote portion performed. Signed Chaparro Quinonez PA-C (Chaparro Quinonez) Was pt. sent in by a medical professional or institution (AKIL Mirza, RENAL DIETITIAN, urgent care, hospital, or custodial...) When possible be specific @ -Wound care nurse for possible infection Did you speak to anyone other than the patient for history (EMS, parent, family, police, friend...)? What history was obtained from this source @ - providing HPI Did you review nursing and triage notes (agree or disagree)? Why? @ -I reviewed and agree with nursing and triage notes Were old charts reviewed (outside hosp., previous admission, EMS record, old EK G, old radiological studies, urgent care reports/EKG's, custodial records)? Report findings @ -No old charts were reviewed Differential Diagnosis (chest pain, altered mental status, abdominal pain women, abdominal pain men, vaginal bleeding, weakness, fever, dyspnea, syncope, headache, dizziness, GI bleed, back pain, seizure, CVA, palpatations, mental health, musculoskeletal)? @ -Differential Fever: Pneumonia, viral URI, endocarditis, myocarditis, pericarditis, otitis, sinusitis, peritonsillar Abscess, retropharyngeal Abscess, epiglottitis, peritonitis, appendicitis, Vidya cystitis, diverticulitis, hepatitis, colitis, UTI, PID, TOA, pyelonephritis, prostatitis, epididymitis, meningitis, encephalitis, pulmonary embolism, CVA, thyroid storm, pancreatitis, adrenal crisis, cavernous sinus thrombosis, this is not meant to be an all- inclusive list. EKG interpreted by me (3pts min.). @ -As above X-rays interpreted by me (1pt min.). @ -Left femur x-ray shows AKA. No liliane lytic destruction. Right femur x-ray shows soft tissue air posteriorly to the right knee. There is mild bilateral hip osteoarthritis. CT interpreted by me (1pt min.). @ -CT angiogram abdominal aorta with runoff shows a right femoral bypass which is patent coming from the SENIOR POWER SCHEDULER. SFA occlusion just after origin. Fluid colle ction measuring 8.45.93.2 on the posterior medial upper leg. Left lower extremity shows severe focal stenosis of the SENIOR POWER SCHEDULER. 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 SFA occlusion origin. Moderate stenosis of origin of PFA. There is significant thinning of the stump soft tissues. U/S interpreted by me (1pt. min.). @ -Ultrasound of her lower extremities negative for DVT. There is a large anechoic area along the incision site measuring 13.34.33.2 cm. What testing was considered but not performed or refused? (CT, X-rays, U/S, labs)? Why? @ -None What meds were considered but not given or refused? Why? @ -None Did you discuss the management of the patient with other professionals (professionals i.e. Dr., PA, RENAL DIETITIAN, lab, RT, psych nurse, social media strategist, migratory farm hand, teacher, chief information security officer, bilingual case manager)? Give summary @ -Yes I discussed this case with Dr. Curran. She advised on admission and to start patient on IV antibiotics and she will assess patient in the morning. She also would like patient nothing by mouth. I also discussed this case with Dr. Romero from [facility] for medical admission, who accepted. Was smoking cessation discussed for >3mins.? @ -No Was critical care preformed (if so, how long)? @ -No Were there social determinants of health that impacted care today? How? (Homeles sness, low income, unemployed, alcoholism, drug addiction, transportation, low edu. Level, literacy, decrease access to med. care, shelter, rehab)? @ -No Was there de-escalation of care discussed even if they declined (Discuss DNR or withdrawal of care, Hospice)? DNR status @ -No What co-morbidities impacted this encounter? (DM, HTN, Smoking, COPD, CAD, Cancer, CVA, ARF, Chemo, Hep., AIDS, mental health diagnosis, sleep apnea, morbid obesity)? @ -Hypertension, hyperlipidemia, vascular disease Was patient admitted / discharged? Hospital course, mention meds given and route, prescriptions, significant lab abnormalities, going to OR and other pertinent info. @ -Admitted Patient is an 82-year-old male presented ER with a chief complaint of right leg pain and redness. On examination, patient's vital signs are stable. Physical exam was significant for surgical incision a posterior medial right calf with mild surrounding erythema. Calf was warm to touch. Patient's second and fourth right toes were black. Faint dorsalis pedis pulse. 1-2+ pitting edema. Left lower extremity was significant for a wound with mild purulent drainage and surrounding erythema. Labs obtained the ER were significant for WBC 15.0, CRP 24.1, Hgb 9.0 (baseline), PT 12.9, INR 1.2, Na 133. UA pending. Left femur x-ray shows AKA. No lytic destruction. Right femur x-ray shows soft tissue air posteriorly to the right knee. There is mild bilateral hip osteoarthritis. CT angiogram abdominal aorta with runoff shows a right femoral bypass which is patent coming from the SENIOR POWER SCHEDULER. SFA occlusion just after origin. Fluid collection measuring 8.45.93.2 on the posterior medial upper leg. Left lower extremity shows severe focal stenosis of the SENIOR POWER SCHEDULER. 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 SFA occlusion origin. Moderate stenosis of origin of PFA. There is significant thinning of the stump soft tissues. Ultrasound of right lower extremity negative for DVT. There is a large anechoic area along the incision site measuring 13.34.33.2 cm. Patient received 1L IV fluids, 0.5 mg Dilaudid and zofran. I discussed lab, imaging, and plan with patient and , at bedside. I discussed this case with Dr. Curran. She advised on admission and to start patient on IV antibiotics and she will assess patient in the morning. She also would like patient nothing by mouth. I also discussed this case with Dr. Romero from [facility] for medical admission, who accepted. Patient will be started on vancomycin and Zosyn. Patient will be nothing by mouth at midnight. Patient will be admitted for further evaluation and care. Dr. Curran, vascular, and infectious disease will be on consult. Patient and expressed understanding and agreement with care plan. Undiagnosed new problem with uncertain prognosis? @ -No Drug Therapy requiring intensive monitoring for toxicity (Heparin, Nitro, Insulin, Cardizem)? @ -No Were any procedures done? @ -No Diagnosis/symptom? @ -Right leg pain/left AKA wound Acute, or Chronic, or Acute on Chronic? @ -Acute on chronic Uncomplicated (without systemic symptoms) or Complicated (systemic symptoms)? @ -Complicated Side effects of treatment? @ -No Exacerbation, Progression, or Severe Exacerbation? @ -No Poses a threat to life or bodily function? How? (Chest pain, [place], [place], pneumonia, PE, COPD, DKA, ARF, appy, cholecystitis, CVA, Diverticulitis, Homicidal, Suicidal, threat to staff... and all critical care pts) @ -Yes, wound infection can lead to sepsis which is life threatening. (Emma Patino) - Lab Data Lab Results 10/21/23 10/21/23 10/21/23 Range/Units 19:22 19:22 19:22 WBC 15.0 H (3.8-10.6) k/uL RBC 3.02 L (4.30-5.90) m/uL Hgb 9.0 L (13.0-17.5) gm/dL Hct 27.6 L (39.0-53.0) % MCV 91.6 (80.0-100.0) fL MCH 29.8 (25.0-35.0) pg MCHC 32.5 (31.0-37.0) g/dL RDW 14.6 (11.5-15.5) % Plt Count 412 (150-450) k/uL MPV 7.1 Neutrophils % 84 % Lymphocytes % 9 % Monocytes % 3 % Eosinophils % 2 % Basophils % 0 % Neutrophils # 12.6 H (1.3-7.7) k/uL Lymphocytes # 1.4 (1.0-4.8) k/uL Monocytes # 0.5 (0-1.0) k/uL Eosinophils # 0.3 (0-0.7) k/uL Basophils # 0.1 (0-0.2) k/uL Hypochromasia Slight PT 12.9 H (10.0-12.5) sec INR 1.2 H (<1.2) APTT 32.6 H (22.0-30.0) sec Sodium 133 L (137-145) mmol/L Potassium 4.0 (3.5-5.1) mmol/L Chloride 95 L (98-107) mmol/L Carbon Dioxide 25 (22-30) mmol/L Anion Gap 13 mmol/L BUN 14 (9-20) mg/dL Creatinine 0.68 (0.66-1.25) mg/dL Est GFR (CKD-EPI)AfAm >90 (>60 ml/min/1.73 sqM) Est GFR (CKD-EPI)NonAf >90 (>60 ml/min/1.73 sqM) Glucose 110 H (74-99) mg/dL Plasma Lactic Acid Jarrell (0.7-2.0) mmol/L Calcium 8.8 (8.4-10.2) mg/dL Magnesium 1.9 (1.6-2.3) mg/dL Total Bilirubin 0.6 (0.2-1.3) mg/dL AST 17 (17-59) U/L ALT 8 (4-49) U/L Alkaline Phosphatase 82 (38-126) U/L Troponin I (0.000-0.034) ng/mL C-Reactive Protein 24.1 H (<1.0) mg/dL Total Protein 6.7 (6.3-8.2) g/dL Albumin 3.5 (3.5-5.0) g/dL 10/21/23 10/21/23 Range/Units 19:22 19:22 WBC (3.8-10.6) k/uL RBC (4.30-5.90) m/uL Hgb (13.0-17.5) gm/dL Hct (39.0-53.0) % MCV (80.0-100.0) fL MCH (25.0-35.0) pg MCHC (31.0-37.0) g/dL RDW (11.5-15.5) % Plt Count (150-450) k/uL MPV Neutrophils % % Lymphocytes % % Monocytes % % Eosinophils % % Basophils % % Neutrophils # (1.3-7.7) k/uL Lymphocytes # (1.0-4.8) k/uL Monocytes # (0-1.0) k/uL Eosinophils # (0-0.7) k/uL Basophils # (0-0.2) k/uL Hypochromasia PT (10.0-12.5) sec INR (<1.2) APTT (22.0-30.0) sec Sodium (137-145) mmol/L Potassium (3.5-5.1) mmol/L Chloride (98-107) mmol/L Carbon Dioxide (22-30) mmol/L Anion Gap mmol/L BUN (9-20) mg/dL Creatinine (0.66-1.25) mg/dL Est GFR (CKD-EPI)AfAm (>60 ml/min/1.73 sqM) Est GFR (CKD-EPI)NonAf (>60 ml/min/1.73 sqM) Glucose (74-99) mg/dL Plasma Lactic Acid Jarrell 1.5 (0.7-2.0) mmol/L Calcium (8.4-10.2) mg/dL Magnesium (1.6-2.3) mg/dL Total Bilirubin (0.2-1.3) mg/dL AST (17-59) U/L ALT (4-49) U/L Alkaline Phosphatase (38-126) U/L Troponin I <0.012 (0.000-0.034) ng/mL C-Reactive Protein (<1.0) mg/dL Total Protein (6.3-8.2) g/dL Albumin (3.5-5.0) g/dL - EKG Data EKG Comments: EKG taken at 19:22 shows a normal sinus rhythm with occasional PAC. No acute ST segment or T-wave abnormalities. Ventricular rate 95, DC interval 141, QRS duration 94, QT/QTC 344/396. (Emma Patino) Disposition <Chaparro Quinonez - Last Filed: 10/21/23 15:42> Time of Disposition: 00:26 <Emma Patino - Last Filed: 10/22/23 00:26> Clinical Impression: Cellulitis, Wound cellulitis Disposition: ADMITTED IP TO THIS HOSP Condition: Stable Referrals: Yaya Croft MD [Primary Care Provider] - 1-2 days
[2023-10-21] MEDS ORDERED: RX INFO: IV CONTRAST WAS GIVEN 1 EACH MISC MISCELLANE PRN (15:43)
--- NOTE | 2023-10-21 17:56 | XR ---
EXAMINATION TYPE: XR femur bilateral DATE OF EXAM: 10/21/2023 COMPARISON: NONE HISTORY: 82-year-old male infection, rule out osteomyelitis TECHNIQUE: 2 views each side FINDINGS: There is mild degenerative change of both hips. Generalized muscle atrophy bilaterally. The re is soft tissue air posteriorly at the right knee. On the left, there is an msvij-[id number]-pgdm amputati on noted. No liliane lytic destruction at the osteotomy margin. IMPRESSION: 1. Mild bilateral hip OA. 2. Left-sided AKA. No liliane lytic destruction at the osteotomy margin. 3. Soft tissue air posteriorly at the right knee. Correlate for any localizing symptoms. Findings may reflect underlying cellulitis and infection with gas-forming organism.
[2023-10-21 19:41] LABS: Basophils # (A) 0.1 k/uL (0-0.2); Basophils % (A) 0 %; Eosinophils # (A) 0.3 k/uL (0-0.7); Eosinophils % (A) 2 %; HCT 27.6 % (39.0-53.0); Hypochromasia Slight; Lymphocytes # (A) 1.4 k/uL (1.0-4.8); Lymphocytes % (A) 9 %; MCH 29.8 pg (25.0-35.0); MCHC 32.5 g/dL (31.0-37.0); MCV 91.6 fL (80.0-100.0); Mean Platelet Volume 7.1; Monocytes # (A) 0.5 k/uL (0-1.0); Monocytes % (A) 3 %; Neutrophils # (A) 12.6 k/uL (1.3-7.7); Neutrophils % (A) 84 %; Platelet Count 412 k/uL (150-450); RBC 3.02 m/uL (4.30-5.90); RDW 14.6 % (11.5-15.5)
[2023-10-21 19:51] LABS: INR 1.2 (<1.2); Partial Thromboplastin Time 32.6 sec (22.0-30.0); Prothrombin Time 12.9 sec (10.0-12.5)
[2023-10-21 19:55] LABS: ALT 8 U/L (4-49); AST 17 U/L (17-59); African American GFR (CKD) >90 (>60 ml/min/1.73 sqM); Albumin 3.5 g/dL (3.5-5.0); Alkaline Phosphatase 82 U/L (38-126); Anion Gap 13 mmol/L; Blood Urea Nitrogen 14 mg/dL (9-20); Calcium 8.8 mg/dL (8.4-10.2); Carbon Dioxide 25 mmol/L (22-30); Chloride 95 mmol/L (98-107); Glucose 110 mg/dL (74-99); Magnesium 1.9 mg/dL (1.6-2.3); Non-African American GFR(CKD) >90 (>60 ml/min/1.73 sqM); Sodium 133 mmol/L (137-145); Total Bilirubin 0.6 mg/dL (0.2-1.3); Total Protein 6.7 g/dL (6.3-8.2)
[2023-10-21 20:26] LABS: C Reactive Protein 24.1 mg/dL (<1.0)
--- NOTE | 2023-10-21 21:28 | CT ---
EXAMINATION TYPE: CT angio abd aorta w/Runoff DATE OF EXAM: 10/21/2023 COMPARISON: 07/13/2023 HISTORY: 82-year-old male pt had RLE bypass on 10/01/23, visiting nurse sent pt in for discolored toes to RLE and wound to LLE with drainage TECHNIQUE: Contiguous axial scanning of the abdomen and pelvis performed without and with IV Contrast , patient injected with 100 ml mL of Isovue 300. Bilateral lower extremity runoff was performed after IV contrast. Coronal/sagittal reconstructions performed. 3-D reconstructions generated on a [employer] workstation. CT DLP: 1982.2 mGycm Automated exposure control for dose reduction was used. FINDINGS: ABDOMEN PELVIS: Heart normal size without pericardial effusion. Scattered coronary artery calcifications. Mild emphys ematous change in the visualized lower lungs. Right-sided pleural plaque anteriorly at the lower lung redemonstrated. Nonspecific. No pleural effusion. No focal liver lesion or biliary ductal dilatation. Portal venous system appears patent. Gallbladder borderline to mildly dilated to 4.1 cm wide but without any surrounding inflammation, lik scotty due to fasting state. Adrenal glands, left kidney, spleen, and atrophic pancreas show no gross adenopathy. Punctate 2 mm nonobstructive right renal calculus. No dilated small bowel, free fluid, or free air. No mesenteric or retroperitoneal adenopathy. There is moderate stool burden. Mildly redundant sigmoid colon. Bladder urine distended with some trabecular change suggesting chronic bladder wall hypertrophy. Pros denton gland mildly enlarged at 4.3 cm wide. VASCULATURE: Mild atherosclerotic narrowing at the origin of the celiac axis. Moderate atherosclerotic narrowing origin of the SMA. There is focal severe stenosis of the mid SMA, axial image 87 series 501. Jelx-cy-ovyyncnc nonspecific calcifications throughout the abdominal aorta and moderate within the il iac arteries. Right: Fusiform dilatation of the common iliac artery up to 1.5 cm. Scattered mild atherosclerotic plaque.. There is a right femoral bypass which remains patent arising from the lower BUSINESS TEAM LEADER. There is rounded dil atation at the anastomosis measuring 1.3 cm, refer to sagittal image 79 series 503 and axial image 20 5 series 501. There is moderate focal stenosis just after its takeoff, axial image 208 and sagittal i mage 79. Some perigraft fluid could represent a mild hematoma. The PFA is patent. There is occlusion of the SFA just after its origin. Diminutive reconstitution within the popliteal artery. The bypass extends to the lower popliteal kevin ry just prior to the anterior tibial artery takeoff. There is confluent fluid along the posteromedial upper thigh measuring 8.4 x 5.9 x 3.2 cm, axial imag e 403 and sagittal image 107. This could be postoperative seroma or early abscess. The graft courses through the superior margin of this fluid. Foci of soft tissue air are present just above the poplite al fossa more proximally. Severely diminutive anterior tibial artery which loses opacification at the upper leg. Markedly dimin utive posterior tibial and peroneal arteries which show faint runoff into the foot. There is some rec onstitution of the anterior tibial artery at the hindfoot. Left: Severe stenosis BUSINESS TEAM LEADER. Focal saccular 9 mm aneurysm projecting anteriorly just after the stenosis. Moderate narrowing at the origin of the PFA. SFA occlusion at its origin. Azjgc-vut-asoi amputation. Soft tissue swelling here. The stump soft tissues shows significant thinning and may expose the anterolateral cortex of the oste otomy margin. No liliane osseous erosion is seen at this time. IMPRESSION: RIGHT: 1. Right femoral bypass which remains patent, arising from the lower BUSINESS TEAM LEADER. Rounded dilatation at the a nastomosis measuring 1.3 cm with a moderate focal stenosis of the graft just after its takeoff. Some mild perigraft fluid here could represent a mild hematoma. 2. SFA occlusion just after its origin. Diminutive reconstitution of the [place] popliteal artery. The bypass joins at the lower popliteal artery. 3. Confluent fluid collection measuring 8.4 x 5.9 x 3.2 cm along the posteromedial upper leg. This co uld represent postoperative seroma versus phlegmon. The graft courses through the superior margin of this fluid. Foci of soft tissue air just above the popliteal fossa more proximally. Unclear if this i s postsurgical air or related to infection. 4. Severely diminutive anterior tibial artery which loses opacification at the upper leg. Reconstitut ion at the hindfoot. 5. Markedly diminutive posterior tibial and peroneal arteries which show faint runoff into the foot. Left: 6. Severe focal stenosis BUSINESS TEAM LEADER. 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 7. SFA occlusion at its origin. Moderate stenosis origin of the PFA. 8. AKA. There is significant thinning of the stump soft tissues and this may soon expose the anterola teral cortex of the osteotomy margin. No liliane bony destruction or erosion is seen at this time to cl early indicate osteomyelitis. Abdomen pelvis: 9. Focal severe stenosis mid SMA. Moderate narrowing at its origin.
--- NOTE | 2023-10-21 21:30 | US ---
EXAMINATION TYPE: US venous doppler duplex LE RT DATE OF EXAM: 10/21/2023 8:50 PM COMPARISON: 02/26/23 CLINICAL INDICATION: Male, 82 years old with history of r/o DVT; Bypass surgery on right leg 3 weeks ago with incision in calf. Pain in rt leg. No hx of DVT. Pt unsure if he is on blood thinners SIDE PERFORMED: Right TECHNIQUE: The lower extremity deep venous system is examined utilizing real time linear array sonog opal with graded compression, doppler sonography and color-flow sonography. VESSELS IMAGED: Common Femoral Vein Deep Femoral Vein Greater Saphenous Vein * Femoral Vein Popliteal Vein Small Saphenous Vein * Proximal Calf Veins (* superficial vessels) Right Leg: No evidence for DVT. Large anechoic area seen along incision site measuring 13.3 x 4.3 x 3.2cm IMPRESSION: 1. No evidence for DVT within the right lower extremity imaged from the groin to the upper calf. 2. Large fluid collection along the posteromedial upper calf at the incision site measuring 13.3 x 4. 3 x 3.2 cm.
[2023-10-21] MEDS ORDERED: ONDANSETRON 4 MG/2 ML VIAL IVP STA (21:40)
[2023-10-21] MEDS ORDERED: HYDROmorphone 0.5 MG/0.5 ML SYRINGE IVP STA (21:40)
[2023-10-21] MEDS ORDERED: SODIUM CHLORIDE 0.9% 1,000 ML IV STA (21:40)
[2023-10-22] MEDS ORDERED: ONDANSETRON 4 MG/2 ML VIAL IVP PRN (00:01)
[2023-10-22] MEDS ORDERED: NALOXONE 0.4 MG/ML 1 ML VIAL IV PRN (00:01)
[2023-10-22] MEDS ORDERED: PIPERACILLIN-TAZOBACTAM 3.375 GM in SODIUM CHLORIDE 0.9% 100 ML IVPB STA (00:05)
[2023-10-22] MEDS ORDERED: VANCOMYCIN IV PER PHARMACY 1 EACH MISC MISCELLANE PRN ×2 (00:05→02:59)
[2023-10-22] MEDS ORDERED: VANCOMYCIN 1,000 MG in SODIUM CHLORIDE 0.9% 250 ML IVPB STA (00:12)
[2023-10-22] MEDS: SODIUM CHLORIDE 0.9% 1,000 ML IV SCH ×2 (00:15→12:52)
[2023-10-22 01:05] LABS: Appearance,Urine Clear (Clear); Bilirubin,Urine Negative (Negative); Blood,Urine Negative (Negative); Color,Urine Colorless; Glucose,Urine (UA) Negative (Negative); Ketones,Urine Negative (Negative); Leukocyte Esterase,Urine Negative (Negative); Nitrite,Urine Negative (Negative); PH, Urine 5.5 (5.0-8.0); Protein,Urine Negative (Negative); Specific Gravity,Urine 1.036 (1.001-1.035); Urobilinogen,Urine <2.0 mg/dL (<2.0)
--- NOTE | 2023-10-22 03:10 | P.HPIM ---
History of Present Illness H&P Date: 10/22/23 Chief Complaint: surgical wound infection 82 year old male with peripheral arterial disease, hypertension patient has poor insight of his over all health. patient coming in upon recommendations of his visiting nurse due to concerns of surgical wound infection of his bilateral lower extremities patient required bypass surgery of his left lower extremity back in January of 2023, where he needed two surgeries, then followed by [facility] of his left lower extremity . then earlier this month , he noted black discoloration of his right toes, which was followed by a decision to have (possibly femo pop) arterial bypass of his right lower extremity where he noticed some erythema around the surgical site that was gradually getting worse, with some drainage of yellowish purulent discharge. he also noted gradual increase erythema and tenderness over his left AKA stump with purulent yellowish drainage. he reports low grade fever but no chills. he claims that pain is tolerated and not severe. today he got a prescription for Unknown antibiotics, but then his doctor recom mended that he goes to the hospital for evaluation of his surgical wound site. patient has no other medical concerns , denies any severe pain in his lower extremities, denies chest pain , trouble breathing, nausea , vomiting, GI bleeding he does not know his medications, and does not know his medical history or chronic medical conditions. he would like to only focus on his leg issues for now. denies smoking, illicit drugs or alcohol review of systems Pertinent positives as noted in HPI. All other systems were reviewed and are negative on exam Constitutional: No acute distress, conversant, Eyes: Anicteric sclerae, moist conjunctiva, Pupils equal round reactive to light ENMT: NC/AT Oropharynx clear, no erythema, or exudates Neck: Supple, no masses, or JVD No carotid bruits No thyromegaly Lungs: Clear to auscultation Clear to percussion Normal respiratory effort, no accessory muscle use Cardiovascular: Heart regular in rate and rhythm, No murmurs, gallops, or rubs No peripheral edema Abdominal: Soft Nontender, no guarding, rebound or rigidity Abdomen moving with respiration Normoactive bowel sounds No hepatomegaly, No splenomegaly No palpable mass No abdominal wall hernia noted Skin: wound over the stump of left AKA, no active drainage, warm to the touch , erythema and tender to palpation. there is area of induration erythema and tenderness to touch over the medial upper right leg around his surgical site. no active drainage Extremities: No digital cyanosis black right 2nd, and 4th distal toes No clubbing Pedal pulses weak and symmetrical Radial pulses intact and symmetrical No calf tenderness Psychiatric: Alert and oriented to person, place and time Neuro Muscles Strength 5/5 in all 4 extremities Sensation to light touch grossly present throughout Cranial nerves II-XII grossly intact Lymphatics: no palpable cervical or supraclavicular lymph nodes Past Medical History Past Medical History: Deep Vein Thrombosis (DVT), Eye Disorder, Hyperlipidemia, Hypertension, Osteoarthritis (OA), Vascular Disorder Additional Past Medical History / Comment(s): macular degeneration, DVT leg 2 001, leg pain, LE edema, PAD History of Any Multi-Drug Resistant Organisms: None Reported Past Surgical History: Orthopedic Surgery Additional Past Surgical History / Comment(s): cataracts removed, cervical fusion, toe ampuation - lt 2nd and 3rd, left fem-tib bypass with endart, left leg AKA Past Anesthesia/Blood Transfusion Reactions: No Reported Reaction Past Psychological History: No Psychological Hx Reported Smoking Status: Former smoker Past Alcohol Use History: Occasional Past Drug Use History: None Reported - Past Family History Brother(s) Family Medical History: Cancer, Coronary Artery Disease (CAD) Additional Family Medical History / Comment(s): 2 brothers had cancer. Father Family Medical History: Myocardial Infarction ([place]) Mother Family Medical History: Coronary Artery Disease (CAD) Medications and Allergies Home Medications Medication Instructions Recorded Confirmed Type Pravastatin Sodium 80 mg PO HS 02/15/23 10/01/23 History lisinopriL [Prinivil] 10 mg PO QAM 02/15/23 10/01/23 History Rivaroxaban [Xarelto] 20 mg PO HS 02/26/23 10/01/23 History Tamsulosin [Flomax] 0.4 mg PO DAILY 02/26/23 10/01/23 History Aspirin 81 mg PO DAILY tab 03/03/23 10/01/23 Rx DULoxetine HCL [Cymbalta] 30 mg PO HS 06/03/23 10/01/23 History Gabapentin [Neurontin] 600 mg PO TID #9 cap 06/29/23 10/01/23 Rx HYDROcodone/APAP 10-325MG [[place] 1 tab PO Q6HR PRN 3 Days #12 tab 06/29/2306/16 Rx 10-325] Cyanocobalamin [Vitamin B-12] 500 mcg PO DAILY 07/12/23 10/01/23 History Furosemide [Lasix] 20 mg PO DAILY 07/12/23 10/01/23 History Ferrous Sulfate [Iron (65 MG 325 mg PO DAILY 08/30/23 10/01/23 History Elemental)] Latanoprost Ophth [Xalatan 0.005%] 1 drops BOTH EYES HS 09/29/23 10/01/23 History Clopidogrel [Plavix] 75 mg PO DAILY #30 tab 10/04/23 Rx Allergies Allergy/AdvReac Type Severity Reaction Status Date / Time No Known Allergies Allergy Verified 10/21/23 15:59 Physical Exam Vitals: Vital Signs Temp Pulse Resp BP Pulse Ox 10/21/23 21:38 98.7 F 98 17 103/82 10/21/23 15:53 97 22 141/78 97 Intake and Output 10/21/23 10/21/23 10/22/23 14:59 22:59 06:59 Other: Weight 56.699 kg Results CBC & Chem 7: 10/21/23 19:22 10/21/23 19:22 Labs: Abnormal Lab Results - Last 24 Hours (Table) 10/21/23 10/21/23 10/21/23 Range/Units 19:22 19:22 19:22 WBC 15.0 H (3.8-10.6) k/uL RBC 3.02 L (4.30-5.90) m/uL Hgb 9.0 L (13.0-17.5) gm/dL Hct 27.6 L (39.0-53.0) % Neutrophils # 12.6 H (1.3-7.7) k/uL PT 12.9 H (10.0-12.5) sec INR 1.2 H (<1.2) APTT 32.6 H (22.0-30.0) sec Sodium 133 L (137-145) mmol/L Chloride 95 L (98-107) mmol/L Glucose 110 H (74-99) mg/dL C-Reactive Protein 24.1 H (<1.0) mg/dL Assessment and Plan Assessment: 82 year old male with hypertension , PAD coming in for concerns regarding left AKA stump and right leg surgical wound infection , s/p right lower extremity arterial bypass 3 weeks ago , and left AKA 6-8 months ago I discussed the case with ED doc and I accepted the admission for sepsis secondary to surgical site infection with anticipated length of stay > 2 midnights sepsis secondary to surgical site infection (right surgical bypass wound, and left AKA stump) dry gangrene right toes follow up cultures vanco dosing by pharmacy zosyn 3.375 gm IVPB q8hr tylenol for fever IVF hydration with normal saline 75 cc per hour vascular surgery consult WBC 15, HR 97 Lactic acid 1.5 unremarkable chronic conditions chronic anemia , stable , denies bleeding , continue to monitor hypertension , controlled , continue lisinopril PAD severe, s/p bypass surgeries, on xarelto, ASA, Plavix , statin , continue home meds renal fucntion unremarkable BUN 14, Cr 0.68, K 4 CTA of lower extremities, reviewed ,Right LE, severe PAD , fluid collection measuring 8.4X5.9X3.2 cm along the posteromedial upper leg could represents seroma vs phlegmon, possible infection in the area due to presence of air . Let LE, no liliane bony destruction or erosion to indicate osteomyelitis , please refer to the full report for other findings. venous doppler RT and LE , no evidence of actue DVTagain large fluid collection was demonstrated around the posteromedial upper calf at the incision site full code DVT PPX on xarelto for severe PAD fall precautions
[2023-10-22] MEDS: HYDROmorphone 0.5 MG/0.5 ML SYRINGE IVP PRN ×4 (03:49→20:06)
[2023-10-22] MEDS: lisinopriL 10 MG TAB PO SCH (08:29)
[2023-10-22] MEDS: PANTOPRAZOLE 40 MG TABLET PO SCH (08:29)
[2023-10-22] MEDS: CLOPIDOGREL 75 MG TAB PO SCH (08:29)
[2023-10-22] MEDS: TAMSULOSIN 0.4 MG CAP.ER.24H PO SCH (08:30)
[2023-10-22] MEDS: ASPIRIN 81 MG PO SCH (08:30)
[2023-10-22] MEDS: PIPERACILLIN-TAZOBACTAM 3.375 GM in SODIUM CHLORIDE 0.9% 100 ML IVPB SCH ×2 (08:34→16:32)
[2023-10-22 10:33] LABS: HCT 25.5 % (39.0-53.0); HGB 8.7 gm/dL (13.0-17.5); Hypochromasia Marked; MCH 31.9 pg (25.0-35.0); MCHC 34.1 g/dL (31.0-37.0); MCV 93.4 fL (80.0-100.0); Mean Platelet Volume 7.3; Platelet Count 375 k/uL (150-450); RBC 2.73 m/uL (4.30-5.90); RDW 14.6 % (11.5-15.5); WBC 10.6 k/uL (3.8-10.6)
[2023-10-22 11:47] LABS: African American GFR (CKD) >90 (>60 ml/min/1.73 sqM); Anion Gap 12 mmol/L; Blood Urea Nitrogen 12 mg/dL (9-20); Calcium 8.6 mg/dL (8.4-10.2); Carbon Dioxide 23 mmol/L (22-30); Chloride 100 mmol/L (98-107); Glucose 93 mg/dL (74-99); Non-African American GFR(CKD) >90 (>60 ml/min/1.73 sqM); Potassium 3.9 mmol/L (3.5-5.1); Sodium 135 mmol/L (137-145)
[2023-10-22] MEDS: VANCOMYCIN 1,000 MG in SODIUM CHLORIDE 0.9% 250 ML IVPB SCH (12:49)
--- NOTE | 2023-10-22 13:03 | P.GSCN ---
History of Present Illness Consult date: 10/22/23 History of present illness: Pt is an 82 year old male who previously underwent a right lower extremity femoral to distal popliteal bypass with a vein. He had been doing well and did notice potential mild fever at home and due to the mild redness at the level of the distal incision came to the ER. His overall rest pain is better in his right lower extremity, he continues to have left leg pain at the site of his above-knee amputation. Past Medical History Past Medical History: Deep Vein Thrombosis (DVT), Eye Disorder, Hyperlipidemia, Hypertension, Osteoarthritis (OA), Vascular Disorder Additional Past Medical History / Comment(s): macular degeneration, DVT leg 2001, leg pain, LE edema, PAD History of Any Multi-Drug Resistant Organisms: None Reported Past Surgical History: Orthopedic Surgery Additional Past Surgical History / Comment(s): cataracts removed, cervical fusion, toe ampuation - lt 2nd and 3rd, left fem-tib bypass with endart, left leg AKA Past Anesthesia/Blood Transfusion Reactions: No Reported Reaction Past Psychological History: No Psychological Hx Reported Smoking Status: Former smoker Past Alcohol Use History: Occasional Past Drug Use History: None Reported - Past Family History Brother(s) Family Medical History: Cancer, Coronary Artery Disease (CAD) Additional Family Medical History / Comment(s): 2 brothers had cancer. Father Family Medical History: Myocardial Infarction ([place]) Mother Family Medical History: Coronary Artery Disease (CAD) Medications and Allergies Home Medications Medication Instructions Recorded Confirmed Type Pravastatin Sodium 80 mg PO HS 02/15/23 10/22/23 History Rivaroxaban [Xarelto] 20 mg PO HS 02/26/23 10/22/23 History Tamsulosin [Flomax] 0.4 mg PO HS 02/26/23 10/22/23 History Aspirin 81 mg PO DAILY tab 03/03/23 10/22/23 Rx Gabapentin [Neurontin] 600 mg PO TID #9 cap 06/29/23 10/22/23 Rx HYDROcodone/APAP 10-325MG [[place] 1 tab PO Q6HR PRN 3 Days #12 tab 06/29/23 10/22/23 Rx 10-325] Cyanocobalamin [Vitamin B-12] 500 mcg PO DAILY 07/12/23 10/22/23 History Furosemide [Lasix] 20 mg PO DAILY 07/12/23 10/22/23 History Ferrous Sulfate [Iron (65 MG 325 mg PO DAILY 08/30/23 10/22/23 History Elemental)] Latanoprost Ophth [Xalatan 0.005%] 1 drops BOTH EYES HS 09/29/23 10/22/23 History Clopidogrel [Plavix] 75 mg PO DAILY #30 tab 10/04/23 10/22/23 Rx DULoxetine HCL [Cymbalta] 60 mg PO DAILY 10/22/23 10/22/23 History Allergies Allergy/AdvReac Type Severity Reaction Status Date / Time No Known Allergies Allergy Verified 10/22/23 09:03 Surgical - Exam Vital Signs Pulse Resp BP Pulse Ox 97 22 141/78 97 10/21/23 15:53 10/21/23 15:53 10/21/23 15:53 10/21/23 15:53 Gen is a pleasant cooperative male in no acute distress, relatively well- appearing. Right lower extremity greater than incision site is clean and dry. Popliteal incision site is clean, mild erythema, no liliane purulent drainage. Toes 2 and 4 with eschar capping. Left above-knee amputation site with pressure sore at the portion of the distal aspect without evidence of infection. Results DT angiogram is reviewed. Bypass is widely patent without significant disease. There is air pocket at the posterior knee. - Labs 10/22/23 10:04 10/22/23 11:08 Abnormal Lab Results - Last 24 Hours (Table) 10/21/23 10/21/23 10/21/23 Range/Units 19:22 19:22 19:22 WBC 15.0 H (3.8-10.6) k/uL RBC 3.02 L (4.30-5.90) m/uL Hgb 9.0 L (13.0-17.5) gm/dL Hct 27.6 L (39.0-53.0) % Neutrophils # 12.6 H (1.3-7.7) k/uL PT 12.9 H (10.0-12.5) sec INR 1.2 H (<1.2) APTT 32.6 H (22.0-30.0) sec Sodium 133 L (137-145) mmol/L Chloride 95 L (98-107) mmol/L Glucose 110 H (74-99) mg/dL C-Reactive Protein 24.1 H (<1.0) mg/dL Ur Specific [place] (1.001-1.035) 10/22/23 10/22/23 10/22/23 Range/Units 00:22 10:04 11:08 WBC (3.8-10.6) k/uL RBC 2.73 L (4.30-5.90) m/uL Hgb 8.7 L (13.0-17.5) gm/dL Hct 25.5 L (39.0-53.0) % Neutrophils # (1.3-7.7) k/uL PT (10.0-12.5) sec INR (<1.2) APTT (22.0-30.0) sec Sodium 135 L (137-145) mmol/L Chloride (98-107) mmol/L Glucose (74-99) mg/dL C-Reactive Protein (<1.0) mg/dL Ur Specific [place] 1.036 H (1.001-1.035) Diabetes panel 10/21/23 10/22/23 Range/Units 19:22 11:08 Sodium 133 L 135 L (137-145) mmol/L Potassium 4.0 3.9 (3.5-5.1) mmol/L Chloride 95 L 100 (98-107) mmol/L Carbon Dioxide 25 23 (22-30) mmol/L BUN 14 12 (9-20) mg/dL Creatinine 0.68 0.68 (0.66-1.25) mg/dL Glucose 110 H 93 (74-99) mg/dL Calcium 8.8 8.6 (8.4-10.2) mg/dL AST 17 (17-59) U/L ALT 8 (4-49) U/L Alkaline Phosphatase 82 (38-126) U/L Total Protein 6.7 (6.3-8.2) g/dL Albumin 3.5 (3.5-5.0) g/dL Calcium panel 10/21/23 10/22/23 Range/Units 19:22 11:08 Calcium 8.8 8.6 (8.4-10.2) mg/dL Albumin 3.5 (3.5-5.0) g/dL Pituitary panel 10/21/23 10/22/23 Range/Units 19:22 11:08 Sodium 133 L 135 L (137-145) mmol/L Potassium 4.0 3.9 (3.5-5.1) mmol/L Chloride 95 L 100 (98-107) mmol/L Carbon Dioxide 25 23 (22-30) mmol/L BUN 14 12 (9-20) mg/dL Creatinine 0.68 0.68 (0.66-1.25) mg/dL Glucose 110 H 93 (74-99) mg/dL Calcium 8.8 8.6 (8.4-10.2) mg/dL Adrenal panel 10/21/23 10/22/23 Range/Units 19:22 11:08 Sodium 133 L 135 L (137-145) mmol/L Potassium 4.0 3.9 (3.5-5.1) mmol/L Chloride 95 L 100 (98-107) mmol/L Carbon Dioxide 25 23 (22-30) mmol/L BUN 14 12 (9-20) mg/dL Creatinine 0.68 0.68 (0.66-1.25) mg/dL Glucose 110 H 93 (74-99) mg/dL Calcium 8.8 8.6 (8.4-10.2) mg/dL Total Bilirubin 0.6 (0.2-1.3) mg/dL AST 17 (17-59) U/L ALT 8 (4-49) U/L Alkaline Phosphatase 82 (38-126) U/L Total Protein 6.7 (6.3-8.2) g/dL Albumin 3.5 (3.5-5.0) g/dL Assessment and Plan Assessment: Right lower extremity erythema, recent surgical intervention Elevated white count Possible early abscess right below-knee incision versus seroma Plan: Due to the findings on imaging with fluid collection, again likely it is a postop seroma or resolving hematoma however given the patient's mild white count elevation and finding of air at this 3 weeks post surgery, would definitely consider potential early abscess. We'll taken the operating room for incision and drainage washout of this area. We discussed that going forward he will need revision of his left above-knee amputation site and we will we demarcation and see if there is any further need for the toes on the right leg. He seemingly understands the plan. His been nothing by mouth since midnight.
[2023-10-22 13:34] VITALS: BMI 16.9
[2023-10-22] MEDS ORDERED: IV FLUID CONTINUATION 1,000 ML IV ONE (13:41)
[2023-10-22] MEDS ORDERED: MIDAZOLAM 2 MG/2 ML VIAL ONE (13:58)
[2023-10-22] MEDS ORDERED: KETAMINE HCL IN 0.9 % NACL 50 MG/5 ML SYRINGE ONE (13:58)
[2023-10-22] MEDS ORDERED: PROPOFOL 10 MG/ML 20 ML VIAL IV ONE (13:58)
[2023-10-22] MEDS ORDERED: fentaNYL (PF) 50 MCG/ML 2 ML AMP ONE (13:58)
[2023-10-22] MEDS ORDERED: PHENYLEPHRINE-0.9% NACL SYG 1,000 MCG/10 ML SYRINGE ONE (13:58)
[2023-10-22 14:00] VITALS: RESP 16
[2023-10-22] MEDS ORDERED: LIDOCAINE 1% INJ 10MG/ML (20 ML MDV) SQ ONE ×2 (14:15→14:16)
--- NOTE | 2023-10-22 14:46 | P.OP ---
Date of Procedure: 10/22/23 Description of Procedure: Preoperative diagnosis: Right lower extremity tenderness, previous femoral tibial bypass, elevated white count Postoperative diagnosis: Same, seroma without purulent drainage Procedure: Incision and drainage of right lower extremity wound Surgeon: Coral Curran D.O. EBL: Less than 5 mL IV fluids: See records Urine output: Not measured Drains: [place] Complications: None Condition: Stable Operative indication and findings: Patient is an 82-year-old male who previously underwent a right femoral to tibial bypass. He had been having some mild erythema at its distal site and drainage. This was concern of potential early abscess with the findings on computed tomography scan therefore he was brought to the operative room for incision and drainage of this wound. Risks and benefits were discussed. He seemingly understood and was ordered proceed. Procedure in detail: Patient was taken to the operative suite and placed in supine position. All parties. The area. There was incised and previous Monocryl sutures were removed. This revealed serous-appearing drainage. There is evidence of old hematoma but no purulent drainage. Given the imaging and care, digital resection was performed again no further pockets were identified. The graft appeared pulsatile. The fluid was cultured. The area was then copiously irrigated and interrupted sutures of 3-0 nylon were placed along with a Cayla drain. Dressings were placed the patient was transferred to recovery in stable condition having tolerated the procedure well.
[2023-10-22] MEDS ORDERED: HYDROmorphone 0.5 MG/0.5 ML SYRINGE IVP ONE (15:10)
--- NOTE | 2023-10-22 16:37 | P.PN ---
Subjective Progress Note Date: 10/22/23 Patient is an 82 yo male with pknow PAD who was recently admitted from 10/01/23 through 10/04/23 for right femoral to distal popliteal bypass using CryoVein, left above-knee amputation in June 2023, hypertension, dyslipidemia, and macular degeneration who presented to the ER at the direction of his visiting nurse due to concerns of surgical wound infection. In the ER he underwent an extensive evaluation. Laboratory analysis was remarkable for white blood cell count 15, hemoglobin 9, sodium 133. CRP was elevated at 24.1. He underwent femur x-ray which showed soft tissue air at the right knee. DVT of the right lower extremity showed a large fluid collection along the posterior middle upper calf. CT angiogram was remarkable for a confluent fluid collection 8.4 x 5.9 x 3.2 cm in the posterior medial upper leg possible postoperative seroma versus phlegmon. Some foci of soft tissue air just above the popliteal fossa, there are multiple findings consistent with his known severe peripheral arterial disease. He was started on vancomycin and Zosyn and was admitted for further monitoring and vascular surgery consultation. Patient seen and examined at bedside. He reports increased redness and drainiage form right LE wound. He also reports increased redness and slight ulcer from L AKA site. He has a prosthetic and has stood some but not much. Vital signs reviewed General: nontoxic, no distress, appears at stated age Cardiovascular: S1S2 reg, no murmur, positive posterior tibial pulse bilateral, Lungs: CTA bilateral, no rhonchi, no rales , no accessory muscle use Abdominal: soft, nontender to palpation, no guarding, no appreciable organomegaly Ext: no gross muscle atrophy, no edema b/l lower extremities, no contractures Neuro: CN II-XI grossly intact, no focal neuro deficits Psych: Alert, oriented, appropriate affect wounds: L AKA with rendess and slight pressure wound on lateral aspect without significant skin breakown. Right medical calf with drainiage and some wound dehisence, no significant erythema. Assessment/Plan: Possible infection right surgical wound from fem-pop bypass 10/01 Possible infection left AKA stump Dry gangrene of the right toes Severe peripheral arterial disease -Case discussed Dr. Curran and patient was taken for drainage later in the afternoon which appeared most consistent with seroma however cultures were obtained at that time -Case discussed with Dr. Barroso inpatient transition to Cefotan 2 g IV piggyback every 8 hours, vancomycin continued with pharmacy dosing per creatinine and weight. -Monitor for vancomycin toxicity. Creatinine and trough levels -Dilaudid 0.5 mg IV push every 3 hours for pain -Continue with aspirin 81 mg daily, Plavix 75 mg daily, Xarelto 20 mg at night, and Pravachol 80 mg at night Hypertension Dyslipidemia -Lisinopril 10 mg daily - Statin as above Chronic: Prior DVT Macular degeneration Osteoarthritis Imaging: None new Data Review: Labs reviewed from today including CBC and basic medical profile which are remarkable for hemoglobin 8.7 and sodium of 135 DVT prophylaxis: Xarelto Anticipated discharge date: Pending Clinical Course Anticipated discharge place: Pending Clinical Course This dictation was prepared using [employer] voice recognition software. Though every attempt is made to correct errors during dictation some may still exist. Objective - Vital Signs Vital signs: Vital Signs Temp 98.7 F 10/21/23 21:38 Pulse 87 10/22/23 06:46 Resp 19 10/22/23 06:46 BP 118/46 10/22/23 06:46 Pulse Ox 94 L 10/22/23 06:46 FiO2 Intake & Output 10/21/23 10/22/23 10/22/23 18:59 06:59 18:59 Weight 56.699 kg - Labs CBC & Chem 7: 10/22/23 10:04 10/22/23 11:08 Labs: Abnormal Lab Results - Last 24 Hours (Table) 10/21/23 10/21/23 10/21/23 Range/Units 19:22 19:22 19:22 WBC 15.0 H (3.8-10.6) k/uL RBC 3.02 L (4.30-5.90) m/uL Hgb 9.0 L (13.0-17.5) gm/dL Hct 27.6 L (39.0-53.0) % Neutrophils # 12.6 H (1.3-7.7) k/uL PT 12.9 H (10.0-12.5) sec INR 1.2 H (<1.2) APTT 32.6 H (22.0-30.0) sec Sodium 133 L (137-145) mmol/L Chloride 95 L (98-107) mmol/L Glucose 110 H (74-99) mg/dL C-Reactive Protein 24.1 H (<1.0) mg/dL Ur Specific [place] (1.001-1.035) 10/22/23 Range/Units 00:22 WBC (3.8-10.6) k/uL RBC (4.30-5.90) m/uL Hgb (13.0-17.5) gm/dL Hct (39.0-53.0) % Neutrophils # (1.3-7.7) k/uL PT (10.0-12.5) sec INR (<1.2) APTT (22.0-30.0) sec Sodium (137-145) mmol/L Chloride (98-107) mmol/L Glucose (74-99) mg/dL C-Reactive Protein (<1.0) mg/dL Ur Specific [place] 1.036 H (1.001-1.035)
[2023-10-22] MEDS: CEFEPIME 2 GM in SODIUM CHLORIDE 0.9% 100 ML IVPB SCH (17:31)
[2023-10-22] MEDS: RIVAROXABAN 20 MG TAB PO SCH (20:06)
[2023-10-22] MEDS: GABAPENTIN 300 MG CAP PO SCH (20:06)
[2023-10-22] MEDS: PRAVASTATIN SODIUM 80 MG TAB PO SCH (22:47)
[2023-10-23] MEDS: CEFEPIME 2 GM in SODIUM CHLORIDE 0.9% 100 ML IVPB SCH ×4 (00:31→23:42)
[2023-10-23] MEDS: VANCOMYCIN 1,000 MG in SODIUM CHLORIDE 0.9% 250 ML IVPB SCH ×2 (02:17→12:11)
[2023-10-23] MEDS: HYDROmorphone 0.5 MG/0.5 ML SYRINGE IVP PRN ×3 (04:46→23:42)
[2023-10-23] MEDS: SODIUM CHLORIDE 0.9% 1,000 ML IV SCH ×2 (04:47→15:47)
--- NOTE | 2023-10-23 05:45 | P.CONS ---
History of Present Illness - Reason for Consult Consult date: 10/22/23 Leg infection Requesting physician: Emma Patino - Chief Complaint Right leg pain swelling redness and drainage x few days - History of Present Illness Patient is a 82-year-old male with a past medical history significant for hypertension hyperlipidemia DVT peripheral vascular disease in this patient who is status post left above-knee amputation patient apparently recently did have a femoral tibial bypass on October 01 patient has been brought to the hospital concerning for increasing pain of the right lower leg along with some redness and the patient also noticed left AKA stump has developed some redness and purulent drainage with the symptoms the patient was brought into the hospital and apparently the patient was sent to the hospital by the wound care nurse consulted for increasing redness to the right lower extremity patient has been complaining of pain to the right lower leg to be sharp, moderate to severe intensity without radiation patient denies having any purulent drainage from the right lower extremity area of erythema patient denies high-grade fever did have some chills patient will presentation to the hospital did have a white count of 15,000 with a left shift creatinine was 0.68 CRP 24.1 liver enzymes were normal UA was negative patient did have a CT angiography of the right lower extremity there was evidence of fluid collection question of postoperative seroma or early abscess foci of soft tissue air patient was taken to the OR this afternoon and the patient s/p drainage of the right lower extremity wound cultures were obt ained patient has been on vancomycin and Zosyn infectious disease was consulted for further management of antibiotic therapy Review of Systems Positive point and negatives has been mentioned in the HPI, complete review of systems was performed and all other systems are negative Past Medical History Past Medical History: Deep Vein Thrombosis (DVT), Eye Disorder, Hyperlipidemia, Hypertension, Osteoarthritis (OA), Vascular Disorder Additional Past Medical History / Comment(s): macular degeneration, DVT leg 2000, leg pain, LE edema, PAD History of Any Multi-Drug Resistant Organisms: None Reported Past Surgical History: Orthopedic Surgery Additional Past Surgical History / Comment(s): cataracts removed, cervical fusion, toe ampuation - lt 2nd and 3rd, left fem-tib bypass with endart, left leg AKA Past Anesthesia/Blood Transfusion Reactions: No Reported Reaction Past Psychological History: No Psychological Hx Reported Smoking Status: Former smoker Past Alcohol Use History: Occasional Past Drug Use History: None Reported - Past Family History Brother(s) Family Medical History: Cancer, Coronary Artery Disease (CAD) Additional Family Medical History / Comment(s): 2 brothers had cancer. Father Family Medical History: Myocardial Infarction (SC) Mother Family Medical History: Coronary Artery Disease (CAD) Medications and Allergies Home Medications Medication Instructions Recorded Confirmed Type Pravastatin Sodium 80 mg PO HS 02/15/23 10/22/23 History Rivaroxaban [Xarelto] 20 mg PO HS 02/26/23 10/22/23 History Tamsulosin [Flomax] 0.4 mg PO HS 02/26/23 10/22/23 History Aspirin 81 mg PO DAILY tab 03/03/23 10/22/23 Rx Gabapentin [Neurontin] 600 mg PO TID #9 cap 06/29/23 10/22/23 Rx HYDROcodone/APAP 10-325MG [[place] 1 tab PO Q6HR PRN 3 Days #12 tab 06/29/23 10/22/23 Rx 10-325] Cyanocobalamin [Vitamin B-12] 500 mcg PO DAILY 07/12/23 10/22/23 History Furosemide [Lasix] 20 mg PO DAILY 07/12/23 10/22/23 History Ferrous Sulfate [Iron (65 MG 325 mg PO DAILY 08/30/23 10/22/23 History Elemental)] Latanoprost Ophth [Xalatan 0.005%] 1 drops BOTH EYES HS 09/29/23 10/22/23 H istory Clopidogrel [Plavix] 75 mg PO DAILY #30 tab 10/04/23 10/22/23 Rx DULoxetine HCL [Cymbalta] 60 mg PO DAILY 10/22/23 10/22/23 History Cephalexin [Keflex] 500 mg PO Q12HR 7 Days #14 cap 10/25/23 Rx Potassium Chloride ER [K-Dur 20] 20 meq PO DAILY #7 tab 10/25/23 Rx Allergies Allergy/AdvReac Type Severity Reaction Status Date / Time No Known Allergies Allergy Verified 10/22/23 09:03 Physical Exam Vitals: Vital Signs Temp Pulse Resp BP Pulse Ox 10/22/23 12:20 98.4 F 72 17 123/57 98 10/22/23 09:05 90 18 94 L 10/22/23 08:35 98.1 F 98 16 133/56 93 L 10/22/23 06:46 87 19 118/46 94 L 10/22/23 03:30 97 18 137/61 95 10/22/23 00:22 92 18 119/68 95 10/21/23 21:38 98.7 F 98 17 103/82 10/21/23 21:37 103/82 94 L 10/21/23 15:53 97 22 141/78 97 Intake and Output 10/21/23 10/22/23 10/22/23 22:59 06:59 14:59 Other: Weight 56.699 kg 56.699 kg GENERAL DESCRIPTION: Elderly male lying in bed, no distress. No tachypnea or accessory muscle of respiration use. HEENT: Shows Pallor , no scleral icterus. Oral mucous membrane is dry. NECK: Trachea central, no thyromegaly. LUNGS: Unlabored breathing. Clear to auscultation anteriorly. No wheeze or crackle. HEART: S1, S2, regular rate and rhythm. No loud murmur ABDOMEN: Soft, no tenderness , EXTREMITIES: Right leg wound is currently dressed in OR dressing no drainage left AKA stump did have a wound with slough tissue and some surrounding redness SKIN: No rash, no masses palpable. NEUROLOGICAL: The patient is awake alert oriented x 3 mood affect is normal Results CBC & Chem 7: 10/25/23 08:01 10/25/23 08:01 Labs: Abnormal Lab Results - Last 24 Hours (Table) 10/21/23 10/21/23 10/21/23 Range/Units 19:22 19:22 19:22 WBC 15.0 H (3.8-10.6) k/uL RBC 3.02 L (4.30-5.90) m/uL Hgb 9.0 L (13.0-17.5) gm/dL Hct 27.6 L (39.0-53.0) % Neutrophils # 12.6 H (1.3-7.7) k/uL PT 12.9 H (10.0-12.5) sec INR 1.2 H (<1.2) APTT 32.6 H (22.0-30.0) sec Sodium 133 L (137-145) mmol/L Chloride 95 L (98-107) mmol/L Glucose 110 H (74-99) mg/dL C-Reactive Protein 24.1 H (<1.0) mg/dL Ur Specific [place] (1.001-1.035) 10/22/23 10/22/23 10/22/23 Range/Units 00:22 10:04 11:08 WBC (3.8-10.6) k/uL RBC 2.73 L (4.30-5.90) m/uL Hgb 8.7 L (13.0-17.5) gm/dL Hct 25.5 L (39.0-53.0) % Neutrophils # (1.3-7.7) k/uL PT (10.0-12.5) sec INR (<1.2) APTT (22.0-30.0) sec Sodium 135 L (137-145) mmol/L Chloride (98-107) mmol/L Glucose (74-99) mg/dL C-Reactive Protein (<1.0) mg/dL Ur Specific [place] 1.036 H (1.001-1.035) Assessment and Plan (1) Cellulitis of right leg Status: Acute Code(s): L03.115 - CELLULITIS OF RIGHT LOWER LIMB SNOMED Code(s): 06543317142081979 (2) Post op infection Status: Acute Code(s): T81.40XA - INFECTION FOLLOWING A PROCEDURE, UNSPECIFIED, INIT SNOMED Code(s): 81979596 Plan: 1patient presented to hospital with increasing pain swelling redness to the right lower extremity and this patient was recently did have a bypass procedure on the right lower extremity on October [address] he did have abnormal CT with evidence of fluid collection and question of possible seroma versus early abscess s/p drainage patient did have elevated white count and a low-grade fever 2-we will continue patient on vancomycin pharmacy to dose while watching his kidney function closely switch Zosyn to cefepime to decrease risk of nephrotoxicity We will follow on clinical condition and cultures to further adjust medication if needed Thank you for this consultation we will follow the patient along with you Dictation was produced using [employer] software. please excuse any grammatical, word or spelling errors. Time with Patient: Greater than 30
[2023-10-23] MEDS: PANTOPRAZOLE 40 MG TABLET PO SCH (06:37)
[2023-10-23] MEDS: DULoxetine HCL 60 MG CAPSULE.DR PO SCH (08:03)
[2023-10-23] MEDS: FUROSEMIDE 20 MG TAB PO SCH (08:03)
[2023-10-23] MEDS: GABAPENTIN 300 MG CAP PO SCH ×3 (08:03→21:14)
[2023-10-23] MEDS: lisinopriL 10 MG TAB PO SCH (08:03)
[2023-10-23] MEDS: TAMSULOSIN 0.4 MG CAP.ER.24H PO SCH (08:03)
[2023-10-23] MEDS: CLOPIDOGREL 75 MG TAB PO SCH (08:03)
[2023-10-23] MEDS: ASPIRIN 81 MG PO SCH (08:04)
[2023-10-23] MEDS: HYDROcodone/APAP 10-325MG 1 EACH TAB PO PRN ×2 (12:10→20:02)
[2023-10-23] MEDS: ZINC OXIDE PASTE (Z-GUARD) 1 APPLIC TOPICAL PRN (12:11)
[2023-10-23 12:28] LABS: African American GFR (CKD) >90 (>60 ml/min/1.73 sqM); Non-African American GFR(CKD) >90 (>60 ml/min/1.73 sqM)
--- NOTE | 2023-10-23 13:41 | P.PN ---
Subjective Progress Note Date: 10/23/23 (delayed charting seen at 0945) Patient is an 82 yo male with pknow PAD who was recently admitted from 10/01/23 through 10/04/23 for right femoral to distal popliteal bypass using CryoVein, left above-knee amputation in June 2023, hypertension, dyslipidemia, and macular degeneration who presented to the ER at the direction of his visiting nurse due to concerns of surgical wound infection. In the ER he underwent an extensive evaluation. Laboratory analysis was remarkable for white blood cell count 15, hemoglobin 9, sodium 133. CRP was elevated at 24.1. He underwent femur x-ray which showed soft tissue air at the right knee. DVT of the right lower extremity showed a large fluid collection along the posterior middle upper calf. CT angiogram was remarkable for a confluent fluid collection 8.4 x 5.9 x 3.2 cm in the posterior medial upper leg possible postoperative seroma versus phlegmon. Some foci of soft tissue air just above the popliteal fossa, there are multiple findings consistent with his known severe peripheral arterial disease. He was started on vancomycin and Zosyn and was admitted for further monitoring and vascular surgery consultation. He was taken to the OR on 10/22 for I&D of the right lower extremity wound which demonstrated thick serous fluid. Patient seen and examined at bedside. He continues to have some pain in his left prior amputation site. He is having drainage from the surgical site that was opened by Dr. Curran. He denies any chest pain, shortness breath, nausea, vomiting, or diarrhea. Vital signs reviewed General: nontoxic, no distress, appears at stated age Cardiovascular: S1S2 reg, no murmur, positive posterior tibial pulse bilateral, Lungs: CTA bilateral, no rhonchi, no rales , no accessory muscle use Abdominal: soft, nontender to palpation, no guarding, no appreciable organomegaly Ext: no gross muscle atrophy, no edema b/l lower extremities, no contractures Neuro: CN II-XI grossly intact, no focal neuro deficits Psych: Alert, oriented, appropriate affect wounds: L AKA with rendess and slight pressure wound on lateral aspect without significant skin breakown. Right medical calf with drainiage and some wound dehisence, no significant erythema. Assessment/Plan: Possible infection right surgical wound from fem-pop bypass 10/01 Possible infection left AKA stump Dry gangrene of the right toes Severe peripheral arterial disease -Case discussed Dr. Curran and patient was taken for drainage later in the afternoon which appeared most consistent with seroma however cultures were obtained at that time -Cefepime 2 g IV piggyback every 8 hours day #2 -Vancomycin he piggyback dosing via trough and creatinine levels D#3 -Dilaudid 0.5 mg IV push every 3 hours for pain, norco 10/325 mg PO q 6 hours prn pain -Continue with aspirin 81 mg daily, Plavix 75 mg daily, Xarelto 20 mg at night, and Pravachol 80 mg at night - await surgical cultures, if negative can be discharged home. Hypertension Dyslipidemia -Lisinopril 10 mg daily - Statin as above Chronic: Prior DVT Macular degeneration Osteoarthritis Imaging: None new Data Review: Laboratory from today include creatinine which is 0.65 Cultures taken from the emergency department shows presumptive staph aureus, wound cultures taken during surgery are still pending DVT prophylaxis: Xarelto Anticipated discharge date: Pending Clinical Course Anticipated discharge place: Pending Clinical Course This dictation was prepared using [employer] voice recognition software. Though every attempt is made to correct errors during dictation some may still exist. Objective - Vital Signs Vital signs: Vital Signs Temp 98.1 F 10/23/23 07:59 Pulse 86 10/23/23 13:15 Resp 16 10/23/23 13:15 BP 102/59 10/23/23 12:09 Pulse Ox 95 10/23/23 12:09 FiO2 Intake & Output 10/22/23 10/23/23 10/23/23 18:59 06:59 18:59 Intake Total 600 1100 118 Output Total 1 125 Balance 599 1100 -7 Weight 56.699 kg Intake: IV 600 Intake, IV Titration 1100 Amount Cefepime 2 gm In Sodium 100 Chloride 0.9% 100 ml @ 25 mls/hr IVPB Q8HR [facility] Rx# :[id number] Piperacillin-Tazobactam 3 100 .375 gm In Sodium Chloride 0.9% 100 ml @ 25 mls/hr IVPB Q8HR [facility] Rx# :[id number] Sodium Chloride 0.9% 1, 900 000 ml @ 75 mls/hr IV . [id number] [facility] Rx#:[id number] Oral 118 Output: Urine 125 Estimated Blood Loss 1 Other: Voiding Method Urinal Urinal Urinal # Voids 1 1 # Bowel Movements 1 - Labs CBC & Chem 7: 10/22/23 10:04 10/23/23 12:02 Labs: Abnormal Lab Results - Last 24 Hours (Table) 10/23/23 Range/Units 12:02 Creatinine 0.65 L (0.66-1.25) mg/dL Microbiology - Last 24 Hours (Table) 10/21/23 22:37 Gram Stain - Preliminary Leg - Left Wound Culture - Preliminary Presumptive Staph aureus 10/22/23 14:21 Gram Stain - Preliminary Leg - Right 10/21/23 19:22 Blood Culture - Preliminary Blood 10/21/23 19:22 Blood Culture - Preliminary Blood
--- NOTE | 2023-10-23 15:06 | P.PN ---
Subjective Progress Note Date: 10/23/23 Principal diagnosis: Reason for follow-up is right leg wound infection and cellulitis. Patient is a 82-year-old male with a past medical history significant for hypertension hyperlipidemia DVT peripheral vascular disease in this patient who is status post left above-knee amputation patient apparently recently did have a femoral tibial bypass on October 01 patient has been brought to the hospital concerning for increasing pain of the right lower leg along with some r edness, patient did have a CT concerning for fluid collection with a possible postop seroma versus abscess s/p drainage. On today's evaluation that is 10/23/2023, the patient denies having any fever or any chills, the patient is breathing comfortably on room air no chest pain shortness of breath or cough pain to the right leg is slightly decreased in intensity no nausea no vomiting and no diarrhea. The patient white count is normalized to 10.6 creatinine 0.65 culture currently growing Staph aureus with sensitivities pending Objective - Vital Signs Vital signs: Vital Signs Temp 98.1 F 10/23/23 07:59 Pulse 89 10/23/23 07:59 Resp 16 10/23/23 07:59 BP 132/63 10/23/23 07:59 Pulse Ox 92 L 10/23/23 07:59 FiO2 Intake & Output 10/22/23 10/23/23 10/23/23 18:59 06:59 18:59 Intake Total 600 1100 Output Total 1 125 Balance 599 1100 -125 Weight 56.699 kg Intake: IV 600 Intake, IV Titration 1100 Amount Cefepime 2 gm In Sodium 100 Chloride 0.9% 100 ml @ 25 mls/hr IVPB Q8HR [facility] Rx# :[id number] Piperacillin-Tazobactam 3 100 .375 gm In Sodium Chloride 0.9% 100 ml @ 25 mls/hr IVPB Q8HR [facility] Rx# :[id number] Sodium Chloride 0.9% 1, 900 000 ml @ 75 mls/hr IV . [id number] [facility] Rx#:[id number] Output: Urine 125 Estimated Blood Loss 1 Other: Voiding Method Urinal Urinal Urinal # Voids 1 1 # Bowel Movements 1 - Exam GENERAL DESCRIPTION: An elderly male lying in bed in no distress RESPIRATORY SYSTEM: Unlabored breathing , decreased breath sounds at bases HEART: S1 S2 regular rate and rhythm , ABDOMEN: Soft , no tenderness EXTREMITIES: Right leg wound is currently dressed - Labs CBC & Chem 7: 10/22/23 10:04 10/23/23 12:02 Labs: Abnormal Lab Results - Last 24 Hours (Table) 10/22/23 Range/Units 11:08 Sodium 135 L (137-145) mmol/L Microbiology - Last 24 Hours (Table) 10/21/23 22:37 Gram Stain - Preliminary Leg - Left Wound Culture - Preliminary Presumptive Staph aureus 10/22/23 14:21 Gram Stain - Preliminary Leg - Right 10/21/23 19:22 Blood Culture - Preliminary Blood 10/21/23 19:22 Blood Culture - Preliminary Blood Assessment and Plan (1) Cellulitis of right leg Current Visit: Yes Status: Acute Code(s): L03.115 - CELLULITIS OF RIGHT LOWER LIMB SNOMED Code(s): 73313153159494916 (2) Wound cellulitis Current Visit: Yes Status: Acute Code(s): L03.90 - CELLULITIS, UNSPECIFIED SNOMED Code(s): 531552185 Plan: 1patient presented to hospital with increasing pain swelling redness to the right lower extremity and this patient was recently did have a bypass procedure on the right lower extremity on October 01 he did have abnormal CT with evidence of fluid collection and question of possible seroma versus early abscess s/p drainage patient did have elevated white count and a low-grade fever 2local cultures currently growing Staph aureus with sensitivities pending we will continue patient on vancomycin with the discharge antibiotic on the basis of sensitivity at the bedside questions were answered Dictation was produced using [employer] dictation software. please excuse any grammatical, word or spelling errors. Time with Patient: Less than 30
[2023-10-23] MEDS: RIVAROXABAN 20 MG TAB PO SCH (21:14)
[2023-10-23] MEDS: PRAVASTATIN SODIUM 80 MG TAB PO SCH (21:14)
[2023-10-24] MEDS ORDERED: VANCOMYCIN TROUGH DUE 1 EACH MISC MISCELLANE ONE
[2023-10-24] MEDS: VANCOMYCIN 1,000 MG in SODIUM CHLORIDE 0.9% 250 ML IVPB SCH (01:04)
[2023-10-24] MEDS: HYDROcodone/APAP 10-325MG 1 EACH TAB PO PRN ×3 (05:15→19:54)
[2023-10-24] MEDS: PANTOPRAZOLE 40 MG TABLET PO SCH (06:13)
[2023-10-24] MEDS: SODIUM CHLORIDE 0.9% 1,000 ML IV SCH (06:13)
[2023-10-24] MEDS: HYDROmorphone 0.5 MG/0.5 ML SYRINGE IVP PRN ×2 (08:38→23:24)
[2023-10-24] MEDS: GABAPENTIN 300 MG CAP PO SCH ×3 (08:39→19:54)
[2023-10-24] MEDS: DULoxetine HCL 60 MG CAPSULE.DR PO SCH (08:39)
[2023-10-24] MEDS: CLOPIDOGREL 75 MG TAB PO SCH (08:39)
[2023-10-24] MEDS: TAMSULOSIN 0.4 MG CAP.ER.24H PO SCH (08:39)
[2023-10-24] MEDS: FUROSEMIDE 20 MG TAB PO SCH (08:39)
[2023-10-24] MEDS: CEFEPIME 2 GM in SODIUM CHLORIDE 0.9% 100 ML IVPB SCH (08:39)
[2023-10-24] MEDS: ASPIRIN 81 MG PO SCH (08:40)
[2023-10-24] MEDS: lisinopriL 10 MG TAB PO SCH (08:40)
[2023-10-24] MEDS: ZINC OXIDE PASTE (Z-GUARD) 1 APPLIC TOPICAL PRN ×2 (08:47→13:57)
[2023-10-24 10:04] LABS: African American GFR (CKD) >90 (>60 ml/min/1.73 sqM); Anion Gap 10 mmol/L; Blood Urea Nitrogen 8 mg/dL (9-20); Calcium 8.2 mg/dL (8.4-10.2); Carbon Dioxide 23 mmol/L (22-30); Chloride 107 mmol/L (98-107); Glucose 89 mg/dL (74-99); Non-African American GFR(CKD) >90 (>60 ml/min/1.73 sqM); Potassium 3.4 mmol/L (3.5-5.1); Sodium 140 mmol/L (137-145)
[2023-10-24 10:08] LABS: HCT 23.6 % (39.0-53.0); Hypochromasia Marked; MCHC 30.3 g/dL (31.0-37.0); MCV 95.6 fL (80.0-100.0); Mean Platelet Volume 7.5; Platelet Count 295 k/uL (150-450); RBC 2.47 m/uL (4.30-5.90); RDW 14.2 % (11.5-15.5); WBC 5.9 k/uL (3.8-10.6)
[2023-10-24 10:10] LABS: HGB 7.2 gm/dL (13.0-17.5)
[2023-10-24] MEDS ORDERED: POTASSIUM CHLORIDE ER 20 MEQ TAB.ER PO STA (12:58)
[2023-10-24] MEDS ORDERED: VANCOMYCIN 750 MG in SODIUM CHLORIDE 0.9% 250 ML IVPB SCH (13:00)
--- NOTE | 2023-10-24 13:07 | P.PN ---
Subjective Progress Note Date: 10/24/23 Patient is an 82 yo male with pknow PAD who was recently admitted from 10/01/23 through 10/04/23 for right femoral to distal popliteal bypass using CryoVein, left above-knee amputation in June 2023, hypertension, dyslipidemia, and macular degeneration who presented to the ER at the direction of his visiting nurse due to concerns of surgical wound infection. In the ER he underwent an extensive evaluation. Laboratory analysis was remarkable for white blood cell count 15, hemoglobin 9, sodium 133. CRP was elevated at 24.1. He underwent femur x-ray which showed soft tissue air at the right knee. DVT of the right lower extremity showed a large fluid collection along the posterior middle upper calf. CT angiogram was remarkable for a confluent fluid collection 8.4 x 5.9 x 3.2 cm in the posterior medial upper leg possible postoperative seroma versus phlegmon. Some foci of soft tissue air just above the popliteal fossa, there are multiple findings consistent with his known severe peripheral arterial disease. He was started on vancomycin and Zosyn and was admitted for further monitoring and vascular surgery consultation. He was taken to the OR on 10/22 for I&D of the right lower extremity wound which demonstrated thick serous fluid. Wound cultures came back positive for staph aureus. Patient seen and examined at bedside. He has pain at the site of his left amput ation. His pain is less in his right surgical wound. He denies any shortness of breath, nausea, vomiting, diarrhea, or constipation. Vital signs reviewed General: nontoxic, no distress, appears at stated age Cardiovascular: S1S2 reg, no murmur, positive posterior tibial pulse bilateral, Lungs: CTA bilateral, no rhonchi, no rales , no accessory muscle use Abdominal: soft, nontender to palpation, no guarding, no appreciable organomegaly Ext: no gross muscle atrophy, no edema b/l lower extremities, no contractures Neuro: CN II-XI grossly intact, no focal neuro deficits Psych: Alert, oriented, appropriate affect wounds: L AKA with rendess and slight pressure wound on lateral aspect without significant skin breakown. Right medical calf with drainiage and some wound dehisence, no significant erythema. 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 -Dilaudid 0.5 mg IV push every 3 hours for pain, norco 10/325 mg PO q 6 hours prn pain -Continue with aspirin 81 mg daily, Plavix 75 mg daily, Xarelto 20 mg at night, and Pravachol 80 mg at night - Await final surgical cultures to ensure MSSA Hypertension Dyslipidemia - Lasix 20 mg PO daily - Statin as above Anemia worsening - per nursing not much soak through on dressing - repeat CBC in AM - no transfusion at this time - check iron studies in AM Hypokalemia - potassium chloride 40 MEQ PO X 1 - repeat in AM Chronic: Prior DVT Macular degeneration Osteoarthritis Imaging: None new Data Review: Labs reviewed from today include CBC and basic metabolic profile which are remarkable for hemoglobin 7.2, potassium 3.4. Vancomycin trough 15.4 Wound culture from the ER shows staph aureus Wound culture from the OR shows presumptive staph DVT prophylaxis: Xarelto Anticipated discharge date: in 24-[address]: home with home health This dictation was prepared using [employer] voice recognition software. Though every attempt is made to correct errors during dictation some may still exist. Objective - Vital Signs Vital signs: Vital Signs Temp 98.5 F 10/24/23 12:01 Pulse 84 10/24/23 12:01 Resp 16 10/24/23 12:01 BP 115/64 10/24/23 12:01 Pulse Ox 96 10/24/23 12:01 FiO2 Intake & Output 10/23/23 10/24/23 10/24/23 18:59 06:59 18:59 Intake Total 118 240 Output Total 125 200 325 Balance -200 -85 Intake: Oral 118 240 Output: Urine 125 200 325 Other: Voiding Method Urinal Urinal Urinal # Voids 1 1 1 # Bowel Movements 1 - Labs CBC & Chem 7: 10/24/23 08:45 10/24/23 08:45 Labs: Abnormal Lab Results - Last 24 Hours (Table) 10/24/23 10/24/23 Range/Units 08:45 08:45 RBC 2.47 L (4.30-5.90) m/uL Hgb 7.2 L D (13.0-17.5) gm/dL Hct 23.6 L (39.0-53.0) % MCHC 30.3 L (31.0-37.0) g/dL Potassium 3.4 L (3.5-5.1) mmol/L BUN 8 L (9-20) mg/dL Creatinine 0.64 L (0.66-1.25) mg/dL Calcium 8.2 L (8.4-10.2) mg/dL Microbiology - Last 24 Hours (Table) 10/21/23 22:37 Gram Stain - Final Leg - Left Wound Culture - Final Staphylococcus aureus 10/21/23 19:22 Blood Culture - Preliminary Blood 10/21/23 19:22 Blood Culture - Preliminary Blood 10/22/23 14:21 Gram Stain - Preliminary Leg - Right Wound Culture - Preliminary Presumptive Staph aureus
--- NOTE | 2023-10-24 14:06 | P.PN ---
Subjective Progress Note Date: 10/24/23 Patient seen and examined. No complaints or concerns. Sitting up in chair. No acute distress Right lower extremity dressing clean and dry, changes morning, change in now and [place] was removed. Continue with management of wound drainage. Has appointment my office Wednesday, we'll discuss potential revision of left AKA at that time. For now continue with physical border gauze. Objective - Vital Signs Vital signs: Vital Signs Temp 98.5 F 10/24/23 12:01 Pulse 84 10/24/23 13:19 Resp 16 10/24/23 13:19 BP 115/64 10/24/23 12:01 Pulse Ox 96 10/24/23 12:01 FiO2 Intake & Output 10/23/23 10/24/23 10/24/23 18:59 06:59 18:59 Intake Total 118 720 Output Total 125 200 575 Balance -7 -200 145 Intake: Oral 118 720 Output: Urine 125 200 575 Other: Voiding Method Urinal Urinal Urinal # Voids 1 1 1 # Bowel Movements 1 - Labs CBC & Chem 7: 10/24/23 08:45 10/24/23 08:45 Labs: Abnormal Lab Results - Last 24 Hours (Table) 10/24/23 10/24/23 Range/Units 08:45 08:45 RBC 2.47 L (4.30-5.90) m/uL Hgb 7.2 L D (13.0-17.5) gm/dL Hct 23.6 L (39.0-53.0) % MCHC 30.3 L (31.0-37.0) g/dL Potassium 3.4 L (3.5-5.1) mmol/L BUN 8 L (9-20) mg/dL Creatinine 0.64 L (0.66-1.25) mg/dL Calcium 8.2 L (8.4-10.2) mg/dL Microbiology - Last 24 Hours (Table) 10/21/23 22:37 Gram Stain - Final Leg - Left Wound Culture - Final Staphylococcus aureus 10/21/23 19:22 Blood Culture - Preliminary Blood 10/21/23 19:22 Blood Culture - Preliminary Blood 10/22/23 14:21 Gram Stain - Preliminary Leg - Right Wound Culture - Preliminary Presumptive Staph aureus
--- NOTE | 2023-10-24 15:05 | P.PN ---
Subjective Progress Note Date: 10/24/23 Principal diagnosis: Reason for follow-up is right leg wound infection and cellulitis. Patient is a 82-year-old male with a past medical history significant for hypertension hyperlipidemia DVT peripheral vascular disease in this patient who is status post left above-knee amputation patient apparently recently did have a femoral tibial bypass on October 01 patient has been brought to the hospital concerning for increasing pain of the right lower leg along with some r edness, patient did have a CT concerning for fluid collection with a possible postop seroma versus abscess s/p drainage. On today's evaluation that is 10/24/2023, the patient remains to be afebrile the patient is breathing comfortably on room air patient denies having any chest pain shortness of breath or cough no nausea vomiting no abdominal pain or diarrhea patient pain to the right leg has decreased has been complaining of pain mostly to the left AKA stump. Patient white count of 5.1 creatinine 0.64 right leg cultures came back positive with MSSA Objective - Vital Signs Vital signs: Vital Signs Temp 98.2 F 10/24/23 08:30 Pulse 79 10/24/23 08:31 Resp 16 10/24/23 08:31 BP 110/57 10/24/23 08:30 Pulse Ox 95 10/24/23 08:30 FiO2 Intake & Output 10/23/23 10/24/23 10/24/23 18:59 06:59 18:59 Intake Total 118 240 Output Total 125 200 225 Balance -7 -200 15 Intake: Oral 118 240 Output: Urine 125 200 225 Other: Voiding Method Urinal Urinal Urinal # Voids 1 1 1 # Bowel Movements 1 - Exam GENERAL DESCRIPTION: An elderly male lying in bed in no distress RESPIRATORY SYSTEM: Unlabored breathing , decreased breath sounds at bases HEART: S1 S2 regular rate and rhythm , ABDOMEN: Soft , no tenderness EXTREMITIES: Right leg wound is currently dressed - Labs CBC & Chem 7: 10/24/23 08:45 10/24/23 08:45 Labs: Abnormal Lab Results - Last 24 Hours (Table) 10/23/23 10/24/23 10/24/23 Range/Units 12:02 08:45 08:45 RBC 2.47 L (4.30-5.90) m/uL Hgb 7.2 L D (13.0-17.5) gm/dL Hct 23.6 L (39.0-53.0) % MCHC 30.3 L (31.0-37.0) g/dL Potassium 3.4 L (3.5-5.1) mmol/L BUN 8 L (9-20) mg/dL Creatinine 0.65 L 0.64 L (0.66-1.25) mg/dL Calcium 8.2 L (8.4-10.2) mg/dL Microbiology - Last 24 Hours (Table) 10/21/23 22:37 Gram Stain - Final Leg - Left Wound Culture - Final Staphylococcus aureus 10/21/23 19:22 Blood Culture - Preliminary Blood 10/21/23 19:22 Blood Culture - Preliminary Blood 10/22/23 14:21 Gram Stain - Preliminary Leg - Right Wound Culture - Preliminary Presumptive Staph aureus Assessment and Plan (1) Cellulitis of right leg Current Visit: Yes Status: Acute Code(s): L03.115 - CELLULITIS OF RIGHT LOWE R LIMB SNOMED Code(s): 75439865943605873 (2) Wound cellulitis Current Visit: Yes Status: Acute Code(s): L03.90 - CELLULITIS, UNSPECIFIED SNOMED Code(s): 953742445 Plan: 1patient presented to hospital with increasing pain swelling redness to the right lower extremity and this patient was recently did have a bypass procedure on the right lower extremity on October [address] did have abnormal CT with evidence of fluid collection and question of possible seroma versus early abscess s/p drainage patient did have elevated white count and a low-grade fever 2right leg culture has been finalized with MSSA we will discontinue vancomycin and cefepime start the patient cefazolin 2 g every 8 hours hopefully finishing therapy with oral Keflex. 3patient did have a more pain to the left AKA stump did have some slough tissue discussed with the vascular surgeon planning for revision debridement the near future Dictation was produced using [employer] dictation software. please excuse any grammatical, word or spelling errors. Time with Patient: Less than 30
[2023-10-24] MEDS: PRAVASTATIN SODIUM 80 MG TAB PO SCH (19:54)
[2023-10-24] MEDS: RIVAROXABAN 20 MG TAB PO SCH (19:54)
[2023-10-25] MEDS: HYDROcodone/APAP 10-325MG 1 EACH TAB PO PRN ×2 (02:04→08:05)
[2023-10-25] MEDS: HYDROmorphone 0.5 MG/0.5 ML SYRINGE IVP PRN (03:13)
[2023-10-25] MEDS: PANTOPRAZOLE 40 MG TABLET PO SCH (06:24)
[2023-10-25] MEDS: ASPIRIN 81 MG PO SCH (08:00)
[2023-10-25] MEDS: GABAPENTIN 300 MG CAP PO SCH (08:00)
[2023-10-25] MEDS: TAMSULOSIN 0.4 MG CAP.ER.24H PO SCH (08:01)
[2023-10-25] MEDS: DULoxetine HCL 60 MG CAPSULE.DR PO SCH (08:01)
[2023-10-25] MEDS: FUROSEMIDE 20 MG TAB PO SCH (08:01)
[2023-10-25] MEDS: CLOPIDOGREL 75 MG TAB PO SCH (08:01)
[2023-10-25 08:24] VITALS: BP 145/61; PULSE 77; TEMP 98.5
[2023-10-25 08:25] LABS: HCT 25.3 % (39.0-53.0); HGB 7.9 gm/dL (13.0-17.5); Hypochromasia Moderate; MCH 28.8 pg (25.0-35.0); MCHC 31.2 g/dL (31.0-37.0); MCV 92.1 fL (80.0-100.0); Mean Platelet Volume 7.5; Platelet Count 331 k/uL (150-450); RBC 2.75 m/uL (4.30-5.90); RDW 14.4 % (11.5-15.5); WBC 4.6 k/uL (3.8-10.6)
[2023-10-25 08:30] LABS: ALT 7 U/L (4-49); AST 17 U/L (17-59); African American GFR (CKD) >90 (>60 ml/min/1.73 sqM); Albumin 2.8 g/dL (3.5-5.0); Alkaline Phosphatase 73 U/L (38-126); Anion Gap 8 mmol/L; Blood Urea Nitrogen 6 mg/dL (9-20); Calcium 8.5 mg/dL (8.4-10.2); Carbon Dioxide 28 mmol/L (22-30); Chloride 104 mmol/L (98-107); Glucose 85 mg/dL (74-99); Magnesium 1.9 mg/dL (1.6-2.3); Non-African American GFR(CKD) >90 (>60 ml/min/1.73 sqM); Phosphorus 3.8 mg/dL (2.5-4.5); Potassium 3.3 mmol/L (3.5-5.1); Sodium 140 mmol/L (137-145); Total Bilirubin 0.2 mg/dL (0.2-1.3); Total Protein 5.7 g/dL (6.3-8.2)
[2023-10-25] MEDS ORDERED: POTASSIUM CHLORIDE ER 20 MEQ TAB.ER PO STA (09:37)
--- NOTE | 2023-10-25 09:51 | P.DS ---
Providers Date of admission: 10/22/23 12:20 Expected date of discharge: 10/25/23 Attending physician: Althea Romero MD Consults: 10/22/23 00:01 Consult Physician Stat Consulting Provider: Coral Curran Consult Reason/Comments: leg infection Do you want consulting provider notified?: Yes, Notify in am 10/22/23 00:06 Consult Physician Stat Consulting Provider: Shelia Barroso Consult Reason/Comments: leg infection Do you want consulting provider notified?: Yes, Notify in am Primary care physician: Yaya Croft MD Hospital Course: Discharge Diagnosis: Staph Aureus wound infection, right surgical wound from fem-pop bypass 10/01 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 In the ER he underwent an extensive evaluation. Laboratory analysis was remarkable for white blood cell count 15, hemoglobin 9, sodium 133. CRP was elevated at 24.1. He underwent femur x-ray which showed soft tissue air at the right knee. DVT of the right lower extremity showed a large fluid collection along the posterior middle upper calf. CT angiogram was remarkable for a confluent fluid collection 8.4 x 5.9 x 3.2 cm in the posterior medial upper leg possible postoperative seroma versus phlegmon. Some foci of soft tissue air just above the popliteal fossa, there are multiple findings consistent with his known severe peripheral arterial disease. He was started on vancomycin and Zosyn and was admitted for further monitoring and vascular surgery consultation. He was taken to the OR on 10/22 for I&D of the right lower extremity wound which demonstrated thick serous fluid. Wound cultures came back positive for staph aureus which was susceptible to multiple antibiotics. He continued to do well. He was discharged home on 10/25/23. Follow-up: He will see Dr. Curran on 10/27/23. At that point in time he'll get a repeat basic metabolic profile to check his potassium levels. He will follow-up with Dr. Croft in one week. He will complete a seven-day course of Keflex. Patient seen and examined at bedside. Still having some pain in his stump but no other complaints. Feeling well. Denies any nausea, vomiting, diarrhea. Wants to be discharged home. Vital signs reviewed and stable. General: nontoxic, no distress, appears at stated age Cardiovascular: S1S2 reg, no murmur, positive posterior tibial pulse bilateral, Lungs: CTA bilateral, no rhonchi, no rales , no accessory muscle use Abdominal: soft, nontender to palpation, no guarding, no appreciable organomegaly Ext: no gross muscle atrophy, left AKA, dressing in place over right lower extremity Neuro: CN II-XI grossly intact, no focal neuro deficits Psych: Alert, oriented, appropriate affect A total of 33 minutes of time were spent preparing this complex discharge summary. Patient was discharged on 10/25/23. This dictation was prepared using [employer] voice recognition software. Though every attempt is made to correct errors during dictation some may still exist. Patient Condition at Discharge: Stable Plan - Discharge Summary Discharge Rx Participant: No New Discharge Prescriptions: New Potassium Chloride ER [K-Dur 20] 20 meq PO DAILY #7 tab Cephalexin [Keflex] 500 mg PO Q12HR 7 Days #14 cap Continue Pravastatin Sodium 80 mg PO HS Rivaroxaban [Xarelto] 20 mg PO HS Tamsulosin [Flomax] 0.4 mg PO HS Aspirin 81 mg PO DAILY tab HYDROcodone/APAP 10-325MG [[place] 10-325] 1 tab PO Q6HR PRN 3 Days #12 tab PRN Reason: Pain Ferrous Sulfate [Iron (65 MG Elemental)] 325 mg PO DAILY Latanoprost Ophth [Xalatan 0.005%] 1 drops BOTH EYES HS Clopidogrel [Plavix] 75 mg PO DAILY #30 tab Gabapentin [Neurontin] 600 mg PO TID #9 cap Cyanocobalamin [Vitamin B-12] 500 mcg PO DAILY Furosemide [Lasix] 20 mg PO DAILY DULoxetine HCL [Cymbalta] 60 mg PO DAILY Discharge Medication List Pravastatin Sodium 80 mg PO HS 02/15/23 [History] Rivaroxaban [Xarelto] 20 mg PO HS 02/26/23 [History] Tamsulosin [Flomax] 0.4 mg PO HS 02/26/23 [History] Aspirin 81 mg PO DAILY tab 03/03/23 [Rx] Gabapentin [Neurontin] 600 mg PO TID #9 cap 06/29/23 [Rx] HYDROcodone/APAP 10-325MG [[place] 10-325] 1 tab PO Q6HR PRN 3 Days #12 tab 06/29/23 [Rx] Cyanocobalamin [Vitamin B-12] 500 mcg PO DAILY 07/12/23 [History] Furosemide [Lasix] 20 mg PO DAILY 07/12/23 [History] Ferrous Sulfate [Iron (65 MG Elemental)] 325 mg PO DAILY 08/30/23 [History] Latanoprost Ophth [Xalatan 0.005%] 1 drops BOTH EYES HS 09/29/23 [History] Clopidogrel [Plavix] 75 mg PO DAILY #30 tab 10/04/23 [Rx] DULoxetine HCL [Cymbalta] 60 mg PO DAILY 10/22/23 [History] Cephalexin [Keflex] 500 mg PO Q12HR 7 Days #14 cap 10/25/23 [Rx] Potassium Chloride ER [K-Dur 20] 20 meq PO DAILY #7 tab 10/25/23 [Rx] Follow up Appointment(s)/Referral(s): Yaya Croft MD [Primary Care Provider] - 1-2 days Coral Curran DO [Family Provider] - 10/27/23 (as needed) Ambulatory/Diagnostic Orders: Basic Metabolic Panel [LAB.AMB] Time Frame: 3 Days, Location: None Selected Activity/Diet/Wound Care/Special Instructions: Activity: As tolerated Diet: Heart Healthy low sodium diet Special Instructions: Please follow-up with Dr. Curran next week as scheduled. Your potassium has been slightly low. Please get a recheck when you go to see Dr. Curran on Wednesday Please take your antibiotics until gone. Discharge Disposition: HOME SELF-CARE
[2023-10-25 15:51] LABS: % Iron Saturation 13.55 (15.00-50.00); Iron 21 UG/DL (65-175); Total Iron Binding Capacity 155 UG/DL (228-460)
--- NOTE | 2023-10-29 06:39 | CDI ---
Documentation Clarification Form Date: 10/29/2023 05:25:49 AM From: Katarina Palafox Admit Date: 10/22/2023 12:20:00 PM Patient Name: Doyle Crawford Visit Number: [id number] Discharge Date: 10/25/2023 10:50:00 AM ATTENTION: The Clinical Documentation Specialists (CDI) and [facility] Coding Staff appreciate your assistance in clarifying documentation. Please respond to the clarification below the line at the bottom and electronically sign. The CDI & [facility] Coding staff will review the response and follow-up if needed. Please note: Queries are made part of the Legal Health Record. If you have any questions, please contact the author of this message via ITS. Dr. Dilia Ramos Per H and P "sepsis secondary to surgical site infection (right surgical bypass wound.) Documentation of sepsis is not carried through the chart. Please clarify if patient had sepsis or was it ruled out. History/Risk Factors: Severe PVD and gangrene. Infection post fempop bypass, status post AKA Left with ulcer. Clinical Indicators: WBC 15.0 Lactic acid: 1.5 Blood cultures: no growth Vitals signs: 98.7 F, 97 bpm, 22, 141/78, 97% RA Treatment: IV antibiotics ID Consult: Cellulitis of right leg Post op infection Antibiotics: Vancomycin, zosyn, Cefepime Did patient have sepsis or was it ruled out: [ ] Sepsis, present on admission [ ] Sepsis, developed during stay, not present on admission [ x] Sepsis ruled out [ ] Other, please specify [ ] Unable to determine SIRS Criteria: 2 or more of the following may indicate SIRS Temperature < 96.8F (36C) or > 101.0F (38.3C) Heart Rate > 90 bpm Respiratory Rate > 20 breaths/min or PaCO2 < 32 mmHg White Blood Cell Count > 12,000 or < 4,000 cells/mm3 or > 10% bands MTDD
== END 2023-10-25 10:50 | disposition home or self-care (01) | DRG 863 ==
LOC: EC 13:19 → 3SCARD 10-22 00:01 → OBSVTOIN 10-22 12:20 → 3SCARD 10-22 12:30 → UNDODISIN 10-22 13:25 → 3SCARD 10-22 15:47
PROVIDERS: ADMIT Internal Medicine; ATTEND Internal Medicine
PROC: 0J9N00Z Drainage of Right Lower Leg Subcutaneous Tissue and Fascia with Drainage Device, Open Approach (ICD-10-PCS; principal; 2023-10-22 08:45)
DX: T81.41XA Infection following a procedure, superficial incisional surgical site, initial encounter (principal); T87.44 Infection of amputation stump, left lower extremity; L03.115 Cellulitis of right lower limb; I70.261 Atherosclerosis of native arteries of extremities with gangrene, right leg; E11.52 Type 2 diabetes mellitus with diabetic peripheral angiopathy with gangrene; I82.401 Acute embolism and thrombosis of unspecified deep veins of right lower extremity; I10 Essential (primary) hypertension; Y83.5 Amputation of limb(s) as the cause of abnormal reaction of the patient, or of later complication, without mention of misadventure at the time of the procedure; E78.5 Hyperlipidemia, unspecified; M19.90 Unspecified osteoarthritis, unspecified site; M16.0 Bilateral primary osteoarthritis of hip; D64.9 Anemia, unspecified; E87.6 Hypokalemia; H35.30 Unspecified macular degeneration; Z79.01 Long term (current) use of anticoagulants; Z79.02 Long term (current) use of antithrombotics/antiplatelets; Z79.82 Long term (current) use of aspirin; Z79.899 Other long term (current) drug therapy; Z82.49 Family history of ischemic heart disease and other diseases of the circulatory system; Z86.718 Personal history of other venous thrombosis and embolism; Z89.612 Acquired absence of left leg above knee; Z98.1 Arthrodesis status; Z28.21 Immunization not carried out because of patient refusal; Z71.3 Dietary counseling and surveillance
CPT/HCPCS: 36415; 75635; 80048; 80053; 80202; 81003; 82565; 82728; 83540; 83550; 83605; 83735; 84100; 84484; 85025; 85027; 85610; 85730; 86140; 87040; 87070; 87075; 87077; 87186; 87205; 93005; 96361; 96365; 96366; 96367; 96375; 96376; 99285

== ENCOUNTER → 2023-11-01 | Outpatient (CLI) | payer MEDICARE ==
[2023-11-02 05:17] LABS: Blood Urea Nitrogen 12.8 mg/dL (9.0-27.0); Calcium 9.4 mg/dL (8.7-10.3); Carbon Dioxide 26.3 mmol/L (21.6-31.8); Chloride 98 mmol/L (96-109); Glucose 85 mg/dL (70-110); Potassium 4.4 mmol/L (3.5-5.5); Sodium 139 mmol/L (135-145)
== END | disposition home or self-care (01) ==
LOC: LABWHC1 13:48
PROVIDERS: ATTEND Internal Medicine
DX: E87.6 Hypokalemia (principal)
CPT/HCPCS: 36415; 80048

== ENCOUNTER 2023-11-04 07:44 | Inpatient (IN) | payer MEDICARE ==
[~2023-11-04 07:44] MED LIST changes: +LACTATED RINGERS 1,000 ML IV SCH; +LIDOCAINE 1% (10MG/ML) FOR IV START INTRADERMA PRN
[2023-11-04 08:58] LABS: Basophils # (A) 0.1 k/uL (0-0.2); Basophils % (A) 1 %; Eosinophils # (A) 0.4 k/uL (0-0.7); Eosinophils % (A) 6 %; HCT 28.7 % (39.0-53.0); HGB 9.1 gm/dL (13.0-17.5); Hypochromasia Slight; Lymphocytes # (A) 1.7 k/uL (1.0-4.8); Lymphocytes % (A) 23 %; MCH 28.8 pg (25.0-35.0); MCHC 31.8 g/dL (31.0-37.0); MCV 90.4 fL (80.0-100.0); Mean Platelet Volume 7.4; Monocytes # (A) 0.6 k/uL (0-1.0); Monocytes % (A) 8 %; Neutrophils # (A) 4.4 k/uL (1.3-7.7); Neutrophils % (A) 60 %; Platelet Count 408 k/uL (150-450); RBC 3.17 m/uL (4.30-5.90); RDW 15.3 % (11.5-15.5); WBC 7.2 k/uL (3.8-10.6)
[2023-11-04 09:00] LABS: ALT 8 U/L (4-49); AST 18 U/L (17-59); African American GFR (CKD) >90 (>60 ml/min/1.73 sqM); Albumin 3.7 g/dL (3.5-5.0); Alkaline Phosphatase 78 U/L (38-126); Anion Gap 10 mmol/L; Blood Urea Nitrogen 14 mg/dL (9-20); Calcium 9.2 mg/dL (8.4-10.2); Carbon Dioxide 31 mmol/L (22-30); Chloride 98 mmol/L (98-107); Glucose 102 mg/dL (74-99); Non-African American GFR(CKD) >90 (>60 ml/min/1.73 sqM); Potassium 4.4 mmol/L (3.5-5.1); Sodium 139 mmol/L (137-145); Total Bilirubin 0.4 mg/dL (0.2-1.3)
[2023-11-04 09:15] LABS: Prothrombin Time 10.7 sec (10.0-12.5)
[2023-11-04] MEDS ORDERED: GLYCOPYRROLATE 0.2 MG/ML 2 ML VIAL ONE (10:12)
[2023-11-04] MEDS ORDERED: fentaNYL (PF) 50 MCG/ML 2 ML AMP ONE (10:12)
[2023-11-04] MEDS ORDERED: LIDOCAINE 1% INJ 10MG/ML (20 ML MDV) ONE (10:12)
[2023-11-04] MEDS ORDERED: PHENYLEPHRINE-0.9% NACL SYG 1,000 MCG/10 ML SYRINGE ONE (10:12)
[2023-11-04] MEDS ORDERED: SUCCINYLCHOLINE CHLORIDE 200 MG/10 ML VIAL IV ONE (10:12)
[2023-11-04] MEDS ORDERED: NEOSTIGMINE 1 MG/ML 10 ML VIAL ONE (10:12)
[2023-11-04] MEDS ORDERED: PROPOFOL 10 MG/ML 20 ML VIAL IV ONE (10:12)
[2023-11-04] MEDS ORDERED: ROCURONIUM 10 MG/ML (5 ML VIAL) IV ONE (10:12)
[2023-11-04] MEDS ORDERED: MIDAZOLAM 2 MG/2 ML VIAL ONE (10:12)
[2023-11-04] MEDS ORDERED: ceFAZolin 2 GM in SODIUM CHLORIDE 0.9% 500 ML 500 ML IRRIGATION ONE (10:41)
[2023-11-04] MEDS ORDERED: HYDROcodone/APAP 5-325MG 1 EACH TAB PO PRN (11:28)
--- NOTE | 2023-11-04 11:28 | P.OP ---
Date of Procedure: 11/04/23 Description of Procedure: Preoperative diagnosis: Left lower extremity pressure wound at the distal previous amputation site Postoperative diagnosis: Same Procedure: Left Above-knee amputation revision Surgeon: Coral Curran D.O. Anesthesia: General EBL: 75 mL IV fluids: See records Urine output: Not measured Drains: None Complications: None immediately apparent Condition: Stable Operative indication and findings: Patient is an 82-year-old male previously underwent a left above-knee amputation due to ischemia. He has a contracture and always has flexion at the groin level. Initially at the time of surgery he had healing of the amputation site however due to this contracture has developed a pressure wound that is not healing due to the shingles in length with bone therefore today he is here for revision. Procedure in detail: The patient was taken to the operative suite and placed in supine position. After adequate anesthesia, the left lower extremity was prepped and draped in usual sterile fashion. A preprocedure timeout was performed, all parties were in agreement. Skin marker was utilized and the incision was marked in fishmouth fashion to include excision of the ulcerated portion of skin Skin incision was performed and deepened through the subcutaneous tissues to the muscular fascia. The muscle groups of the anterior and medial thigh were divided with electrocautery at the same level of the skin incision. The neurovascular bundle was identified on the medial aspect of the thigh. The femur was then cleared of its periosteal tissue is elevated roughly 5 cm proximally and was divided with the oscillating saw. The posterior thigh muscles were then divided with electrocautery. The proximal end of the transected femur was smoothed with a rasp. The amputation site was then copiously irrigated. Hemostasis was controlled with electrocautery. The periosteum was reapproximated using interrupted sutures of 2-0 Vicryl. The fascia was reapproximated with interrupted [id number] sutures of 2-0 Vicryl. The skin was reapproximated with santos. A dressing with gauze, Kerlix and a bandage were placed. The patient tolerated the procedure well and was transported to PACU in stable condition
[2023-11-04] MEDS: HYDROmorphone 0.5 MG/0.5 ML SYRINGE IVP PRN ×4 (11:30→12:16)
[2023-11-04] MEDS: GABAPENTIN 300 MG CAP PO SCH ×2 (17:02→20:34)
[2023-11-04] MEDS: HYDROcodone/APAP 10-325MG 1 EACH TAB PO PRN (17:02)
[2023-11-04] MEDS ORDERED: HYDROmorphone 0.5 MG/0.5 ML SYRINGE IVP STA (18:26)
--- NOTE | 2023-11-04 19:24 | P.CONS ---
History of Present Illness - Reason for Consult Consult date: 11/04/23 Requesting physician: Coral Curran - Chief Complaint left AKA pain - History of Present Illness Patient is a 82-year-old male with peripheral arterial disease status post left above-knee amputation, hypertension, dyslipidemia, and macular degeneration who presented for revision of his left stump. Patient tolerated the procedure well without any immediate postoperative complications. Patient seen and examined at bedside. He complains of 10 out of 10 pain despite his home [place] dosing. He has finished his antibiotics at home after his last discharge. His right leg wound has been healing well. He denies any recent cough, cold, fever, flu Vital signs reviewed General: nontoxic, no distress, appears at stated age Derm: warm, dry Cardiovascular: S1S2 reg, no murmur, no edema right lower extremity Lungs: clear to auscultation bilateral, no rhonchi, no rales, no wheeze, no accessory muscle use Abdominal: soft, nontender to palpation, Ext: + Gross muscle atrophy, no contractures, left AKA, right lower extremity with dressing in place Neuro: CN II-XII grossly intact, no focal neurodeficits Psych: Alert, oriented, appropriate affect Assessment/Plan: 82-year-old male status post revision to left above-knee amputation Intractable postoperative pain and -Dilaudid 0.5 mg IV every 3 hours -Resume patient's home [place] 10/325 every 6 hours and gabapentin 600 mg 3 times daily Dry gangrene of the right toes -Await wound care recommendations Severe peripheral arterial disease Hypertension Dyslipidemia -Resume aspirin 81 mg at night, Plavix 75 mg daily -Pravachol 80 mg at night, Xarelto 20 mg at night, Anemia, improved from last discharge -Repeat CBC in a.m. -No indication for transfusion Chronic: Prior DVT Macular degeneration Osteoarthritis Imaging: None new Data Review: Labs reviewed from today include CBC and basic metabolic profile which are remarkable for hemoglobin 9.1. Thank you for allowing us to participate in the care of this pleasant patient. Do not hesitate to contact us with questions. Someone can be reached from the [facility] hospitalist group all hours of the day at [phone] or via [employer]. This dictation was prepared using [employer] voice recognition software. Though every attempt is made to correct errors during dictation some may still exist. 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 ago, unsure how long he smoked or how much Past Drug Use History: None Reported - Past Family History Brother(s) History Unknown: Yes Family Medical History: Cancer, Coronary Artery Disease (CAD) Additional Family Medical History / Comment(s): 2 brothers had cancer. Father History Unknown: Yes Family Medical History: Myocardial Infarction (CT) Mother History Unknown: Yes Family Medical History: Coronary Artery Disease (CAD) Medications and Allergies Home Medications Medication Instructions Recorded Confirmed Type Pravastatin Sodium 80 mg PO HS 02/15/23 11/04/23 History Rivaroxaban [Xarelto] 20 mg PO HS 02/26/23 11/04/23 History Tamsulosin [Flomax] 0.4 mg PO HS 02/26/23 11/04/23 History Gabapentin [Neurontin] 600 mg PO TID #9 cap 06/29/23 11/04/23 Rx HYDROcodone/APAP 10-325MG [[place] 1 tab PO Q6HR PRN 3 Days #12 tab 06/29/23 11/04/23 Rx 10-325] Cyanocobalamin [Vitamin B-12] 500 mcg PO DAILY 07/12/23 11/04/23 History Furosemide [Lasix] 20 mg PO DAILY 07/12/23 11/04/23 History Ferrous Sulfate [Iron (65 MG 325 mg PO DAILY 08/30/23 11/04/23 History Elemental)] Latanoprost Ophth [Xalatan 0.005%] 1 drops BOTH EYES HS 09/29/23 11/04/23 History Clopidogrel [Plavix] 75 mg PO DAILY #30 tab 10/04/23 11/04/23 Rx DULoxetine HCL [Cymbalta] 60 mg PO HS 10/22/23 11/04/23 History Cephalexin [Keflex] 500 mg PO Q12HR 7 Days #14 cap 10/25/23 11/04/23 Rx Aspirin [Adult Low Dose Aspirin EC] 81 mg PO HS 11/01/23 11/04/23 History Allergies Allergy/AdvReac Type Severity Reaction Status Date / Time No Known Allergies Allergy Verified 11/04/23 08:08 Physical Exam Osteopathic Statement: *. No significant issues noted on an osteopathic structural exam other than those noted in the History and Physical/Consult. Vitals: Vital Signs Temp Pulse Pulse Resp BP BP Pulse Ox 11/04/23 15:52 89 132/65 11/04/23 14:08 98.2 F 73 18 93/50 94 L 11/04/23 13:30 75 16 116/49 100 11/04/23 13:00 76 16 108/48 100 11/04/23 12:30 74 16 97/52 100 11/04/23 12:15 78 16 105/62 100 11/04/23 12:00 68 16 118/59 100 11/04/23 11:45 75 16 114/71 100 11/04/23 11:37 79 16 133/60 100 11/04/23 11:22 97.2 F L 80 16 140/54 100 11/04/23 08:04 97.4 F L 85 16 97/59 99 Intake and Output 11/04/23 11/04/23 11/04/23 06:59 14:59 22:59 Intake Total 851 50 Output Total 75 Balance 776 50 Intake: IV 851 Intake, IV Titration 50 Amount ceFAZolin 2 gm In Sodium 50 Chloride 0.9% 50 ml @ 100 mls/hr IVPB Q8H [facility] Rx#: [id number] Output: Estimated Blood Loss 75 Other: Weight 56.8 kg 56.8 kg Results CBC & Chem 7: 11/04/23 08:30 11/04/23 08:30 Labs: Abnormal Lab Results - Last 24 Hours (Table) 11/04/23 11/04/23 Range/Units 08:30 08:30 RBC 3.17 L (4.30-5.90) m/uL Hgb 9.1 L (13.0-17.5) gm/dL Hct 28.7 L (39.0-53.0) % Carbon Dioxide 31 H (22-30) mmol/L Glucose 102 H (74-99) mg/dL
[2023-11-04] MEDS ORDERED: DULoxetine HCL 60 MG CAPSULE.DR PO SCH (21:00)
[2023-11-04] MEDS ORDERED: ASPIRIN 81 MG PO SCH (21:00)
[2023-11-04] MEDS ORDERED: PRAVASTATIN SODIUM 80 MG TAB PO SCH (21:00)
[2023-11-04] MEDS ORDERED: TAMSULOSIN 0.4 MG CAP.ER.24H PO SCH (21:00)
[2023-11-04] MEDS ORDERED: RIVAROXABAN 20 MG TAB PO SCH (21:00)
[2023-11-05] MEDS: HYDROcodone/APAP 10-325MG 1 EACH TAB PO PRN ×3 (00:45→12:12)
[2023-11-05 07:08] LABS: HCT 26.7 % (39.0-53.0); HGB 8.3 gm/dL (13.0-17.5); Hypochromasia Moderate; MCHC 31.1 g/dL (31.0-37.0); MCV 93.2 fL (80.0-100.0); Mean Platelet Volume 7.4; Platelet Count 315 k/uL (150-450); RBC 2.87 m/uL (4.30-5.90); RDW 15.3 % (11.5-15.5); WBC 8.6 k/uL (3.8-10.6)
[2023-11-05 07:10] LABS: African American GFR (CKD) >90 (>60 ml/min/1.73 sqM); Anion Gap 10 mmol/L; Blood Urea Nitrogen 12 mg/dL (9-20); Calcium 8.6 mg/dL (8.4-10.2); Carbon Dioxide 26 mmol/L (22-30); Chloride 101 mmol/L (98-107); Glucose 96 mg/dL (74-99); Non-African American GFR(CKD) >90 (>60 ml/min/1.73 sqM); Sodium 137 mmol/L (137-145)
[2023-11-05 08:13] VITALS: BP 97/55; PULSE 83; RESP 18; TEMP 98.7
[2023-11-05] MEDS ORDERED: CLOPIDOGREL 75 MG TAB PO SCH (09:00)
[2023-11-05] MEDS ORDERED: FERROUS SULFATE 325 MG TAB PO SCH (09:00)
[2023-11-05] MEDS ORDERED: CYANOCOBALAMIN 500 MCG TAB PO SCH (09:00)
[2023-11-05] MEDS ORDERED: FUROSEMIDE 20 MG TAB PO SCH (09:00)
[2023-11-05] MEDS: GABAPENTIN 300 MG CAP PO SCH (09:14)
--- NOTE | 2023-11-05 09:20 | P.CONS ---
History of Present Illness - Reason for Consult Consult date: 11/05/23 wound care - History of Present Illness His is an 82-year-old gentleman who underwent a left amputation site revision. He has a right calf medial incision all ulceration that has not healed. The ulceration does have drainage to it. It measures approximately 0.2 x 4 x 0.2 cm with Slough and minimal granulation noted. Patient also has a dry eschar to right digits. Patient's past medical history significant for DVT, hy perlipidemia, hypertension, left bkhqg-grg-mxjp amputation. Patient is a former smoker. Review Of Systems: Constitutional: No fever, no chills, no night sweats. No weight change. No weakness, fatigue or lethargy. No daytime sleepiness. Integumentary:reports wounds, no lesions. No rash or pruritus. No unusual bruising. No change in hair or nails. Review Of Systems: Constitutional: No fever, no chills, no night sweats. No weight change. No weakness, fatigue or lethargy. No daytime sleepiness. Integumentary:reports wounds, no lesions. No rash or pruritus. No unusual bruising. No change in hair or nails. Assessment: 1. Nonhealing ulceration right calf with fat layer exposure 2. 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 Apply honey gel and border foam. Change Wednesday. Thank you for the consultation any questions please contact the wound care center DNP note has been reviewed and discussed with Dr. Ortiz and the impression and plan of care has been directed as dictated. 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 ago, unsure how long he smoked or how much Past Drug Use History: None Reported - Past Family History Brother(s) History Unknown: Yes Family Medical History: Cancer, Coronary Artery Disease (CAD) Additional Family Medical History / Comment(s): 2 brothers had cancer. Father History Unknown: Yes Family Medical History: Myocardial Infarction ([place]) Mother History Unknown: Yes Family Medical History: Coronary Artery Disease (CAD) Medications and Allergies Home Medications Medication Instructions Recorded Confirmed Type Pravastatin Sodium 80 mg PO HS 02/15/23 11/04/23 History Rivaroxaban [Xarelto] 20 mg PO HS 02/26/23 11/04/23 History Tamsulosin [Flomax] 0.4 mg PO HS 02/26/23 11/04/23 History Gabapentin [Neurontin] 600 mg PO TID #9 cap 06/29/23 11/04/23 Rx HYDROcodone/APAP 10-325MG [[place] 1 tab PO Q6HR PRN 3 Days #12 tab 06/29/23 11/04/23 Rx 10-325] Cyanocobalamin [Vitamin B-12] 500 mcg PO DAILY 07/12/23 11/04/23 History Furosemide [Lasix] 20 mg PO DAILY 07/12/23 11/04/23 History Ferrous Sulfate [Iron (65 MG 325 mg PO DAILY 08/30/23 11/04/23 History Elemental)] Latanoprost Ophth [Xalatan 0.005%] 1 drops BOTH EYES HS 09/29/23 11/04/23 History Clopidogrel [Plavix] 75 mg PO DAILY #30 tab 10/04/23 11/04/23 Rx DULoxetine HCL [Cymbalta] 60 mg PO HS 10/22/23 11/04/23 History Cephalexin [Keflex] 500 mg PO Q12HR 7 Days #14 cap 10/25/23 11/04/23 Rx Aspirin [Adult Low Dose Aspirin EC] 81 mg PO HS 11/01/23 11/04/23 History Allergies Allergy/AdvReac Type Severity Reaction Status Date / Time No Known Allergies Allergy Verified 11/04/23 08:08 Physical Exam Vitals: Vital Signs Temp Pulse Pulse Resp BP Pulse Ox 11/05/23 06:57 98.7 F 83 18 97/55 93 L 11/05/23 00:35 98.6 F 79 19 119/56 93 L 11/04/23 19:35 98.4 F 80 19 108/57 95 11/04/23 15:52 89 132/65 11/04/23 14:08 98.2 F 73 18 93/50 94 L 11/04/23 13:30 75 16 116/49 100 11/04/23 13:00 76 16 108/48 100 11/04/23 12:30 74 16 97/52 100 11/04/23 12:15 78 16 105/62 100 11/04/23 12:00 68 16 118/59 100 11/04/23 11:45 75 16 114/71 100 11/04/23 11:37 79 16 133/60 100 11/04/23 11:22 97.2 F L 80 16 140/54 100 Intake and Output 11/04/23 11/05/23 11/05/23 22:59 06:59 14:59 Intake Total 50 800 Balance 50 800 Intake: Intake, IV Titration 50 Amount ceFAZolin 2 gm In Sodium 50 Chloride 0.9% 50 ml @ 100 mls/hr IVPB Q8H REPLACED BY [facility] Rx#: [id number] Oral 800 Other: Weight 56.8 kg Results CBC & Chem 7: 11/05/23 06:20 11/05/23 06:20 Labs: Abnormal Lab Results - Last 24 Hours (Table) 11/05/23 11/05/23 Range/Units 06:20 06:20 RBC 2.87 L (4.30-5.90) m/uL Hgb 8.3 L (13.0-17.5) gm/dL Hct 26.7 L (39.0-53.0) % Creatinine 0.60 L (0.66-1.25) mg/dL Assessment and Plan (1) Non-pressure chronic ulcer of right calf with fat layer exposed Current Visit: Yes Status: Acute Code(s): L97.212 - NON-PRESSURE CHRONIC ULCER OF RIGHT CALF W FAT LAYER EXPOSED SNOMED Code(s): 27025628399513704 (2) Atherosclerosis of [place] arteries of extremities with rest pain, right leg Current Visit: No Status: Acute Code(s): I70.221 - ATHSCL [place] ARTERIES OF EXTREMITIES W REST PAIN, RIGHT LEG SNOMED Code(s): 1953450303
--- NOTE | 2023-11-05 09:54 | P.DS ---
Providers Date of admission: 11/04/23 07:44 Expected date of discharge: 11/05/23 Attending physician: Coral Curran DO Consults: 11/04/23 11:28 Consult Physician Routine Consulting Provider: Dilia Ramos Consult Reason/Comments: med mgmnt Do you want consulting provider notified?: Yes Primary care physician: Yaya Croft MD Hospital Course: 82-year-old male with history of peripheral arterial disease and previous left jwmbn-qso-lokb amputation who had a pressure wound at the distal amputation site, requiring a left above the knee amputation revision. He is postop day #1. He was admitted for pain control and wound care consult. Patient states overall he is doing well. He does have some pain at the revision site. He is afebrile. Her hemoglobin is stable. He was seen by wound care recommending honey gel and border foam for the right lower extremity surgical wound. Left ksosg-ail-flei amputation site well approximated with santos, no drainage. Dressing change with AVD pad, Kerlix and Mckay wrap. Patient tolerated well. Plan for discharge home today with home healthcare services. Exam General appearance: The patient is alert, oriented, appears in no acute distress. HET: Head is normocephalic and atraumatic. Pupils are equal and reactive. Neck: Supple. Heart: Regular. Lungs: Equal expansion, normal respiratory effort. Abdomen: Soft, nontender, nondistended. Extremities: Left tgpxk-whb-fywn amputation site well approximated with santos, no surrounding redness or drainage. Right lower extremity and previous bypass incision line with small open area at the distal aspect with minimal drainage surroundingredness. Drygangrenetoesdemarcating. Neurological: No focal deficits. Assessment 1. Left lower extremity pressure wound at the distal previous amputation site status post left owjpl-fon-aekt amputation revision 2. Postsurgical pain 3. Chronic anemia 4. Right lower extremity wound 5. Right foot with Dry gangrene toes Plan Patient to be discharged home today with home health care. Wound care has evaluated patient and recommends honey gel and border foam for right lower extremity. Patient will follow with wound care in the outpatient setting. The impression and plan of care has been dictated as directed. I performed a history and examination of this patient, discussed the same with the dictator. I agree with the dictator's note ,documented as a scribe. Any additional findings or plans will be noted. Procedures: Left above-knee amputation revision Patient Condition at Discharge: Stable Plan - Discharge Summary Discharge Rx Participant: No New Discharge Prescriptions: Continue Pravastatin Sodium 80 mg PO HS Rivaroxaban [Xarelto] 20 mg PO HS Tamsulosin [Flomax] 0.4 mg PO HS HYDROcodone/APAP 10-325MG [[place] 10-325] 1 tab PO Q6HR PRN 3 Days #12 tab PRN Reason: Pain Ferrous Sulfate [Iron (65 MG Elemental)] 325 mg PO DAILY Clopidogrel [Plavix] 75 mg PO DAILY #30 tab Cephalexin [Keflex] 500 mg PO Q12HR 7 Days #14 cap Gabapentin [Neurontin] 600 mg PO TID #9 cap Cyanocobalamin [Vitamin B-12] 500 mcg PO DAILY Furosemide [Lasix] 20 mg PO DAILY DULoxetine HCL [Cymbalta] 60 mg PO HS Aspirin [Adult Low Dose Aspirin EC] 81 mg PO HS No Action Latanoprost Ophth [Xalatan 0.005%] 1 drops BOTH EYES HS Discharge Medication List Pravastatin Sodium 80 mg PO HS 02/15/23 [History] Rivaroxaban [Xarelto] 20 mg PO HS 02/26/23 [History] Tamsulosin [Flomax] 0.4 mg PO HS 02/26/23 [History] Gabapentin [Neurontin] 600 mg PO TID #9 cap 06/29/23 [Rx] HYDROcodone/APAP 10-325MG [[place] 10-325] 1 tab PO Q6HR PRN 3 Days #12 tab 06/29/23 [Rx] Cyanocobalamin [Vitamin B-12] 500 mcg PO DAILY 07/12/23 [History] Furosemide [Lasix] 20 mg PO DAILY 07/12/23 [History] Ferrous Sulfate [Iron (65 MG Elemental)] 325 mg PO DAILY 08/30/23 [History] Latanoprost Ophth [Xalatan 0.005%] 1 drops BOTH EYES HS 09/29/23 [History] Clopidogrel [Plavix] 75 mg PO DAILY #30 tab 10/04/23 [Rx] DULoxetine HCL [Cymbalta] 60 mg PO HS 10/22/23 [History] Cephalexin [Keflex] 500 mg PO Q12HR 7 Days #14 cap 10/25/23 [Rx] Aspirin [Adult Low Dose Aspirin EC] 81 mg PO HS 11/01/23 [History] Follow up Appointment(s)/Referral(s): Yaya Croft DO [REFERRING] - 1 Week Coral Curran DO [STAFF PHYSICIAN] - 2 Weeks [facility] [NON-STAFF] - 1 Week Activity/Diet/Wound Care/Special Instructions: Wound Care per recommendations from wound clinic for right lower extremity. Apply honey gel and border foam. change Wednesday Left AKA site change as needed, ABD pad, kerlix, mckay wrap or stump counselor [employer] No tub baths, shower only #Infections including increased redness, swelling, drainage, fever greater than 100.4 Discharge Disposition: HOME WITH HOME HEALTH SERVICES
--- NOTE | 2023-11-05 14:31 | P.PN ---
Subjective Progress Note Date: 11/05/23 Patient is a 82-year-old male with peripheral arterial disease status post left above-knee amputation, hypertension, dyslipidemia, and macular degeneration who presented for revision of his left stump. Patient tolerated the procedure well without any immediate postoperative complications. Patient seen and examined at bedside. Doing well. Pain is better controlled today than right after surgery. No complaints currently. Vital signs reviewed General: Nontoxic, no distress, appears at stated age Cardiovascular: S1S2 reg, no murmur Lungs: CTA bilateral, no rhonchi, no rales, no accessory muscle use Ext: No gross muscle atrophy, no contractures, no edema right lower extremity Neuro: CN II-XI grossly intact, no focal neuro deficits Psych: Alert, oriented, appropriate affect Assessment/Plan: 82-year-old male status post revision to left above-knee amputation Postoperative pain, improved - Home [place] 10/325 every 6 hours and gabapentin 600 mg 3 times daily Dry gangrene of the right toes -Wound care recs reviewed: Honey gel and border foam change Wednesday/ y/Wednesday Severe peripheral arterial disease Hypertension Dyslipidemia - aspirin 81 mg at night, Plavix 75 mg daily -Pravachol 80 mg at night, Xarelto 20 mg at night, Anemia, improved from last discharge -Hemoglobin at baseline -No indication for transfusion Chronic: Prior DVT Macular degeneration Osteoarthritis Patient medically optimized for discharge at the discretion of vascular surgery. No medication changes needed at this time. Data Review: Labs reviewed from today include CBC and basic metabolic profile which are remarkable for hemoglobin of 8.3 Thank you for allowing us to participate in the care of this pleasant patient. Do not hesitate to contact us with questions. Someone can be reached from the [facility] hospitalist group all hours of the day at [phone] or via [email or web address] serve. This dictation was prepared using [employer] voice recognition software. Though every attempt is made to correct errors during dictation some may still exist. Objective - Vital Signs Vital signs: Vital Signs Temp 98.7 F 11/05/23 06:57 Pulse 83 11/05/23 06:57 Resp 18 11/05/23 06:57 BP 97/55 11/05/23 06:57 Pulse Ox 93 L 11/05/23 06:57 FiO2 Intake & Output 11/04/23 11/05/23 11/05/23 18:59 06:59 18:59 Intake Total 901 800 50 Output Total 75 Balance 826 800 50 Weight 56.8 kg Intake: IV 851 Intake, IV Titration 50 50 Amount ceFAZolin 2 gm In Sodium 50 50 Chloride 0.9% 50 ml @ 100 mls/hr IVPB Q8H [facility] Rx#: [id number] Oral 800 Output: Estimated Blood Loss 75 Other: Voiding Method External Catheter - Labs CBC & Chem 7: 11/05/23 06:20 11/05/23 06:20 Labs: Abnormal Lab Results - Last 24 Hours (Table) 11/05/23 11/05/23 Range/Units 06:20 06:20 RBC 2.87 L (4.30-5.90) m/uL Hgb 8.3 L (13.0-17.5) gm/dL Hct 26.7 L (39.0-53.0) % Creatinine 0.60 L (0.66-1.25) mg/dL
== END 2023-11-05 13:37 | disposition home health service (06) | DRG 475 ==
LOC: 2ORMAIN 07:44 → 4SSUR 13:33
PROVIDERS: ADMIT Surgery; ATTEND Surgery
PROC: 0Y6D0Z1 Detachment at Left Upper Leg, High, Open Approach (ICD-10-PCS; principal; 2023-11-04 09:30)
DX: T87.89 Other complications of amputation stump (principal); I70.261 Atherosclerosis of native arteries of extremities with gangrene, right leg; L97.212 Non-pressure chronic ulcer of right calf with fat layer exposed; L89.899 Pressure ulcer of other site, unspecified stage; M95.5 Acquired deformity of pelvis; I10 Essential (primary) hypertension; D64.9 Anemia, unspecified; E78.5 Hyperlipidemia, unspecified; M19.90 Unspecified osteoarthritis, unspecified site; H35.30 Unspecified macular degeneration; Z87.891 Personal history of nicotine dependence; Z86.718 Personal history of other venous thrombosis and embolism; Z79.899 Other long term (current) drug therapy; Z79.82 Long term (current) use of aspirin; Z79.02 Long term (current) use of antithrombotics/antiplatelets; Z79.01 Long term (current) use of anticoagulants
CPT/HCPCS: 80048; 80053; 85025; 85027; 85610; 85730

== ENCOUNTER 2024-01-26 12:34 | Day surgery (SDC) | payer MEDICARE ==
[2024-01-25 09:24] VITALS: BMI 17.6
[~2024-01-26 12:34] MED LIST changes: +ALPRAZolam 0.25 MG TAB PO PRN; +ASPIRIN 325 MG TAB PO PRN; -DEXAMETHASONE SOD PHOSPHATE 4 MG/ML 1 ML VIAL IV ONE; -LACTATED RINGERS 1,000 ML IV SCH; -LIDOCAINE 1% (10MG/ML) FOR IV START INTRADERMA PRN; -MIDAZOLAM 2 MG/2 ML VIAL IV PRN; -ONDANSETRON 4 MG/2 ML VIAL IVP ONE
[2024-01-26] MEDS: SODIUM CHLORIDE 0.9% 1,000 ML IV ONE (13:13)
[2024-01-26] MEDS ORDERED: HEPARIN SODIUM,PORCINE 30 ML 30 ML ONE (13:46)
[2024-01-26] MEDS ORDERED: fentaNYL (PF) 50 MCG/ML 2 ML AMP ONE ×3 (13:50→15:28)
[2024-01-26] MEDS ORDERED: HEPARIN SODIUM 1,000 UN/ML (10ML VL) ONE (13:50)
[2024-01-26 13:52] LABS: Basophils # (A) 0.1 k/uL (0-0.2); Basophils % (A) 1 %; Eosinophils # (A) 0.4 k/uL (0-0.7); Eosinophils % (A) 5 %; HCT 37.2 % (39.0-53.0); HGB 11.4 gm/dL (13.0-17.5); Lymphocytes # (A) 1.7 k/uL (1.0-4.8); Lymphocytes % (A) 19 %; MCH 28.3 pg (25.0-35.0); MCHC 30.7 g/dL (31.0-37.0); MCV 92.3 fL (80.0-100.0); Mean Platelet Volume 7.1; Monocytes # (A) 0.5 k/uL (0-1.0); Monocytes % (A) 6 %; Neutrophils # (A) 5.7 k/uL (1.3-7.7); Neutrophils % (A) 67 %; Platelet Count 393 k/uL (150-450); RBC 4.03 m/uL (4.30-5.90); RDW 15.2 % (11.5-15.5); WBC 8.5 k/uL (3.8-10.6)
[2024-01-26 14:08] LABS: African American GFR (CKD) >90 (>60 ml/min/1.73 sqM); Anion Gap 6 mmol/L; Blood Urea Nitrogen 18 mg/dL (9-20); Calcium 9.2 mg/dL (8.4-10.2); Carbon Dioxide 32 mmol/L (22-30); Chloride 103 mmol/L (98-107); Glucose 99 mg/dL (74-99); Non-African American GFR(CKD) 89 (>60 ml/min/1.73 sqM); Sodium 141 mmol/L (137-145)
[2024-01-26 14:11] LABS: Potassium 5.1 mmol/L (3.5-5.1)
[2024-01-26] MEDS ORDERED: LIDOCAINE 1% INJ 10MG/ML (20 ML MDV) ONE ×2 (14:52→15:06)
[2024-01-26] MEDS: LIDOCAINE 1% INJ 10MG/ML (20 ML MDV) SQ ONE (15:28)
[2024-01-26] MEDS: MIDAZOLAM 2 MG/2 ML VIAL IVP ONE ×3 (15:29→15:44)
[2024-01-26] MEDS: fentaNYL (PF) 50 MCG/1 ML VIAL IVP ONE ×4 (15:29→15:53)
[2024-01-26] MEDS: IOPAMIDOL-370 100ML BTL INTRATHECA ONE (16:07)
--- NOTE | 2024-01-26 16:49 | IR ---
PICC Insertion: EXAMINATION TYPE: IR angio lower extremity RT Intraoperative/procedural fluoroscopic services were pr ovided. CLINICAL INDICATION:Male, 83 years old with history of right lower leg pain, 10.9min fluoro, 2.02Gycm 2; , [facility] Total fluoroscopy time is 10.9 min. DAP: 1.35 Gycm2 Please see the operative/procedural note for further details.
[2024-01-26 17:04] VITALS: RESP 17
[2024-01-26] MEDS: EMPTY BAG 1 BAG with SODIUM CHLORIDE 0.9% 1,000 ML IV SCH (18:59)
[2024-01-26] MEDS: SODIUM CHLORIDE 0.9% 500 ML 500 ML with niCARdipine 6.25 MG, NITROGLYCERIN-D5W PMX 0.05... IV ONE (19:00)
[2024-01-26 21:19] VITALS: BP 132/54; PULSE 81; TEMP 98.1
--- NOTE | 2024-02-17 11:27 | P.OP ---
Date of Procedure: 01/26/24 Description of Procedure: Preoperative diagnosis: [place] 5 peripheral arterial disease, previous femoral to below-knee popliteal bypass Postoperative diagnosis: Same Procedure: Ultrasound-guided right posterior tibial artery access Right lower extremity angiogram Moderate conscious sedation with personal monitoring of certified RN administration Surgeon: Coral Curran D.O. EBL: Less than 5 cc IV fluids: See records Urine output: Not measured Drains: None Complications: None Condition: Stable to recovery Operative indication and findings: Patient is an 83-year-old male with severe peripheral vascular disease who previously had a femoral to below-knee popliteal/tibial bypass. On recent imaging there was evidence of narrowing of the anastomosis. He is contracted and unable to straighten out his extremity. His left lower extremity is similar with inability to straighten out his leg and therefore discussion was had regarding going forward with tibial access. Risk and benefits were discussed. It seems understood and willing to proceed. Procedure in detail: Patient was taken to the special suite and placed in supine position. The right lower extremity was prepped and draped in usual sterile fashion. A preprocedural timeout performed, all parties were in agreement. Using ultrasound, the posterior tibial artery was identified. The skin overlying was anesthetized 1% lidocaine plain. The artery was patent without significant calcific disease at this level. Permanent image was stored. Seldinger technique was used to place a slender sheath. Verapamil infusion was placed. An angiogram was performed showing moderate diffuse disease without any obvious areas of occlusion. The anastomosis of the bypass was unable to be visualized. There was calcific disease visualized. Catheters and wires were used to attempt traversing the area where the presumed anastomosis was located but were unsuccessful. Patient was unable to straighten his leg at all making visualization and motion very difficult. At this point, no further attempts were made, the catheters and wires were removed. The sheath was removed and a TR band was placed for adequate hemostasis. The patient tolerated the procedure well.
== END 2024-01-26 21:38 | disposition home or self-care (01) ==
LOC: CATHCVL 12:34 → 6NMEDSUR 16:08 → CATHCVL 21:38
PROVIDERS: ATTEND Surgery
DX: I70.201 Unspecified atherosclerosis of native arteries of extremities, right leg (principal); F10.90 Alcohol use, unspecified, uncomplicated; Z79.899 Other long term (current) drug therapy; Z87.891 Personal history of nicotine dependence; Z89.612 Acquired absence of left leg above knee
CPT/HCPCS: 99152; 36140; 75710; 76937; 80048; 85025; J2250; J2001; Q9967; J3010

== ENCOUNTER 2024-02-24 06:24 | Inpatient (IN) | payer MEDICARE ==
[2024-02-23 11:36] VITALS: BMI 16.9
[2024-02-24] MEDS ORDERED: MIDAZOLAM 2 MG/2 ML VIAL IV PRN (07:00)
[2024-02-24] MEDS ORDERED: ROCURONIUM 10 MG/ML (5 ML VIAL) IV ONE (07:20)
[2024-02-24] MEDS ORDERED: SUCCINYLCHOLINE CHLORIDE 200 MG/10 ML VIAL IV ONE (07:20)
[2024-02-24] MEDS ORDERED: LIDOCAINE 1% INJ 10MG/ML (20 ML MDV) ONE (07:20)
[2024-02-24] MEDS ORDERED: fentaNYL (PF) 50 MCG/ML 2 ML AMP ONE (07:20)
[2024-02-24] MEDS ORDERED: PROPOFOL 10 MG/ML 20 ML VIAL IV ONE (07:20)
[2024-02-24] MEDS ORDERED: PHENYLEPHRINE 10 MG/ML VIAL ONE (07:20)
[2024-02-24] MEDS ORDERED: GLYCOPYRROLATE 0.2 MG/ML 2 ML VIAL ONE (07:20)
[2024-02-24] MEDS ORDERED: NEOSTIGMINE 1 MG/ML 10 ML VIAL ONE (07:20)
[2024-02-24] MEDS: ONDANSETRON 4 MG/2 ML VIAL IVP ONE (07:25)
[2024-02-24] MEDS: LACTATED RINGERS 1,000 ML IV SCH (07:25)
[2024-02-24] MEDS: DEXAMETHASONE SOD PHOSPHATE 4 MG/ML 1 ML VIAL IV ONE (07:25)
[2024-02-24] MEDS: ceFAZolin 2,000 MG in SODIUM CHLORIDE 0.9% 500 ML IRRIGATION ONE (07:53)
[2024-02-24] MEDS: LACTATED RINGERS 1,000 ML IV ONE (08:27)
--- NOTE | 2024-02-24 08:44 | P.OP ---
Date of Procedure: 02/24/24 Description of Procedure: Preoperative diagnosis: Right lower extremity ischemia Postoperative diagnosis: Same Procedure: Right above-knee amputation Surgeon: Coral Curran D.O. Anesthesia: General endotracheal EBL: 100 cc IV fluids: See records Urine output: Not measured Drains: None Complications: None immediately apparent Condition: Stable Operative indication and findings: Patient is an 83-year-old male with severe peripheral vascular disease who has undergone multiple bypass surgeries and interventions who has had issues with continued rest pain and ischemic changes despite having a bypass that currently remained patent. At this point he has elected undergo an above-knee amputation. Risks and benefits were discussed. He seems understood and was willing to proceed. Procedure in detail: The patient was taken to the operative suite and placed in supine position. After adequate anesthesia, the right lower extremity was prepped and draped in usual sterile fashion. A preprocedure timeout was performed, all parties were in agreement. Skin marker was utilized and the incision was marked approximately 5 cm proximal to the knee joint. Skin incision was performed and deepened through the subcutaneous tissues to the muscular fascia. The saphenous vein was identified and ligated with 2-0 silk and divided. The muscle groups of the anterior and medial thigh were divided with electrocautery at the same level of the skin incision. The neurovascular bundle was identified on the medial aspect of the thigh. The artery and veins were isolated and suture ligated using 2-0 silk ligature. The sciatic nerve was pulled on stretch and ligated with 2-0 silk tie and divided. The femur was then cleared of its periosteal tissue is elevated roughly 5 cm proximally and was divided with the oscillating saw. The posterior thigh muscles were then divided with electrocautery. The proximal end of the transected femur was smoothed with a rasp. The amputation site was then copiously irrigated. Hemostasis was controlled with electrocautery. The periosteum was reapproximated using inte rrupted sutures of 2-0 Vicryl. The fascia was reapproximated with interrupted ytrgxa-eb-oayiz sutures of 2-0 Vicryl. The skin was reapproximated with santos. A dressing with gauze, Kerlix and a bandage were placed. The patient tolerated the procedure well and was transported to PACU in stable condition
[2024-02-24] MEDS: HYDROmorphone 0.5 MG/0.5 ML SYRINGE IVP PRN (09:37)
[2024-02-24] MEDS: MORPHINE SULFATE 4 MG/ML SYRINGE IVP PRN (12:44)
[2024-02-24] MEDS ORDERED: CYCLOBENZAPRINE 5 MG TAB PO PRN (14:56)
--- NOTE | 2024-02-24 16:00 | P.CONS ---
History of Present Illness - Reason for Consult Consult date: 02/24/24 - History of Present Illness 83-year-old male with peripheral arterial disease status post left above-knee amputation, hypertension, dyslipidemia, and macular degeneration, L DERREK presents to [facility] for R AKA. [facility] Physicians consulted for medical management of this patient. Patient reports well controlled pain with Morphine PRN. Urinating freely. No bowel movement. No other complaints. General: Nontoxic, no distress, appears at stated age Derm: Warm, dry Head: Atraumatic, normocephalic, symmetric Eyes: EOMI, no lid lag, anicteric sclera Mouth: No lip lesion, mucus membranes moist Cardiovascular: S1S2 reg, no murmur Lungs: CTA bilateral, no rhonchi, no rales, no accessory muscle use Ext: No gross muscle atrophy, no edema, no contractures, BL AKA dressing c/d/i Neuro: no focal neuro deficits Psych: Alert, oriented, appropriate affect Acute blood loss anemia: Hg 8.3. Expected result of surgery. Monitor. Transfuse if Hg < 7. Severe peripheral arterial disease: ASA 81 mg PO QD, Plavix 75 mg PO QD, Xarelto 20 mg PO QD when OK with Vascular Sx. Pain control with Morphine 4 mg IV Q2H PRN, [place] 5 Q4H PRN, Gabapentin 600 mg PO TID, Cymbalta 60 mg PO QHS. Pravastatin 80 mg PO QD. Dyslipidemia: Pravastatin as above. Prior DVT: Xarelto as above. Macular degeneration Osteoarthritis CODE STATUS: FULL CODE DVT Prophylaxis: GI Prophylaxis: Designated medical POA if patient is not able to make medical decisions for themselves: I have reviewed the following showroom consultant notes: Operative note. I have reviewed the results of the following tests: CBC. I have ordered the following tests: CBC. I have discussed the care of this patient with the following independent historian: PAUL. I have independently interpreted the following test below: I have discussed the management of this patient with the following physician: Past Medical History Past Medical History: Deep Vein Thrombosis (DVT), Eye Disorder, Hearing Disorder / Deafness, Hyperlipidemia, Hypertension, Osteoarthritis (OA), Vascular Disorder Additional Past Medical History / Comment(s): Macular degeneration, hard of hearing, hx DVT 2000, leg pain, Left lower extremity edema, PAD, BP running low at times History of Any Multi-Drug Resistant Organisms: None Reported Past Surgical History: Orthopedic Surgery Additional Past Surgical History / Comment(s): Cataracts removed, cervical fusion, left 2nd and 3rd toe ampuation, left femoral-tibial bypass with endarterectomy, left leg AKA 10/22/23, I&D of right leg incision, revision of left AKA 11/04/23. Past Anesthesia/Blood Transfusion Reactions: No Reported Reaction Past Psychological History: No Psychological Hx Reported Smoking Status: Former smoker Past Alcohol Use History: Rare Additional Past Alcohol Use History / Comment(s): Quit smoking >30 yrs ago, unsure how long he smoked or how much. Past Drug Use History: None Reported - Past Family History Brother(s) History Unknown: Yes Family Medical History: Cancer, Coronary Artery Disease (CAD) Additional Family Medical History / Comment(s): 2 brothers had cancer. Father History Unknown: Yes Family Medical History: Myocardial Infarction ([place]) Mother History Unknown: Yes Family Medical History: Coronary Artery Disease (CAD) Medications and Allergies Home Medications Medication Instructions Recorded Confirmed Type Gabapentin [Neurontin] 600 mg PO TID #9 cap 06/29/23 02/24/24 Rx Cyanocobalamin [Vitamin B-12] 500 mcg PO DAILY 07/12/23 02/24/24 History Clopidogrel [Plavix] 75 mg PO DAILY #30 tab 10/04/23 02/23/24 Rx Aspirin [Adult Low Dose Aspirin EC] 81 mg PO HS 11/01/23 02/24/24 History Cyclobenzaprine [Flexeril] 5 mg PO QAM PRN 01/25/24 02/24/24 History Cyclobenzaprine [Flexeril] 10 mg PO HS PRN 01/25/24 02/24/24 History Furosemide [Lasix] 20 mg PO DAILY 01/25/24 02/24/24 History Pravastatin Sodium 80 mg PO HS 01/25/24 02/24/24 History Rivaroxaban [Xarelto] 20 mg PO DAILY 01/25/24 02/23/24 History DULoxetine HCL [Cymbalta] 60 mg PO HS 02/23/24 02/24/24 History Allergies Allergy/AdvReac Type Severity Reaction Status Date / Time No Known Allergies Allergy Verified 02/24/24 06:55 Physical Exam Vitals: Vital Signs Temp Pulse Pulse Resp BP BP Pulse Ox 02/24/24 12:34 97.6 F 72 16 95/50 95 02/24/24 12:14 68 12 113/53 98 02/24/24 11:30 69 16 109/53 97 02/24/24 11:07 72 16 106/52 98 02/24/24 10:37 72 16 135/57 98 02/24/24 10:23 70 16 103/51 98 02/24/24 10:08 70 16 115/56 99 02/24/24 09:53 72 16 121/60 93 L 02/24/24 09:38 67 16 129/62 02/24/24 09:22 67 16 137/62 02/24/24 09:07 64 16 125/58 02/24/24 08:52 67 16 132/59 100 02/24/24 08:37 97 F L 72 12 174/72 95 02/24/24 07:02 97.0 F L 89 16 133/60 95 Intake and Output 02/24/24 02/24/24 02/24/24 06:59 14:59 22:59 Intake Total 1521 Output Total 100 Balance 1421 Intake: IV 1401 Oral 120 Output: Estimated Blood Loss 100 Other: # Voids 1 Weight 56.7 kg
[2024-02-24] MEDS: GABAPENTIN 300 MG CAP PO SCH (16:35)
[2024-02-24] MEDS: HYDROcodone/APAP 5-325MG 1 EACH TAB PO PRN (16:36)
[2024-02-24] MEDS: DULoxetine HCL 60 MG CAPSULE.DR PO SCH (20:26)
[2024-02-24] MEDS: PRAVASTATIN SODIUM 80 MG TAB PO SCH (20:26)
[2024-02-25] MEDS: CYCLOBENZAPRINE 5 MG TAB PO PRN (08:31)
[2024-02-25] MEDS: CYANOCOBALAMIN 500 MCG TAB PO SCH (08:31)
[2024-02-25] MEDS: FUROSEMIDE 20 MG TAB PO SCH (08:31)
[2024-02-25 08:57] VITALS: BP 110/62
[2024-02-25 11:52] VITALS: PULSE 86; RESP 16; TEMP 98.2
--- NOTE | 2024-02-25 11:53 | P.PN ---
Subjective Progress Note Date: 02/25/24 83-year-old male with peripheral arterial disease status post left above-knee amputation, hypertension, dyslipidemia, and macular degeneration, L DERREK presents to [facility] for R AKA. [facility] Physicians consulted for medical management of this patient. 02/23 Patient reports well controlled pain with Morphine PRN. Urinating freely. No bowel movement. No other complaints. 02/24 Patient was seen and examined. Well controlled pain. Urinating freely. Passing gas. No complaints. CBC and BMP pending. General: Nontoxic, no distress, appears at stated age Derm: Warm, dry Head: Atraumatic, normocephalic, symmetric Eyes: EOMI, no lid lag, anicteric sclera Mouth: No lip lesion, mucus membranes moist Cardiovascular: S1S2 reg, no murmur Lungs: CTA bilateral, no rhonchi, no rales, no accessory muscle use Ext: No gross muscle atrophy, no edema, no contractures, BL AKA dressing c/d/i Neuro: no focal neuro deficits Psych: Alert, oriented, appropriate affect Severe peripheral arterial disease: ASA 81 mg PO QD, Plavix 75 mg PO QD, Xarelto 20 mg PO QD when OK with Vascular Sx. Pain control with Morphine 4 mg IV Q2H PRN, Vale 5 Q4H PRN, Gabapentin 600 mg PO TID, Cymbalta 60 mg PO QHS. Pravastatin 80 mg PO QD. Dyslipidemia: Pravastatin as above. Prior DVT: Xarelto as above. Macular degeneration Osteoarthritis CODE STATUS: FULL CODE DVT Prophylaxis: GI Prophylaxis: Designated medical POA if patient is not able to make medical decisions for themselves: I have reviewed the following technology sales consultant notes: Vascular Sx. I have reviewed the results of the following tests: I have ordered the following tests: CBC and BMP. I have discussed the care of this patient with the following independent historian: Case management. I have independently interpreted the following test below: I have discussed the management of this patient with the following physician: Objective - Vital Signs Vital signs: Vital Signs Temp 98.2 F 02/25/24 11:18 Pulse 86 02/25/24 11:18 Resp 16 02/25/24 11:18 BP 110/62 02/25/24 11:18 Pulse Ox 94 L 02/25/24 11:18 FiO2 Intake & Output 05/12/1802/25/24 02/25/24 18:59 06:59 18:59 Intake Total 1641 Output Total 100 300 Balance 1541 -300 Weight 56.7 kg Intake: IV 1401 Oral 240 Output: Urine 300 Estimated Blood Loss 100 Other: # Voids 1
[2024-02-25 12:46] LABS: African American GFR (CKD) >90 (>60 ml/min/1.73 sqM); Anion Gap 7 mmol/L; Blood Urea Nitrogen 11 mg/dL (9-20); Calcium 8.4 mg/dL (8.4-10.2); Carbon Dioxide 30 mmol/L (22-30); Chloride 99 mmol/L (98-107); Glucose 105 mg/dL (74-99); Non-African American GFR(CKD) >90 (>60 ml/min/1.73 sqM); Sodium 136 mmol/L (137-145)
[2024-02-25 13:12] LABS: HCT 28.1 % (39.0-53.0); Hypochromasia Moderate; MCH 28.1 pg (25.0-35.0); MCHC 30.9 g/dL (31.0-37.0); Mean Platelet Volume 7.3; Platelet Count 506 k/uL (150-450); RBC 3.09 m/uL (4.30-5.90); RDW 14.8 % (11.5-15.5); WBC 7.7 k/uL (3.8-10.6)
--- NOTE | 2024-02-25 13:12 | P.DS ---
Providers Date of admission: 02/24/24 06:24 Expected date of discharge: 02/25/24 Attending physician: Coral Curran DO Consults: 02/24/24 08:48 Consult Physician Urgent Consulting Provider: Dilia Ramos Consult Reason/Comments: med mgmnt Do you want consulting provider notified?: Yes Primary care physician: [facility] Course: This is a 83-year-old male with severe peripheral vascular disease who has undergone multiple bypass surgeries and intervention and who continue to have issues with rest pain and ischemic changes despite having bypass that remained patent. Patient elected to undergo zjeke-cbf-lane amputation. He is postop day #1 for right xridr-zaq-need amputation. States his pain has been very well- controlled. He denies any fevers or chills. Denies shortness of breath, chest pain, abdominal pain, nausea or vomiting. He is tolerating his diet. He has been afebrile. Plan is for discharge home today with his and home care which has been set up. Exam General appearance: The patient is alert, oriented, appears in no acute distress. HET: Head is normocephalic and atraumatic. Pupils are equal and reactive. Neck: Supple. Heart: Regular. Lungs: Equal expansion, normal respiratory effort. Abdomen: Soft, nontender, nondistended. Extremities: Left aqlcr-qrq-pxdr amputation well-healed. Right hgyhi-eri-qzlz amputation site well-approximated with santos, her tissue is pink,, and warm. No bleeding noted. Neurological: No focal deficits. Assessment 1. Right lower extremity ischemia status post right qvtsx-ndg-yadz amputation 2. Severe peripheral arterial disease 3. History of previous left thpvq-wgt-ndpg amputation Plan Orders for stump vertical borer and rigid dressing placed for comfort prosthetics. Patient they will follow patient after discharge. Dressing changed with Adaptic, 4 x 4, ABD pad, Kerlix and Mckay wrap. Discussed with patient's can change dressing daily or as needed. Discharge instructions reviewed with patient. Plan for discharge home today with home health care. The impression and plan of care has been dictated as directed. Dr. Curran I performed a history and examination of this patient, discussed the same with the dictator. I agree with the dictator's note ,documented as a scribe. Any additional findings or plans will be noted. Procedures: Right hhskz-zng-fmit amputation Patient Condition at Discharge: Stable Plan - Discharge Summary Discharge Rx Participant: No New Discharge Prescriptions: Continue Clopidogrel [Plavix] 75 mg PO DAILY #30 tab Cyclobenzaprine [Flexeril] 10 mg PO HS PRN PRN Reason: Pain Rivaroxaban [Xarelto] 20 mg PO DAILY Cyclobenzaprine [Flexeril] 5 mg PO QAM PRN PRN Reason: Pain Furosemide [Lasix] 20 mg PO DAILY Pravastatin Sodium 80 mg PO HS DULoxetine HCL [Cymbalta] 60 mg PO HS Gabapentin [Neurontin] 600 mg PO TID #9 cap Cyanocobalamin [Vitamin B-12] 500 mcg PO DAILY Aspirin [Adult Low Dose Aspirin EC] 81 mg PO HS Discharge Medication List Gabapentin [Neurontin] 600 mg PO TID #9 cap 06/29/23 [Rx] Cyanocobalamin [Vitamin B-12] 500 mcg PO DAILY 07/12/23 [History] Clopidogrel [Plavix] 75 mg PO DAILY #30 tab 10/04/23 [Rx] Aspirin [Adult Low Dose Aspirin EC] 81 mg PO HS 11/01/23 [History] Cyclobenzaprine [Flexeril] 5 mg PO QAM PRN 01/25/24 [History] Cyclobenzaprine [Flexeril] 10 mg PO HS PRN 01/25/24 [History] Furosemide [Lasix] 20 mg PO DAILY 01/25/24 [History] Pravastatin Sodium 80 mg PO HS 01/25/24 [History] Rivaroxaban [Xarelto] 20 mg PO DAILY 01/25/24 [History] DULoxetine HCL [Cymbalta] 60 mg PO HS 02/23/24 [History] Follow up Appointment(s)/Referral(s): Yaya Croft DO [Primary Care Provider] - 1 Week Coral Curran DO [STAFF PHYSICIAN] - 03/08/24 1:45 pm [facility], [NON-STAFF] - Patient Instructions/Handouts: Above the Knee Amputation (DC) Activity/Diet/Wound Care/Special Instructions: Comfort Orthotics will fit Stump Work Station Support Specialist on Wednesday. [phone] Daily dressing change with Adaptic, 4 x 4, ABD pad wrapped with Kerlix and Mckay wrap No tub bathing, shower only until cleared by vascular surgeon Monitor surgical site for signs of infection including redness, increased drainage, fevers greater than 100.4. Discharge/Stand Alone Forms: Who Do I Call?, Community Resources Discharge Disposition: HOME WITH HOME HEALTH SERVICES
[2024-02-25 13:14] LABS: HGB 8.7 gm/dL (13.0-17.5)
== END 2024-02-25 14:07 | disposition home health service (06) | DRG 241 ==
LOC: 2ORMAIN 06:24 → 3SCARD 12:00
PROVIDERS: ADMIT Surgery; ATTEND Surgery
PROC: 0Y6C0Z1 Detachment at Right Upper Leg, High, Open Approach (ICD-10-PCS; principal; 2024-02-24 07:30)
DX: I70.221 Atherosclerosis of native arteries of extremities with rest pain, right leg (principal); E78.5 Hyperlipidemia, unspecified; M19.90 Unspecified osteoarthritis, unspecified site; H91.90 Unspecified hearing loss, unspecified ear; I10 Essential (primary) hypertension; H35.30 Unspecified macular degeneration; Z89.612 Acquired absence of left leg above knee; Z87.891 Personal history of nicotine dependence; Z86.718 Personal history of other venous thrombosis and embolism; Z79.899 Other long term (current) drug therapy; Z79.82 Long term (current) use of aspirin; Z79.02 Long term (current) use of antithrombotics/antiplatelets; Z79.01 Long term (current) use of anticoagulants
CPT/HCPCS: 80048; 85027